=== PATIENT | female | born 1990 | race Caucasian/White ===

== ENCOUNTER → 2017-08-09 12:09 | Outpatient (CLI) | payer BC, MEDICAID, SELFPAY ==
--- NOTE | 2017-08-09 12:18 | US_ITS ---
STUDY: ULTRASOUND OF THE FEMALE PELVIS - COMPLETE REASON FOR EXAM: Female, 26 years old. Pelvic pain LMP: Not stated TECHNIQUE: Transabdominal and Transvaginal real-time exam with agosto scale image documentation. TECHNICAL QUALITY: Adequate. COMPARISON: None. FINDINGS: The uterus is anteverted and is in a midline position. The uterus measures 8.1 x 5.7 x 4.1 cm. Complex cystic area in the lower uterine segment cervix consistent with nabothian cyst. This measures 9 x 6 x 6 mm. The endometrium measures 2.8 mm in thickness, and is hyperechoic. There is no demonstrated endometrial mass. There is no demonstrated myometrial mass. I.U.D. - The patient does not have an I.U.D. The right ovary is visualized. The right ovary measures 3.4 x 2.5 x 2.2 cm. There is no right ovarian cyst or ovarian mass. There is no visualized right adnexal mass or complex lesion. There is normal arterial and normal venous vascularity. The left ovary is visualized. The left ovary measures 2.4 x 1.9 x 1.5 cm. There is no left ovarian cyst or ovarian mass. There is no visualized left adnexal mass or complex lesion. There is normal arterial and normal venous vascularity. There is no fluid in the cul-de-sac. Unremarkable urinary bladder. Polycystic ovary disease: No. US/Pelvic (Non ) IMPRESSION: 9 x 6 x 6 complex nabothian cyst of the lower uterine segment/cervix. Otherwise normal uterus. Normal ovaries bilaterally with normal Doppler flow. Negative for adnexal masses or free fluid. Electronically Signed: Pastoar Leon MD at 23:56 EDT , Service support ,
--- NOTE | 2017-08-09 12:18 | US_ITS ---
STUDY: ULTRASOUND OF THE FEMALE PELVIS - COMPLETE REASON FOR EXAM: Female, 26 years old. Pelvic pain LMP: Not stated TECHNIQUE: Transabdominal and Transvaginal real-time exam with agsoto scale image documentation. TECHNICAL QUALITY: Adequate. COMPARISON: None. FINDINGS: The uterus is anteverted and is in a midline position. The uterus measures 8.1 x 5.7 x 4.1 cm. Complex cystic area in the lower uterine segment cervix consistent with nabothian cyst. This measures 9 x 6 x 6 mm. The endometrium measures 2.8 mm in thickness, and is hyperechoic. There is no demonstrated endometrial mass. There is no demonstrated myometrial mass. I.U.D. - The patient does not have an I.U.D. The right ovary is visualized. The right ovary measures 3.4 x 2.5 x 2.2 cm. There is no right ovarian cyst or ovarian mass. There is no visualized right adnexal mass or complex lesion. There is normal arterial and normal venous vascularity. The left ovary is visualized. The left ovary measures 2.4 x 1.9 x 1.5 cm. There is no left ovarian cyst or ovarian mass. There is no visualized left adnexal mass or complex lesion. There is normal arterial and normal venous vascularity. There is no fluid in the cul-de-sac. Unremarkable urinary bladder. Polycystic ovary disease: No. US/Transvaginal Non- IMPRESSION: 9 x 6 x 6 complex nabothian cyst of the lower uterine segment/cervix. Otherwise normal uterus. Normal ovaries bilaterally with normal Doppler flow. Negative for adnexal masses or free fluid. Electronically Signed: Pastora Leon MD at 23:56 EDT , Service support ,
== END ==
PROVIDERS: Family Provider Student in an Organized Health Care Education/Training Program; PCP Student in an Organized Health Care Education/Training Program; Visit Provider Obstetrics & Gynecology
DX: N94.6 Dysmenorrhea, unspecified (principal)
CPT/HCPCS: 76830; 76856; 93976

== ENCOUNTER → 2017-12-03 18:20 | Outpatient (CLI) | payer BC, MEDICAID, SELFPAY | PROVIDERS: Family Provider Student in an Organized Health Care Education/Training Program; PCP Student in an Organized Health Care Education/Training Program; Visit Provider Obstetrics & Gynecology | DX: R39.15 Urgency of urination (principal) | CPT/HCPCS: 87086 ==

== ENCOUNTER → 2018-09-09 17:47 | Outpatient (CLI) | payer MEDICAID, SELFPAY ==
[2018-09-09 11:16] VITALS: BMI 27.1
[2018-09-09 20:29] LABS: Chlamydia Trachomatis by PCR Negative (Negative); Neisserai gonorrhoeae by PCR Negative (Negative); Probe Check PASS; Sample Adequacy Control PASS; Specimen Processing Control PASS
[2018-09-16 16:40] LABS: HPV Reflexed? NOT INDICATED
== END ==
PROVIDERS: Family Provider Student in an Organized Health Care Education/Training Program; PCP Student in an Organized Health Care Education/Training Program; Referring Provider Obstetrics & Gynecology; Visit Provider Obstetrics & Gynecology
DX: Z12.4 Encounter for screening for malignant neoplasm of cervix (principal); Z11.3 Encounter for screening for infections with a predominantly sexual mode of transmission
CPT/HCPCS: 87491; 87591; 87624; 88175; G0145

== ENCOUNTER → 2018-09-19 | Outpatient (CLI) | payer MEDICAID, SELFPAY ==
[2018-09-19 10:11] VITALS: BMI 27.1
== END | disposition home or self-care (01) ==
LOC: LABSPEC 17:05
PROVIDERS: Family Provider Student in an Organized Health Care Education/Training Program; PCP Student in an Organized Health Care Education/Training Program; Referring Provider Nurse Practitioner Women's Health; Visit Provider Nurse Practitioner Women's Health
DX: N39.0 Urinary tract infection, site not specified (principal)
CPT/HCPCS: 87086

== ENCOUNTER → 2019-02-23 | Outpatient (CLI) | payer MEDICAID, SELFPAY ==
[2019-02-23 14:48] VITALS: BMI 21.4
[2019-02-23 17:03] LABS: Estradiol 83.2 pg/mL; Follicle Stimulating Hormone 6.2 mIU/mL; Prolactin 7.5 ng/mL
[2019-02-26 05:07] LABS: DHEA Sulfate 94.1 ug/dL (84.8-378.0)
[2019-02-26 15:27] LABS: Testosterone Free 1.3 pg/mL (0.0-4.2)
[2019-02-27 12:42] LABS: 17-Hydroxyprogesterone 95 ng/dL (.)
== END | disposition home or self-care (01) ==
PROVIDERS: Family Provider Student in an Organized Health Care Education/Training Program; PCP Student in an Organized Health Care Education/Training Program; Referring Provider Obstetrics & Gynecology; Visit Provider Obstetrics & Gynecology
DX: E28.2 Polycystic ovarian syndrome (principal)
CPT/HCPCS: 36415; 82627; 82670; 83001; 83498; 84146; 84402; 82626

== ENCOUNTER 2019-10-23 09:00 | Outpatient (RCR) | payer MEDICAID, SELFPAY ==
[2019-10-19 13:04] VITALS: BMI 21.4
--- NOTE | 2019-10-23 09:10 | BH.SGPN.GN ---
Behaviors/Verbalizations/Mental Status: [] Eye contact is good. Motor activity is appropriate. Appearance is casual. Speech is Appropriate. Mood is anxious. Affect is congruent. Thoughts are linear and logical. No evidence of psychosis. Reviewed daily check in sheet and no reports of suicidal ideations or intent. Client Response/Progress/Benefit: [] Pt participated at times in group discussion on fear, anger, and healthy ways to express these emotions. Shared with the group that this is her first day in IOP. Reports increase in anxiety which has led to frequent panic attacks. Fear related to COVID and how it might impact her and her family. In discussion states I don't know any ways to manger my anger in a healthy way. Attentive. No progress noted as this was her first day in IOP. Will continue in IOP to prevent decompensation, increase skills, and stabilize anxiety. Narrative Note: []
--- NOTE | 2019-10-23 10:10 | BH.SGPN.GN ---
Behaviors/Verbalizations/Mental Status: [] Client alert and oriented, casually dressed and groomed. Eye contact good. Motor activity appropriate. Speech within normal limits, quiet. Affect congruent, mood anxious and depressed. Thoughts linear, logical, no signs of hallucinations or delusions. Client Response/Progress/Benefit: []Pt new to IOP program however did well to remain attentive as well as engaged in discussion and activity. Client discussed the quote and provided input that by not communicating our emotions, we are not able to our needs get met or problems are solved. Client helped group identify barriers that impact one?s ability to communicate when emotions are high. These barriers included; shutting down, lack of self-care, irritability, fear of reactions, and distorted thinking patterns. Client reported fear of other?s reactions can keep her from communicating when she feels strong emotions. Client participated in the challenge activity and did well to take on active participant role as well as manage emotions throughout. Client appeared to benefit from increasing awareness of how emotions can impact communication and practicing in the moment coping skills. Progress limited as it is pt?s first day in program, however she did well to remain engaged throughout. Client will continue IOP tx to further decrease depression, improve coping skill application, and improve daily functioning. Narrative Note: []
--- NOTE | 2019-10-23 11:10 | BH.SGPN.GN ---
Behaviors/Verbalizations/Mental Status: []Client alert and oriented, casually dressed and groomed. Eye contact good. Motor activity appropriate. Speech within normal limits. Affect unable to gather due to wearing a mask for COVID-19 protocol, mood anxious. Thoughts linear, logical, no signs of hallucinations or delusions. Client Response/Progress/Benefit: []Client engaged in session AEB client listening attentively to peers and providing insight to discussion. Attentive during psychoeducation on 4 zones of regulation. Client able to identify feelings and behaviors for each zone. Group identified coping skills one can use to support self in each zone which included: walking, mindfulness, deep breathing, music, talking to supports, and opposite action. Client stated belief that she is in a mixture of zones today. Client stated at the beginning of the week she was in the red zone and in the middle of the week she was in the blue zone. Client reports she is feeling tired and uneasy about her symptoms earlier this week, but she is beginning to finally start to feel better. Client reports she can benefit from eating a healthy meal today and getting some rest. Benefited from increased education on zones of regulation or stages of alertness for emotions and healthy coping skills to use for each zone. Will continue IOP tx to prevent decompensation of depressive symptoms, improve mood stability, and reinforce healthy coping skills. Narrative Note: []
--- NOTE | 2019-10-23 14:30 | BH.COMM ---
Communication Note - Communication with Client Communication Note: Met with pt to complete initial paperwork and [facility] suicide risk screening. No Significant changes since pre-admission screening. Low risk for suicide. Denies history of any active SI, plan, or intent. Protective factors. Future-oriented. Pt denies any history of suicide attempts or self-harming behaviors. 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 Pt. states these weapons are locked up and safe.
--- NOTE | 2019-10-26 09:05 | BH.SGPN.GN ---
Behaviors/Verbalizations/Mental Status: [] Client alert and oriented, casual dress. Eye contact fair, often looking down or away. Motor activity appropriate. Client opted not to share today therefore unable to gather speech. Affect unable to gather due to client wearing a mask for COVID-19 protocol, mood anxious. Thoughts linear, logical, no signs of hallucinations or delusions. Reviewed client?s symptom tracker, no signs of suicidal ideation, plan, or intent as of today. Client Response/Progress/Benefit: []Pt attentive during session and appearing to listen throughout, AEB nodding while others shared. Reports that she would prefer not to share today and did not elaborate any further as to why. Pt self-reported on the daily symptom tracker increased anxiety. Appeared to benefit from listening to fellow participants share and appeared to connect with various members of the group. Progress limited due to pt minimal engagement. Will continue IOP tx to promote more consistent mood stability and management, improve daily functioning, and prevent decompensation. Narrative Note: []
--- NOTE | 2019-10-26 11:16 | BH.SGPN.GN ---
Behaviors/Verbalizations/Mental Status: []Client alert and oriented, casually dressed and groomed. Eye contact good. Motor activity appropriate. Speech within normal limits. Affect unable to gather due to client wearing a mask for COVID-19 protocol, mood anxious. Thoughts linear, logical, no signs of hallucinations or delusions. Client Response/Progress/Benefit: []Client engaged participant as evidenced by client taking notes and listening attentively to peers. Client participated in the discussion of how each resiliency component can help increase personal resiliency. Client identified resiliency traits she currently possesses and then identified what trait she would like to improve. Client reports belief she has been using the resiliency traits of self-awareness and self-care. Client shared she is much more aware of her warning signs and triggers now than she was in the past. Client reported she wants to improve on the resiliency trait of acceptance. Client shared ?I?m a creature of habit? so client does not like change. Client stated she can remind herself that not all change is bad and practice looking at the positives when faced with change. Client appeared to benefit from increasing insight to ways in which client can improve resilience to adversity and daily stressors. Client to continue IOP tx to prevent decompensation, improve emotional regulation skills, and reduce anxiety. Narrative Note: []
--- NOTE | 2019-10-27 11:16 | BH.SGPN.GN ---
Behaviors/Verbalizations/Mental Status: []Client alert and oriented, casually dressed and groomed. Eye contact fair. Motor activity appropriate. Speech within normal limits. Affect constricted, though difficult to assess as pt wearing a mask due to COVID-19 hospital protocol, mood depressed and anxious. Thoughts linear, logical, no signs of hallucinations or delusions. Client Response/Progress/Benefit: [] Client a mostly passive participant AEB contributing limited input to discussion, though remaining attentive and taking notes throughout. Client actively listening group discussion about the different types of support and benefits different support can provide. Client completed worksheet in which she identified areas she would like to increase social support. Identified the area of personal mental health support by challenging herself to reach out to potential new supports. Client shared this will help improve her support net and have more options of supports to lean on when struggling. Client seemed to benefit from identifying a type of support she would like to improve upon and brainstorming small steps to take in order to successfully do so. Progress limited AEB client lack of engagement in IOP treatment. Client to continue IOP tx to increase symptom management, improve healthy coping skills, and increase mood stability. Narrative Note: []
--- NOTE | 2019-10-27 13:53 | BH.MDN_ITS ---
Multi-Disciplinary Note - Note 45-min Individual Time Started:: 09:32 Date: 10/27/19 Purpose of session/treatment goals addressed:: Purpose of session was to assess pt's current symptoms and stressors. Session focus was on establishing treatment goals while in IOP. Eye Contact:: Good Motor Activity:: Appropriate Appearance:: Casual Speech:: Appropriate Mood:: Anxious, Dysthymic Affect:: Other - could not be assessed due to pt wearing a mask because of coronavirus precautions. Thoughts:: Linear, Logical, No evidence of hallucinations/delusions noted Staff Interventions:: Therapist used open ended questions to elicit pt's current symptoms and stressors. Therapist collaborated with pt on what goals pt would like to focus on while in IOP. Therapist provided brief psychoeducation about importance of setting boundaries with others so pt has time for self-care. Elicited small goal for the rest of the week. Client Response:: Pt reported she wants to have steady footing again. Pt stated I never know what the day is going to bring. Pt reported she absorbs her parents stress which she stated puts her into a bad mood. Pt stated she has noticed she will get more agitated with others. Pt stated she has been struggling since her mom was diagnosed with cancer for the second time early 2019. 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 pt stated she also has more anxiety since coronavirus because worried her mom whom has a compromised immune system will get the virus. Pt reported she engages in precautions when in public so she does everything she can to not pass the virus to her mom. Pt stated additional stressor is not getting the same relaxation as she used to from going to yoga classes as she did prior to coronavirus. Pt reported since her yoga studio reopened there are many precautions to protect against coronavirus that now makes yoga not as social and relaxing. Pt did not respond well to idea of initiating a socially distanced hangout prior to yoga class with some of her friends; gave reasons why that wouldn't work. Pt state she hasn't made it to as many classes as she used to because her brother will not always picker machine operator her nephew that she is watching on time. Pt stated she struggles with setting boundaries. Seemed to recognize the negative impact of not setting boundaries. Pt did not indicate desire to work on improving her boundaries despite knowing lack of boundaries is impacting her mental health. Pt stated while in IOP she would like to work on learning new ways to cope with her anxiety. Pt reported yoga helps, but knows she needs additional ways to manage her anxiety. 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 Pt stated currently doesn't have mental strength to challenge any of her anxious thoughts. Agreeable for homework to attend yoga class at least three more times this week. Risks/Concerns:: Denies current suicidal ideation, plan or intention to date. Progress Toward Goals/Plan:: No progress noted given it is pt's first week in the program. Session focused on gathering background information and discussing treatment goals while in IOP. Pt to continue IOP to increase healthy coping, improve daily functioning, and prevent decompensation. Time Stopped:: 10:14
--- NOTE | 2019-10-27 15:25 | BH.MDN ---
Multi-Disciplinary Note - Note 45-min Individual Time Started:: 09:32 Date: 10/27/19 Time Stopped:: 10:14
--- NOTE | 2019-10-27 16:27 | BH.MTP_ITS ---
Master Treatment Plan - Patient Information Program Physician:: Dr. Callaway Primary Therapist:: Valery Yost [facility] - Psychiatric Diagnoses Psychiatric Diagnoses:: Major depressive disorder, recurrent, moderate; panic disorder; history of PTSD Diagnosis Code(s):: F33.1 - Estimated LOS Estimated LOS (in weeks):: 6 Problem/Goal #1 - Problem/Goal #1 Stated Goal:: Client will reduce depressive symptoms and anhedonia due to Major Depressive Disorder through Intensive Outpatient Program. Description of Barriers: Pt's distorted thoughts, limited support, and limited internal healthy coping skills. Functional Impact: Currently MH symptoms are interfering with her abilty to function in social setting, with family, and inability to maintain a job. - Objectives Objective #1 Stated Objective: Client will learn and utilize 2-3 healthy coping strategies to manage mental health symptoms. Interventions: Therapist will help client develop insight into his mental health triggers and help her find strategies to help manage depressive symptoms. Discharge Criteria: Client will have met this goal when can use at least 2 healthy coping strategies that effectively manage depressive symptoms. Target Date: 12/04/19 Review Date: 11/20/19 Objective #2 Stated Objective: Pt will decrease depressive symptoms AEB pt?s score on the DSM 5 cross-cutting measure and improve pt?s daily functioning. Interventions: Through groups and individual therapy, pt will be provided with education on cognitive distortions, mistaken beliefs, and identifying and combating negative self-talk. Therapist will assist pt with getting back into the activities she once enjoyed as well as increasing healthy coping strategies. Discharge Criteria: Pt will have met this goal when pt?s score on the DSM 5 cross cutting measure for depression has been decreased and per pt?s report daily functioning has improved. Target Date: 12/04/19 Review Date: 11/20/19 Problem/Goal #2 - Problem/Goal #2 Stated Goal:: Stabilize anxiety level while increasing ability to function on daily basis. Description of Barriers: Pt's distorted thoughts, limited support, and limited internal healthy coping skills. Functional Impact: Currently MH symptoms are interfering with her abilty to function in social setting, with family, and inability to maintain a job. - Objectives Objective #1 Stated Objective: Client will learn and implement 2-3 calming skills to reduce overall anxiety and manage anxiety symptoms.?? Interventions: Therapist will teach client calming/relaxation skills and how to apply these skills to everyday life.? Discharge Criteria: Client will have achieved this goal when can verbalize at least 2 calming strategies and have practiced techniques to help reduce anxiety. Target Date: 12/04/19 Review Date: 11/20/19 Objective #2 Stated Objective: Pt will decrease anxious symptoms AEB pt?s score on the DSM 5 cross-cutting measure improve pt?s daily functioning. Interventions: Through groups and individual therapy, pt will be provided education about anxiety?s impact on body and common physiological reaction to anxiety. Therapist will teach pt appropriate breathing techniques and build healthy coping skills to manage daily anxieties. Discharge Criteria: Pt will have met this goal when pt?s score on the DSM 5 cross cutting measure for anxiety has been decreased and per pt?s report daily functioning has improved. Target Date: 12/04/19 Review Date: 11/20/19
--- NOTE | 2019-10-28 09:01 | BH.NA_ITS ---
Physical Data - Vital Signs Pulse Rate: 64 Blood Pressure: 133/74 - Height/Weight Height: 1.68 m Weight:: 63.049 kg - stated Weight in Pounds: 139.0 lbs Nutritional History - Appetite Nutritional Instructions:: If client shows signs of a swallowing problem, weight change of 10 pounds or more in the last month, or is on a diabetic diet, the physician will review and request a dietitian consult, as appropriate. All unintentional weight loss will be referred to the physician for decision on need for dietitian consult. Describe your appetite:: Good Have you noticed a change in your eating habits lately?: No Functional Assessment - Sleep Pattern Describe any problems with sleeping: Client states that her sleep is not good. Client states that she is getting an average of 7 hours per night but is sometimes broken. Client states that she is having nightmares and her watch is telling her she is not getting enough REM sleep. - Activities Motor Activity:: Functional Sensory/Communication Assess - Communication Problems Do you have difficulty understanding what people are saying?: No Medical Problems/History - Metabolic Conditions Metabolic: Other (See comments) - Client states Thyroiditis a few years ago but currently under control - Musculoskeletal Conditions Musculoskeletal: Other (See comments) - Client state LE pain and currently receiving Dry Needling by PT Once a week x4 seesions. Just completed the second session. - Family History Family History: Family History (Last Reviewed 10/19/19 @ 08:40 by Valery Camarillo) Brother Asthma Mother Breast cancer - Additional History Additional comments:: Client states h/o Depression, Panic disorder Surgical History - Surgical History Have you had any surgeries? If so, list type and date:: Yes - Right index finger, [place] teeth, Breast biopsy Substance Abuse - Substance Abuse Please describe substance abuse in the last 30 days:: Client denies past or current alcohol use. Client denies past or current alcohol use. Client denies past or current substance use. Client states does not drink caffiene but states she will occasionally have a Pop to drink. Mental Status Summary - Mental Status Significant Findings/Observations on Appearance and Mood:: Client is alert and oriented x4. Client is casually groomed. Client is cooperative with assessment, makes good eye contact during conversation. Client's speech with normal rate and volume, coherent and spontaneous. Client appears mildly anxious during a ssessment. Client makes logical associations, normal processing. Client appears to have good insight and judgement. Client denies delusions and hallucinations, none evident. Suicide Assessment - Suicidal Ideation Are you currently or have you been suicidal in the past?: Yes - Client denies current SI/HI Suicidal Intentional Rating Scale (SIRS): Suicidal thoughts (past) Physician Notification: If Active suicidal thoughts/Will not contract for safety is checked, contact physician and document in the Physician Notification section below. Past Psychiatric History - MH Treatment Hx Past Psychiatric Medications:: Client states that she has been on past medications for mental health but cannot recall the names. Age of first mental health symptoms: Client states that she was approximately 16yo when diagnosed with mental health condition. Describe (age, circumstance, etc) any past hospitalizations: Client states that she was hospitalized at 19yo at [facility] for mental health. Client states last psych hospitalization was in 2017 at [facility] but it ended up being d/t her thyroiditis. Current providers for mental health treatment (counselor, psychiatrist, outpatient case manager, etc.): Client states psychiatrist is Dr Richardson and therapist is Dr Burns. Fall Risk Assessment - Age Age: Less than 60 - Mental Status Mental Status: Willing & able to ask for assistance when needed - Physical Status Physical Status: No problems - Impairments Impairments: None - Elimination Elimination: Continent AND independent - Gait or Balance Gait or Balance: Walks independently - Hx of Falls History of falls in the past 6 months: No known history - Medications/Substances Psychotropics:: Antidepressants, Antipsychotics, Anxiolytics (e.g. benzodiazepines), Anticholinergics (e.g. benztropine), Antihistamines (e.g. Benadryl) Medications/substances used within the past 24 hours or ordered to administer: 3 or more of the medications/substances listed above - Total Score Total Points:: 2 RN Summary of Impressions - Impressions Recommendations: Include psychiatric and medical issues, treatment planning recommendations, and discharge planning needs. Impressions: Psychiatric Issues: Major depressive disorder, recurrent, moderate; panic disorder; history of PTSD - Level of Care How do the client's current symptoms and functional deficits support need for this level of care?: Client details onset of current episode, stating it started getting worse Saturday (one week and 2days ago) when she had a panic attack. Client states that she believes that her anxiety built up and it evolved into a Panic attack. Client states that she had a panic attack last night. 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 Client states that she lives with her parents, her mother was just diagnosed for the second time with breast cancer- last time was 14years ago, had surgery and now receiving chemo and radiation. Client states at the same time her grandfather was diagnosed to with cancer and had surgery but is currently doing fine. Client states that her anxiety and panic attacks have worsened. IOP will promote gains and prevent further decompensation while providing social support and skills training.
[2019-10-28 09:59] VITALS: BP 133/74; PULSE 64
== END 2019-10-27 23:59 ==
LOC: BHIOP 09:00
PROVIDERS: PCP Student in an Organized Health Care Education/Training Program; Referring Provider Psychiatry & Neurology Psychiatry; Visit Provider Psychiatry & Neurology Psychiatry
DX: F33.1 Major depressive disorder, recurrent, moderate (principal); F43.10 Post-traumatic stress disorder, unspecified
CPT/HCPCS: H0035; H2012; H2020; 90834

== ENCOUNTER 2019-10-28 09:00 | Outpatient (RCR) | payer MEDICAID, SELFPAY ==
[2019-10-19 13:04] VITALS: BMI 21.4
--- NOTE | 2019-10-28 10:22 | BH.SGPN.GN ---
Behaviors/Verbalizations/Mental Status: []Client alert and oriented, casual dress, hygiene tended to. Eye contact fair Motor activity appropriate. Speech within normal limits. Affect unable to gather due to wearing a mask for COVID-19 protocol, mood anxious and dysthymic. Thoughts linear, logical, no signs of hallucinations or delusions. Client Response/Progress/Benefit: []Client responded well to session, attentive and contributing during discussion. Client worked cooperatively with the group to identify factors that contribute to how we define ourselves which included: upbringing, societal expectations, our abilities, accomplishments, failures, education, and how others view us. Client reported that she has experienced the impacts of mental health stigma. Client shared she has been called ?flakey? and felt like she has to hide her mental health from others. Client worked with group to identify that stigma can keep people from: connecting with others, being open with others, going after a job or goals, and asking for help. Client seemed to benefit from increased awareness of how mental health stigma can impact progress. Client to continue IOP tx prevent decompensation of anxiety symptoms, improve use of healthy coping skills, and improve daily functioning. Narrative Note: []
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
--- NOTE | 2019-10-28 13:38 | BH.DR.ITP ---
Initial Treatment Plan - Patient Information Visit Information: ADMISSION DATE: EXPECTED LOS: 4-6 weeks - Problems/Symptoms Problem #1:: Depression Symptom:: sadness, anhedonia, biological disruption of sleep Problem #2:: Anxiety Symptom:: worry, panic attacks, avoidance, rumination
--- NOTE | 2019-11-02 14:26 | BH.MDN ---
Multi-Disciplinary Note - Note 60-min Individual Time Started:: 11:22 Date: 11/02/19 Time Stopped:: 12:22
--- NOTE | 2019-11-02 14:56 | BH.MDN ---
Multi-Disciplinary Note - Note 60-min Individual Time Started:: 11:22 Date: 11/02/19 Purpose of session/treatment goals addressed:: Purpose of session was to assess pt's current symptoms and stressors. Also focused on identifying strategies to help pt increase being her authentic self. Discussed increasing self-care. Eye Contact:: Fair Motor Activity:: Appropriate Appearance:: Casual Speech:: Appropriate Mood:: Anxious, Depressed Affect:: Other - could not assess due to patient wearing a mask because of COVID-19 precautions. Thoughts:: Linear, Logical, No evidence of hallucinations/delusions noted Staff Interventions:: Therapist used open ended questions to elicit pt's current symptoms and stressors. Reviewed homework from last session. Therapist elicited pt's view of her authentic self. Discussed with pt barriers to her being authentic self and strategies to increase her being authentic self around family. Discussed importance of self-care and provided pt with self-care wheel that list examples of self-care activitiies. Provided psychoeducation about anxiety and ineffectiveness of reassurance seeking. Client Response:: Pt reported she did accomplish her goal of going to yoga three more times last week. Pt stated yoga is starting to feeling more relaxing compared to when she first went back following covid-19. Pt reported she continues to feel stuck with being emotionally shut off. Stated her anxity and panic attacks is how all of her emotions manifest. Pt expressed frustration with not being able to express herself or feel all of her emotions. Pt stated she is unable to be her authentic self while at home. Pt reported her authentic self is her being playful instead of serious all the time. pt sstated she likes to be happy, sassy, joke around with others, and silly. Pt reported her family is always serious and focused on work. Pt stated she feel slike she can't be her authentic self around her family because she will be judged by them. Stated she also has to be emotionally guarded while at home. Pt listened to ideas about starting to be more of herself around her family, but stated she didn't think she could try any of the strategies. Pt reported she just doesn't want to be judged by her family and they are stuck in their ways. Pt agreed engaging in more self-care activities and increasing other coping skills besides yoga could be helpful for her to manage anxiety. At end of session pt sought reassurance from therapist about thinking she said stupid things to therapist previously. Pt struggled with sitting with the uncomfortable after therapist provided education about how reassurance seeking intensifies anxiety. Pt agreeable to complete self-care wheel by identifying various self-care activities she is willing to engage in. Risks/Concerns:: denies suicidal ideation, plan or intention to date. Progress Toward Goals/Plan:: Progress noted with pt continuing to attend yoga sessions to increase her relaxation and decrease anxiety. Pt's progress could be hindered if pt continues to identify how varoius skills or strategies will not be helpful to her. Pt expresses wanting to feel better, but struggles with being willing to try new ways of coping. Pt to continue IOP to increase healthy coping, challenge distorted thoughts and prevent decompensation. Time Stopped:: 12:22
--- NOTE | 2019-11-03 09:00 | BH.SGPN.GN ---
Behaviors/Verbalizations/Mental Status: [] Client alert and oriented, casual dress. Eye contact fair to good. Motor activity appropriate, pt body language closed and she was sitting with knees tucked in on chair. Speech quiet, limited input provided. Mood anxious and dysthymic. Affect unable to gather due to client wearing mask per [address] guidelines. Thoughts linear, logical, no signs of hallucinations or delusions. Reviewed client?s symptom tracker, no signs of suicidal ideation, plan, or intent as of today. Client Response/Progress/Benefit: [] Pt responded well to session, remained mostly passive though actively listening throughout. Reports feeling unnerved today as she has been struggling with increased anxiety since yesterday afternoon. Client shared that she felt group was a lot for her yesterday and resulted in pt feeling confused and anxious. She indicated that she was able to distract herself during some appointments but after returning home for the evening continued to struggle and ended up going to bed around 6:30 pm as a result. Struggled to identify any positives in her day however did note that she continues to be motivated to improve her mental health which is what encouraged her to return to group today. Progress limited as pt continues to report anxiety and depression impacting her ability to function at baseline, though struggles in consistent application of anxiety management skills. Will continue IOP tx to increase coping skills that promote mood stability, improve daily functioning, and reduce intensity of symptoms. Narrative Note: []
--- NOTE | 2019-11-03 11:22 | BH.SGPN.GN ---
Behaviors/Verbalizations/Mental Status: []Client alert and oriented, neatly dressed and groomed. Eye contact good. Motor activity appropriate. Speech within normal limits. Affect unable to gather due to wearing a mask for COVID-19 protocol, mood anxious and depressed. Thoughts linear, logical, no signs of hallucinations or delusions. Client Response/Progress/Benefit: []Client was an active participant in group discussion and activity. Engaged during activity and receptive to ideas on how to cope with internal barriers that keep clients stuck from moving towards goals. Barriers identified by the group included: fear of the unknown, not knowing what skills to use, poor boundaries, low motivation, and negative thinking. Strategies identified for overcoming these barriers included: deep breathing, affirmations, reaching out to supports, thought challenging, opposite action, and positive self-talk. Client reported she wants to work on overcoming her barrier of feeling like she has to be two people at once. Client shared she plans to do this by setting boundaries with her supports when she cannot do something. Benefited from group by identifying obstacles and solutions to desired reality. Progress noted in client?s increased self-awareness of barriers. Will continue IOP tx to prevent decompensation, improve mood stability, and reduce intensity of anxiety. Narrative Note: []
--- NOTE | 2019-11-06 09:00 | BH.SGPN.GN ---
Behaviors/Verbalizations/Mental Status: []Client alert and oriented, neatly dressed and groomed. Eye contact fair. Motor activity appropriate. Speech within normal limits. Affect unable to gather due to wearing a mask for COVID-19 protocol, mood dysthymic. Thoughts linear, logical, no signs of hallucinations or delusions. Reviewed client?s symptom tracker, no risk for suicidal ideation, plan, or intent as of 11/06/19. Client Response/Progress/Benefit: []Client responded well to session, attentive and receptive to feedback. Client reports feeling good but a little jumpy today. 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 Client reported her game plan from last session was to set boundaries with babysitting and client shared she had a talk with her mother about this. Client reported lately her anxiety has been increased, so client has been trying to practice grounding techniques to calm herself down. Appeared to benefit from reflecting on application of healthy coping skills. Will continue IOP tx to prevent decompensation, improve the use of healthy coping skills, and increase mood stability. Narrative Note: []
--- NOTE | 2019-11-06 10:03 | BH.SGPN.GN ---
Behaviors/Verbalizations/Mental Status: []Client alert and oriented, casual dress, hygiene tended to. Eye contact fair. Motor activity appropriate. Speech within normal limits. Affect could not be assessed due to pt wearing a face mask as precaution against coronavirus. mood dsthymic and anxious. Thoughts linear, logical, no signs of hallucinations or delusions. Client Response/Progress/Benefit: []Pt mostly passive participant AEB pt providing limited input during discussion however appeared to listen attentively to peers and taking notes throughout. When discussing quote pt stated it's not only important to set boundaries with others but it's also important to respect other's boundaries. Group identified boundaries can impact the following: how much someone takes advantage of you, either bring people closer or push people away, keep us safe, reduce the risk of peer pressure, impact positive or negative self-worth. Progress could be hindered by pt?s continued passive participation during group sessions. Will continue IOP tx to decrease anxious thoughts, challenge negative and distorted thoughts and prevent decompensation. Narrative Note: []
--- NOTE | 2019-11-06 11:05 | BH.SGPN.GN ---
Behaviors/Verbalizations/Mental Status: [] Client alert and oriented, casually dressed. Eye contact fair, avoidant at times. Motor activity appropriate. Speech within normal limits, limited input, quiet. Affect constricted, mood anxious and depressed. Thoughts linear, logical, no signs of hallucinations or delusions. Client Response/Progress/Benefit: []Client responded well to session, actively listening to discussion and taking notes, though provided limited vermal input throughout. Client engaged in the boundary self-assessment activity and attentive during processing discussion, however declined to share her own insights on her personal boundary setting skills. Client attentive during psychoeducation on the boundary setting styles and taking notes, however again declined to share boundary setting styles. Client limited engagement in group continues to impact ability to make personal connections and challenge perspective which may impede progress moving forward. Will continue IOP tx to promote use of healthy coping skills, further decrease symptoms, and improve functioning. Narrative Note: []
--- NOTE | 2019-11-09 10:12 | BH.SGPN.GN ---
Behaviors/Verbalizations/Mental Status: []Client alert and oriented, casually dressed. Eye contact fair. Motor activity appropriate. Speech within normal limits. Affect could not be assessed due to pt wearing a mask as a precaution during the Covid-19 pandemic. Mood dysthymic. Thoughts linear, logical, no signs of hallucinations or delusions. Client Response/Progress/Benefit: []Pt receptive to session, listening attentively to others and providing input when elicited by therapist. Appeared to listen as the group brainstormed the positive and negative aspects of stress on physical and mental health. Group worked together to define stress and provided input during discussion about eustress vs distress. Client identified her stressors include: worried mom will get coronavirus, fear of what others think of her, having no routine because of coronavirus, health problems, and craving human touch. Client states when she is overwhelmed with stress feels panic attack. Seemed to benefit from increased awareness of her current stressors and impact of too much stress on the mind and body. Recommended to continue IOP tx to increase healthy skill application, challenge distorted thoughts, and prevent decompensation. Narrative Note: []
--- NOTE | 2019-11-09 11:21 | BH.SGPN.GN ---
Behaviors/Verbalizations/Mental Status: []Client alert and oriented, casually dressed and groomed. Eye contact good, at times intense. Motor activity appropriate. Speech within normal limits. Affect unable to gather due to wearing a mask for COVID-19 protocol, mood dysthymic, anxious. Thoughts linear, logical, no signs of hallucinations or delusions. Client Response/Progress/Benefit: []Pt engaged in session as evidenced by listening attentively to others and taking notes. She provided some input throughout, though remaining mostly passive. Pt attentive during discussion about the 4 A's and discussed strategies for practicing each. Appeared to experience some difficulties in connecting back to her own life AEB pt not identifying a skill for managing one of her current identified stressors. Pt declined help from the group however when it was offered. Pt seemed to benefit from increased awareness of the impact of stress on mental health and review of stress management strategies. Progress continues to be impacted by pt?s ongoing difficulties in engagement in the IOP group setting which may be impacting ability to apply skills learned to daily life. Will continue IOP tx to promote use of healthy coping skills, continue to reduce anxiety and depression levels, and improve mood stability. Narrative Note: []
--- NOTE | 2019-11-09 15:32 | BH.MDN_ITS ---
Multi-Disciplinary Note - Note 45-min Individual Time Started:: 09:31 Date: 11/09/19 Purpose of session/treatment goals addressed:: The purpose of this session was to address client's current symptoms, stressors, and coping skills. Another goal was to discuss importance of balancing internal and external support, as well as begin discussing strategies for improving self-confidence. Eye Contact:: Good Motor Activity:: Appropriate Appearance:: Casual Speech:: Appropriate Mood:: Anxious, Dysthymic Affect:: Other - unable to gather due to client wearing a mask as a COVID-19 protocol. Thoughts:: Linear, Logical, No evidence of hallucinations/delusions noted Staff Interventions:: Therapist used active listening and open-ended questions to explore client's current symptoms, stressors, and coping skills. Therapist used empathic responses and supportive feedback as client discussed areas of current stress. Provided psychoeducation on internal vs. external supports and the impact of limited internal coping skills on client self-confidence and abili ty to manage mental health symptoms. Therapist used strength?s based approach to aid client in beginning to identify personal resilience factors and gave client homework to continue to identify internal characteristics/factors promoting positive self-esteem. Client Response:: Client responded well to session, open to meeting with therapist. Client reports she continues to feel optimistic about IOP treatment, but finds she is struggling to feel comfortable enough to openly share in the group environment. Expressed that she would like to be able to share more but does not know the other group members and therefore is too uncomfortable to do so. Willing to work on slowly beginning to share small amounts throughout each group session to build comfort levels. Went on to discuss primarily struggling with anxiety which has impacted self-confidence levels and resulted in client trying to ?numb? her emotions in an effort to avoid experiencing anxiety symptoms. Reports additionally struggling to adjust to not being able to rely on her supports as a primary means of support given current COVID-19 restrictions. Expressed that she is used to the comfort of physical contact such as hugs from friends and feels as though ?everything is different? since social distancing recommendations. Client shared additionally struggling now that she cannot arrive for yoga class early due to COVID-19 restrictions as she used to use this time to catch up with friends or relax and meditate. Went on to report feeling blindsided as one of her supports informed her they would be taking a break from the yoga studio. Client expressed feeling isolated and ?disconnected from people who are like me? as she noted she has several differing beliefs and values from her family whom she lives with. Client receptive to learning about internal vs. external supports and identified primarily relying on external support to cope. Unable to identify any coping mechanisms outside of yoga that she uses to manage anxiety, indicating ?I just lay in my bed and I?m done for the day?. Client receptive to identifying internal skills she has used in the past for homework, though reports beliefs she does not have any. Discussed the impacts of relying primarily on external support on one's overall self-confidence, ability to cope, and well-being. Client connected with feeling less confident, experiencing increased negative thoughts, and more ?emotionally weak? when she does not feel connected with outside supports. Additionally open to beginning to work on increasing internal coping and independence. Risks/Concerns:: Client denies any suicidal ideations, plan, or intent as of 11/05/19. Client denies any symptoms of hallucinations or delusions. Future oriented, protective factors noted. Progress Toward Goals/Plan:: Client reports enjoying the group setting; however, continues to struggle with engaging in the group setting which may impact overall ability to make consistent progress in challenging self-doubt and anxiety. Client continues to report significant difficulties in adjusting to COVID-19 restrictions which have impacted ability to connect with supports in person; however, upon further inquiry client reports she has not made efforts to connect with them distantly via telephone, video chat, ect. Client reports she is struggling to set boundaries with her mother and feels she does not connect well with her family which causes client increased stress at times. Shared feeling her needs are not being met or considered as a result. Additionally, client identified having limited to no internal means for coping and expressed some initial reluctance in working to improve upon this area. Though, with additional support was able to see importance of balanced internal and external supports. Will continue tx to prevent decompensation, reduce anxiety, and improve daily functioning. Time Stopped:: 10:18
--- NOTE | 2019-11-10 09:05 | BH.SGPN.GN ---
Behaviors/Verbalizations/Mental Status: [] Eye contact is good. Motor activity is appropriate. Appearance is casual. Speech is Appropriate. Mood is depressed. Affect is flat. Thoughts are linear and logical. No evidence of psychosis. Reviewed daily check in sheet and no reports of suicidal ideations or intent. Client Response/Progress/Benefit: [] Pt did not participate in group discussions however was attentive. Pt declined to share or check-in during process group. Limited benefit noted however again was attentive. Will continue in IOP to maintain safety, prevent decompensation, and stabilize mood. Narrative Note: []
--- NOTE | 2019-11-10 10:15 | BH.SGPN.GN ---
Behaviors/Verbalizations/Mental Status: []Client alert and oriented, casual dress, hygiene tended to. Eye contact fair. Motor activity appropriate. Speech quiet. Affect unable to gather due to client wearing a mask for COVID protocol, mood dysthymic. Thoughts linear, logical, no signs of hallucinations or delusions. Client Response/Progress/Benefit: []Client responded mostly well to session, attentively listening, but declining to participate in discussion. Listened as group discussion defining conflict and the differences between internal and external conflict. Group reported the benefits of addressing conflict as well as identified and discussed consequences of not addressing conflict. Client attentive during psychoeducation of the different conflict resolution styles. Client declined to share her style with the group. Client has declined to share in previous groups and will continue to be encouraged to share in the future. Client?s limited verbal engagement in group setting may hinder progress. Will continue IOP tx to prevent decompensation, increase use of healthy coping skills, and improve interpersonal relationship skills. Narrative Note: []
--- NOTE | 2019-11-10 11:17 | BH.SGPN.GN ---
Behaviors/Verbalizations/Mental Status: [] Client alert and oriented, casually dressed and groomed. Eye contact fair to good. Motor activity appropriate. Speech within normal limits, quiet and limited input. Affect unable to gather due to wearing a mask for COVID-19 protocol, mood depressed and anxious. Thoughts linear, logical, no signs of hallucinations or delusions. Client Response/Progress/Benefit: [] Pt actively listening in session AEB taking notes throughout, though remaining more passive than in previous groups. Pt able to engage some during the activity in which participants were challenged to eliminate various items through group census. Continues to struggle with active group contribution. Client listening during process discussion identifying conflict resolution skills used to complete the task, as well as additional skills for better managing conflict in daily life. Appeared to benefit from psychoeducation regarding impact of conflict on mental health and relationships and working with group to identify healthy skills for conflict resolution. Pt however continues to decline to share in group and therefore declined to identify what conflict resolution skill she could use this week. Progress continues to be limited as pt struggles with skill application and internalization. Will continue IOP tx to promote use of healthy coping skills, continue to improve boundaries, and improve mood stability. Narrative Note: []
--- NOTE | 2019-11-13 09:01 | BH.SGPN.GN ---
Behaviors/Verbalizations/Mental Status: []Client alert and oriented, casual dress. Eye contact fair. Motor activity appropriate. Speech within normal limits. Mood depressed, anxious. Affect constricted, though difficult to gather due to client wearing mask per [address] guidelines. Thoughts linear, logical, no signs of hallucinations or delusions. Reviewed client?s symptom tracker, no signs of suicidal ideation, plan, or intent as of today. Client Response/Progress/Benefit: []Pt receptive of session, though continues to struggle to remain actively engaged throughout. Pt often sits in the corner of the room with her head down or hugging knees to chest and listens as others share. Pt is reluctant to provide feedback to fellow participants and often avoids speaking during session in general. Continues to decline to process with the group. Pt has indicated feeling anxious about sharing in group as she is concerned her problems are ?not as bad as everyone else?s? though struggles to apply the thought challenge skills reviewed in both individual and group settings. Difficulties engaging and limited skill application continues to impact pt ability to make consistent progress in treatment. Pt to continue IOP tx to increase application of coping skills which promote mood stability, improve symptoms management, and prevent decompensation. Narrative Note: []
--- NOTE | 2019-11-13 10:15 | BH.SGPN.GN ---
Behaviors/Verbalizations/Mental Status: []Client alert and oriented, neatly dressed and groomed. Eye contact fair. Motor activity appropriate. Speech within normal limits. Affect unable to gather due to wearing a mask for COVID-19 protocol, mood dysthymic. Thoughts linear, logical, no signs of hallucinations or delusions. Client Response/Progress/Benefit: []Client active participant in group AEB client contributing thoughts and ideas throughout session and listening attentively to peers. Group worked together to identify barriers to making changes or taking action in their lives which included: habits, negative mindset, fear of failure, negative thinking, lack of resources, and toxic people. Group also identified that even though there are barriers to change, change is important in order to improve mental health. Client identified areas she would like to take back control over in life to include: fear of panic, fear of disappointing others, and lack of self-esteem. Client shared these things are keeping client from being who she wants to be. Benefited from group through awareness of personal areas she wants to improve and benefits to taking action towards mental wellness. Will continue IOP tx decrease intensity of symptoms, increase social supports, and improve daily functioning. Narrative Note: []
--- NOTE | 2019-11-16 09:01 | BH.SGPN.GN ---
Behaviors/Verbalizations/Mental Status: []Client alert and oriented, casual dress, hygiene tended to. Eye contact fair. Motor activity appropriate. Speech within normal limits. Affect constricted, mood depressed, anxious, though more talkative than in prior groups. Thoughts linear, logical, no signs of hallucinations or delusions. Reviewed client?s symptom tracker, pt denies current suicidal thoughts or intention to date. Client Response/Progress/Benefit: []Pt was an active listener throughout group discussion, willing to more openly process thoughts and emotions with the group. Though, continues to struggle with discussing personal areas of progress or difficulty. Pt stated feeling ?uneasy and angry? this morning as she found herself able to connect with the frustration in managing mental health symptoms expressed by the group. Pt shared feeling it is ?unfair that we have to struggle to hard with our mental health when other people can go out and just enjoy their lives?. Appeared to benefit from support of the group and fellow participants helping to encourage and normalize pt current frustrations. Pt expressed connecting with analogy of mental health management is similar to managing diabetes in that although it is life changing, it does not have to be limiting when properly cared for. Pt continues to struggle with low self-esteem and distorted thoughts which impact ability to connect and engage in group. Pt recommended to continue IOP level of care to increase healthy coping, improve mood management, and prevent decompensation. Narrative Note: []
--- NOTE | 2019-11-16 10:20 | BH.SGPN.GN ---
Behaviors/Verbalizations/Mental Status: []Client alert and oriented, casual dress, hygiene tended to. Eye contact fair. Motor activity appropriate. Speech within normal limits. Affect could not be assessed due to pt wearing a face mask as precaution against coronavirus. mood anxious. Thoughts linear and logical. No evidence of delusions or hallucinations. Client Response/Progress/Benefit: []Pt responded well to session, attentive and engaged throughout discussion and activity. Pt appeared to connect with the topic of fear of failure. Pt reported it's hard not to see failure as a negative, but recognizes failure can help us learn and motivate us to be successful. Pt stated she fears failure because doesn't want to be embarrassed. Pt reported fear of failure has kept her from doing things she could succeed at. Engaged and positive during the group activity. Pt appeared to benefit from gaining awareness of the impact of fear of failure can have on one?s mental health and wellbeing. Progress noted with pt's increased participation during group session. Will continue IOP tx to increase use of healthy coping skills, challenge distorted and negative thoughts, and prevent decompensation. Narrative Note: []
--- NOTE | 2019-11-16 16:25 | BH.MDN_ITS ---
Multi-Disciplinary Note - Note 60-min Individual Time Started:: 11:56 Date: 11/16/19 Purpose of session/treatment goals addressed:: The purpose of this session was to address client's current symptoms and stressors continuing to impact treatment progress and reinforce depression. Another goal was to provide psychoeducation on impact of childhood trauma on coping abilities as an adult. Additionally discussed strategies to challenge negative self-talk and increase engagement in activities she enjoys. Eye Contact:: Fair - often looking down of playing with hem of shirt throughout discussion. Motor Activity:: Appropriate, Other - sitting with knees tucked into chest on couch Appearance:: Casual Speech:: Appropriate, Soft Mood:: Anxious, Depressed Affect:: Other - unable to gather due to client wearing a mask as a COVID-19 protocol. Thoughts:: Linear, Logical, No evidence of hallucinations/delusions noted Staff Interventions:: Therapist used active listening and open-ended questions to explore client's current symptoms, stressors, and application of coping skills. Therapist used [place] techniques to aid pt in identifying barriers to treatment progress and provided empathic responses and supportive feedback as client discussed. Provided psychoeducation on impact of childhood trauma and formation of coping skills in adulthood. Therapist used behavioral activation concept of opposite action to aid client in identifying one small goal for chal lenging negative self-talk and promoting engagement in one healthy self-care activity client would normally avoid. Client Response:: Client responded well to session, open to meeting with therapist. Client reports she has continued to struggle with an overarching feeling of emotional numbness. Shared feeling that she has been preventing herself from making progress by not allowing herself to ?really feel and address my anxiety and depression?. Somewhat receptive of discussion reviewing how past trauma can result in emotional numbness being used as a defense mechanism. Made some connections between using avoidance and shutting down as strategies for coping with her emotions and protecting herself as a child. Client went on to indicate that she currently does not feel she is intentionally numbing herself but has been struggling to be present out of fear of experiencing increased anxiety sx. Expressed struggling to be herself in her home environment out of fear of being judged by her family. Client noted that instead she ends up spending much of her time in her own head thinking about what she ?should be feeling? or feeling frustrated with her circumstances. Open to being challenged on identifying a safe space in the home environment for client to practice feeling more comfortable with engaging in activities that help her to feel more like herself. Reports that there is nowhere in the house she would feel comfortable as she knows her siblings and parents would laugh if they saw her dancing in the kitchen or singing. Struggled to challenge distortion of predicting the future. Client willing to compromise and spend time dancing in a secluded area in her yard to begin working up the confidence to incorporate her hobbies more actively in her daily living environment. Risks/Concerns:: Client denies any suicidal ideations, plan, or intent as of 11/16/19. Client denies any symptoms of hallucinations or delusions. Future oriented, protective factors noted. Progress Toward Goals/Plan:: Progress noted with pt continuing to attend yoga sessions and reports improved ability to manage anxiety over the weekend, however continues to struggle with weekly panic attacks. Pt's progress could be hindered if pt continues to fall into distorted thinking patterns which result in pt disqualifying her progress or identifying reasons her skills will not be helpful to her. Client continues to struggle with significant dependence on others for validation and struggles with confidence when not feeling connected w ith others. Pt to continue IOP to increase healthy coping, challenge distorted thoughts, improve self-confidence levels, and prevent decompensation. Time Stopped:: 12:53
--- NOTE | 2019-11-17 08:42 | BH.MDN ---
Multi-Disciplinary Note - Note 45-min Individual Time Started:: 09:32 Date: 10/27/19 Purpose of session/treatment goals addressed:: Purpose of session was to assess pt's current symptoms and stressors. Session focus was on establishing treatment goals while in IOP. Eye Contact:: Good Motor Activity:: Appropriate Appearance:: Neat Speech:: Appropriate Mood:: Anxious, Dysthymic Affect:: Other - could not be assessed due to pt wearing a mask due to coronavirus Thoughts:: Linear, Logical, No evidence of hallucinations/delusions noted Staff Interventions:: Therapist used open ended questions to elicit pt's current symptoms and stressors. Therapist collaborated with pt on what goals pt would like to focus on while in IOP. Therapist provided brief psychoeducation about importance of setting boundaries with others so pt has time for self-care. Elicited small goal for the rest of the week. Client Response:: Pt reported she wants to have steady footing again. Pt stated I never know what the day is going to bring. Pt reported she absorbs her parents stress which she stated puts her into a bad mood. Pt stated she has noticed she will get more agitated with others. Pt stated she has been struggling since her mom was diagnosed with cancer for the second time early 2019. Pt reported shortly after her mom was diagnosed with cancer the coronavirus started which resulted in her main coping skill of yoga was taken away becasue her studio was shut down. pt stated she also has more anxiety since coronavirus because worried her mom whom has a compromised immune system will get the virus. Pt reported she engages in precautions when in public so she does everything she can to not pass the virus to her mom. Pt stated additional stressor is not getting the same relaxation as she used to from going to yoga classes as she did prior to coronavirus. Pt reported since her yoga studio reopened there are many precautions to protect against coronavirus that now makes yoga not as social and relaxing. Pt did not respond well to idea of initiating a socially distanced hangout prior to yoga class with some of her friends; gave reasons why that wouldn't work. Pt state she hasn't made it to as many classes as she used to because her brother will not always pick up attendant her nephew that she is watching on time. Pt stated she struggles with setting boundaries. Seemed to recognize the negative impact of not setting boundaries. Pt did not indicate desire to work on improving her boundaries despite knowing lack of boundaries is impacting her mental health. Pt stated while in IOP she would like to work on learning new ways to cope with her anxiety. Pt reported yoga helps, but knows she needs additional ways to manage her anxiety. Pt expressed worry that she will never get a tick sewer on managing her anxiety to have a normal life. Pt stated currently doesn't have mental strength to challenge any of her anxious thoughts. Agreeable for homework to attend yoga class at least three more times this week. Risks/Concerns:: Denies current suicidal ideation, plan or intention to date. Progress Toward Goals/Plan:: No progress noted given it is pt's first week in the program. Session focused on gathering background information and discussing treatment goals while in IOP. Pt to continue IOP to increase healthy coping, improve daily functioning, and prevent decompensation. Time Stopped:: 10:14
--- NOTE | 2019-11-18 09:03 | BH.SGPN.GN ---
Behaviors/Verbalizations/Mental Status: []Client alert and oriented, casual dress. Eye contact fair to good. Motor activity appropriate. Speech within normal limits. Mood dysthymic, anxious. Affect congruent, though difficult to gather due to client wearing mask per [address] guidelines. Thoughts linear, logical, no signs of hallucinations or delusions. Reviewed client?s symptom tracker, no signs of suicidal ideation, plan, or intent as of today. Client Response/Progress/Benefit: []Pt responded well to session, more engaged throughout and providing increased input to discussion which indicates progress in overall levels of engagement. Reports feeling tired but trying to fight it today as she noted struggling with increased physical pain over the past week which pt associates with stress related muscle tension. Connected increased muscle pain with depression and noted that despite experiencing more pain, she has been trying to do some enjoyable activities to continue to combat depression. Expressed attending a Reiki session as well as spending increased time outdoors in which pt found to be somewhat helpful, though reports missing engaging in her regular yoga practice. Pt receptive of and appeared to benefit from support provided by the group as well as group recommendations on ways to naturally cope with physical pain. Continues to struggle with self-confidence which impacts pt?s ability to openly practice identified coping skills in her home environment and has affected overall ability to make consistent treatment progress. Will continue IOP tx to increase application of coping skills which promote mood stability, improve application of calming skills, and maintain gains made. Narrative Note: []
--- NOTE | 2019-11-18 11:16 | BH.SGPN.GN ---
Behaviors/Verbalizations/Mental Status: []Client alert and oriented, casual dress, hygiene tended to. Eye contact fair. Motor activity appropriate. Speech within normal limits. Affect could not be assessed due to pt wearing a mask for COVID-19 safety precautions. mood anxious and dysthymic. Thoughts linear, logical, no signs of hallucinations or delusions. Client Response/Progress/Benefit: []Client passive participant AEB pt not providing input during session, however appeared to listen attentively to others and completed worksheet. Listened to group discussion on the various areas of self-care, benefits, and various types of self-care activities for each area. Client completed self-assessment activity on he own utilization of the different areas of self-care and was able to identify current practices she actively practices and areas she can improve upon. Client reported she can improve her emotional, physical, and psychological self-care. Client stated she wants to work on eating healthy, attending yoga 4 times a week, spend time with friends, and reiki. Client appeared to benefit from increasing awareness of how she can improve self-care balance. Progress noted as client has been able to increase self-awareness and begin to learn healthy coping skills, though continues to struggle with assertive communication and challenging distorted thoughts. Will continue IOP tx to increase utilization of healthy coping skills, challenge negative thoughts, and prevent decompensation. Narrative Note: []
--- NOTE | 2019-11-18 12:42 | PCM.BH.PN ---
Progress Note Progress Note: History of Present Illness/Interim History: [] The patient is a 29-year-old female with a history of depression and panic disorder who is seen in follow-up at the [facility] behavioral health IOP program. I last saw the patient about 3 weeks ago. At that time her Luvox was increased by 50 mg up to 250 mg total. The patient is tolerating this increased dose well. She states that her anxiety feels somewhat improved. However hates she is still having panic attacks about once a week. She is learning to cope with these by relaxation exercises but still finds them disturbing. Her mood is still pretty depressed and she endorses feeling tired during the day. She is doing yoga 2-3 times a week now but this is much less than she used to do it before. She also has a history of migraines and severe neck tension and pain from this. She gets dry needles placed in her neck in order to relieve this neck tension. She has ongoing stressors which continue involved including her mother having recurrent breast cancer and the COVID virus pandemic. She denies suicidal or homicidal ideation. She denies hallucinations or delusions or any other psych symptoms. Current Psychiatric Medications: [] Luvox 250 mg total (x3 weeks, on this medication 3 years total); Seroquel 100 mg p.o. nightly (x3 years); BuSpar 30 mg p.o. twice a day (x3 years); Klonopin 0.5 mg twice daily as needed (x3 years). Mental Status Examination: [] Patient is a 29-year-old female who is seen wearing a mask due to the COVID pandemic. She is casually dressed and groomed with good hygiene. She has no [place] psychomotor agitation or retardation. Eye contact is fair but she looks away at times. Speech is normal rate and rhythm and fluent with no pressure. Mood is depressed. Affect is constricted. Thought process is goal-directed and organized. Thought content: No evidence of suicidal or homicidal ideation or passive thoughts of . No evidence of hallucinations or delusions. Insight: Improving. Judgment: Intact. Impulsivity: Low to moderate. Diagnoses: [] [place] I: [] Major depressive disorder, recurrent, moderate; panic disorder; history of PTSD [place] II: [] Deferred [place] III: [] Thyroid abnormality [place] IV:[]] Primary support and work issues Plan: [] The patient will continue the IOP program at [facility] as the support, structure, education, individual and group therapy will hopefully prevent worsening of the patient's symptoms that might require hospitalization. She felt safe during the interview and if in any time she does not feel safe she will let us know or go to the emergency room. The risks, options, and possible complications and side effects of the medications were discussed with the patient and she understands and accepts these. The patient agrees to increase her Luvox to 300 mg total daily. A prescription was sent in for this at 100 mg, 3 tablets p.o. daily. In addition the patient agreed to add Flexeril 10 mg p.o. at bedtime. The patient will take 5 to 10 mg of Flexeril at bedtime. She will also decrease her quetiapine or Seroquel dose to 50 mg p.o. nightly. We may discontinue the Seroquel if the Flexeril helps her neck tension and her mood does not deteriorate. The patient has never been admitted to the hospital and has no suicide attempts. With a diagnosis of depression it might be beneficial to wean the patient off of quetiapine due to his its extensive side effects. In addition the Flexeril may help the patient's migraines by decreasing her severe neck tension. She will only take the Flexeril nightly.
--- NOTE | 2019-11-20 09:00 | BH.SGPN.GN ---
Behaviors/Verbalizations/Mental Status: []Client alert and oriented, neatly dressed and groomed. Eye contact poor. Motor activity restless. Speech within normal limits. Affect congruent-tearful, mood anxious and irritable. Thoughts linear, logical, no signs of hallucinations or delusions. Reviewed client?s symptom tracker, no risk for suicidal ideation, plan, or intent as of 11/20/19. Client Response/Progress/Benefit: []Client entered session alert and oriented, but then appeared disengaged. When it was time for client to shared client reported I was fine before I came into group, but now I don't want to be here. Client reported there's too many emotions going on in here and shared that peers' emotions are causing client to feel overwhelmed. Client became tearful and declined to shared. Building Carpenter encouraged client to practice her grounding skills. Client stated she wants to leave because of her anxiety, but quill cleaner and peers gently challenged client to stay after calming herself down. Group helped client recognized that leaving would only reinforce anxiety, whereas staying would build distress tolerance. Appeared to benefit from connecting with peers and gently challenging perspective. Progress mild as client is conservative with sharing her application of coping skills and positives with group. Will continue IOP tx to promote mood stability and improve emotional regulation. Narrative Note: []
--- NOTE | 2019-11-20 10:14 | BH.SGPN.GN ---
Behaviors/Verbalizations/Mental Status: []Eye contact is fair to good, at times putting head down on table during discussion. Motor activity is appropriate. Appearance is casual. Speech is WNL, soft. Mood is depressed, anxious. Affect unable to gather due to wearing a mask for COVID-19 protection, appears congruent. Thoughts are linear and logical. No evidence of psychosis. Client Response/Progress/Benefit: []Pt was engaged AEB taking notes and participating in activity, remained mostly passive during discussion portion and appearing to connect with materials. Appeared connected with the topic of pitfalls and expressed connecting with fellow participants reflections. Pt actively listening as the group discussed barriers that keep them from choosing a healthier path to mental wellness. These barriers included; difficulties adjusting to change, fear of failure, habit, and lack of awareness. Pt was engaged during the activity and did well to provide support to the group. Willing to take directions and openly shared suggestions with the group. Pt benefited from increased awareness on the impact that pitfalls can have on mental health. Progress noted in pt increased ability to practice grounding skills outside treatment environment, though continues to struggle with significant intrusive thoughts and difficulties internalizing skills.. Will continue IOP tx to maintain gains, improve ability to manage intrusive thought patterns, and better manage mental health sx. Narrative Note: []
--- NOTE | 2019-11-23 08:44 | BH.MDN_ITS ---
Multi-Disciplinary Note - Note 60-min Individual Time Started:: 10:24 Date: 11/23/19 Purpose of session/treatment goals addressed:: The purpose of this session was to address client's current symptoms, application of coping skills, and progress. Another goal was to discuss plan of care moving forward and ways to promote gains. Other topics included: self-care. Eye Contact:: Good Motor Activity:: Appropriate Appearance:: Casual Speech:: Appropriate Mood:: Depressed Affect:: Congruent Thoughts:: Linear, Logical, No evidence of hallucinations/delusions noted Staff Interventions:: Therapist used active listening and open-ended questions to explore client's current symptoms, application of coping skills, and thoughts on progress. Therapist gave client the DSM-5 and reviewed progress with client. Therapist explored client?s goals moving forward and discussed plan of care. Therapist used strengths perspective to empower client on her identified use of coping skills and progress. Utilized [place] techniques to aide in identifying barriers to progress as well as skills for promoting growth moving forward. Therapist gave client homework on self-care. Client Response:: Client responded well to session, open to meeting with carolina jimenez. Client reported she has been ?fighting with myself on whether or not I?m making progress?. Discussed that part of her feels she has been doing well to make progress in her overall ability to ?cut off? her anxiety before reaching the level of ?full blown panic?. Client attributes this to increased use of affirmations when beginning to experience anxiety related symptoms. Identified often telling herself ?this is okay- I will be okay? and ?I can get through this?. Discussed this is usually helpful in preventing further symptom escalation but that she continues to struggle with ?shoving things down? and not feeling connected with others. Expressed anxiety about reaching out to others for support and feels as though she is continuing to struggle with physical symptoms of anxiety including fears she will become nauseous and muscle fatigue. Client completed the DSM-5 and expressed that although she feels more capable of managing in the moment anxiety, she has been struggling with avoidance of situations. Client attributes to recent increase in scores associated with feeling disconnected from others. Client reports wanting to improve her ability to reach out to others but is fearful of doing so as she does not want to intrude or put her mother?s safety at risk by exposing herself to someone who has potentially been in contact with the COVID-19 virus. Shared she is willing to continue attending yoga on a more regular basis as she feels the precautions being taken are adequate and discussed a desire to challenge herself more to reach out to others who attend the studio as she feels these are trustworthy individuals. Client and therapist discussed importance of balancing use of external supports with internal, however client continues to remain reluctant to work on further developing her internal coping skills. Reports willingness to challenge herself to reach out to one support from yoga for homework. Risks/Concerns:: Client denies any suicidal ideations, plan, or intent as of 11/23/19. Progress Toward Goals/Plan:: Client has been responding mostly well to treatment and is demonstrating some progress towards her treatment goals. Client has been using healthy coping skills of deep breathing, affirmations, and grounding skills to better manage anxiety. Client reports that she has been able to manage her anxiety before escalating to crisis as a result but reports an influx in anxiety related to connecting with others and is feeling more isolated as a result. Client?s DSM-5 scores have increased by 31% since admission which may be due to client continued focus on external support though is reluctant to reach out and reports resistance to working to improve internal means of coping. Client continues to struggle with ruminations, distorted thinking patterns, resistance to apply consistent self-care skills, and communication. Client will continue IOP tx to promote use of healthy coping skills, improve daily functioning, and reduce anxiety symptoms. Time Stopped:: 11:21
--- NOTE | 2019-11-23 08:48 | BH.MTP_ITS ---
Treatment Plan Review Date of Admission:: 10/27/19 Date of Treatment Plan Review:: 11/23/19 Admitting Diagnoses:: Major depressive disorder, recurrent, moderate; panic disorder; history of PTSD Current Diagnoses:: Major depressive disorder, recurrent, moderate; panic diso rder; history of PTSD Patient's Response to Treatment:: Pt is attending the IOP program consistently and has not cancelled or been late so any scheduled appointments. Pt continues to struggle with engaging in the group setting and often puts her head down or opts not to participate in discussion. However, with additional prompting, pt is able to become a more active participant. Pt often does well to engage in the activity portions of group and provides encouragement and ideas throughout. Pt has remained engaged throughout individual sessions and often completes homework provided; however, continues to struggle with consistent application of healthy internal coping skills outside treatment environment and often relies on external resources to cope which may be impeding overall progress, especially given current socialization restrictions during COVID-19 pandemic. Since admission to [facility] tx, pt reports progress with ability to challenge negative and intrusive thoughts, however continues to struggle significantly with using additional skills for managing symptoms of depression and anxiety outside of treatment environment. As a result, limited progress noted and pt has reported a slight increase in avoidance behaviors since admission. We discussed progress and barriers preventing pt from making consistent gains in treatment. Plan is to continue [facility] treatment to improve overall skill application and reduce current mental health sx, as well as prevent decompensation. Treatment plan goals still left to accomplish Status of Current Problems and Symptoms: Pt continues to struggle significantly with externalization and resistance to improving upon internal coping mechanisms. Continues to report struggles with anxiety and feelings of being disconnected, though reports improved motivation and reduced intrusive thoughts. Problem #1 Problem Name:: Depression Status of Goals:: Goals not complete. Pt is making progress on objectives 1 and 2, though continues to struggle in these areas. Obj 1- Pt has learned and is able to identify several healthy coping skills for managing sx of depression; however, continues to resist application of skills outside of tx environment as pt indicates beliefs internal coping skills may be less effective than external support. Obj 2- DSM 5 questionnaire completed at time of treatment progress review. However, pt scores for depression have remained consistent with intact scores. This may be due to ongoing difficulties in consistent skill application and use of positive self-talk. Team Recommendations:: Plan is to continue IOP treatment to improve overall skill application and reduce current mental health sx, as well as prevent decompensation. Will work more specifically on promoting healthy internal coping and alternative ways to connect with others. Problem #2 Problem Name:: Anxiety Status of Goals:: Goals not complete. Pt is making progress on objectives 1 and 2, though continues to struggle in these areas. Obj1- Pt is able to identify some healthy coping skills to manage anxious symptoms, though continues to struggle with implementing skills when recognizing warning signs. Could benefit from continuing to reinforce healthy coping skills. Obj2- DSM 5 questionnaire completed at time of treatment progress review. However, pt scores for anxiety have increased slightly from a 7/12 to an 8/12 overall as she indicates an influx in avoidance behaviors. Shares that due to COVID-19 and her mother?s health related issues, pt has been struggling to engage in activities that previously helped with anxiety such as going to yoga or seeing friends. Additionally, notes not using internal skills of dancing, singing, or listening to music at home out of fear of embarrassing herself. Reports willingness to continue to work on improving in these areas and expressed willingness to meet up with supports outdoors to maintain safety while also continuing to ensure mental health needs are met. Team Recommendations:: Plan is to continue IOP treatment to improve overall skill application and reduce current mental health sx, as well as prevent decompensation. Will work more specifically on recognizing warning signs and implementing in the moment soothing skills.
--- NOTE | 2019-11-23 09:03 | BH.SGPN.GN ---
Behaviors/Verbalizations/Mental Status: []Client alert and oriented, casual dress. Eye contact good. Motor activity appropriate. Speech within normal limits. Mood dysthymic. Affect congruent, though difficult to gather due to client wearing mask per [facility]-[address] [place] [address] guidelines. Thoughts linear, logical, no signs of hallucinations or delusions. Reviewed client?s symptom tracker, no signs of suicidal ideation, plan, or intent as of today. Client Response/Progress/Benefit: []Pt responded well to session,engaged throughout and providing input. Reports feeling tired and drained today, reporting ?I?m just tired of being tired? reflecting on difficulties and exhaustion related to managing her mental health symptoms. Went on to reflect that yesterday had been more difficult than the previous two days as she had less to occupy her time and felt ?brain fog? throughout the day. Noted attempting to go outdoors to improve her mood which she indicated finding helpful. Pt did well to identify mental health wins experienced during the weekend which included attending yoga as a means for emotional release, as well as spending time hanging out with her nephew which helped to make pt laugh and improved overall mood. Pt receptive of and appeared to benefit from support provided by the group. Progress noted in pt self-report of improved skill application and increased ability to manage anxiety related sx. Pt continues to struggle with self-confidence and disqualifying the positives which impacts pt?s overall ability to make consistent treatment progress. Will continue IOP tx to increase application of coping skills which promote mood stability, improve anxiety management, and prevent decompensation. Narrative Note: []
--- NOTE | 2019-11-23 11:17 | BH.SGPN.GN ---
Behaviors/Verbalizations/Mental Status: []Eye contact is good. Motor activity is appropriate. Appearance is neat. Speech is Appropriate. Mood is agitated. Affect unable to gather due to wearing a mask as COVID protocol. Thoughts are linear and logical. No evidence of psychosis Client Response/Progress/Benefit: []Client was engaged during discussion, did well to develop a personal SMART goal. Client chose the goal; to spend 30 minutes strengthening her core and dancing on the days she does not attend yoga. When asked why this goal was important and beneficial to client's mental health, she stated it will reduce stress and reduce pain. Identified the following barriers to completing this goal which included: lack of time, not feeling well, lack of motivation, forgetting, and changing plans. Identified solutions to barriers which included: add to her night routine, opposite action, reminding herself of benefits, and setting boundaries. Benefited from this group by developing a short-term SMART goal related to mental health. Will continue IOP tx to increase use of healthy coping skills, reduce anxiety, and improve mood stability. Narrative Note: []
--- NOTE | 2019-11-24 09:00 | BH.SGPN.GN ---
Behaviors/Verbalizations/Mental Status: []Client alert and oriented, neatly dressed and groomed. Eye contact fair Motor activity appropriate. Speech within normal limits. Affect unable to gather due to wearing a mask for COVID-19 protocol, mood dysthymic. Thoughts linear, logical, no signs of hallucinations or delusions. Reviewed client?s symptom tracker, no risk for suicidal ideation, plan, or intent as of 11/24/19. Client Response/Progress/Benefit: []Client responded well to session, attentive and connecting with peers. Client reports feeling agitated and anxious today. Client reported some good things have happened since she was here last including getting her truck back from the shop. Client reported there is some financial stress that comes from getting her truck fixed, but client is happy to not have to borrow her mother's vehicle. Client shared she followed through with the goal she set yesterday in group which was to spend 30 minutes strengthening her core and dancing. Client reported she had to use opposite action to accomplish this goal and client ended up doing it for longer than 30 minutes. Client reported this was a good self-care and emotional release activity for her. Appeared to benefit from reflecting on her application of coping skills. Will continue IOP tx as client continues to struggle with consistent mood stability and reports ongoing anxiety symptoms that impact functioning. Narrative Note: []
--- NOTE | 2019-11-24 10:12 | BH.SGPN.GN ---
Behaviors/Verbalizations/Mental Status: []Client alert and oriented, casually dressed and groomed. Eye contact good. Motor activity appropriate. Speech within normal limits, limited input and quiet throughout. Affect unable to gather due to wearing a mask for COVID-19 protocol, mood anxious and depressed. Thoughts linear, logical, no signs of hallucinations or delusions. Client Response/Progress/Benefit: []Client was an engaged participant throughout group session AEB actively listening discussion and taking notes throughout, though remaining primarily passive. Client appeared to connect with the topic of coping skills and nodded as fellow participants discussed the impact of unhealthy coping on mental health stability. Group identified barriers to using healthy coping skills which included; habit, not wanting to put in the effort, lack of awareness, negative attitude, and toxic environments. Client participated in the activity and was able to take on a more active role and provide some advice to the group. Despite taking on an active participatory role in the challenge activity, client struggled to remain engaged throughout the processing discussion. Group discussed various skills that can aid in facilitating better application of healthy coping skills which included: accountability, positive self-talk, visual reminders, keeping in mind the consequences of not following through, and creating a routine. Client seemed to benefit from increased awareness of importance of increasing healthy coping skills and consequences of utilizing unhealthy coping skills. Progress noted in self-report of improved anxiety management, though continues to struggle with active internal skill application and engagement in group setting. Client will continue IOP tx to promote change behaviors, improve ability to better manage emotions, and reduce distorted thinking patterns. Narrative Note: []
--- NOTE | 2019-11-27 09:00 | BH.SGPN.GN ---
Behaviors/Verbalizations/Mental Status: [] Eye contact is poor. Motor activity is appropriate. Appearance is casual. Speech is Appropriate. Mood is depressed/irritable. Affect is flat. Thoughts are linear and logical. No evidence of psychosis. Reviewed daily check in sheet and no reports of suicidal ideations or intent. Client Response/Progress/Benefit: [] Pt did not participate in group discussions. Choose not to check-in with the group except to say that she was feeling agitated today. Would not elaborate. Was attentive during group discussion. No progress noted. Unsure if any benefits to group. Will remain in IOP to maintain safety, increase healthy coping strategies, and to prevent decompensation. Narrative Note: []
--- NOTE | 2019-11-27 10:15 | BH.SGPN.GN ---
Behaviors/Verbalizations/Mental Status: []Client alert and oriented, casually dressed and groomed. Eye contact fair to good. Motor activity appropriate. Speech within normal limits. Affect unable to gather due to client wearing a mask as a COVID protocol, mood agitated, anxious. Thoughts linear, logical, no signs of hallucinations or delusions. Client Response/Progress/Benefit: []Client was a mostly engaged participant AEB listening attentively to others and taking notes, though remained passive during discussion. Client appeared to connect with the discussion reviewing importance of learning ways to sit with uncomfortable feelings. Client remained attentive throughout discussion on the difference between ?normal? anxiety and when anxiety becomes problematic. Shared relating to the group reflection that problematic anxiety can be identified when you are no longer able to feel connected with others. Client gained awareness of personal physical symptoms of anxiety which included: over stimulation, neck and shoulder pain, upset stomach, and muscle weakness. Client also identified safety behaviors used when feeling anxious. These safety behaviors included; disconnecting from other/ checking out, distraction, and avoidance. Client appeared to benefit from gaining insight to physical signs of anxiety and personal safety behaviors. Progress variable as client continues to struggle significantly with consistent skill application and reports often relying on external resources rather than building up internal skills which may be impacting overall treatment progress. Will continue IOP to increase consistent application of healthy coping skills, continue to improve anxiety and depression management, and promote gains. Narrative Note: []
--- NOTE | 2019-11-27 11:15 | BH.SGPN.GN ---
Behaviors/Verbalizations/Mental Status: [] Eye contact is good. Motor activity is appropriate. Appearance is casual. Speech is Appropriate. Mood is anxious. Affect is congruent. Thoughts are linear and logical. No evidence of psychosis. Client Response/Progress/Benefit: [] Pt participated if prompted and did not provide insight or feedback on group topics. Attentive during psycho-education on mindfulness coping skills and their impact on her mental health wellness. Pt was able to identify self-soothing, mind-based, and body-based coping skills she wants to incorporate into her current coping skills, The skills she choose were temperature change, breathing techniques, enjoyable activities, journaling, and learning something new. Progress noted. Receptive to incorporating new skills. Will continue in IOP to maintain safety, show consistent mood stability, and prevent decompensation. Narrative Note: []
== END 2019-11-27 23:59 ==
LOC: BHIOP 09:00
PROVIDERS: PCP Student in an Organized Health Care Education/Training Program; Referring Provider Psychiatry & Neurology Psychiatry; Visit Provider Psychiatry & Neurology Psychiatry
DX: F33.1 Major depressive disorder, recurrent, moderate (principal); F43.10 Post-traumatic stress disorder, unspecified; F41.0 Panic disorder [episodic paroxysmal anxiety]; E04.1 Nontoxic single thyroid nodule; Z79.899 Other long term (current) drug therapy; Z62.810 Personal history of physical and sexual abuse in childhood
CPT/HCPCS: 90792; 99213; H0035; H2012; H2020; T1002; 90834; 90837

== ENCOUNTER 2019-12-01 09:00 | Outpatient (RCR) | payer MEDICAID, SELFPAY ==
[2019-10-19 13:04] VITALS: BMI 21.4
--- NOTE | 2019-12-01 09:01 | BH.SGPN.GN ---
Behaviors/Verbalizations/Mental Status: []Client alert and oriented, casually dressed and groomed. Eye contact fair. Motor activity appropriate. Speech within normal limits. Affect unable to gather due to wearing a mask for COVID-19 protocol, mood dysthymic and anxious. Thoughts linear, logical, no signs of hallucinations or delusions. Reviewed client?s symptom tracker, no risk for suicidal ideation, plan, or intent as of 12/01/19. Client Response/Progress/Benefit: []Client responded well to session, actively listening throughout. Client provided minimal input throughout discussion and declined to process personal progress with the group. Client continues to struggle with consistent engagement in the treatment environment which may be impacting ability to make notable gains. Client appeared to benefit from structured and supportive environment. Client continues to struggle with application of internal coping mechanisms and distorted thoughts which inhibit ability to make consistent gains. Will continue IOP tx to continue to promote healthy coping skills, improve emotion regulation, and prevent decompensation. Narrative Note: []
--- NOTE | 2019-12-01 10:15 | BH.SGPN.GN ---
Behaviors/Verbalizations/Mental Status: []Client alert and oriented, neatly dressed and groomed. Eye contact fair. Motor activity appropriate. Speech soft. Affect unable to gather due to wearing a mask for COVID-19 protocol, mood dysthymic. Thoughts linear, logical, no signs of hallucinations or delusions. Client Response/Progress/Benefit: []Client attentive, declining to provide examples, but client did participate in short activity. Connected with the discussion about how distorted thought patterns can reinforce mental health symptoms and negatively impact self-esteem and personal relationships. Client attentive throughout the discussion on different types of thought distortions and noted that she connects with disqualifying the positives. Client shared mental filtering can ?slow mental health progress down.? Client often nodded at the group?s examples of distortions, but client did not share any personal examples. Appeared to benefit from increasing awareness of cognitive distortions and how they can impact emotions and behaviors. Client continues to struggle with mood instability. Will continue IOP tx to prevent further decompensation and increase use of healthy coping skills. Narrative Note: []
--- NOTE | 2019-12-01 14:49 | BH.MDN_ITS ---
Multi-Disciplinary Note - Note 45-min Individual Time Started:: 11:37 Date: 12/01/19 Purpose of session/treatment goals addressed:: The purpose of this session was to assess client's current symptoms, stressors, and treatment goal progress. Another goal was to identify strategies to overcome barriers impacting use of internal coping skills. Eye Contact:: Good Motor Activity:: Appropriate Appearance:: Casual Speech:: Appropriate Mood:: Dysthymic Affect:: Other - unable to determine as pt wearing a mask per COVID-19 protocol Thoughts:: Linear, Logical, No evidence of hallucinations/delusions noted Staff Interventions:: Therapist asked open-ended and furthering questions to explore client's current symptoms, stressors, and perception of progress in treatment. Therapist provided supportive feedback and gently challenged client use of distortions. Used MA techniques to aid pt in identifying factors contributing to continued feelings of disconnection as well as barriers. Provided psychoeducation on internal coping skills and connection with self and others. Reviewed strategies for improving self-care during times in which she feels emotionally numb or disconnected. Provided client with homework to complete practice using one internal coping strategy for self-care. Client Response:: Client receptive of session, remaining engaged throughout. Client reports feeling increasingly disconnected and ?numb? throughout the past week. Became tearful as she discussed ongoing feelings of loneliness and isolation since the COVID- pandemic. Reports that although she has been able to see some of her usual supports when attending her regular yoga practice, this feels superficial to her. Became angry in venting about frustration related to feeling external forces are controlling her ability to be happy. Shared she had been doing well with managing mental health symptoms prior to the pandemic and believes that the restrictions preventing her from arriving early or staying late at the yoga studio is preventing her from being able to connect with others in meaningful ways. Client continues to remain fixated on the impact of external factors on her mental health which continues to impact ability to make progress in improving her application of self-care skills. Additionally, notes feeling obligated to take care of her mother which client indicates prevents her from setting aside time for herself. Open to discussion on locus of control and working to identify areas in client life in which she currently has some control. Client appeared to benefit from identifying that she has control over how she responds and bart during the pandemic and increased alone time, as well as whether she sets boundaries with supports to make self-care more of a priority. Client struggled at times with minimizing the potential benefits of improving self-care repertoire. Continues to struggle with distorted thought patterns. Upon further discussion, client reported struggling to identify internal coping and self-care skills as she is unsure of her interests outside of yoga. Shared she used to enjoy singing, dancing, and listening to music but has not used these skills in almost a year. Able to connect with potential jayshree efits of re-engaging in interests that she can do when isolated, though expressed hesitancy. Reports ?I don?t see the point if I truly find happiness when I?m with others?. Remaining duration of session spent challenging this thought and identifying importance of both internal and external supports/ Client expressed willingness to challenge herself to spend time listening to music and practicing an old dance routine at least once in the next week. Risks/Concerns:: Client denies any suicidal ideations, plan, or intent as of 12/01/19. Client denies any symptoms of hallucinations or delusions. Future oriented, protective factors noted. Progress Toward Goals/Plan:: Client progress towards treatment goals remains variable as she is able to identify healthy means of coping and appears to understand and connect with treatment materials discussed in both individual and group sessions. However, client continues to resist active application of int ernal means of coping and reports struggling to believe that she can improve her mood or feel happier if unable to engage with others in ways she had been able to prior to the COVID-19 pandemic. Despite client self-reports on the importance of connecting with external supports, she continues to appear reluctant to actively engage with fellow group participants and often opts not to share during group discussion. This may be further limiting client ability to feel more connected and less isolated. Client will continue IOP tx to promote use of healthy coping skills, improve daily functioning, and improve internal coping application. Time Stopped:: 12:23
--- NOTE | 2019-12-02 09:05 | BH.SGPN.GN ---
Behaviors/Verbalizations/Mental Status: []Client alert and oriented, neatly dressed and groomed. Eye contact fair. Motor activity tense-reporting neck pain. Speech within normal limits. Affect unable to gather due to wearing a mask for COVID-19 protocol, mood agitated. Thoughts linear, logical, no signs of hallucinations or delusions. Reviewed client?s symptom tracker, no risk for suicidal ideation, plan, or intent as of 12/02/19. Client Response/Progress/Benefit: []Client responded well to session, attentive and participating in discussion. Client reports feeling agitated this morning. Client stated her neck has been bothering client which makes it challenging to engage in some of client's healthy coping skills. Client reported she worked on her gameplan from last session which was to reach out to a friend that she has not seen in a while. Client stated she followed through with this gameplan, spent time with her mother, and practiced thought challenging. Appeared to benefit from reflecting on application of skills. Progress noted in client reaching out to supports, but client continues to struggle with consistent mood stability. Will continue IOP tx to promote emotional regulation skills and reduce distorted thoughts. Narrative Note: []
--- NOTE | 2019-12-02 11:15 | BH.SGPN.GN ---
Behaviors/Verbalizations/Mental Status: [] Client alert and orient. Appearance casual and appropriately groomed. Speech an appropriate rate and tone, quiet and providing minimal input. Motor activity WNL. Mood anxious and dysthymic, affect unable to determine as client wearing mask per COVID-19 protocol. No evidence of delusion or hallucinations.? Client Response/Progress/Benefit: []Client receptive of group and attentive during the discussion AEB maintaining eye contact and taking notes, however mostly passive throughout. Client listened during group discussion on the differences between intrinsic and extrinsic motivation. Remained attentive as group worked to identify potential costs of solely relying on external sources of motivation and benefits of having a solid source of intrinsic motivation. Group noted benefits of intrinsic motivation included; needs getting met, continued motivation when supports aren?t available, greater sense of purpose, feeling personally challenged, and improved self-esteem. Client again remained attentive as group brainstormed potential strategies for improving intrinsic motivation. Identified plans to use opposite action and positive self-talk to promote intrinsic motivation. Client appeared to benefit from increasing awareness of how one?s source of motivation can impact mental health and ability to maintain gains. Progress variable as client continues to struggle with externalization and relying on supports to improve her mood, however is making some progress in this area. Client will continue IOP tx to further improve depression and anxiety management, promote healthy coping skill application, and improve daily functioning. Narrative Note: []
--- NOTE | 2019-12-08 09:05 | BH.SGPN.GN ---
Behaviors/Verbalizations/Mental Status: []Client alert and oriented, casually dressed and groomed. Eye contact fair to good. Motor activity appropriate. Speech within normal limits. Affect unable to gather due to wearing a mask for COVID-19 protocol, mood euthymic and anxious. Thoughts linear, logical, no signs of hallucinations or delusions. Reviewed client?s symptom tracker, no risk for suicidal ideation, plan, or intent as of 12/08/19. Client Response/Progress/Benefit: []Pt responded well to session, engaged throughout and providing increased input compared to prior process groups. Reports feeling a little flustered but better today as she discussed making progress towards her goals to practice opposite action and sitting with the uncomfortable. Noted doing so during a yoga class when she was struggling with self-doubt. Pt noted reflecting on past times she succeeded in completing a similar task which had encouraged her to keep trying. Additional win identified as helping her dad in the barn despite not initially wanting to. Upon further reflection, pt also able to identify a recent increase in use of positive self-talk. Reports this has also contributed to overall improved mood. Pt continues to express feeling stressed by muscle pain limiting her ability to engage in usual yoga routine, however has been making progress in challenging her perspective and identifying alternative ways to reflect on the situation. Will continue IOP tx to increase utilization of internal coping skills, improve consistency, and prevent decompensation. Narrative Note: []
--- NOTE | 2019-12-08 10:20 | BH.SGPN.GN ---
Behaviors/Verbalizations/Mental Status: []Client alert and oriented, casually dressed. Eye contact fair. Motor activity appropriate. Speech within normal limits. Affect could not be assessed due to pt wearing a mask as a requirement during COVID-19 pandemic. mood dysthymic and anxious. Thoughts linear, logical, no signs of hallucinations or delusions. Client Response/Progress/Benefit: []Pt passive participant throughout session AEB pt providing limited input throughout discussion, however did appear to listen attentively to peers and completed worksheet. Group identified triggers of anger include: feeling disrespected by others, feeling overwhelmed, high expectations of self, overwhelming stress, and comparing self to others. Pt shared emotions that are underlying anger include: overwhelmed, guilt, insecure, lonely, frustrated, tired, and disappointed. Pt identified the following as ways she expresses anger: crying, cussing, punching things, depression, isolation, and fear. Pt seemed to benefit from increased awareness of how unmanaged anger can impact self and others. Pt to continue IOP to increase consistent application of skills, decrease impulsivity and prevent decompensation. Narrative Note: []
--- NOTE | 2019-12-08 11:19 | BH.SGPN.GN ---
Behaviors/Verbalizations/Mental Status: []Client alert and oriented, casually dressed and groomed. Eye contact fair. Motor activity appropriate. Speech within normal limits. Affect unable to gather due to client wearing a mask for COVID-19 protocol. mood dysthymic. Thoughts linear, logical, no signs of hallucinations or delusions. Client Response/Progress/Benefit: []Client was an engaged participant throughout group AEB client participating when prompted. Client helped the group identify common warning signs of anger and identified personal warning signs of anger which included; trembling, feeling tense, crying, and turning red. Group brainstormed with group healthy coping skills to help manage anger which included: deep breathing, opposite action, exercise, taking breaks, grounding, and journaling. Client selected letter writing and journaling as the skill client wants to incorporate this week to manage anger. Client receptive to practice this skill each day to help make it a habit and shared she can practice this in the middle of the day. Client appeared to benefit from identifying different techniques to manage anger as well as gaining awareness of warning signs. Progress noted in client?s reduced report of anxiety in the group setting. Client will continue IOP tx to increase use of thought challenging and further improve mood. Narrative Note: []
--- NOTE | 2019-12-11 10:14 | BH.SGPN.GN ---
Behaviors/Verbalizations/Mental Status: []Client alert and oriented, neatly dressed and groomed. Eye contact good. Motor activity appropriate. Speech within normal limits. Affect unable to gather due to wearing a mask for COVID-19 protocol, mood dysthymic. Thoughts linear, logical, no signs of hallucinations or delusions. Client Response/Progress/Benefit: []Client responded well to session, attentive and contributing at times. Client connected with the topic of relationships and shared relationships are important. Client helped group discuss the benefits of relationships as well as the different types of relationships one can have. Group identified the risk factors for unhealthy relationships which included: substance abuse, low self-esteem, childhood trauma, cycle of abuse, and negative core beliefs. Client helped group develop a list of the consequences that unhealthy relationships have on mental health. These included: poor boundaries, increased depression and anxiety, and negative self-talk. Client shared unhealthy relationships can negatively impact one?s physical health as well. Appeared to benefit from increasing awareness of the impact unhealthy relationships can have on mental health. Client reports some progress in applying self-care, but she continues to report a depressed mood and anxiety. Will continue IOP tx to prevent decompensation and improve emotional regulation skills. Narrative Note: []
--- NOTE | 2019-12-11 11:13 | BH.SGPN.GN ---
Behaviors/Verbalizations/Mental Status: []Client alert and orient. Appearance casual and appropriately groomed. Speech an appropriate rate and tone. Motor activity WNL. Mood dysthymic, affect unable to determine as client wearing mask per COVID-19 protocol. No evidence of delusion or hallucinations.? Client Response/Progress/Benefit: []Client receptive of group, attentive during activity in which the group was challenged to identify heathy vs. unhealthy behaviors and characteristics of relationships. However, remained mostly passive throughout. Expressed agreement that identifying unhealthy relationships is more difficult outside treatment environment. Client worked with the group to brainstorm potential strategies for improving own ability to identify whether a relationship is healthy. Strategies for improving insight included: determine if your values align or if you feel you have to compromise your own personal values, ask yourself ?is there mutual respect and understanding in the relationship??, take notice of if boundaries are respected, reflect on whether you are supportive of one another during difficult times, and ask yourself ?How do I feel when I am around this person??. Client identified plans to examine how she feels when interacting within various relationships. Client appeared to benefit from increasing awareness of healthy vs. unhealthy relationships. Progress continues to be variable as client often struggles with application of internal coping skills impacting ability to manage emotions independently. Client will continue IOP tx to further improve mood management, promote healthy coping skill application, and prevent decompensation. Narrative Note: []
--- NOTE | 2019-12-11 14:51 | BH.MDN_ITS ---
Multi-Disciplinary Note - Note 30-min Individual Time Started:: 09:32 Date: 12/11/19 Purpose of session/treatment goals addressed:: The purpose of this session was to address client's current symptoms and stressors continuing to impact treatment progress. Another goal was to continue to work with client on reinforcing use of internal coping skills managing mental health symptoms. Eye Contact:: Fair Motor Activity:: Appropriate Appearance:: Casual Speech:: Appropriate, Soft Mood:: Anxious, Dysthymic Affect:: Congruent, Other - difficult to assess as pt wearing a mask per COVID- 19 protocol Thoughts:: Linear, Logical, No evidence of hallucinations/delusions noted Staff Interventions:: Therapist used active listening and open-ended questions to explore client's current symptoms, stressors, and application of coping skills. Therapist provided supportive feedback and encouragement as client discussed current frustrations. Challenged client use of distortions and used [place] techniques to promote use of healthy change behaviors. Reviewed with client depression maintenance cycles. Client Response:: Client responded well to session, open to meeting with therapist. Client reports she is doing ?alright? today but has recently been struggling with increased anxiety regarding what?s next in the treatment process. Discussed experiencing ruminating thoughts about discharging from [facility] tx as she is worried about her ability to maintain stability and continue to make progress post discharge. Client and therapist discussed areas in which she has made progress as well as skills that would be helpful for her to continue to incorporate in order to maintain gains made. Client expressed that she has been able to continue to go to yoga, made efforts to reach out to supports she had been isolating herself from, and is continuing to work on challenging negative thoughts. Client often struggles with disqualifying areas in which she is making progress and instead continues to focus on feeling her external resources are limited as a result of the pandemic. Noted that she continues to feel she will not be able to make the progress she desires if she is unable to connect with supports in ways she had been able to do so prior to the COVID-19 pandemic, such as physical contact and being able to hangout with others in person before and after her yoga classes. Client expressed that trying to connect virtually feels less authentic and is anxiety provoking as it is outside of her comfort zone. Client noted not feeling comfortable talking on the phone or skyping which makes it more difficult to connect with others. Additionally, client expressed feeling as though she is ?stuck? suffering as a result. Continues to struggle with utilizing internal means of coping to work on improving self-esteem and sense of personal connection with herself when external connections are not possible. Reports she has not been engaging in journaling, dancing, or getting outdoors as discussed in prior sessions. Upon further inquiry, Client expressed feeling as though she will embarrass herself if she does one of these activities at home and a family member were to see her. Struggled to challenge these thoughts and reports unwillingness to engage in one of the activities previously identified when alone in her bedroom out of fear of someone walking in. Agreeable of identifying activities she would not feel embarrassed to be seen doing such as coloring or watching [employer] videos of dance with headphones on. Willing to work on incorporating more self-care into daily schedule, though continues to appear reluctant to do so. Risks/Concerns:: Client denies any suicidal ideations, plan, or intent as of 12/11/19. Client denies any symptoms of hallucinations or delusions. Future oriented, protective factors noted. Progress Toward Goals/Plan:: Progress noted with pt continuing to attend yoga sessions and reports improved ability to manage anxiety over the weekend, however continues to struggle with weekly panic attacks. Pt's progress could be hindered if pt continues to fall into distorted thinking patterns which result in pt disqualifying her progress or identifying reasons her skills will not be helpful to her. Client continues to struggle with significant dependence on others for validation and struggles with confidence when not feeling connected with others. Pt to continue IOP to increase healthy coping, challenge distorted thoughts, improve self-confidence levels, and prevent decompensation. Time Stopped:: 10:05
--- NOTE | 2019-12-16 10:12 | BH.SGPN.GN ---
Behaviors/Verbalizations/Mental Status: []Client alert and oriented, casually dressed. Eye contact fair to good. Motor activity appropriate. Speech within normal limits. Affect congruent, though difficult to assess as pt wearing a mask per COVID-19 protocol. mood anxious and euthymic. Thoughts linear, logical, no signs of hallucinations or delusions. Client Response/Progress/Benefit: []Client engaged throughout session AEB providing some input to discussion and taking notes throughout. Connected with discussion on crisis development and how coping with external crises by using unhealthy coping skills could result in a personal crisis. Client provided a personal example of making more high risk and potentially dangerous decisions when first discovering her mother?s cancer diagnosis. Group reflected on the importance of having awareness of warning signs in order to prevent reaching crisis point. Group identified potential warning signs for crisis and client completed the personal warning signs worksheet. Client identified personal crisis warning signs to include: isolating or avoidance outside of the ?alone time? she needs for self-care, loss of appetite, and physical pain. Noted that for her physical pain is a big sign she is headed for a potential crisis. Client benefited by increasing awareness of what leads to crisis and personal warning signs. Progress noted in client self-report of improved mood and ability to manage anxiety by making time to engage in activities she enjoys. Continues to struggle with reliance on external supports however. Will continue IOP tx to increase healthy coping, improve mood stability, and prevent decompensation. Narrative Note: []
--- NOTE | 2019-12-16 11:12 | PCM.BH.PN ---
Progress Note Progress Note: History of Present Illness/Interim History: [] The patient is a 29-year-old female with a history of depression and panic disorder who is seen in follow-up at the [facility] behavioral health IOP program. I last saw the patient 3 weeks ago and at that time I increased her Luvox to 300 mg total daily. I also added Flexeril 10 mg nightly for her severe tension neck pain and migraine headaches. We decreased the Seroquel to 50 mg as the Flexeril would also help her sleep and possibly make her tired the next day. The patient states that she is doing better and feels the medication changes have helped. Her mood is better and she describes it is only mildly depressed now. Some anxiety remains but it is more manageable. She wishes to get off of the Seroquel due to the potential for side effects and continue the Flexeril as she feels her neck pain is much improved. In addition she feels that her migraine headaches have occurred less often in the past 3 weeks possibly due to adding the Flexeril. She is tolerating the Flexeril well and has no side effects from it. She feels she is benefiting from the IOP program. She denies suicidal or homicidal ideation. She denies hallucinations or delusions. Current Psychiatric Medications: [] Luvox 300 mg p.o. daily (x3 weeks); Seroquel 50 mg p.o. nightly (decreased 3 weeks ago); BuSpar 30 mg p.o. twice a day; Klonopin 0.5 mg twice a day as needed; Flexeril 5 to 10 mg p.o. nightly (x3 weeks). Mental Status Examination: [] Patient is a 29-year-old female who is seen wearing a mask due to the COVID pandemic. She is casually dressed and groomed with good hygiene. She has no psychomotor agitation or retardation and her eye contact is good today. Her speech is normal rate and rhythm and fluent with no pressure. Mood is mildly depressed. Affect is full and normal. Proximal thought process is goal-directed and organized. Thought content: No evidence of suicidal or homicidal ideation. No evidence of hallucinations or delusions. Insight: Good. Judgment: Intact. Impulsivity: Low to moderate Diagnoses: [] [place] I: [] Major depressive disorder, recurrent, moderate; panic disorder; history of PTSD [place] II: [] Deferred [place] III: [] Thyroid abnormality; migraine headaches [place] IV:[]] Primary support and work issues Plan: [] Patient will continue the IOP program as the structure, support, education, individual and group therapy will hopefully prevent worsening of the patient's symptoms. The risks, options, possible complications and side effects of the medications were discussed with the patient and she understands and accepts these. She felt safe during the interview and if at any time she does not feel safe she will let us know or go to the emergency room. Discussion was had with the patient on her options for medication and she wishes to stop the Seroquel now as she feels the Flexeril helps her sleep. The Flexeril also decreases her neck tension and incidence of migraine headaches. Her other medications will be continued at the same doses. She will continue to follow-up with outpatient providers. I will see the patient in follow-up in 2 weeks.
--- NOTE | 2019-12-16 11:15 | BH.SGPN.GN ---
Behaviors/Verbalizations/Mental Status: []Client alert and oriented, casually dressed and groomed. Eye contact fair. Motor activity appropriate. Speech within normal limits. Affect could not be assessed due to pt wearing a mask as a requirement during the COVID-19 pandemic. Mood euthymic. Thoughts linear, logical, no signs of hallucinations or delusions. Client Response/Progress/Benefit: []Client responded well to session as evidenced by client listening attentively to others and providing input throughout session. Client identified her warning signs for crisis and gained further awareness of earliest warning signs. Client used the warning signs: isolation/avoidance, eating less than usual, and physical pain to create her crisis plan. Client created a crisis action plan to help client better manage warning signs for crisis. Client?s plan included: engaging in enjoyable activities, practicing calming activities, eating gentle foods, asking for help, and scheduling time with supports.Client appeared to benefit from creating a crisis action plan and increasing self-awareness. Client to continue IOP tx to promote use of healthy coping skills, maintain gains, and prevent decompensation. Narrative Note: []
--- NOTE | 2019-12-16 14:52 | BH.MDN_ITS ---
Multi-Disciplinary Note - Note 45-min Individual Time Started:: 09:25 Date: 12/16/19 Purpose of session/treatment goals addressed:: The purpose of this session was to assess client's current symptoms, stressors, and treatment goal progress. Another goal was to identify strategies to continue to reinforce identified gains made. Additional topics included: Beginning discharge planning Eye Contact:: Good Motor Activity:: Appropriate Appearance:: Casual Speech:: Appropriate Mood:: Euthymic, Anxious Affect:: Congruent Thoughts:: Linear, Logical, No evidence of hallucinations/delusions noted Staff Interventions:: Therapist used active listening and open-ended questions to explore client's current symptoms, stressors, application skills, and perception of progress in treatment. Therapist provided supportive feedback and commended client on recent report of progress in managing depressive sx. Used [place] techniques to aid pt in identifying strategies for maintaining gains made and to continue to promote healthy change behaviors. Provided client with homework to work towards identified goal and communicate this with her supports. Began discharge planning Client Response:: Client receptive of session, remained actively engaged throughout. Reports ?things are going well? and ?I don?t feel so heavy or guarded anymore?. Upon further discussion, client indicated improved mood is due to making a more intentional effort to re-engage in aspects of her yoga practice outside of solely attending classes. 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 Client expressed this has helped her feel more confident in her self-worth by being able to give back, as well as more connected to the yoga community. This indicates progress, as lack of personal connection with others has been an ongoing factor contributing to client depression. Client shared she continues to miss being physically connected with others but is more capable of managing this now that she is able to connect in alternative ways. Client expressed some concerns regarding her ability to maintain this level of involvement at the studio when her nephew returns from vacation next week as she will be expected to babysit during the day. Client and therapist discussed importance of continuing to make her own self-care a priority on her mental health. Client reports feeling more confident and ?like myself? when able to regularly engage in activities she enjoys such as being able to be involved in the studio regularly. Discussed that in the past she has had set days she would attend yoga and that her supports had been willing to respect that and schedule around it. Client expressed willingness to make an effort to establish a more routine yoga schedule for homework in order to better balance babysitting and self-care. Reports willingness to speak with her mother about this as well, though reports some hesitance as she does not want to overwhelm her mother with caregiving responsibilities while she is at yoga. Did well to begin challenging these thoughts. Risks/Concerns:: Client denies any suicidal ideations, plan, or intent as of 12/16/19. Client denies any symptoms of hallucinations or delusions. Future oriented, protective factors noted. Progress Toward Goals/Plan:: Some progress noted. Client reports improved overall mood and decreased symptoms of depression and anxiety over the weekend. Contributes this to more actively engaging in activities she enjoys and an increased sense of purpose through volunteering at the yoga studio she attends. Reports increased confidence as a result. Client continues to focus primarily on external coping skills, specifically that of reassurance from and connection with others. This is a concern regarding sustainability of progress as client continues to struggle to internal skills she can rely on when supports are not available. Client has however made progress in reaching out more to her parents and expressed willingness to set boundaries regarding her own need for self- care. Pt to continue IOP to increase healthy coping, increase healthy boundaries with self and others, improve self-confidence levels, and prevent decompensation. Time Stopped:: 10:06
--- NOTE | 2019-12-18 09:00 | BH.SGPN.GN ---
Behaviors/Verbalizations/Mental Status: [] Eye contact is good. Motor activity is appropriate. Appearance is casual. Speech is Appropriate. Mood is depressed. Affect is flat. Thoughts are linear and logical. No evidence of psychosis. Reviewed daily check in sheet and no reports of suicidal ideations or intent. Client Response/Progress/Benefit: [] Pt did not participate in group discussion however was attentive AEB by nodding her head at times. Reports that she is tired as she did not get much sleep last night. Daily symptom notes limited symptoms 1/5 for anxiety, panic, agitation, and hopelessness. Limited progress noted. Limited benefit from group. Will continue in IOP to maintain safety, prevent decompensation, and to stabilize mood. Narrative Note: []
--- NOTE | 2019-12-18 10:00 | BH.SGPN.GN ---
Behaviors/Verbalizations/Mental Status: []Client alert and oriented, casual appearance. Eye contact good. Motor activity appropriate. Speech within normal limits. Affect unable to gather due to wearing a mask for COVID, mood calm. Thoughts linear, logical, no signs of hallucinations or delusions. Client Response/Progress/Benefit: []Client responded well to session, attentive during discussion and engaged during the activity. Client connected with the quote and shared she associates loss and challenges with change. Worked with the group to identify barriers to making change, which included: toxic supports, lack of resources and money, lack of time, cognitive distortions, and fear of failure. Client participated in the activity where they identified and discussed the emotions related to change. Client reported when she feels anxious or overwhelmed about change she is less likely to be motivated. Benefited from increased awareness and understanding of emotions, benefits, and barriers related to change. Will continue IOP tx to further improve emotional regulation and increase mood stability. Narrative Note: []
--- NOTE | 2019-12-18 11:14 | BH.SGPN.GN ---
Behaviors/Verbalizations/Mental Status: [] Client alert and oriented, casually dressed and groomed. Eye contact good. Motor activity appropriate. Speech within normal limits, limited input provided. Affect unable to gather due to wearing a mask for COVID-19 protocol, mood anxious, dysthymic. Thoughts linear, logical, no signs of hallucinations or delusions. Client Response/Progress/Benefit: []Client was an active participant throughout AEB contributing some to discussion and listening attentively to peers. Client attentive during discussion on the change process and the emotions one might experience throughout the process of change. Client indicated fear and anxiety as emotions she has associated with change in the past. Client benefited from working with the group to identify potential strategies for promoting healthy change behaviors. Identified wanting to make more of an effort to remind herself of why she is making the change in the first place in order to continue to encourage herself when struggling with motivation to change. Progress continues to be inconsistent as client continues to struggle with skill application and thought challenging. Recommended continued IOP tx to prevent decompensation, improve mood stability, and increase anxiety management skills. Narrative Note: []
--- NOTE | 2019-12-21 09:01 | BH.SGPN.GN ---
Behaviors/Verbalizations/Mental Status: []Client alert and oriented, casually dressed and groomed. Eye contact good. Motor activity appropriate. Speech within normal limits. Affect unable to gather due to wearing a mask for COVID-19 protocol, mood dysthymic. Thoughts linear, logical, no signs of hallucinations or delusions. Reviewed client?s symptom tracker, no risk for suicidal ideation, plan, or intent as of 12/21/19. Client Response/Progress/Benefit: []Client responded well to session, attentive and engaged. Client reports feeling agitated this morning. Client reported she is feeling nervous and excited about it being her last week in [facility]. Client shared belief that she has been using healthier coping skills more often, but client still struggles at times to apply reflection coping skills. Client stated she wants to start journaling, but client has not followed through yet. Client's positives from the weekend were that client got to do a lot of yoga and talked herself through a panic attack. Appeared to benefit from reflecting on her generalization of coping skills. Will discharge from [facility] this week as client self-reports improved mood and functioning. Narrative Note: []
--- NOTE | 2019-12-21 10:10 | BH.SGPN.GN ---
Behaviors/Verbalizations/Mental Status: [] Client alert and oriented, casual dress, hygiene tended to. Eye contact fair to good. Motor activity appropriate. Speech within normal limits. Affect could not be assessed due to pt wearing a face mask as precaution against coronavirus. mood euthymic. Thoughts linear, logical, no signs of hallucinations or delusions. Client Response/Progress/Benefit: [] Pt remained an active participant AEB pt providing input during discussion, listening attentively to peers, and taking notes throughout. Appeared to connect with topic of healthy boundaries and indicated that boundaries help us keep from becoming burnt out or experiencing compassion fatigue. Identified that for her a barrier to establishing healthy boundaries in the past has been a fear of other?s reactions. Worked with the group to identify potential benefits of healthy boundaries which included: increased mental health stability, improved balance regarding responsibilities, improved relationships, and letting others know what we are and are not okay with. Pt participated in self-assessment activity in which participants analyzed their own personal boundaries. Identified struggling to say ?no? to friends however is more capable of doing so with family. Additionally, indicated that making time for self-care is an area she is working to improve upon. Appeared to benefit from increased awareness of benefits and costs associated with healthy and unhealthy boundaries, as well as gaining insight into own personal boundaries. Progress variable as pt continues to struggle with consistent application of skills learned. Pt to discharge from [facility] and continue with outpatient counseling in order to focus more on individual trauma triggers and improving self-confidence. Narrative Note: []
--- NOTE | 2019-12-21 14:47 | BH.MDN_ITS ---
Multi-Disciplinary Note - Note 60-min Individual Time Started:: 11:45 Date: 12/21/19 Purpose of session/treatment goals addressed:: The purpose of this session was to assess current symptoms, stressors, and anxieties about discharging from IOP tx. Another purpose was to complete aftercare planning, review progress, and identify strategies for success following discharge. Eye Contact:: Good, Other - tearful througout Motor Activity:: Appropriate Appearance:: Casual Speech:: Appropriate Mood:: Anxious, Dysthymic Affect:: Other - unable to accurately assess as pt wearing a mask per hospital protocol Thoughts:: Linear, Logical, No evidence of hallucinations/delusions noted Staff Interventions:: Therapist asked open ended and furthering questions to elicit information regarding client perception of current symptoms, stressors, and application of coping skills. Provided supportive feedback and used strengths-based approaches to assist pt in identifying areas of progress and challenging concerns about discharging from IOP treatment. Gently challenged client use of distorted thinking patterns. Used SC techniques to promote healthy change behaviors and aid Pt in identifying barriers as well as strategies for ongoing tx progress. Worked with pt to complete discharge planning. Client Response:: Client was receptive of session, remained actively engaged throughout. She was tearful upon entering session and expressed ?I want today to be my last day instead of Saturday?. Upon further discussion, Client indicated that she did not want her last day to be on a day that she would not be able to meet for individual session as this therapist would not be available to meet on Saturday. Client further expressed feeling that it would be too difficult coming in for group Saturday knowing that it was her last day rather then completing the program today when she is able to meet and process her emotions. Expressed increased anxiety about discharging from IOP treatment as she noted ?it feels like I?m just being left to do it all on my own?. Therapist attempted to challenge client on use of absolutes and catastrophizing. However, client initially struggled, noting ?I don?t have anyone I can really talk with and connect to now?. Therapist discussed with client the importance of remembering how her supports can still support her even if she is unable to see them in person. Discussed importance of continuing to engage in individual outpatient telehealth sessions despite frustrations that these are not being held face to face. Additionally, challenged client to identify other supports she has available. With some difficulty client identified supports at the yoga studio and beginning the Aftercare program at [facility] next , 12/31/19. Client and therapist reviewed her overall areas of progress since beginning IOP tx. CLient reports reduction in hopelessness and improved ability to manage symptoms of anxiety. Expressed increased motivation to continue to work on improving her mental health symptom management despite struggling at times with negative thoughts impacting ability to see progress made. Client did well to identify potential barriers to ongoing progress which included struggling to reach out to support when not [id number] and struggling with healthy emotion release rather than internalizing emotions. Reviewed strategies for preventing and managing these potential barriers which included utilizing thought challenging, reminding herself of benefits of reaching out to supports, and exploring art as a therapeutic means for emotional release. Expressed feeling ready to discharge from IOP tx and continue with therapy on an outpatient basis despite some anxiety about doing so. Client to begin aftercare treatment on 12/31/19. Risks/Concerns:: No risks or concerns noted. Pt denies any active SI, plan, or intent as of this date. 12/21/19. Progress Toward Goals/Plan:: Some progress noted. Pt shared improvements in overall ability to manage daily stressors without escalating to point of panic. Discussed increased engagement in activities she enjoys and reduced use of avoidance as well. Pt continues to indicate working to more consistently apply coping skills learned and challenge negative thoughts that have impeded progress in the past. Pt reports ongoing struggles with feeling disconnected from supports and continues to seek external validation which has limited extent of progress able to make while in tx. Pt to discharge from program given areas of progress made and is to continue outpatient tx with Dr. Burns weekly at [facility]. Additionally, pt is scheduled to begin Aftercare program on 12/31/19. Time Stopped:: 12:51
--- NOTE | 2019-12-21 15:24 | BH.DS_ITS ---
Discharge Summary - Demographics Date of Admission:: 10/23/19 Discharge Date: 12/21/19 Presenting Problems at Admission:: The patient is a 29-year-old female with a history of depression and panic disorder who previously participated in the IOP program at [place] in 2017. Pt was referred to the [facility] behavioral health IOP program by her [employer] doctor due to increased panic and passive suicidal ideation. Reports worsening of symptoms secondary to stresses involving the COVID virus pandemic and her mother?s recent breast cancer diagnosis, as well as her grandfather being diagnosed with skin cancer around the same time. Noted she used to cope with stress by doing yoga 9 times a week but since the COVID pandemic she was unable to go to yoga until recently. Pt endorses feeling depressed and down for about 2 months. At time of intake pt endorses low energy and decreased concentration, says that she is very discouraged, increased anxiety and rumination resulting in two recent panic attacks, as well as avoidance behaviors. Client symptoms have been impacting social, emotional, and occupational functioning as pt has not been able to work since 2017 as a result of ongoing mental health sx. Discharge Diagnoses:: Major depressive disorder, recurrent, moderate; panic disorder; history of PTSD Reason for Discharge:: Pt has made progress with decreased depression and improved anxiety management skills. Pt no longer meets criteria for IOP level of care and is to discharge to individual outpatient level of care. - Treatment Progress During Treatment & Response: Pt has made progress in treatment with decreased depression, decreased self-deprecating thoughts, improved anxiety management, and increased engagement in activities she identifies as enjoyable since beginning IOP tx program. This is evidenced by pt's self-report, as well as scores on DSM 5 cross-cutting measure. Pt's scores at discharge indicate a 35% reduction in overall scores with depressive symptoms decreasing by 50%, a 14% reduction in anxiety, and 100% reduction in intrusive thoughts. Pt responded well to program AEB pt contributing at times during discussion, participating in activities, as well as completing all assigned homework. Pt did struggle with consistent engagement due to anxiety and difficulties at times with emotion regulation. Additionally, struggled in consistently utilizing skills outside treatment environment; however, made progress in willingness to try new skills and continues to improve in this area. Issues Still to be Addressed:: Pt could benefit from continued focus on identifying and challenging distorted and negative thoughts. Pt seems to struggle with adjusting to changes and often becomes emotionally dysregulated or experiences panic when faced with potentially new or stressful situation. Pt could benefit from continued work on expanding internal supports as she continues to struggle with significant externalization and external reassurance seeking. Discharge Recommendations/Instructions:: Continue to go to outpatient counseling with Dr. Burns, this is essential for ongoing progress. Aftercare begins next , 12/31/19 @2pm. Try to get here around 1:45pm for paperwork! Discharge Handout: Complete Discharge Handout with client on aftercare options a nd continuity of care.
--- NOTE | 2019-12-21 15:50 | BH.AFTERPLAN ---
Aftercare Plan - Demographics Treatment End Date:: 12/21/19 Psychiatrist:: Diana Carpenter Psychiatrist Office #:: [phone] PHP/IOP Therapist:: Ignacia Vides Therapist Phone #:: [phone] - Medications Home Medications: Home Medications L.acidoph,Paracasei, B.lactis [Probiotic] 1 ea PO DAILY 05/30/16 Glycopyrrolate [Robinul] 1 mg PO BID 08/05/16 proMETHazine tablet [Phenergan] 12.5 - 25 mg PO Q8H PRN PRN 08/05/16 clonazepam 0.5 mg tablet 0.5 mg PO BID PRN 08/05/17 famotidine 20 mg tablet 20 mg PO QDAY 08/05/17 multivitamin 1 tab PO DAILY 02/03/18 NuvaRing 0.12 mg-0.015 mg/24 hr vaginal 1 vag ring VAGINAL Q4W #1 ea NS 09/18/19 buspirone 30 mg tablet 30 mg PO BID 10/19/19 triamcinolone acetonide 0.5 % topical cream 1 applic TOPICAL DAILY 10/19/19 Fluticasone 0.05% [Flonase Nasal [place]] 2 spray NASAL DAILY 10/28/19 Melatonin 2.5 mg PO QHS PRN 10/28/19 Fluvoxamine Maleate [Luvox] 100 mg PO QHS 30 Days #90 tab 12/16/19 cycloBENZAPRine HCl [Cyclobenzaprine HCl] 5 mg PO QHS 30 Days #60 tab 12/16/19 - Plan Details Progress/Aftercare Plan Details:: ?You have shown progress in your ability to identify and begin challenging negative and self-sabotaging thoughts that at times impact your mood and ability to effectively cope with depression and anxiety related symptoms in the past. ?Increased use of your internal coping skills such as opposite action, as well as practicing grounding and calming skills for managing anxiety and preventing panic. ?Improved use of taking breaks when you?ve felt emotionally heavy, stressed, or experiencing increased physical pain. ?Successfully able to continue to challenge yourself to begin opening up and reaching out to supports. Continue challenge yourself to be more receptive of help from your supports and willing to reach out! ? Increased engagement in healthy activities you enjoy, such as getting back in the yoga studio (both to practice and help out) and beginning to explore a more artistic side of yourself related to the chakra images. Keep doing this, even when it?s hard to do! Strategies for Success:: ?Opposite Action!!! ? do what will really help you, even when your brain is saying don?t do it, even when it feels uncomfortable, even when you are tempted to take the more comfortable way out. ?Setting and following through with boundaries with yourself and others ? remember not to take on things that may be causing you unnecessary extra stress. It?s okay to not do things for others sometimes or make it your responsibility to make sure your mom is okay. You can still be a support to others and not take on everything for yourself. ?Continue to challenge negative thought patterns by trying to look at things from the other perspective, asking yourself ?Am I using a distortion?? or ?Is there another way to approach or think about this??. ?Keep reaching out to HEALTHY friends and supports! There are people who care and want to see you doing well! Remember, it?s okay to ask for help and to challenge yourself to reach out to potentially new supports. We all need it from time to time. Remember, your supports are there for you to reach out to. ?Continue to make time for yourself! Self-care is velazquez to maintaining progress and staying level! This includes sometimes doing those hard things that may require setting boundaries or using opposite action. Remind yourself you deserve to take time to care for you AND ASK YOURSELF ?What would I be losing if I didn?t do this for myself?? It can be scary to take care of ourselves sometimes, but remember that you are important and deserve to care for yourself too! This includes working on those internal coping skills and continuing to explore a healthy relationship with yourself so that you have support when others are not available. - Appointments Appointments/Referrals to Other Services:: Continue to go to outpatient counseling with Dr. Burns, this is essential for ongoing progress. Aftercare begins next , 12/31/19 @2pm. Try to get here around 1:45pm for paperwork!
== END 2019-12-21 13:30 | disposition home or self-care (01) ==
LOC: BHIOP 09:00
PROVIDERS: PCP Student in an Organized Health Care Education/Training Program; Referring Provider Psychiatry & Neurology Psychiatry; Visit Provider Psychiatry & Neurology Psychiatry
DX: F33.1 Major depressive disorder, recurrent, moderate (principal); F43.10 Post-traumatic stress disorder, unspecified; F41.0 Panic disorder [episodic paroxysmal anxiety]
CPT/HCPCS: 99214; H0035; H2012; H2020; 90832; 90834; 90837

== ENCOUNTER 2019-12-31 14:00 | Outpatient (RCR) | payer MEDICAID, SELFPAY ==
[2019-12-29 13:13] VITALS: BMI 21.4
--- NOTE | 2019-12-31 14:00 | BH.SGPN.GN ---
Behaviors/Verbalizations/Mental Status: []Client alert and oriented, neatly dressed and groomed. Eye contact good. Motor activity appropriate. Speech within normal limits. Affect unable to gather due to wearing a mask for COVID-19 protocol, mood anxious. Thoughts linear, logical, no signs of hallucinations or delusions. Client Response/Progress/Benefit: []Client responded well to session, checking in using GAPS. Client?s emotion today is ?overwhelmed and nervous? and stated she has been doing well, but she feels a little anxious being in a new group session. Client reported multiple wins including volunteering more at [employer] and pushing herself out of her comfort zone more. Client followed her gameplan from last session and shared she journaled. Client has been using self-care, mindfulness, and thought challenging to manage mood. Receptive of discussion on self-talk and its influence in maintaining long-term mental health stability. Client shared personal benefits of practicing affirmations such as less negative thinking. Provided strategies for improving effective creation and application of believable personal affirmations. Client wrote out two affirmation statements to put on her mirror. Statements were ?I am isreal mckeon (proud)? and ?I?ve got this.? Progress noted in client?s ability to manage emotions of anxiety during her first day in a new group. Client to continue aftercare group to promote gains and further increase application of healthy coping skills. Narrative Note: []
--- NOTE | 2019-12-31 14:50 | BH.MTP ---
Master Treatment Plan - Patient Information Program Physician:: Dr. Diana Callaway Primary Therapist:: REG Lopez - Psychiatric Diagnoses Psychiatric Diagnoses:: Major depressive disorder, recurrent, moderate; panic disorder; history of PTSD Diagnosis Code(s):: F 33.2 - Estimated LOS Estimated LOS (in weeks):: 12 Problem/Goal #1 - Problem/Goal #1 Stated Goal:: Pt will maintain or see a reduction in symptoms AEB pt?s score on the DSM 5 cross-cutting measure and improve pt?s daily functioning. - Objectives Objective #1 Stated Objective: Pt will continue to consistently apply health coping skills and strategies to maintain progress made through the IOP treatment program. Interventions: Through group therapy, pt will review warning signs/ triggers, as well as healthy coping skills used in the IOP treatment program to successfully maintain gains while transitioning into outpatient therapy. Discharge Criteria: Pt will have met this goal when pt?s score on the DSM 5 cross cutting measure has successfully remained stable or decreased over a period of 12 weeks and per pt?s report. Target Date: 03/24/20 Review Date: 01/28/20 Objective #2 Stated Objective: Pt will learn and successfully implement two to three maintenance strategies to prevent decompensation through the Aftercare group. Interventions: Through groups therapy, pt will be provided with education on healthy maintains behaviors and relapse prevention techniques to prevent decompensation. Discharge Criteria: Pt will have met this goal when can report consistently using at least 2 maintenance skills to prevent decompensation. Target Date: 03/24/20 Review Date: 01/28/20
--- NOTE | 2020-01-07 14:05 | BH.SGPN.GN ---
Addendum entered and electronically signed by Ignacia Vides LSW 01/11/20 14:21: Addendum to add missing MSE: Eye contact is good. Motor activity is appropriate. Appearance is casual. Speech is Appropriate. Mood is anxious, euthymic. Affect unable to assess as client wearing a mask per COVID-19 protocol. Thoughts are linear and logical. No evidence of psychosis. Original Note: Behaviors/Verbalizations/Mental Status: [] Client Response/Progress/Benefit: [] Client responded well to session, checked in using her GAPs worksheet. Client identified struggling to make progress on goal of more actively saying positive affirmations, indicating that she has plans to display the affirmations in places she will more regularly see them to prevent forgetting. Identified recent coping skills used as: practicing more active self-care strategies by journaling and creating her own guided meditations, planning ahead to reduce stress for the upcoming fair, as well as practicing sitting with the uncomfortable. Client shared a stressor today is struggling with not taking on the sole responsibility of caregiving as her mother and nephew are sick. Indicated that she plans to remind herself it?s okay to still attend her regular yoga class and that someone else in the family can help with caregiving. Client engaged well during the discussion of self-compassion, providing input throughout. Noted connecting with the benefits of self-compassion and shared that for her self-compassion can be difficult as she was raised to put other?s needs before her own and often struggles with self-comparison. Client appeared to benefit from psychoeducation on the three elements of self-compassion and debunking common myths about what self-compassion is. Client engaged during discussion brainstorming various strategies to improve use of self-compassion. Identified wanting practice more active awareness of times she is tempted to engage in self-comparison and use positive affirmations to remind herself ?I am not in the same place in my life as them and that is okay?. Narrative Note: []
--- NOTE | 2020-01-21 14:00 | BH.SGPN.GN ---
Behaviors/Verbalizations/Mental Status: []Client alert and oriented, neatly dressed and groomed. Eye contact good. Motor activity appropriate. Speech within normal limits. Affect congruent, mood euthymic. Thoughts linear, logical, no signs of hallucinations or delusions. Client Response/Progress/Benefit: []Client responded well to session, engaged throughout. Client reviewed her GAPs and shared current stressors which included worrying about her mother?s health, but client states she is practicing calming skills to cope. Client reports in the past week she has been using mindfulness, yoga, self-reflection, and deep breathing. Client participated in the group discussion of maintenance and the benefits of creating a maintenance plan. Client contributed as the group discussed what components make up a maintenance plan. Client created her own maintenance plan for anxiety. Client identified warning signs which included: decreased appetite, physical pain, stomach pain, and avoidance. Client's coping skills included: eating healthy, yoga, journaling, and quiet. Appeared to benefit from creating a maintenance plan to promote gains and prevent setbacks. Will continue aftercare next week. Narrative Note: []
== END 2020-01-27 23:59 ==
LOC: BHOG 14:00
PROVIDERS: PCP Student in an Organized Health Care Education/Training Program; Referring Provider Psychiatry & Neurology Psychiatry; Visit Provider Psychiatry & Neurology Psychiatry
DX: F33.2 Major depressive disorder, recurrent severe without psychotic features (principal); F41.0 Panic disorder [episodic paroxysmal anxiety]; F43.10 Post-traumatic stress disorder, unspecified
CPT/HCPCS: 90853

== ENCOUNTER 2020-01-28 13:58 | Outpatient (RCR) | payer MEDICAID, SELFPAY ==
[2019-12-29 13:13] VITALS: BMI 21.4
--- NOTE | 2020-01-28 14:05 | BH.SGPN.GN ---
Behaviors/Verbalizations/Mental Status: []Client alert and oriented, casually dressed and groomed. Eye contact good. Motor activity appropriate. Speech within normal limits. Affect unable to assess as client wearing a mask per COVID-19 protocol, mood euthymic. Thoughts linear, logical, no signs of hallucinations or delusions. Client Response/Progress/Benefit: [] Pt responded well to session, provided input and listened attentively to peers. Reported feeling ?intrigued? today and attributed this to challenging herself to step outside her comfort zone recently and feeling excited to continue to do so in new ways. 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 Identified using skills of opposite action and positive self-talk which encouraged her to follow-through. Pt engaged in discussion on self-advocacy. Worked with group to identify the benefits of self-advocacy, as well as common barriers. Identified a personal barrier as struggling with thoughts that others are struggling more and so their needs are more important than her own. Did well to work with group to identify strategies to increase ability to advocate for oneself. Pt reported she wants to continue to work on setting boundaries with herself of not making excuses to put others needs before her own. Pt seemed to benefit from reviewing areas of progress and skill application, as well as learning about how to increase self-advocacy. Pt to continue aftercare program to promote ongoing skill application, continue to maintain stability, and prevent decompensation. Narrative Note: []
--- NOTE | 2020-01-28 16:06 | BH.MTP_ITS ---
Treatment Plan Review Date of Admission:: 12/31/19 Date of Treatment Plan Review:: 01/28/20 Admitting Diagnoses:: F33.1 Major depressive disorder, recurrent, moderate; panic disorder; history of PTSD Current Diagnoses:: F33.1 Major depressive disorder, recurrent, moderate; panic disorder; history of PTSD Patient's Response to Treatment:: Client is engaged in IOP aftercare as evidenced by client's participation in group discussions and self-report of consistently applying coping skills such as grounding, thought challenge and opposite action. Client has been consistent with attendance and provides good feedback in sessions. Status of Current Problems and Symptoms: Client has been experiencing anxiety related to her mom going through cancer treatment. Client also reports continuing to struggle with putting others needs ahead of her own which results in client not setting boundaries. Client showing progress with increased consistency of healthy coping skills outside treatment environment. Client starting to reach out to healthy supports for increased connection. Problem #1 Problem Name:: maintain or see a reduction in sx AEB pt DSM 5 score and self- report Status of Goals:: obj 1- DSM 5 for review not completed. Pt does appear to be making progress with increased consistent application of healthy skills, improved outlook on life, and able to manage stressors more effectively. Pt showing decreased anxiety by starting to push herself outside comfort zone. Obj 2 - complete with ongoing work encouraged. Client has been consistently reporting use of grounding with deep breathing, yoga, opposite action, and thought challenging. Team Recommendations:: Recommended client continue IOP aftercare group in addition to attending regular outpatient counseling in order to reduce DSM-5 symptoms and promote consistent use of healthy coping skills.
--- NOTE | 2020-02-11 14:00 | BH.SGPN.GN ---
Behaviors/Verbalizations/Mental Status: []Client alert and oriented, neatly dressed and groomed. Eye contact good. Motor activity appropriate. Speech within normal limits. Affect unable to gather due to wearing a mask for COVID-19 protocol, mood euthymic. Thoughts linear, logical, no signs of hallucinations or delusions. Client Response/Progress/Benefit: []Client responded well to session, actively contributing. Client stated feeling optimistic today and shared following through with her self-care goal which was to get to the yoga studio more. Client reported she did not practice on her own as much as client would like, but client is not dwelling on that. Client has been using thought challenging, opposite action, and yoga to cope with symptoms and stressors this week. Client contributed to the discussion on gratitude and its benefits. Client attentive during discussion of internal vs. external gratitude. Client receptive to participating in the group seven-day gratitude challenge. Client selected one gratitude reflection per day and stated she will implement this verbally. Receptive to discussion on intentionality and self-accountability. Client shared she will hold herself accountable by doing saying her daily gratitude out loud while driving home from yoga each day. Appeared to benefit from connecting with peers and practicing gratitude. Client will continue IOP aftercare to promote mood stability and reinforce healthy coping skills. Narrative Note: []
--- NOTE | 2020-02-25 14:05 | BH.SGPN.GN ---
Behaviors/Verbalizations/Mental Status: [] Client alert and oriented, casual dress, hygiene tended to. Eye contact good. Motor activity appropriate. Speech within normal limits. Affect congruent, mood dysthymic and anxious. Thoughts linear, logical, no signs of hallucinations or delusions. Client Response/Progress/Benefit: []Pt attentive and provided input throughout. Noted feeling ?sad? today as she recently had a friend cancel plans earlier in the week and client is still struggling with disappointment. Noted feeling as though ?nothing is normal? since the pandemic and that this disappointment has resulted in an influx of negative thoughts. Pt struggled to identify skills she could use to improve her mood or challenge use of absolute thought patterns; however, was receptive of feedback and support provided by group. Pt engaged in group discussion reviewing the mental health benefits of establishing a consistent daily routine. Group identified benefits to include: improving sense of purpose, increasing self-confidence, reducing stress, and improving follow through. Connected with discussion on common barriers impacting routine follow-through and engaged in brainstorming strategies to overcome identified barriers. Shared that writing down and crossing off accomplishments in her routine helps to keep her on track with her routine. Pt identified wanting to improve her current routine by starting small with using the time her [employer] cooks each day at lunch to play with her dogs. Shared this will help to support her mental health by gaining more emotional support and feeling more connected in the moment. Pt seemed to benefit from support provided by peers and reviewing the mental health benefits of routine. Some regression given self-report of difficulties in thought challenging which has led to increased depressive sx. Pt to continue aftercare group to improve consistent use of healthy coping, maintain gains, and prevent decompensation. Narrative Note: []
== END 2020-02-27 23:59 ==
LOC: BHOG 13:58
PROVIDERS: PCP Student in an Organized Health Care Education/Training Program; Referring Provider Psychiatry & Neurology Psychiatry; Visit Provider Psychiatry & Neurology Psychiatry
DX: F33.2 Major depressive disorder, recurrent severe without psychotic features (principal); F41.0 Panic disorder [episodic paroxysmal anxiety]; F43.10 Post-traumatic stress disorder, unspecified
CPT/HCPCS: 90853

== ENCOUNTER 2020-03-03 14:00 | Outpatient (RCR) | payer MEDICAID, SELFPAY ==
[2019-12-29 13:13] VITALS: BMI 21.4
--- NOTE | 2020-03-03 14:00 | BH.SGPN.GN ---
Behaviors/Verbalizations/Mental Status: []Client alert and oriented, neatly dressed and groomed. Eye contact good. Motor activity appropriate. Speech within normal limits. Affect constricted, mood fatigued and euthymic. Thoughts linear, logical, no signs of hallucinations or delusions. Client Response/Progress/Benefit: []Client receptive of session, engaged throughout and notes feeling ?fatigued? today due to a busy weekend that I still haven't recovered from. Client shared she had a good weekend at the yoga studio but she spent a lot of time there which took up energy and time. Client reports she almost had a panic attack on Saturday, but client used self-soothing talk and grounding to prevent herself from having a full-blown panic attack. Receptive of discussion on personal accountability and its importance in maintaining mental health stability. Engaged in discussion on different accountability styles and brainstorming strategies for improving ability to hold themselves accountable. Client identified that for homework she wants to take her dog for a hike before next week. Client reported she can hold herself accountable by scheduling a specific time in her calendar and mapping out my excuses. Client seemed to benefit from support from peers and increasing understanding of personal accountability benefits and strategies. Progress noted in client?s application of coping skills and optimistic perspective on college. Will continue IOP aftercare group. Narrative Note: []
--- NOTE | 2020-03-17 14:01 | BH.SGPN.GN ---
Behaviors/Verbalizations/Mental Status: []Client alert and oriented, casual dress, hygiene tended to. Eye contact fair. Motor activity appropriate. Speech within normal limits. Affect constricted, mood euthymic, anxious. Thoughts linear, logical. No signs of hallucinations or delusions. Client Response/Progress/Benefit: []Client responded well to session, attentive and engaged throughout. Client reported she struggled some with game plan from last week which was to be more realistic about her emotions. Indicated that she was however able to challenge herself ?not to stay there? when feeling low emotionally. Noted skills used this week to help accomplish goals were; thought challenging, opposite action, and putting things into perspective. Client stated stressor today is her mom?s ongoing health concerns, however client did well to identify skills she can use to continue to manage this. Participated in the discussion of making healthy choices and the barriers keeping clients from making healthy choices. Client identified personal barriers to be: fear of unknown, putting other?s first, and poor communication. Client reported she would like to make healthier decisions regarding self-care. Client attentive and contributing to discussion of strategies to improve healthy decision making. Client selected the strategy of talking out her self-care plans with supports as the game plan for the week. Appeared to benefit from reflecting on application of coping skills, identifying barriers, and creating a game plan to improve healthy decision-making skills. Narrative Note: []
--- NOTE | 2020-03-17 16:30 | BH.DS ---
Discharge Summary - Demographics Date of Admission:: 12/31/19 Discharge Date: 03/17/20 Presenting Problems at Admission:: Client discharged from IOP tx and transitioned to IOP aftercare to maintain gains client made in IOP and to reinforce healthy coping skills. At admission to IOP aftercare, client reported experiencing ongoing symptoms of anxiety and depression of reduced intensity. Client was also experiencing life stressors including COVID, her mother?s cancer, and general life stressors. Client also continued to experience some negative thinking and struggled with regulating her emotions at times. Discharge Diagnoses:: Major depressive disorder, recurrent, moderate without psychosis F33.2; panic disorder; history of PTSD Reason for Discharge:: Client has accomplished tx goals AEB her ability to maintain mood stability and gains made in IOP. Client will transition to traditional outpatient counseling. - Treatment Progress During Treatment & Response: Client responded well to IOP aftercare AEB her consistent attendance and engagement in group sessions. Client experienced ups and downs while in IOP aftercare, but she was able to bounce back quickly. At discharge, Client self-reported that she was experiencing less depression and anxiety. Additionally, client was reporting an improved outlook and increased ability to challenge distortions. Client regularly reported accomplishing her weekly goals and was motivated throughout tx. Client was consistently participating in yoga classes at a local studio and was reporting an increased ability to cope with her mother?s cancer. Issues Still to be Addressed:: Client can continue to work on setting healthy boundaries with family, taking time for self-care, and practicing thought challenging. Client can continue to benefit from outpatient therapy as client continues to struggle with the stress of her mother's health and the holidays. Discharge Recommendations/Instructions:: Client will continue seeing Dr. Burns for outpatient counseling to promote gains and further improve mental health. Discharge Handout: Complete Discharge Handout with client on aftercare options and continuity of care.
== END 2020-03-28 23:59 ==
LOC: BHOG 14:00
PROVIDERS: PCP Student in an Organized Health Care Education/Training Program; Referring Provider Psychiatry & Neurology Psychiatry; Visit Provider Psychiatry & Neurology Psychiatry
DX: F33.2 Major depressive disorder, recurrent severe without psychotic features (principal); F41.0 Panic disorder [episodic paroxysmal anxiety]; F43.10 Post-traumatic stress disorder, unspecified
CPT/HCPCS: 90853

== ENCOUNTER → 2020-04-06 09:44 | Outpatient (CLI) | payer MEDICAID, SELFPAY ==
[2020-03-31 10:53] VITALS: BMI 21.9
[2020-04-06 10:44] LABS: Cholesterol 188 mg/dL (200); Glucose 87 mg/dL (74-106); High Density Lipoprotein 73 mg/dL; Triglycerides 115 mg/dL; Very Low Density Lipoprotein 23 mg/dL (5-40)
== END ==
PROVIDERS: PCP Student in an Organized Health Care Education/Training Program; Referring Provider Obstetrics & Gynecology; Visit Provider Obstetrics & Gynecology
DX: Z13.220 Encounter for screening for lipoid disorders (principal)
CPT/HCPCS: 36415; 80061; 82947

== ENCOUNTER → 2021-03-03 10:16 | Outpatient (CLI) | payer MEDICAID, SELFPAY ==
--- NOTE | 2021-03-03 10:29 | US_ITS ---
STUDY: ULTRASOUND BREAST - RIGHT REASON FOR EXAM: Female, 30 years old. Nipple discharge in the right breast. TECHNIQUE: Axial and longitudinal images of the RIGHT breast were performed with a high resolution ultrasound transducer. # OF IMAGES: 26 COMPARISON: Comparison is made with prior mammogram done earlier in the day. FINDINGS: RIGHT Breast: The retroareolar region of the right breast was examined by ultrasound. There is dense fibrous and glandular tissue. No sonographic abnormality is seen. IMPRESSION: No sonographic abnormality is seen. ASSESSMENT CATEGORY: BIRADS Category 1: Negative. A letter regarding these results will be sent to the patient by the facility within 30 days. Electronically Signed: Corky Mclaughlin MD at 12:22 EDT , Service support , STUDY: ULTRASOUND BREAST - LEFT REASON FOR EXAM: Female, 30 years old. Nipple discharge in the left breast. TECHNIQUE: Axial and longitudinal images of the LEFT breast were performed with a high resolution ultrasound transducer. # OF IMAGES: 26 COMPARISON: Comparison is made with prior mammogram done earlier today. FINDINGS: LEFT Breast: The retroareolar region of the left breast was examined by ultrasound. There is dense fibroglandular tissue. No solid or cystic mass lesion is seen. US/Breast Limited Unilateral IMPRESSION: No sonographic abnormality is seen. ASSESSMENT CATEGORY: BIRADS Category 1: Negative. A letter regarding these results will be sent to the patient by the facility within 30 days. Electronically Signed: Corky Mclaughlin MD at 12:23 EDT , Service support ,
--- NOTE | 2021-03-03 10:29 | BI_ITS ---
MAMMOGRAPHY - BILATERAL DIAGNOSTIC REASON FOR EXAM: Female, 30 years old. Right breast pain and right breast discharge. PERTINENT HISTORY: Mother with breast cancer. History of right breast biopsy. TECHNIQUE: Digital bilateral breast tena (3D mammographic acquisition) in the CC and MLO projections. 2-D mediolateral oblique (MLO) and craniocaudad (CC) views of both breasts were obtained. CAD: Full Field Digital Mammography with Computer Added Detection was performed. COMPARISON: None. Baseline examination. FINDINGS: Breast Composition: The breasts are extremely dense, which lowers the sensitivity of mammography. There are no dominant masses or suspicious calcifications. A tissue marker is seen in the inferior medial retroareolar region of the right breast. No other significant abnormalities are identified. BI/DIAG MAMM W/CAD, BILAT IMPRESSION: Negative diagnostic mammogram. With the patient''s history of breast discharge, correlation with ultrasound is recommended. ASSESSMENT CATEGORY: BIRADS Category 0: Incomplete. Need additional imaging evaluation. A letter regarding these results will be sent to the patient by the facility within 30 days. Approximately 10% of breast cancers are not detected by mammography. A normal mammogram should not delay biopsy of a clinically suspicious abnormality. Electronically Signed: Corky Mclaughlin MD at 12:16 EDT , Service support ,
[2021-03-03 12:57] LABS: NATERA MAILED SPECIMEN
== END ==
PROVIDERS: PCP Student in an Organized Health Care Education/Training Program; Referring Provider Obstetrics & Gynecology; Visit Provider Obstetrics & Gynecology
DX: N64.52 Nipple discharge (principal); N64.4 Mastodynia; Z80.3 Family history of malignant neoplasm of breast
CPT/HCPCS: 36415; 76642; 77062; 77066; 84146; G0279

== ENCOUNTER 2021-05-01 14:19 | Outpatient (CLI) | payer MEDICAID, SELFPAY ==
[2021-05-05 13:34] LABS: HPV Reflexed? NOT INDICATED
== END 2021-05-01 23:59 | disposition short-term general hospital (02) ==
LOC: LABSPEC 14:21
PROVIDERS: PCP Student in an Organized Health Care Education/Training Program; Visit Provider Obstetrics & Gynecology
DX: Z12.4 Encounter for screening for malignant neoplasm of cervix (principal)
CPT/HCPCS: 88175; G0145

== ENCOUNTER 2021-08-10 14:19 | Outpatient (CLI) | payer MEDICAID, SELFPAY ==
[2021-08-10 15:23] LABS: Prolactin 83.6 ng/mL
== END 2021-08-10 23:59 | disposition home or self-care (01) ==
LOC: LAB 14:20
PROVIDERS: PCP Student in an Organized Health Care Education/Training Program; Referring Provider Nurse Practitioner Women's Health; Visit Provider Nurse Practitioner Women's Health
DX: N64.3 Galactorrhea not associated with childbirth (principal)
CPT/HCPCS: 36415; 84146; 84443

== ENCOUNTER 2021-08-11 15:08 | Outpatient (CLI) | payer MEDICAID, SELFPAY ==
[2021-08-11 16:43] LABS: Anion Gap 3 (5-15); BUN 12 mg/dL (7-18); BUN/Creat Ratio 13.3 RATIO (10-20); Calcium,Total 8.6 mg/dL (8.5-10.1); Chloride 106 mmol/L (98-107); EST Glomerular Filtration Rate 79 mL/min (>60); Est Glom Filt Rate - Afr Amer 95 mL/min (>60); Glucose 100 mg/dL (74-106); Potassium 3.9 mmol/L (3.5-5.1); Sodium Level 137 mmol/L (136-145)
== END 2021-08-11 23:59 | disposition home or self-care (01) ==
LOC: LAB 15:09
PROVIDERS: PCP Student in an Organized Health Care Education/Training Program; Visit Provider Nurse Practitioner Women's Health
DX: N64.3 Galactorrhea not associated with childbirth (principal); Z80.3 Family history of malignant neoplasm of breast
CPT/HCPCS: 36415; 80048; 84443

== ENCOUNTER 2021-08-17 08:54 | Outpatient (CLI) | payer MEDICAID, SELFPAY ==
[2021-08-17 10:47] LABS: Prolactin 59.4 ng/mL
== END 2021-08-17 23:59 | disposition home or self-care (01) ==
PROVIDERS: PCP Student in an Organized Health Care Education/Training Program; Visit Provider Obstetrics & Gynecology
DX: N64.3 Galactorrhea not associated with childbirth (principal)
CPT/HCPCS: 36415; 84146

== ENCOUNTER → 2021-08-23 | Outpatient (CLI) | payer MEDICAID, SELFPAY ==
--- NOTE | 2021-08-23 16:54 | MRI_ITS ---
STUDY: MRI BRAIN WITH AND WITHOUT CONTRAST (ATTENTION PITUITARY GLAND) REASON FOR EXAM: Female, 31 years old. pituitary for hyperprolactemia TECHNIQUE: Standardized multiplanar fat and water weighted pulse sequences were obtained. IV 11ML DOTAREM was administered for the contrast portion of the examination. COMPARISON: None. FINDINGS: Normal size of the pituitary gland for the patient?s age and gender, measuring 1.25 x 0.79 cm in diameter maximally. 6.4 x 3.6 mm left anterior pituitary nonenhancing adenoma, refer to images 12/09 series 11 and 10/26 series 12. Normal remaining aspects of the pituitary gland. Normal infundibular stalk and suprasellar cistern. Normal optic chiasm and hypothalamus. Normal size of the ventricles and extra-axial spaces for the patient''s age. Normal white matter tracts of the supratentorial brain. There is no evidence for recent intracranial ischemia or other cause of cytotoxic edema on diffusion weighted imaging (DWI). There are no demyelinating plagues of the supratentorial brain, brainstem or cerebellum. No focal or suspicious enhancement of the brain parenchyma or meninges or dura. Normal bilateral basal ganglia. Normal thalami. Normal flow voids within the major intracranial circulation suggesting patency by spin echo criteria. Normal venous enhancement. There is no enhancing intra-axial or extra-axial abnormality. There is no extra-axial fluid accumulation. Normal tectal plate and pineal gland. Normal midbrain, claudio and medulla. Normal cerebellum. Normal basal cisterns. Normal bilateral temporal bones. Normal bilateral internal auditory canals. No demonstrated orbital abnormality, within the constraints of a routine brain study. Normal visualized paranasal sinuses. Normal calvarium and skull base. Normal visualized upper cervical spine. Normal visualized soft tissue structures. MRI/Brain W/WO Contrast IMPRESSION: * 6.4 x 3.6 mm left anterior pituitary nonenhancing adenoma, refer to images 12/09 series 11 and 10/26 series 12. Normal remaining aspects of the pituitary gland. * Normal remaining aspects of the brain. Electronically Signed: Kevin Carias MD at 10:56 EDT ,
== END | disposition home or self-care (01) ==
LOC: MRI 16:54
PROVIDERS: PCP Student in an Organized Health Care Education/Training Program; Visit Provider Nurse Practitioner Women's Health
DX: E22.1 Hyperprolactinemia (principal)
CPT/HCPCS: 70553; A9575

== ENCOUNTER → 2021-09-14 | Outpatient (CLI) | payer MEDICAID, SELFPAY ==
[2021-09-14 13:32] LABS: Prolactin 22.4 ng/mL
== END | disposition home or self-care (01) ==
LOC: LAB 12:24
PROVIDERS: PCP Student in an Organized Health Care Education/Training Program; Referring Provider Obstetrics & Gynecology; Visit Provider Obstetrics & Gynecology
DX: N64.3 Galactorrhea not associated with childbirth (principal)
CPT/HCPCS: 36415; 84146

== ENCOUNTER → 2022-01-03 | Outpatient (CLI) | payer MEDICAID, SELFPAY ==
[2022-01-03 17:38] LABS: CRP < 2.90 mg/L (0.0-3.0); LDH 149 U/L (84-246)
[2022-01-03 17:53] LABS: Erythrocyte Sedimentation Rate 4 mm/hr (0-30)
[2022-01-05 13:07] LABS: Anti-Centromere B Ab <0.2 AI (0.0-0.9); Anti-Chromatin <0.2 AI (0.0-0.9); Anti-Jo <0.2 AI (0.0-0.9); Anti-Scleroderma-70 AB 2.8 AI (0.0-0.9); RNP Ab <0.2 AI (0.0-0.9); SJOGREN'S Anti-SS-A test < 0.2 AI (0.0-0.9); SJOGREN'S Anti-SS-B test < 0.2 AI (0.0-0.9); Smith Ab <0.2 AI (0.0-0.9)
[2022-01-05 16:09] LABS: Endomysial Antibody IgA Negative (Negative)
[2022-01-06 16:43] LABS: Immunoglobulin A 140 mg/dL (87-352); t-Transglutaminase IgA <2 U/mL (0-3)
[2022-01-07 12:07] LABS: Albumin 3.4 g/dL (2.9-4.4); Alpha-1-Globulins 0.4 g/dL (0.0-0.4); Alpha-2-Globulins 0.8 g/dL (0.4-1.0); Cytoplasmic Ab (C-ANCA) <1:20 titer (Neg:<1:20); Immunoglobulin A 140 mg/dL (87-352); Immunoglobulin G 1000 mg/dL (586-1602); Immunoglobulin M 185 mg/dL (26-217); PROEL- TOTAL PROTEIN 6.6 g/dL (6.0-8.5)
[2022-01-07 15:39] LABS: Immunoglobulin E 36 IU/mL (6-495); Perinuclear Ab (P-ANCA) <1:20 titer (Neg:<1:20)
[2022-01-07 16:35] LABS: Anti-dsDNA Ab <1 IU/mL (0-9)
== END | disposition home or self-care (01) ==
LOC: LAB 16:10
PROVIDERS: PCP Student in an Organized Health Care Education/Training Program; Referring Provider Internal Medicine Gastroenterology; Visit Provider Internal Medicine Gastroenterology
DX: K59.00 Constipation, unspecified (principal); R14.2 Eructation
CPT/HCPCS: 36415; 82784; 82785; 83516; 83615; 84165; 85652; 86140; 86225; 86235; 86255; 86256; 86334

== ENCOUNTER → 2022-01-15 | Outpatient (CLI) | payer MEDICAID, SELFPAY | END | disposition home or self-care (01) | LOC: LABSPEC 14:09 | PROVIDERS: PCP Student in an Organized Health Care Education/Training Program; Referring Provider Internal Medicine Gastroenterology; Visit Provider Internal Medicine Gastroenterology | DX: K58.9 Irritable bowel syndrome, unspecified (principal); K59.00 Constipation, unspecified; R14.2 Eructation | CPT/HCPCS: 83630 ==

== ENCOUNTER → 2022-02-13 | Outpatient (CLI) | payer MEDICAID, SELFPAY ==
--- NOTE | 2022-02-13 10:51 | NM_ITS ---
CLINICAL: 31-year-old female with history of abdominal bloating and clinical gastroparesis. SEMI-SOLID PHASE 99m Tc SULFUR COLLOID GASTRIC EMPTYING STUDY COMPARISON: None available FINDINGS: The patient was administered 1.2 mCi of 99m Tc sulfur colloid mixed with oatmeal and consumed per os. Image acquisitions in the anterior-posterior projections were obtained for 60 minutes. There is prompt visualization of the stomach. There is no gastroesophageal reflux identified. First order kinetics are maintained throughout the duration of the acquisitions. The T ? linear fit was calculated to be 84.28 minutes, (Normal: 12-56 minutes). NM/Gastric Emptying Study IMPRESSION: 1. ABNORMAL 99m Tc sulfur colloid semi-solid phase (oatmeal) gastric emptying imaging examination. A. There is delayed semi-solid phase gastric emptying compared to normal controls with maintained first order kinetics throughout all components of the examination. (Jennifer et al, J Nucl Med Tech 38: 186, 2010). Electronically Signed: Earle Cohen, at 21:54 EDT ,
== END | disposition home or self-care (01) ==
LOC: NM 10:48
PROVIDERS: PCP Student in an Organized Health Care Education/Training Program; Referring Provider Internal Medicine Gastroenterology; Visit Provider Internal Medicine Gastroenterology
DX: K59.00 Constipation, unspecified (principal); R14.2 Eructation
CPT/HCPCS: 78264; A9503

== ENCOUNTER → 2022-05-03 | Outpatient (CLI) | payer MEDICAID, SELFPAY | END | disposition home or self-care (01) | PROVIDERS: PCP Student in an Organized Health Care Education/Training Program; Visit Provider Obstetrics & Gynecology | DX: N89.8 Other specified noninflammatory disorders of vagina (principal) | CPT/HCPCS: 87070; 87205 ==

== ENCOUNTER → 2022-08-24 | Outpatient (CLI) | payer MEDICAID, SELFPAY ==
--- NOTE | 2022-08-24 15:39 | US_ITS ---
INDICATION: pcos EXAMINATION: Ultrasound US Pelvis Non OB Complete With Transvaginal Imaging TECHNIQUE: Transabdominal and transvaginal pelvic ultrasound was performed. Grayscale, spectral waveform, and color flow Doppler evaluation of the adnexa. COMPARISON: None. FINDINGS: UTERUS: Anteverted. The uterus measures 8.3 x 4.6 x 4.1 cm.. There is no uterine mass. The endometrial stripe measures 2 mm in AP diameter which is within normal limits. Linear hyperechoic focus is seen regional to the cervix consistent with patient''s reported -control ring. RIGHT OVARY not visualized. LEFT OVARY: 1.3 x 1.5 x 2.3 cm.. Non-enlarged, normal echogenicity. There is normal arterial inflow and venous outflow present in the left ovary. FREE FLUID: None. US/Pelvic w/ Transvaginal IMPRESSION: Right ovary not visualized. Left ovary normal. No evidence of polycystic ovarian syndrome. Hyperechoic focus is seen at the cervix suggestive of patient''s reported -control ring. Electronically Signed: Sven López MD, AMELIA at 23:22 EDT ,
== END | disposition home or self-care (01) ==
LOC: US 15:39
PROVIDERS: PCP Student in an Organized Health Care Education/Training Program; Referring Provider Obstetrics & Gynecology; Visit Provider Obstetrics & Gynecology
DX: E28.2 Polycystic ovarian syndrome (principal)
CPT/HCPCS: 76830; 76856

== ENCOUNTER 2023-01-14 16:00 | Outpatient (RCR) | payer MEDICAID, SELFPAY ==
--- NOTE | 2023-01-21 08:14 | HP.OTFCE_ITS ---
Task Lift Floor (Occasional 1-33% of Day): 40# Floor (Frequent 34-66% of Day): 20# Floor (Constant 67-100% of Day): NA Floor PDL: Light-Medium Knee (Occasional 1-33% of Day): 55# Knee (Frequent 34-66% of Day): 27# Knee (Constant 67-100% of Day): NA Knee PDL: Medium Waist (Occasional 1-33% of Day): 55# Waist (Frequent 34-66% of Day): 27# Waist (Constant 67-100% of Day): NA Waist PDL: Medium Shoulder (Occasional 1-33% of Day): 45# Shoulder (Frequent 34-66% of Day): 22# Shoulder (Constant 67-100% of Day): NA Shoulder PDL: Light-Medium Overhead (Occasional 1-33% of Day): 25# Overhead (Frequent 34-66% of Day): 12# Overhead (Constant 67-100% of Day): NA Overhead PDL: Light Comments: Light-Medium Physical Demand Level for lifting at Floor and Shoulder levels Medium Physical Demand level for lifting at Knee and waist level Light Physical Demand level for lifting at Overhead levels Due to pain pt would not be able to perform constant lifting Work Activity/Posture Bending: Occasional Ability (1-33% of day) Squatting: Occasional Ability (1-33% of day) Comments: with ext Kneeling: Occasional Ability (1-33% of day) Reaching out: Frequent Ability (34-66% of day) Reaching up: Frequent Ability (34-66% of day) Sitting: Frequent Ability (34-66% of day) Comments: with shifting body weight Walking: Frequent Ability (34-66% of day) Standing: Frequent Ability (34-66% of day) Comments: with shifting body weight Reference Reference: Duration Sedentary Sedentary Light Light Light Medium Medium Medium Heavy Very Heavy Heavy Occasional (0-33% of day) Frequent (34-66% of day) Constant (67-100% of day) 10 # Negligible Negligible 15 # 8 # Negligible 20 # 10# Negli. 35 # 18 # 7 # 50 # 25 # 10 # 75 # 100 # >100 # 38 # 50 # >50 # 15 # 20 # >20 # Patient Information Height: 1.68 m Weight:: 58.967 kg Hand Dominance: Right Medical History Medical History Including Restrictions: Pt states she was in good health until she became 19 years old she was dx with scoliosis ( this is when this started to give her trouble) pt states she has done Physical therapy ( last done about 2 years ago) in the past. Pt states Now family Dr will manipulates her spine this gives pt relief for a few days. Pt states she does do yoga 60 min sessions 3-4 days a week. Pt states she has been a member of [employer] 2017. 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 ( pt states most noticeable with Yoga and a single leg balance. younger pain and calf pain pt has worked with Physical therapy- stretching- deep tissue massage- and dry needling ( working 2018) Diagnoses Diagnoses: dx of Popliteal artery entrapment syndrome (HCC) Scoliosis chronic headrace/migraine mix Depression/anxiety at age 19 does see counselor weekly and case mtg. Symptoms Symptoms: Back Pain Thoracic back pain Neck Pain Pain in right hip Pain in bilateral younger Scoliosis Pain Pain: Pt states she does not take pain medication- pt states she will take Advil when pain is interfering with her breathing. 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 pt states her thyroid involved and constantly sick and was unable to keep working. 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 pt states she is trying to file for disability - states if she had no metal or physical limitations pt would want to work in medical field Behavioral Behavioral: pt was willing to participate in requested activity/tasks throughout assessment. ADLS ADLS: Pt states she lives with her parents in a two story home. pt has no entry steps. Pt states her bedroom and bathroom are on the 2nd floor ( about 14 steps with one handrailing). Pt states she has a walk in shower. pt states she stand as needed and has built in shower seat- pt states she is ind with bathing and dressing- pt drives IND- pt states due to her depression if things in her room like laundry get backed up she will shut down- pt states she feels physically can do laundry but mentally can not- laundry is on 1st floor- Mom does cooking/ cleaning/ grocery shopping - mom does work on farm/[employer] ( last 5 years) Dad works States she will help if mentally and physically she can with daily home mtg. Physical Examination Physical Examination: heart rate ranged from 99 to 143 throughout assessment ROM: pt demo good functional ROM sight Hyper -extension at knees and elbows noted scoliosis of thoracic spine all other ROM is WNL Strength: FET2 Peak force testing shoulder flexion right 12# left 17# shoulder extension right 21# left 18# Biceps right 19.4# left 14.9# Triceps right 15# left 14.2# Hip flexion right 20# left 19.2# Quads right 17.5# left 18.2# hamstrings right 17.4# left 16.3# pt demo good functional strength Right Imaging Center Manager Strength Average: 91.66 Right Imaging Center Manager Strength Percentile: 87% Left Imaging Center Manager Strength Average: 96.66 Left Imaging Center Manager Strength Percentile: 97% Right Lateral Pinch Average: 19.33 Right Lateral Pinch Percentile: >90% Left Lateral Pinch Average: 16.00 Left Lateral Pinch Percentile: 90% Right Tripod Pinch Average: 28.66 Right Tripod Pinch Percentile: >90% Left Tripod Pinch Average: 25.00 Left Tripod Pinch Percentile: >90% Comments: heart rate at rest 115 Sensation: denies Fine Motor: denies Balance: 102 heart rate Functional Reach test for balance = 13 Interpretation: A score of 6 or less indicates a significant increased risk for falls. A score between 6-10 inches indicates a moderate risk for falls. pt demo good balance throughout assessment Non Material Handling Activities Bending: Pt demo the ability to bend forward 3/3x, 10/10x heart rate at 99 10/10x rapidly heart rate 137 pt states pain 1/10 pt states she does correct her muscle groups with increase in pain to decrease her pain pt can bend forward on occasional ability Squatting: pt demo the ability to squat 3/3x, 10/10x and 9/10 x rapidly pt stopped at 01/06 rapid due to sharp pain behind her knee cap ( / lasting 10-15 sec) pt reports pain /10 126 heart rate pt states this pain happens often with with squatting and going up steps pt can squat on occasional ability Kneeling: pt demo the ability to kneel 3/3x, 10/10x with external support- pt 4/ right knee pain 4/ pt can kneel on occasional ability Reaching out/up: pt demo the ability to reach up/out 3/3x and 10/10x with ribs and mid to lower back pain /10 pt completed 02/05 rapidly states not as bad pain increased and than decreased while performing task. states burring muscle fatigue in deltoid region. heart rate 129 pt demo ability to reach up/out on frequent ability Walking: pt demo the ability to ambulate for 15 min with a reciprocal gait patter with good gait speed. Pts heart rate following 99. pt can ambulate on frequent ability Standing: pt demo the ability to stand for 10 min with shifting body weight. pt can stand on frequent ability with shifting body weight. Sitting: pt demo the ability to sit for 45 min with no apparent or expressed discomfort. pt can sit on frequent ability Climbing Stairs: Pt demo the ability to ascend and descend 10 steps with a reciprocal step pattern with good ability. Dynamic Occasional Lifting Capacity Floor Lift: pt demo the ability to lift 25# (+15# for box ) for maximum lift ability of 40# from floor level- Knee Lift: Pt demo the ability to lift 40# ( +15# for box ) for maximum lift ability of 55# from knee level Waist Lift: Pt demo the ability to lift 40# ( +15# for box ) for maximum lift ability of 55# from waist level Shoulder Lift: Pt demo the ability to lift 30# ( +15# for box ) for maximum lift ability of 45# from shoulder level Overhead Lift: pt demo the ability to lift 25# at overhead levels Carrying: pt demo the ability to carry 30# (+15# box) for 45# maximum carry for 30 feet Comments: pt put good effort for assessment
--- NOTE | 2023-01-21 08:14 | HP.OTFCE.D ---
FCE D/C Summary Discharge text: TRAVIS HUITRON was seen for a one time visit for an FCE on 01/14/23 and is discharged.
== END 2023-01-14 19:00 | disposition home or self-care (01) ==
LOC: OT 16:00
PROVIDERS: PCP Student in an Organized Health Care Education/Training Program; Referring Provider Student in an Organized Health Care Education/Training Program; Visit Provider Student in an Organized Health Care Education/Training Program
DX: M54.6 Pain in thoracic spine (principal); M54.2 Cervicalgia; M25.551 Pain in right hip; M79.669 Pain in unspecified lower leg; G89.29 Other chronic pain
CPT/HCPCS: 97750

== ENCOUNTER 2023-06-14 14:22 | Emergency (ER) | payer MEDICAID, SELFPAY ==
[2023-06-14 14:22] VITALS: BP 105/86; PULSE 138; RESP 16; TEMP 36.3; O2SAT 100; BMI 22.3
--- NOTE | 2023-06-14 14:55 | EX.ED.GENINJ ---
HPI History of Present Illness Chief Complaint: Nausea/Vomiting [facility] Medical History Acute insomnia Anxiety and depression Back problem Bloating Breast lump Epigastric pain Family history of breast cancer History of posttraumatic stress disorder (PTSD) Hx of migraine headaches Hyperprolactinemia Major depressive disorder, recurrent, moderate Neck pain Panic disorder PCOS (polycystic ovarian syndrome) Scoliosis Seasonal allergies Thyroiditis UTI (urinary tract infection) Home Medications L.acidoph, paracasei,B. lactis 10 billion cell capsule 1 ea PO DAILY 05/30/16 [History Last Taken Unknown] glycopyrrolate 1 mg tablet 1 mg PO BID 08/05/16 [History Last Taken Unknown] clonazepam 0.5 mg tablet 0.5 mg PO BID PRN Anxiety 08/05/17 [History Last Taken Unknown] buspirone 30 mg tablet 30 mg PO BID 10/19/19 [History Last Taken Unknown] triamcinolone acetonide 0.5 % topical cream 1 applic topical DAILY 10/19/19 [History Last Taken Unknown] cyclobenzaprine 5 mg tablet 5 mg PO QHS 30 days #60 tabs 12/16/19 [Rx Last Taken Unknown] food supplemt, lactose-reduced 0.06 gram-1 kcal/mL oral liquid (Boost High Protein) ea PO 03/31/20 [History Last Taken Unknown] famotidine 20 mg tablet (Pepcid) 40 mg PO QDAY 05/01/21 [History Last Taken Unknown] fluvoxamine 100 mg tablet 100 mg PO QHS 05/01/21 [History Last Taken Unknown] bupropion HCl 150 mg tablet,12 hr sustained-release 300 mg PO BID 05/03/22 [History Last Taken Unknown] fexofenadine 60 mg tablet (Allergy Relief (fexofenadine)) 180 mg PO DAILY 05/03/22 [History Last Taken Unknown] linaclotide 72 mcg capsule (Linzess) 145 mcg PO DAILY 05/03/22 [History Last Taken Unknown] magnesium oxide 600 mg PO DAILY 05/03/22 [History Last Taken Unknown] segesterone acet 0.15 mg-ethinyl estradiol 0.013 mg/24 hr vaginal ring (Annovera) 1 vag ring vaginal Q4W #1 ea 05/03/22 [Rx Last Taken Unknown] nortriptyline 25 mg capsule 25 mg PO DAILY 06/14/23 [History Last Taken Unknown] topiramate 25 mg tablet (Topamax) 25 mg PO DAILY 06/14/23 [History Last Taken Unknown] Allergy/AdvReac Type Severity Reaction Status Date / Time lactose AdvReac Intermediate Nausea/Vom/ Verified 06/14/23 14:25 Diarrhea ondansetron [From Zofran] AdvReac Intermediate Constipatio Verified 06/14/23 14:25 n metoclopramide AdvReac Mild Verified 06/14/23 14:25 adhesive tape AdvReac RASH Verified 06/14/23 14:25 Family History Brother Asthma Mother Breast cancer Surgical History right index finger S/P right breast biopsy [place] teeth extracted Social History Smoking Status: Never smoker second hand exposure: No alcohol intake: never substance use type: does not use caffeine: No what type of physical activity do you participate in: none seatbelt use: always do you feel safe at home: Yes additional social history: single- EXAM Physical Exam Const Vital Signs: 06/14/23 14:22 06/14/23 17:29 Temperature 97.4 F L Temperature Source Temporal Pulse Rate 138 H 89 Respiratory Rate 16 12 Blood Pressure 105/86 H 121/79 H Blood Pressure Mean 92 93 Pulse Ox 100 99 Oxygen Delivery Method Room Air Room Air [facility] MDM Narrative Medical decision making narrative: HISTORY OF PRESENT ILLNESS: 32 year-old female presents with nausea vomiting and feeling lightheaded and dehydrated. She notes 1 week of cold-like symptoms. Bilateral ear pain. Notes recently being on prednisone last dose 2 days ago. Notes cough. Notes no abdominal pain. Denies chest pain or shortness of breath. She notes she gets lightheaded with time she stands. Show she vomited once. Is nonbloody nonbilious. Last bowel was yesterday. No vaginal bleeding or discharge. No diarrhea noted. REVIEW OF SYSTEMS: Pertinent positives: Nausea, vomiting, lightheadedness Pertinent negatives: Syncope, focal weakness, chest pain or shortness of breath PHYSICAL EXAM: Nursing triage notes reviewed, Vital signs reviewed Constitutional: please see mdm HENT: MMM Eyes: Pupils equal round and reactive to light, Extraocular muscles intact Neck: No stridor, no JVD, full neck ROM Lungs: Clear to auscultation, No wheezing or rales. No increased work of breathing, no conversational dyspnea, no accessory muscle use, no nasal flaring. No respiratory distress noted Heart: Regular rate and rhythm, No murmurs, No rubs and No gallops, 2+ distal pulses (radial, femoral, posterior tibial) in all extremities Abdomen: Soft, there is no tenderness, rigidity, rebound or guarding, no obvious peritoneal signs, no palpable pulsatile abdominal masses, no auscultated abdominal bruit : No CVAT Extremities: No edema Neuro: No focal neurological deficits, cranial nerves II through XII intact, 5/5 strength in all extremities. Intact sensation to light touch in all extremities, 2+ reflexes bilateral patella tendons. Normal gait. No ataxia. Skin: No rash or lesions noted MEDICAL DECISION MAKING: Chief Complaint: Nausea vomiting External records reviewed: Transvaginal ultrasound from July 2022 showed no evidence of PCOS Factors affecting care: Gastroparesis [facility] Narrative: Patient was initially tachycardic, otherwise hemodynamically stable, afebrile and nontoxic-appearing. I considered the following differential diagnosis: Dehydration, electrolyte disturbance, , COVID, flu, RSV I obtained a broad lab and imaging workup to further elucidate etiology patient complaints. Give symptomatic treatment in the form phenergan, fluids ALL IMAGES (IF OBTAINED) HAVE BEEN PERSONALLY REVIEWED AND INTERPRETED BY MYSELF. CBC with leukocytosis (likely secondary to recent course of corticosteroids), no anemia or thrombocytopenia BMP without evidence of significant electrolyte abnormalities, no anion gap, no acute kidney injury. LFTs show no evidence of hepatobiliary pathology. Lipase is wnl indicating no pancreatic inflammation. Urine test is negative The synthesis the patient history, physical exam, labs images suggest acute dehydration from nausea vomiting. Patient initially treated with 1 L IV fluid and Phenergan however she continued to have nausea. She was then treated with IV haloperidol. She is given additional liter of fluid. Her heart rate was initially elevated but this resolved suggesting appropriate resuscitation. Patient had an acute dystonic reaction from haloperidol treated with Benadryl. Upon discharge patient no nausea she had no vomiting she passed her p.o. challenge. No clear life-limiting etiology could be ascertained. The patient is appropriate for discharge home. The patient and/or family, caregivers express understanding. The patient and/or family, caregivers agrees with the plan. Shared decision making: I will have a discussion with the patient and or visitors regarding risk/benefits of further testing or admission. They will be made aware of of the risk/benefits inherent in this decision they will be given the opportunity to voice understanding. Total critical care time today provided was at least 0 minutes. This excludes separately billable procedures. Critical care time (if documented) is secondary to the patient having high probability of clinically significant/life threatening deterioration in the patient's condition which required my urgent intervention. Impression: 1. Nausea/vomiting 2. Viral Uri 3. Dehydration 4. tachycardia 5. Acute dystonic reaction Dispo: Discharge home This note was generated with [employer] dictation software. It may contain incorrect words, spelling, and punctuation that were not noted in review of the chart prior to signing. Lab Data Attestation: I reviewed the patient's lab results. Labs: Laboratory Results - last 24 hr 06/14/23 06/14/23 15:04 15:30 WBC 12.3 H RBC 5.03 Hgb 14.7 Hct 45.4 MCV 90.3 MCH 29.2 MCHC 32.4 RDW Std Deviation 40.9 RDW Coeff of Dre 12.4 Plt Count 283 MPV 8.7 Immature Gran % (Auto) 0.500 Neut % (Auto) 78.1 H Lymph % (Auto) 13.5 L [place] % (Auto) 6.5 Eos % (Auto) 1.1 Baso % (Auto) 0.3 Absolute Neuts (auto) 9.6 H Absolute Lymphs (auto) 1.66 Nucleated RBC % 0 Sodium 141 Potassium 4.2 Chloride 113 H Carbon Dioxide 24.0 Anion Gap 4 L BUN 13 Creatinine 0.92 Estim Creat Clear Calc 83.70 Est GFR (MDRD) Af Amer 91 Est GFR (MDRD) Non-Af 76 BUN/Creatinine Ratio 14.1 Glucose 95 Calcium 8.1 L Total Bilirubin 0.40 AST 17 ALT 25 Alkaline Phosphatase 63 Total Protein 7.1 Albumin 3.0 L Globulin 4.1 Albumin/Globulin Ratio 0.7 L Lipase 59 Urine Test Negative Discharge Plan Triage Chief Complaint: Nausea/Vomiting ED Provider: [facility] Dx/Rx/DC Orders Prescriptions: No Action famotidine [Pepcid] 20 mg tablet 40 mg PO QDAY Boost High Protein 0.06 gram- 1 kcal/mL liquid PO buspirone 30 mg tablet 30 mg PO BID triamcinolone acetonide 0.5 % cream 1 applic TOPICAL DAILY fluvoxamine 100 mg tablet 100 mg PO QHS Rx Instructions: Take three 100 mg tablets for total of 300 mg po daily. bupropion HCl 150 mg tablet sustained-release 12 hr 300 mg PO BID fexofenadine [Allergy Relief (fexofenadine)] 60 mg tablet 180 mg PO DAILY Linzess 72 mcg capsule 145 mcg PO DAILY Annovera 0.15-0.013 mg/24 hour ring 1 vag ring vaginal Q4W Qty: 1 0RF Rx Instructions: use continuously x 1 year magnesium oxide 400 mg magnesium tablet 600 mg PO DAILY clonazepam 0.5 mg tablet 0.5 mg PO BID PRN (Reason: Anxiety) Patient Comments: Client states can take up to 2mg, has been taking approximately 0.75mg. L.acidoph, paracasei,B. lactis 1 EACH capsule 1 ea PO DAILY glycopyrrolate 1 MG tablet 1 mg PO BID cyclobenzaprine 5 MG tablet 5 mg PO QHS 30 Days Qty: 60 1RF Rx Instructions: Take 1 to 2 po q hs nortriptyline 25 mg capsule 25 mg PO DAILY topiramate [Topamax] 25 mg tablet 25 mg PO DAILY Primary Care Provider: Antolin June Referrals: Antolin June DO [Primary Care Provider] -
--- NOTE | 2023-06-14 14:57 | EKG12_ITS ---
Test Reason : DIZZINESS Blood Pressure : / mmHG Vent. Rate : 133 BPM Atrial Rate : 133 BPM P-R Int : 132 ms QRS Dur : 084 ms QT Int : 298 ms P-R-T Axes : 069 083 005 degrees QTc Int : 443 ms Sinus tachycardia Possible Left atrial enlargement Nonspecific ST changes Abnormal ECG Confirmed by Brendon Valenzuela ([id number]), digital editor HARVEY AYERS ([id number]) on 06/17/2023 9:45:20 AM Referred By: Confirmed By:Brendon Valenzuela
[2023-06-14] MEDS: 0.9% Normal Saline (1000mL) 1,000 ML 1000 ML IV (15:11)
[2023-06-14] MEDS: proMETHazine 25 MG/ML Syringe 12.5 MG IM (15:12)
[2023-06-14 15:29] LABS: Absolute Lymphocyte Count 1.66 X10^3/uL (0.83-4.51); Absolute Neutrophil Count 9.6 X10^3/uL (2.0-7.7); Basophil# 0.04 X10^3/uL; Basophil% 0.3 % (0-1); Eosinophil# 0.13 X10^3/uL; Eosinophils% 1.1 % (0-5); Hematocrit 45.4 % (37-47); Hemoglobin 14.7 g/dL (12.0-15.0); Lymphocyte # 1.66 X10^3/ul (0.83-4.51); Lymphocyte % 13.5 % (19-41); Mean Corp Hgb Conc 32.4 g/dL (32-36); Mean Corpuscular Hgb 29.2 pg (27.0-32.0); Mean Corpuscular Volume 90.3 fL (81-99); Mean Platelet Vol. 8.7 fl (6.2-12.0); Monocyte% 6.5 % (0-10); NRBC Flagged by Analyzer 0 % (0-5); Neutrophil % 78.1 % (47-70); Platelet Count 283 K/mm3 (150-450); RBC Distribution Width CV 12.4 % (11.6-14.6); RBC Distribution Width SD 40.9 fl (35.1-43.9); Red Blood Count 5.03 M/mm3 (4.2-5.4); White Blood Count 12.3 K/mm3 (4.4-11.0)
[2023-06-14 15:49] LABS: Internal QC Validated? YES +Cl - CLEAR BKGD; Pregnancy, Urine Negative Negative
[2023-06-14 15:53] LABS: ALB/GLOB Ratio 0.7 RATIO (0.9-2.4); AST(SGOT) 17 U/L (15-37); Alanine Aminotransfer ALT/SGPT 25 U/L (13-56); Alkaline Phosphatase 63 U/L (45-117); Anion Gap 4 (5-15); BUN 13 mg/dL (7-18); BUN/Creat Ratio 14.1 RATIO (10-20); Calcium,Total 8.1 mg/dL (8.5-10.1); Chloride 113 mmol/L (98-107); Creatinine, Serum 0.92 mg/dL (0.55-1.02); EST Glomerular Filtration Rate 76 mL/min (>60); Est Glom Filt Rate - Afr Amer 91 mL/min (>60); Globulin 4.1 g/dL (2.2-4.2); Glucose 95 mg/dL (74-106); Lipase 59 U/L (13-75); Potassium 4.2 mmol/L (3.5-5.1); Protein, Total 7.1 g/dL (6.4-8.2); Sodium Level 141 mmol/L (136-145)
[2023-06-14] MEDS: 0.9% Normal Saline (1000mL) 1,000 ML 999 ML IV (16:58)
[2023-06-14 17:29] VITALS: BP 121/79; PULSE 89; RESP 12; O2SAT 99
[2023-06-14] MEDS: Haloperidol Lactate 5 MG/ML Vial 2 MG IV (17:31)
[2023-06-14] MEDS: DiphenhydrAMINE 50 MG/ML Syringe 25 MG IV (17:52)
[2023-06-14 18:37] VITALS: BP 120/79; PULSE 110; RESP 16; TEMP 36.6; O2SAT 99
== END 2023-06-14 18:38 | disposition home or self-care (01) ==
PROVIDERS: Emergency Provider Emergency Medicine; PCP Student in an Organized Health Care Education/Training Program; Visit Provider Emergency Medicine
DX: R11.2 Nausea with vomiting, unspecified (principal); J06.9 Acute upper respiratory infection, unspecified; E86.0 Dehydration; G24.1 Genetic torsion dystonia; R00.0 Tachycardia, unspecified; F41.9 Anxiety disorder, unspecified; F32.A Depression, unspecified; Z79.899 Other long term (current) drug therapy
CPT/HCPCS: 80053; 81025; 83690; 85025; 93005; 96361; 96372; 96374; 96375; 99283; J7030; A4216

== ENCOUNTER → 2023-06-25 | Outpatient (CLI) | payer MEDICAID, SELFPAY ==
[2023-06-30 17:07] LABS: HPV APTIMA, High Risk Negative (Negative)
== END | disposition home or self-care (01) ==
LOC: LABSPEC 16:21
PROVIDERS: PCP Student in an Organized Health Care Education/Training Program; Referring Provider Obstetrics & Gynecology; Visit Provider Obstetrics & Gynecology
DX: Z12.4 Encounter for screening for malignant neoplasm of cervix (principal)
CPT/HCPCS: 87624; 88175; G0145

== ENCOUNTER → 2024-07-06 | Outpatient (CLI) | payer MEDICAID, SELFPAY ==
[2024-07-10 13:08] LABS: HPV APTIMA, High Risk Negative (Negative)
== END | disposition home or self-care (01) ==
LOC: LABSPEC 17:20
PROVIDERS: PCP Student in an Organized Health Care Education/Training Program; Referring Provider Obstetrics & Gynecology; Visit Provider Obstetrics & Gynecology
DX: Z12.4 Encounter for screening for malignant neoplasm of cervix (principal)
CPT/HCPCS: 87624; 88175; G0145

== ENCOUNTER 2024-08-13 12:12 | Emergency (ER) | payer MEDICAID, SELFPAY ==
[2024-08-13 12:14] VITALS: BP 103/79; PULSE 118; RESP 18; TEMP 36.8; O2SAT 99; BMI 27.0
[2024-08-13 12:53] LABS: Mucous, Urine 0 SEEN /hpf (<or=2+); White Blood Cells 0 SEEN /hpf (0-5)
--- NOTE | 2024-08-13 13:02 | EDS_ITS ---
HPI History of Present Illness Chief Complaint: Complaint Detail of Chief Complaint: UTI symptoms Informant: patient Onset/Context/Timing Onset: Days (Onset August 07) Context: Sudden Onset Timing: Continuous Quality: Dysuria, frequency without hematuria Location: pain central low back and suprapubic Current Severity: Mild Maximum Severity: Moderate Worsened by: Worse with urination Relieved by: Nothing Associated Symptoms Associated Symptoms: No fever or chills. No nausea or vomiting Narrative Narrative: Patient is a 34-year-old female. She was seen at the [facility] urgent care. Her urine grew E. coli. She was placed on nitrofurantoin however she was intolerant of this medicine. She was sent to the ER for possible admission. She denies HEENT, cardiac or respiratory symptoms. She denies neurologic symptoms. She denies skin lesions. Prior similar symptoms: Yes Recent Illness/Hospitalization: Yes [facility] Medical History Neck pain Acute insomnia Bloating Epigastric pain Hyperprolactinemia Family history of breast cancer History of posttraumatic stress disorder (PTSD) Panic disorder Major depressive disorder, recurrent, moderate Thyroiditis PCOS (polycystic ovarian syndrome) Scoliosis Hx of migraine headaches Breast lump UTI (urinary tract infection) Back problem Anxiety and depression Seasonal allergies Home Medications ?Medication ?Instructions ?Recorded ?Last Taken ?Type glycopyrrolate 1 mg tablet 1 mg PO BID 08/05/16 Unknow n History clonazepam 0.5 mg tablet 0.5 mg PO BID PRN Anxiety Unknown History buspirone 30 mg tablet 30 mg PO BID 10/19/19 Unknow n History triamcinolone acetonide 0.5 % 1 applic topical DAILY 0 10/19/19 Unknown History topical cream cyclobenzaprine 5 mg tablet 5 mg PO QHS 30 days #60 ta bs 12/16/19 Unknown Rx famotidine 20 mg tablet (Pepcid) 40 mg PO QDAY 2 Unknown History fluvoxamine 100 mg tablet 100 mg PO QHS 05/01/21 Unkno wn History bupropion HCl 150 mg tablet,12 hr 300 mg PO BID Unknown History sustained-release Bifidobacterium infantis 4 mg 4 mg PO QDAY 07/06/24 Un known History capsule (Align (B.infantis)) diclofenac sodium 1 % topical gel 2 g topical ONCE 02/20 Unknown History fluticasone propionate 50 1 spray intranasal QDAY 06/27 Unknown History mcg/actuation nasal spray,suspension (Allergy Relief (fluticasone)) gabapentin 300 mg capsule 300 mg PO QDAY 07/06/24 Unkn own History linaclotide 72 mcg capsule 72 mcg PO QAM 07/06/24 Unkn own History (Linzess) montelukast 10 mg tablet 10 mg PO QHS 07/06/24 Unknow n History naproxen 500 mg tablet 500 mg PO BID PRN 07/06/24 U nknown History risperidone 0.25 mg tablet 0.25 mg PO QHS 07/06/24 Unk nown History segesterone acet 0.15 mg-ethinyl 1 vag ring vaginal Q4 W #1 ea 07/08/24 Unknown Rx estradiol 0.013 mg/24 hr vaginal ring (Annovera) phenazopyridine 200 mg tablet 200 mg PO TID #10 tabs 0 08/13/24 Unknown Rx (Pyridium) Allergy/AdvReac Type Severity Reaction Status Date / Time topiramate (From Topamax) Allergy Intermediate GI upset Verified 08/13/24 12:14 lactose AdvReac Intermediate Nausea/Vom/ Verified 08/13/24 12:14 Diarrhea ondansetron (From Zofran) AdvReac Intermediate Constipatio Verified 08/13/24 12:14 n metoclopramide AdvReac Mild Verified 08/13/24 12:14 adhesive tape AdvReac RASH Verified 08/13/24 12:14 haloperidol (From Haldol) AdvReac panic Verified 08/13/24 12:14 attack Family History Brother Asthma Mother Breast cancer Surgical History S/P right breast biopsy [place] teeth extracted right index finger Social History Smoking Status: Never smoker second hand exposure: No alcohol intake: never substance use type: does not use caffeine: No what type of physical activity do you participate in: none seatbelt use: always do you feel safe at home: Yes additional social history: single- ROS ROS ED Constitutional Constitutional ED: Denies chills, fever(s), subjective or sweats Cardiovascular Cardiovascular: Denies chest pain or palpitations Respiratory/Chest Respiratory/Chest: Denies cough or dyspnea Gastrointestinal Gastrointestinal: Denies abdominal pain, nausea or vomiting Genitourinary Genitourinary ED: Reports dysuria and urinary frequency; Denies hematuria Musculoskeletal Musculoskeletal: Reports back pain; Denies arthralgias or myalgias Integumentary Denies rash Psychiatric Psychiatric: Denies anxiety EXAM Physical Exam Const Vital Signs: 08/13/24 12:14 Temperature 98.3 F Temperature Source Temporal Pulse Rate 118 H Respiratory Rate 18 Blood Pressure 103/79 Blood Pressure Mean 87 Pulse Ox 99 Oxygen Delivery Method Room Air Positive well nourished and well developed General Appearance ED: well developed and NAD; Negative for cyanotic, diaphoretic or pallor HEENT Reports moist mucous membranes HEENT Narrative: Head is atraumatic normocephalic. Ears normal. Nares patent Eyes PERRL and EOMs intact bilaterally General Eye ED: Negative for scleral icterus Chest Wall inspection of chest normal Resp normal respiratory effort and clear to auscultation bilaterally Cardio regular rhythm, S1 normal heart sound and S2 normal heart sound Rate: tachycardic GI normal to inspection, nondistended, normoactive bowel sounds, non-distended and no masses; Negative for non-tender or hepatosplenomegaly Palpation: soft and tender suprapubic Back/Spine no CVA tenderness Extremity normal to inspection Neuro oriented x3 and CN's II-XII intact bilaterally Sensorium / Orientation: alert Psych mental status grossly normal Skin no rashes or lesions noted, no wounds and skin turgor normal General Skin Exam: Negative for jaundice or pallor MDM MDM MDM Narrative Medical decision making narrative: Reviewed records from [facility]. Patient urine is positive for E. coli. The urine was sensitive to ampicillin, vancomycin and nitrofurantoin. She has no history of allergy to penicillin. She states her mother has allergy to penicillin. Since she is tachycardic baseline blood work was ordered. She was treated with 3.0 g of Unasyn IV piggyback. If her laboratory studies are unremarkable and she tolerates the Unasyn will discharge with prescription for ampicillin. BMP was obtained to assess renal function in the event that the dose of the ampicillin needs to be adjusted. History & Record Review Additional record(s) reviewed:: Prior outpatient record (Records from August 10 and August 12 from [facility].) and Prior labs Lab Data Attestation: I reviewed the patient's lab results. Lab results narrative: CBC is unremarkable. Patient metabolic panel is unremarkable. Glucose slightly elevated 106. Urinalysis is normal. She still having dysuria will place on Pyridium Labs: Laboratory Results - last 24 hr 08/13/24 08/13/24 12:40 13:16 WBC 7.4 RBC 4.78 Hgb 14.4 Hct 42.7 MCV 89.3 MCH 30.1 MCHC 33.7 RDW Std Deviation 41.4 RDW Coeff of Dre 12.6 Plt Count 240 MPV 9.3 Immature Gran % (Auto) 0.400 Neut % (Auto) 49.9 Lymph % (Auto) 42.5 H [place] % (Auto) 5.7 Eos % (Auto) 0.8 Baso % (Auto) 0.7 Absolute Neuts (auto) 3.7 Absolute Lymphs (auto) 3.14 Nucleated RBC % 0 Sodium 137 Potassium 3.7 Chloride 104 Carbon Dioxide 21.3 Anion Gap 12 BUN 15 Creatinine 0.83 Estim Creat Clear Calc 101.37 Est GFR (MDRD) Non-Af 96 BUN/Creatinine Ratio 17.6 Glucose 106 H Calcium 9.1 Urine Color Yellow Urine Clarity Clear Urine pH 7.0 Ur Specific [place] 1.005 Urine Protein TNP Urine Glucose (UA) Normal Urine Ketones Negative Urine Occult Blood Negative Urine Nitrite Negative Urine Bilirubin Negative Urine Urobilinogen Normal Ur Leukocyte Esterase Negative Urine RBC 0-5 SEEN Urine WBC 0 SEEN Ur Squamous Epith Cells 0-5 SEEN Urine Bacteria RARE Urine Mucus 0 SEEN U Random Total Protein 7.4 Treatment and Re-Evaluation :: Patient was reassessed at 1407. She was informed of results. Discharge Plan Triage Chief Complaint: Complaint ED Provider: Artie Casper Dx/Rx/DC Orders Clinical Impression: Dysuria, Recent urinary tract infection, Sinus tachycardia Instructions: ED Dysuria, Uncertain Cause (Adult) Prescriptions: New phenazopyridine [Pyridium] 200 mg tablet 200 mg PO TID Qty: 10 0RF No Action famotidine [Pepcid] 20 mg tablet 40 mg PO QDAY buspirone 30 mg tablet 30 mg PO BID triamcinolone acetonide 0.5 % cream 1 applic TOPICAL DAILY fluvoxamine 100 mg tablet 100 mg PO QHS Rx Instructions: Take three 100 mg tablets for total of 300 mg po daily. bupropion HCl 150 mg tablet sustained-release 12 hr 300 mg PO BID gabapentin 300 mg capsule 300 mg PO QDAY Rx Instructions: 1 cap q AM. 2 cap q HS naproxen 500 mg tablet 500 mg PO BID PRN diclofenac sodium 1 % gel 2 g topical ONCE Rx Instructions: apply to single elbow, wrist or hand; for hand includes palm/fingers/back of hand risperidone 0.25 mg tablet 0.25 mg PO QHS Linzess 72 mcg capsule 72 mcg PO QAM Align (B.infantis) 4 mg capsule 4 mg PO QDAY montelukast 10 mg tablet 10 mg PO QHS fluticasone propionate [Allergy Relief (fluticasone)] 50 mcg/actuation spray,suspension 1 spray intranasal QDAY Rx Instructions: administer into each nostril clonazepam 0.5 mg tablet 0.5 mg PO BID PRN (Reason: Anxiety) Patient Comments: Client states can take up to 2mg, has been taking approximately 0.75mg. glycopyrrolate 1 MG tablet 1 mg PO BID cyclobenzaprine 5 MG tablet 5 mg PO QHS 30 Days Qty: 60 1RF Rx Instructions: Take 1 to 2 po q hs Annovera 0.15-0.013 mg/24 hour ring 1 vag ring vaginal Q4W Qty: 1 0RF Rx Instructions: use continuously x 1 year Primary Care Provider: Antolin June Referrals: Antolin June, DO [Primary Care Provider] - 1-2 Days if not improving Print Language: Turkmen Disposition Disposition: Home, Self Care Discharge Date/Time: 08/13/24 14:50
[2024-08-13 13:08] LABS: Color, Urine Yellow (Yellow); Glucose, Dipstick Normal (Normal); Ketone-Dipstick Negative (Negative); Leukocyte Esterase-Dipstick Negative /ul (Negative); Nitrite-Dipstick Negative (Negative); Occult Blood-Urine Negative /ul (Negative); Specific Gravity, Urine 1.005 (1.002-1.030); Urine Bilirubin Dipstick Negative (Negative); Urine Clarity Clear (Clear); Urine Urobilinogen Normal (Normal)
[2024-08-13 13:26] LABS: Protein, Urine (Random) 7.4 mg/dL (0.0-12.0)
[2024-08-13 13:26] LABS: Absolute Lymphocyte Count 3.14 X10^3/uL (0.83-4.51); Absolute Neutrophil Count 3.7 X10^3/uL (2.0-7.7); Basophil# 0.05 X10^3/uL; Basophil% 0.7 % (0-1); Eosinophil# 0.06 X10^3/uL; Eosinophils% 0.8 % (0-5); Hematocrit 42.7 % (37-47); Hemoglobin 14.4 g/dL (12.0-15.0); Lymphocyte # 3.14 X10^3/ul (0.83-4.51); Lymphocyte % 42.5 % (19-41); Mean Corp Hgb Conc 33.7 g/dL (32-36); Mean Corpuscular Hgb 30.1 pg (27.0-32.0); Mean Corpuscular Volume 89.3 fL (81-99); Mean Platelet Vol. 9.3 fl (6.2-12.0); Monocyte# 0.42 X10^3/uL; Monocyte% 5.7 % (0-10); NRBC Flagged by Analyzer 0 % (0-5); Neutrophil # 3.69 X10^3/uL (2.7-7.7); Neutrophil % 49.9 % (47-70); Platelet Count 240 K/mm3 (150-450); RBC Distribution Width CV 12.6 % (11.6-14.6); RBC Distribution Width SD 41.4 fl (35.1-43.9); Red Blood Count 4.78 M/mm3 (4.2-5.4); White Blood Count 7.4 K/mm3 (4.4-11.0)
[2024-08-13] MEDS: Ampicillin/Sulbactam 3 GM in 0.9% Normal Saline (100mL MB+) 100 ML IV (13:27)
[2024-08-13 13:29] LABS: Bacteria RARE /hpf (None Seen); Red Blood Cells-Urine 0-5 SEEN /hpf (0-5); Squamous Epithelial Cells - UA 0-5 SEEN /hpf (5-10)
[2024-08-13 13:48] LABS: Anion Gap 12 (5-15); BUN 15 mg/dL (4-19); BUN/Creat Ratio 17.6 RATIO (10-20); Calcium,Total 9.1 mg/dL (7.6-11.0); Carbon Dioxide 21.3 mmol/L (21.0-32.0); Chloride 104 mmol/L (98-108); Creatinine, Serum 0.83 mg/dL (0.70-1.20); EST Glomerular Filtration Rate 96 (>60); Estimated Creatinine Clearance 101.37 ml/min (50-250); Glucose 106 mg/dL (70-99); Potassium 3.7 mmol/L (3.3-5.1); Sodium Level 137 mmol/L (133-145)
[2024-08-13 14:26] VITALS: BP 120/79; PULSE 97; RESP 18; TEMP 36.8; O2SAT 100
== END 2024-08-13 14:50 | disposition home or self-care (01) ==
PROVIDERS: Emergency Provider Emergency Medicine; PCP Student in an Organized Health Care Education/Training Program; Referring Provider Emergency Medicine; Visit Provider Emergency Medicine
DX: R30.0 Dysuria (principal); F33.1 Major depressive disorder, recurrent, moderate; R00.0 Tachycardia, unspecified; F43.10 Post-traumatic stress disorder, unspecified; F41.9 Anxiety disorder, unspecified; Z87.440 Personal history of urinary (tract) infections; Z79.899 Other long term (current) drug therapy
CPT/HCPCS: 80048; 81001; 84156; 85025; 96365; 99283; A4216; J0295

== ENCOUNTER → 2024-08-17 | Outpatient (CLI) | payer MEDICAID, SELFPAY ==
--- NOTE | 2024-08-17 13:52 | ART_ITS ---
Reason For Study Reason For Study: PVD, Pain with exercise Procedure A bilateral lower extremity continuous wave Doppler with analog waveform analysis,segmental pressures,and ankle brachial indexes without exercise. Popliteal entrapment protocol performed. Left Segmental Pressures Left brachial= 103mmHg. Left posterior tibial artery = 111mmHg. Left dorsalis pedis artery = 105mmHg. Left digit = 87 mmHg. The left dorsalis pedis waveforms are triphasic. The left posterior tibial artery waveforms are triphasic. Right Segmental Pressures Right brachial= 106mmHg. Right posterior tibial artery = 114mmHg. Right dorsalis pedis artery = 112mmHg. Right digit = 100 mmHg. The right dorsalis pedis waveforms are triphasic. The right posterior tibial artery waveforms are triphasic. Indices The right ankle brachial index by the dorsalis pedis is 1.06. The right ankle brachial index by the posterior tibial artery is 1.08. The right digital-brachial index is 0.94. The left ankle brachial index by the dorsalis pedis is 0.99. The left ankle brachial index by the posterior tibial artery is 1.05. The left digital-brachial index is 0.82. VL/Lower Ext Art Exam w/ Exercise Interpretation Summary Right DALILA 1.08, normal. TBI and Doppler/PVR waveforms of the right leg normal a t rest. Right dorsalis pedis and posterior tibial waveforms moderately diminished with dorsiflexion. Left DALILA 1.05, normal. TBI and Doppler/PVR waveforms of the left leg normal at rest. Left posterior tibial waveforms severely diminished with dorsiflexion, dorsalis pedis waveforms severely diminished with plantarflexion. Ordering Physician: Marie Waggoner Referring Physician: Antolin June Performed By: Marly Romero RVT
== END | disposition home or self-care (01) ==
LOC: CVS 13:52
PROVIDERS: PCP Student in an Organized Health Care Education/Training Program; Referring Provider Physician Assistant; Visit Provider Physician Assistant
DX: I77.89 Other specified disorders of arteries and arterioles (principal)
CPT/HCPCS: 93924

== ENCOUNTER 2024-10-05 00:49 | Emergency (ER) | payer MEDICAID, SELFPAY ==
[2024-10-05 00:49] VITALS: BP 117/95; PULSE 100; RESP 16; TEMP 36.6; O2SAT 98; BMI 26.2
[2024-10-05 00:52] VITALS: BP 117/95; PULSE 100; RESP 16; TEMP 36.6; O2SAT 98
--- NOTE | 2024-10-05 01:10 | EDS_ITS ---
HPI History of Present Illness Chief Complaint: Complaint Narrative Narrative: Patient is a 34-year-old female with past medical history of anxiety, depression, panic disorder, PCOS, PTSD who presents to the emergency department the chief complaint of concern for urinary tract infection. Patient states that her symptoms started around 8 PM this evening and states that she took Azo which did not seem to help her symptoms therefore she came here for further evaluation management. Patient states that she has had increased frequency and painful urination as well. PFSH PFS Medical History Neck pain Acute insomnia Bloating Epigastric pain Hyperprolactinemia Family history of breast cancer History of posttraumatic stress disorder (PTSD) Panic disorder Major depressive disorder, recurrent, moderate Thyroiditis PCOS (polycystic ovarian syndrome) Scoliosis Hx of migraine headaches Breast lump UTI (urinary tract infection) Back problem Anxiety and depression Seasonal allergies Home Medications ?Medication ?Instructions ?Recorded ?Last Taken ?Type glycopyrrolate 1 mg tablet 1 mg PO BID 08/05/16 Unknow n History clonazepam 0.5 mg tablet 0.5 mg PO BID PRN Anxiety Unknown History buspirone 30 mg tablet 30 mg PO BID 10/19/19 Unknow n History triamcinolone acetonide 0.5 % 1 applic topical DAILY 0 10/19/19 Unknown History topical cream cyclobenzaprine 5 mg tablet 5 mg PO QHS 30 days #60 ta bs 12/16/19 Unknown Rx famotidine 20 mg tablet (Pepcid) 40 mg PO QDAY 2 Unknown History fluvoxamine 100 mg tablet 100 mg PO QHS 05/01/21 Unkno wn History bupropion HCl 150 mg tablet,12 hr 300 mg PO BID Unknown History sustained-release Bifidobacterium infantis 4 mg 4 mg PO QDAY 07/06/24 Un known History capsule (Align (B.infantis)) diclofenac sodium 1 % topical gel 2 g topical ONCE 02/20 Unknown History fluticasone propionate 50 1 spray intranasal QDAY 06/27 Unknown History mcg/actuation nasal spray,suspension (Allergy Relief (fluticasone)) gabapentin 300 mg capsule 300 mg PO QDAY 07/06/24 Unkn own History linaclotide 72 mcg capsule 72 mcg PO QAM 07/06/24 Unkn own History (Linzess) montelukast 10 mg tablet 10 mg PO QHS 07/06/24 Unknow n History naproxen 500 mg tablet 500 mg PO BID PRN 07/06/24 U nknown History risperidone 0.25 mg tablet 0.25 mg PO QHS 07/06/24 Unk nown History segesterone acet 0.15 mg-ethinyl 1 vag ring vaginal Q4 W #1 ea 07/08/24 Unknown Rx estradiol 0.013 mg/24 hr vaginal ring (Annovera) phenazopyridine 200 mg tablet 200 mg PO TID #10 tabs 0 08/13/24 Unknown Rx (Pyridium) cephalexin 500 mg capsule 500 mg PO BID 5 days #10 cap s 10/05/24 Unknown Rx Allergy/AdvReac Type Severity Reaction Status Date / Time topiramate (From Topamax) Allergy Intermediate GI upset Verified 10/05/24 00:50 lactose AdvReac Intermediate Nausea/Vom/ Verified 10/05/24 00:50 Diarrhea ondansetron (From Zofran) AdvReac Intermediate Constipatio Verified 10/05/24 00:50 n metoclopramide AdvReac Mild Verified 10/05/24 00:50 adhesive tape AdvReac RASH Verified 10/05/24 00:50 haloperidol (From Haldol) AdvReac panic Verified 10/05/24 00:50 attack Family History Brother Asthma Mother Breast cancer Surgical History S/P right breast biopsy [place] teeth extracted right index finger Social History Smoking Status: Never smoker second hand exposure: No alcohol intake: never substance use type: does not use caffeine: No what type of physical activity do you participate in: none seatbelt use: always do you feel safe at home: Yes additional social history: single- ROS ROS ED ROS Narrative Constitutional: Denies fevers, chills, headaches Abdomen: Denies abdominal pain nausea vomit diarrhea : Complains of urinary symptoms as noted above Neurological: Denies numbness, wheeze, tingling Musculoskeletal: Denies back pain Skin: Denies rashes or lesions EXAM Physical Exam Narrative Exam Narrative: General: Patient was lying in bed rest comfortably did not appear to be in acute distress Head: Atraumatic, normocephalic Eyes: PERRL bilaterally, EOMI bilateral, no conjunctival injection noted Neck: Soft, supple, trachea midline Cardiovascular: Regular rate Abdomen: Soft, nondistended, nontender to palpation Extremities: +5/5 strength in the bilateral upper and lower extremities Neurological: Patient follow commands that she was at [facility] year is 2024 Skin: Warm, dry, tact no rashes or lesions noted Const Vital Signs: 10/05/24 00:49 10/05/24 00:52 Temperature 97.8 F 97.8 F Temperature Source Oral Oral Pulse Rate 100 100 Respiratory Rate 16 16 Blood Pressure 117/95 H 117/95 H Blood Pressure Mean 102 102 Pulse Ox 98 98 Oxygen Delivery Method Room Air Room Air MDM MDM MDM Narrative Medical decision making narrative: Patient is a 34-year-old female who presents to the emergency department concern for urinary tract infection. On the differential diagnose includes but not limited to UTI, . Once workup is obtained reviewed she will be reevaluated. Patient's urinalysis reviewed and showed evidence of urinary tract infection with 500 leukocyte esterase positive nitrites 50-100 white cells with 2+ bacteria this was sent for culture. Patient was given first dose of Keflex here in the emergency department prescription sent to the pharmacy. She is advised to follow-up with her doctor in outpatient setting return with worsening symptoms or concerns. She is agreeable this plan all question concerns answered she is discharged home in stable condition Lab Data Labs: Laboratory Results - last 24 hr 10/05/24 10/05/24 00:59 01:22 Urine Color [place] Urine Clarity Cloudy Urine pH 6.0 Ur Specific [place] 1.025 Urine Protein 30 H Urine Glucose (UA) Normal Urine Ketones Negative Urine Occult Blood 10 H Urine Nitrite Positive H Urine Bilirubin 3 H Urine Urobilinogen 4 H Ur Leukocyte Esterase 500 H Urine RBC 5-10 SEEN Urine WBC 50-100 SEEN Ur Squamous Epith Cells 0-5 SEEN Calcium Oxalate Crystal 1+ Urine Bacteria 2+ Urine Mucus 0 SEEN Urine Test Negative POC Glucose 86 Discharge Plan Triage Chief Complaint: Complaint ED Provider: Rene Lora Dx/Rx/DC Orders Clinical Impression: Urinary tract infection Prescriptions: New cephalexin 500 mg capsule 500 mg PO BID 5 Days Qty: 10 0RF No Action famotidine [Pepcid] 20 mg tablet 40 mg PO QDAY buspirone 30 mg tablet 30 mg PO BID triamcinolone acetonide 0.5 % cream 1 applic TOPICAL DAILY fluvoxamine 100 mg tablet 100 mg PO QHS Rx Instructions: Take three 100 mg tablets for total of 300 mg po daily. bupropion HCl 150 mg tablet sustained-release 12 hr 300 mg PO BID gabapentin 300 mg capsule 300 mg PO QDAY Rx Instructions: 1 cap q AM. 2 cap q HS naproxen 500 mg tablet 500 mg PO BID PRN diclofenac sodium 1 % gel 2 g topical ONCE Rx Instructions: apply to single elbow, wrist or hand; for hand includes palm/fingers/back of hand risperidone 0.25 mg tablet 0.25 mg PO QHS Linzess 72 mcg capsule 72 mcg PO QAM Align (B.infantis) 4 mg capsule 4 mg PO QDAY montelukast 10 mg tablet 10 mg PO QHS fluticasone propionate [Allergy Relief (fluticasone)] 50 mcg/actuation spray,suspension 1 spray intranasal QDAY Rx Instructions: administer into each nostril clonazepam 0.5 mg tablet 0.5 mg PO BID PRN (Reason: Anxiety) Patient Comments: Client states can take up to 2mg, has been taking approximately 0.75mg. glycopyrrolate 1 MG tablet 1 mg PO BID cyclobenzaprine 5 MG tablet 5 mg PO QHS 30 Days Qty: 60 1RF Rx Instructions: Take 1 to 2 po q hs phenazopyridine [Pyridium] 200 mg tablet 200 mg PO TID Qty: 10 0RF Annovera 0.15-0.013 mg/24 hour ring 1 vag ring vaginal Q4W Qty: 1 0RF Rx Instructions: use continuously x 1 year Primary Care Provider: Antolin uJne Referrals: Antolin June DO [Primary Care Provider] - Activity Restrictions/Additional Instructions: Follow-up on urine culture with your primary care physician. You were diagnosed with a urinary tract infection here. 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 Return with any other concerns or worsening symptoms Print Language: Mozambican Disposition Disposition: Home, Self Care
[2024-10-05 01:11] LABS: Mucous, Urine 0 SEEN /hpf (<or=2+)
--- OUTSIDE RECORDS SUMMARY | 2024-10-05 01:11 | XMS RPT_ITS | CCD ---
Author Organization [facility] ion Partnership [facility] Care Team Providers Care Service Officer Name Role Phone Antolin June DO Primary Care Provider ChesterLily gonzalez Unavailable ROB ELLIOTT Referring Unavailable JUNEANTOLIN L Primary Care Unavailable Antolin June DO Primary Care Provider Lily Mayers Unavailable Antolin June DO Primary Care Provider Fraire CLOTHESPIN DRIER OPERATOR.TEMPERATURE CONTROL INSPECTOR, Shena Moore Unavailable Yogesh CLOTHESPIN DRIER OPERATOR.JUMANA, Nathaly Unavailable MONICA HUNT Referring Unavailable JUNEANTOLIN L Primary Care Unavailable Riana JUMANA Lily Unavailable Riana Lily DENNEY S Unavailable MONICA HUNT Referring Unavailable JUNE, ANTOLIN L Primary Care Unavailable JUNE, ANTOLIN L Referring Unavailable JUNE, ANTOLIN L Primary Care Unavailable YOGESH, NATHALY Referring Unavailable JUNE, ANTOLIN L Primary Care Unavailable SHERRILL HENLEY Attending Unavailable SELF Referring Unavailable JUNE, ANTOLIN Gabbie Primary Care Unavailable June, Antolin Referring Unavailable June, Antolin Primary Care Unavailable Maria G Booth Attending Unavailabl e June, Antolin Primary Care Unavailable Diana Piña Attending Unavailable June, Antolin Referring Unavailable Marie Waggoner Referring Unavailable June, Antolin Primary Care Unavailable Mat Ayala Attending Unavailable Marie Waggoner Attending Unavailable June, Antolin Primary Care Unavailable Diana Piña Referring Unavailable June, Antolin Referring Unavailable Maria G Booth Attending Unavailabl e June, Antolin Primary Care Unavailable June, Antolin Primary Care Unavailable Diana Piña Attending Unavailable June, Antolin Referring Unavailable JamesonyDiana Referring Unavailable June, Antolin Primary Care Unavailable Diana Piña Attending Unavailable June, Antolin Primary Care Unavailable Casper, Artie Attending Unavailable Casper, Artie Referring Unavailable June, Antolin Primary Care Unavailable June, Antolin Attending Unavailable June, Antolin Referring Unavailable WaggonerJoseMarie Attending Unavailable Waggoner, Marie Referring Unavailable June, Antolin Primary Care Unavailable JUNE, ANTOLIN L Referring Unavailable JUNE, ANTOLIN L Primary Care Unavailable JUNE, ANTOLIN L Primary Care Unavailable HERVE MADRID Attending Unavailable JUNE, ANTOLIN L Primary Care Unavailable KAE SHEPHERD Referring Unavailable JUNE, ANTOLIN L Referring Unavailable JUNE, ANTOLIN L Primary Care Unavailable ALICJA WEST Attending Unavailable JUNE, ANTOLIN L Primary Care Unavailable ARELIS SOLIZ Attending Unavailable JUNE, ANTOLIN L Primary Care Unavailable JUNE, ANTOLIN L Primary Care Unavailable DORAOBLEDIRKKAE Attending Unavailable JUNE, ANTOLIN L Primary Care Unavailable KAE SHEPHERD Attending Unavailable JUNE, ANTOLIN L Attending Unavailable JUNE, ANTOLIN L Primary Care Unavailable JUNE, ANTOLIN L Referring Unavailable JUNE, ANTOLIN L Primary Care Unavailable JUNE, ANTOLIN L Referring Unavailable JUNE, ANTOLIN L Primary Care Unavailable JUNE, ANTOLIN L Primary Care Unavailable KALKA, MONICA Attending Unavailable JUNE, ANTOLIN L Primary Care Unavailable KALKA, MONICA Referring Unavailable JUNE, ANTOLIN L Attending Unavailable JUNE, ANTOLIN L Primary Care Unavailable JUNE, ANTOLIN L Primary Care Unavailable EPHRAIM VALENZUELA Attending Unavailable JUNE, ANTOLIN L Primary Care Unavailable EPHRAIM VALENZUELA Attending Unavailable EPHRAIM VALENZUELA Referring Unavailable JUNE, ANTOLIN L Primary Care Unavailable JUNE, ANTOLIN L Attending Unavailable JUNE, ANTOLIN L Attending Unavailable JUNE, ANTOLIN L Primary Care Unavailable JUNE, ANTOLIN L Referring Unavailable VAIBHAV CULP Attending Unavailable JUNE, ANTOLIN L Primary Care Unavailable SELF Referring Unavailable JUNE, ANTOLIN L Primary Care Unavailable KALKA, MONICA Attending Unavailable JUNE, ANTOLIN L Attending Unavailable JUNE, ANTOLIN L Primary Care Unavailable JUNE, ANTOLIN L Primary Care Unavailable MONICA HUNT Referring Unavailable ALICJA WEST Attending Unavailable JENNA, ALICJA Referring Unavailable JUNE, ANTOLIN L Primary Care Unavailable JUNE, ANTOLIN L Referring Unavailable JUNE, ANTOLIN L Primary Care Unavailable JUNE, ANTOLIN L Attending Unavailable JUNE, ANTOLIN L Primary Care Unavailable JUNE, ANTOLIN L Referring Unavailable UJNE, ANTOLIN L Primary Care Unavailable JUNE, ANTOLIN L Referring Unavailable JUNE, ANTOLIN L Primary Care Unavailable JUNE, ANTOLIN L Attending Unavailable JUNE, ANTOLIN L Primary Care Unavailable JUNE, ANTOLIN L Referring Unavailable JUNE, ANTOLIN L Primary Care Unavailable JUNE, ANTOLIN L Attending Unavailable JUNE, ANTOLIN L Primary Care Unavailable JUNE, ANTOLIN L Primary Care Unavailable ALICJA WEST Attending Unavailable JENNA, ALICJA Referring Unavailable JUNE, ANTOLIN L Primary Care Unavailable ALEC MADRIDADETTE Referring Unavailable JUNE, ANTOLIN L Attending Unavailable JUNE, ANTOLIN L Primary Care Unavailable JUNE, ANTOLIN L Attending Unavailable JUNE, ANTOLIN L Primary Care Unavailable JUNE, ANTOLIN L Attending Unavailable JUNE, ANTOLIN L Primary Care Unavailable JUNE, ANTOLIN L Primary Care Unavailable ALICJA WEST Referring Unavailable ALICJA WEST Attending Unavailable JUNE, ANTOLIN L Attending Unavailable JUNE, ANTOLIN L Primary Care Unavailable JUNE, ANTOLIN L Attending Unavailable JUNE, ANTOLIN L Primary Care Unavailable ZEE GLASGOW Attending Unavailab le JUNE, ANTOLIN L Primary Care Unavailable ALEC MADRIDADETTE Referring Unavailable JUNE, ANTOLIN L Referring Unavailable JUNE, ANTOLIN L Primary Care Unavailable JUNE, ANTOLIN L Primary Care Unavailable MERCY HERVE Attending Unavailable JUNE, ANTOLIN L Attending Unavailable JUNE, ANTOLIN L Primary Care Unavailable JUNE, ANTOLIN L Primary Care Unavailable JUNE, ANTOLIN L Attending Unavailable JUNE, ANTOLIN L Primary Care Unavailable PODKYM RENTERIA Attending Unavailable JUNE, ANTOLIN L Primary Care Unavailable ASHWINI MILLER Attending Unavailable Allergies Allergy Classification Reported Allergen(s) Allergy Type Date of Onset Reaction(s) Facility DOPamine Antagonists (1 source) Metoclopramide Drug Allergy 2 Other: See Comments [facility] Work Phone: Haloperidol (1 source) Haloperidol Drug Allergy 4 Other: See Comments [facility] Lactose (1 source) Lactose Drug Allergy 2 Unknown [facility] Ondansetron (1 source) Ondansetron Drug Allergy 1 Other: See Comments [facility] (20 sources) Ondansetron; Translations: [ONDANSETRON] Drug Allergy 1 Other: See Comments [facility] Work Phone: (20 sources) Metoclopramide; Translations: [METOCLOPRAMIDE] Drug Allergy 2 Other: See Comments [facility] Work Phone: (20 sources) Lactose; Translations: [LACTOSE] Drug Allergy 2 Unknown [facility] (20 sources) Adhesive agent; Translations: [ADHESIVE] Drug Allergy 3 Itching, Rash [facility] (20 sources) Haloperidol; Translations: [HALOPERIDOL LACTATE] Drug Allergy 4 Other: See Comments [facility] (1 source) Adhesive Tape Drug allergy (disorder) 5 [facility] (1 source) Haloperidol Drug Allergy 5 [facility] (1 source) Lactose Drug Allergy 5 [facility] (1 source) Metoclopramide Drug Allergy 5 [facility] (1 source) Ondansetron Drug Allergy 5 [facility] (1 source) topiramate Drug Allergy 5 [facility] Medications Current Medications Medication Drug Class(es) Dates Sig (Normalized) Sig (Original) amoxicillin 500 mg oral capsule (7 sources) Penicillin-class Antibacterial Start: 10-11-2023 End: 10-21-2023 take 1 capsule by mouth three times daily amoxicillin (AMOXIL) 500 mg capsule Indications: Acute non-recurrent frontal sinusitis Take 1 capsule by mouth three times a day for 10 days. 30 capsule 0 10/11/2023 10/21/2023 Active azithromycin 250 mg oral tablet (2 sources) Macrolide Antimicrobial Start: 07-06-2024 End: 07-06-2024 take 2 tablets by mouth once, then take 1 tablet by mouth once daily azithromycin (ZITHROMAX Z-MELONY) 250 mg tablet Take 2 tablets by mouth one time only for 1 dose. THEN 1 TAB DAILY FOR 4 DAYS. 6 tablet 07/06/2024 07/06/2024 Active Start: 01-06-2024 End: 01-11-2024 azithromycin (ZITHROMAX Z-PA K) 250 mg tablet Take 2 tablets day one, then, 1 tablet daily until gone. 6 tablet 01/06/2024 01/11/2024 Active benoxinate hydrochloride 4 mg/ml / fluorescein sodium 3 mg/ml ophthalmic solution (2 sources) Diagnostic Dye Start: 12-24-2023 End: 12-25-2023 fluorescein-benoxinate 0.3-0.4 % 1 Drop (FLURESS) Start: 12-24-2023 End: 12-25-2023 1 Drop, BOTH EYES, DIRECT ED, Starting on Sat12/24/23 at 1330, Until Sat12/25/23 at 0129, Administer for applanation tonometry. In the event of a Fluress shortage, administer [place]-Fluor 1 drop into both eyes as directed for applanation tonometry benzonatate 100 mg oral capsule (20 sources) Non-narcotic Antitussive Start: 06-02-2024 take 1 capsule by mouth every eight hours as needed benzonatate (TESSALON PERLE) 100 mg capsule Take 1 capsule by mouth three times a day as needed for cough. 30 capsule 06/02/2024 Active bifidobacterium infantis 4 mg oral capsule (20 sources) Start: 04-15-2024 End: 07-09-2024 take 1 capsule by mouth once daily ALANNA B.INFANTIS, 4 mg cap Indications: Change in bowel habits TAKE 1 CAPSULE BY MOUTH DAILY 28 capsule 4 07/09/2024 Active 24 hr buPROPion hydrochloride 300 mg extended release oral tablet (20 sources) Aminoketone Start: 10-09-2021 buPROPion XL (WELLBUTRIN XL) 300 mg 24 hr tablet 450 mg daily 10/09/2021 Active Start: 10-09-2021 buPROPion XL ( WELLBUTRIN XL) 300 mg 24 hr tablet Comment on above: 450 mg daily busPIRone hydrochloride 30 m g oral tablet (20 sources) Start: 08-23-2023 busPIRone HCl 30 mg tablet 08/23/2023 Active Start: 09-27-2021 End: 06-14-2023 busPIRone HCl 30 mg tablet cephalexin 500 mg oral capsule (7 sources) Cephalosporin Antibacterial Start: 08-12-2024 End: 08-17-2024 take 1 capsule by mouth three times daily cephALEXin (KEFLEX) 500 mg capsule Indications: Dysuria , Acute cystitis with hematuria , Nausea Take 1 capsule by mouth three times a day for 5 days. 15 capsule 08/12/2024 08/17/2024 Active clonazePAM 1 mg oral tablet (20 sources) Benzodiazepine Start: 06-22-2024 End: 09-09-2024 take 1 tablet by mouth every eight hours as needed for anxiety and anxiety clonazePAM (KLONOPIN) 1 mg tablet Indications: Anxiety Take 1 tablet by mouth three times a day as needed for anxiety for up to 30 days. 90 tablet 08/10/2024 Active Start: 11-13-2023 End: 05-31-2024 take 1 tablet by mouth every eight hours as needed for anxiety and anxiety clonazePAM (KLONOPIN) 1 mg tablet Indications: Anxiety Take 1 tablet by mouth three times a day as needed for anxiety for up to 30 days. 90 tablet 05/01/2024 Active Start: 07-24-2023 End: 08-23-2023 take 1 tablet by mouth every eight hours as needed for anxiety and anxiety clonazePAM (KLONOPIN) 0.5 mg tablet Indications: Anxiety Take 1 tablet by mouth three times a day as needed for anxiety for up to 30 days. 90 tablet 2 07/24/2023 Active Start: 04-16-2023 take 1 tablet by araceli th every eight hours as needed for anxiety and anxiety clonazePAM (KLONOPIN) 0.5 mg tablet Indications: Anxiety Take 1 tablet by mouth three times a day as needed for anxiety for up to 30 days. 90 tablet 2 04/16/2023 Active Start: 02-22-2023 End: 05-23-2023 take 1 tablet by mouth every twelve hours as needed for anxiety and anxiety clonazePAM (KLONOPIN) 0.5 mg tablet Indications: Anxiety Take 1 tablet by mouth two times a day as needed for anxiety for up to 90 days. 60 tablets to last 30 days or longer 60 tablet 2 02/22/2023 05/23/2023 Active Start: 11-26-2022 End: 02-18-2023 take 1 tablet by mouth every twelve hours as needed for anxiety and anxiety clonazePAM (KLONOPIN) 0.5 mg tablet Indications: Anxiety Take 1 tablet by mouth twice daily as needed for anxiety for up to 30 days. 60 tablets to last 30 days or longer Do not start before November 26, 2022. 60 tablet 2 11/26/2022 02/18/2023 Discontinued Start: 03-26-2022 End: 11-24-2022 take 1 tablet by mouth every twelve hours as needed for anxiety and anxiety clonazePAM (KLONOPIN) 0.5 mg tablet Indications: Anxiety Take 1 tablet by mouth twice daily as needed for anxiety for up to 30 days. 60 tablets to last 30 days or longer 60 tablet 2 07/16/2022 10/25/2022 Discontinued Start: 11-27-2021 End: 03-21-2022 take 1 tablet by mouth every twelve hours as needed for anxiety and anxiety clonazePAM (KLONOPIN) 0.5 mg tablet Indications: Anxiety Take 1 tablet by mouth twice daily as needed for anxiety for up to 30 days. 60 tablets to last 30 days or longer 60 tablet 2 02/19/2022 03/21/2022 Active Start: 07-25-2021 End: 11-24-2021 take 1 tablet by mouth every twelve hours as needed for anxiety and anxiety clonazePAM (KLONOPIN) 0.5 mg tablet Indications: Anxiety Take 1 tablet by mouth twice daily as needed for anxiety for up to 30 days. 60 tablets to last 30 days or longer 60 tablet 2 07/25/2021 11/24/2021 Discontinued Comment on above: Take 1 tablet by araceli th twice daily as needed for anxiety for up to 30 days. 60 tablets to last 30 days or longer Take 1 tablet by araceli th twice daily as needed for anxiety for up to 30 days. 60 tablets to last 30 days or longer Do not start before November 26, 2022. Take 1 tablet by araceli th two times a day as needed for anxiety for up to 90 days. 60 tablets to last 30 days or longer Take 1 tablet by araceli th three times a day as needed for anxiety for up to 30 days. cyanocobalamin, vitamin B-12, (VITAMIN B12 ORAL) (20 sources) take 1 tablet by mouth once daily cyanocobalamin, vitamin B-12, (VITAMIN B12 ORAL) Take 1 tablet by mouth once daily. With vitamin D3 Active cyclobenzaprine hydrochloride 10 mg oral tablet (20 sources) Muscle Relaxant Start: 08-28-19 End: 08-25-19 take 1 tablet by mouth every eight hours as needed cyclobenzaprine (FLEXERIL) 10 mg tablet Take 1 tablet by mouth three times a day as needed for muscle spasm. 60 tablet 3 08/24/2024 Active Start: 07-25-2023 End: 08-28-2023 cyclobenzaprine (FLEXERIL) 5 mg tablet Start: 03-27-2023 End: 04-26-2023 take 2 tablets by mouth once daily for muscle spasms cyclobenzaprine (FLEXERIL) 5 mg tablet Indications: Neck pain , Pain in right hip Take 2 tablets by mouth once daily. For muscle spasm 60 tablet 0 03/27/2023 04/26/2023 Active Start: 10-01-2022 take 1-2 tablets by mouth twice daily for muscle spasms cyclobenzaprine (FLEXERIL) 5 mg tablet Indications: Neck pain , Pain in right hip Take 1-2 tablets by mouth twice daily. For muscle spasm 60 tablet 5 10/01/2022 Active Start: 03-26-2022 End: 09-28-2022 take 1-2 tablets by mouth twice daily for muscle spasms cyclobenzaprine (FLEXERIL) 5 mg tablet Indications: Neck pain , Pain in right hip Take 1-2 tablets by mouth twice daily. For muscle spasm 60 tablet 5 03/26/2022 09/28/2022 Discontinued Start: 07-03-2021 End: 10-02-2021 take 1-2 tablets by mouth twice daily for muscle spasms cyclobenzaprine (FLEXERIL) 5 mg tablet Indications: Neck pain , Pain in right hip Take 1-2 tablets by mouth twice daily. For muscle spasm 60 tablet 5 10/02/2021 Active Comment on above: Take 1-2 tablets by mouth twice daily. For muscle spasm Take 2 tablets by mo ut once daily. For muscle spasm diclofenac sodium 0.01 mg/mg topical gel (20 sources) Nonsteroidal Anti-inflammatory Drug Start: 02-12-2023 diclofenac (VOLTAREN ARTHRITIS PAIN) 1 % topical gel Indications: Foot pain, bilateral Apply 2 g to affected area three times a day as needed (footpain). 100 g 1 02/12/2023 Active Start: 02-13-2022 End: 07-08-2023 diclofenac (VOLTAREN ARTHRIT IS PAIN) 1 % topical gel Indications: Sprain of rotator cuff capsule, unspecified laterality, initial encounter Apply 2 g to affected area twice daily. To shoulder joint 100 g 1 02/13/2022 07/08/2023 Discontinued Comment on above: Apply 2 g to affecte d area twice daily. To shoulder joint Apply 2 g to affecte d area three times a day as needed (footpain). 273 day ethinyl estradiol 0.925996 mg/hr / segesterone acetate 0.71959 mg/hr vaginal system (20 sources) Estrogen segesterone ac-e thin estradiol (ANNOVERA) 0.15-0.013 mg/24 hour ring Use 1 Each vaginally once daily. Active Comment on above: Use 1 Each vaginally once daily. famotidine 40 mg oral tablet (20 sources) Histamine-2 Receptor Antagonist Start: End: take 1 tablet by mouth twice daily famotidine (PEPCID) 40 mg tablet Take 1 tablet by mouth two times a day. 60 tablet 5 07/20/2024 Active Start: 07-03-2021 End: 01-21-2023 take 1 tablet by mouth twice daily famotidine (PEPCID) 40 mg tablet Take 1 tablet by mouth twice daily. 60 tablet 5 01/21/2023 Active Comment on above: Take 1 tablet by araceli th twice daily. Take 1 tablet by araceli th two times a day. fexofenadine hydrochloride 180 mg oral tablet (20 sources) Histamine-1 Receptor Antagonist Start: take 1 tablet by mouth once daily as needed fexofenadine (MICHEL) 180 mg tablet TAKE 1 TABLET BY MOUTH DAILY NEEDED FOR ITCHING, SNEEZING OR RUNNY NOSE 30 tablet 04/24/2024 Active Start: 12-11-2021 End: 04-09-2024 take 1 tablet by mouth once daily as needed fexofenadine (MICHEL) 180 mg tablet TAKE 1 TABLET BY MOUTH DAILY NEEDED FOR ITCHING, SNEEZING OR RUNNY NOSE 30 tablet 11 12/18/2023 04/09/2024 Discontinued Start: 07-03-2021 End: 11-08-2021 take 1 tablet by mouth once daily as needed fexofenadine (MICHEL ALLERGY) 180 mg tablet Take 1 tablet by mouth once daily as needed (for itching, sneezing or runny nose). 30 tablet 0 11/08/2021 Active Comment on above: Take 1 tablet by araceli th once daily as needed (for itching, sneezing or runny nose). TAKE 1 TABLET BY ARACELI TH DAILY NEEDED FOR ITCHING, SNEEZING OR RUNNY NOSE fluticasone propionate 0.05 mg/actuat metered dose nasal spray (20 sources) Corticosteroid Start: take 1 spray(s) nasal route once daily fluticasone (FLONASE ALLERGY RELIEF) 50 mcg/actuation nasal spray Use 1 [place] in each nostril once daily. 11.1 mL 05/05/2024 Active Start: 10-11-2023 End: 11-10-2023 take 2 spray(s) by mouth once daily fluticasone (FLONASE) 50 mcg/actuation nasal spray Indications: Eustachian tube disorder, left Use 2 Sprays in each nostril once daily. Rinse mouth after use. 1 Each 0 10/11/2023 11/10/2023 Active Start: 01-19-2021 End: 07-08-2023 take 2 spray(s) by mouth once daily fluticasone (FLONASE) 50 mcg/actuation nasal spray Use 2 Sprays in each nostril once daily. Rinse mouth after use. 16 g 5 01/19/2021 07/08/2023 Discontinued Comment on above: Use 2 Sprays in each nostril once daily. Rinse mouth after use. food supplemt, lactose-reduced (BOOST) 0.04 gram- 1 kcal/mL liqd (20 sources) food supplemt, lactose-reduced (BOOST) 0.04 gram- 1 kcal/mL liqd Take by mouth. Active food supplemt, l actose-reduced (BOOST) 0.04 gram- 1 kcal/mL liqd Take by mouth. 0 Active Comment on above: Take by mouth. gabapentin 300 mg oral capsule (20 sources) Anti-epileptic Agent Start: 024 End: gabapentin (NEURONTIN) 300 mg capsule Take one capsule (300mg) in the morning and two (600mg) at night 90 capsule 5 06/16/2024 10/15/2024 Active Comment on above: Take 1 capsule by [facility] every 12 hours for 90 days. glycopyrrolate 1 mg oral tablet (20 sources) Start: 022 End: take 1 tablet by mouth twice daily glycopyrrolate (ROBINUL) 1 mg tablet Indications: Other eczema Take 1 tablet by mouth two times a day. 180 tablet 3 06/12/2024 Active Comment on above: Take 1 tablet by araceli twice daily. Take 1 tablet by araceli two times a day. hydrocortisone 25 mg/ml topical cream (20 sources) Corticosteroid Start: hydrocortisone 2.5 % cream Apply 1 application to affected area two times a day as needed. 28 g 5 04/09/2024 Active linaclotide 0.072 mg oral capsule (20 sources) Guanylate Cyclase-C Agonist Start: 023 End: take 1 capsule by mouth once daily LINZESS 72 mcg capsule Indications: Irritable bowel syndrome with both constipation and diarrhea Take 1 capsule by mouth once daily. 30 capsule 4 06/10/2024 Active Start: 08-13-2022 End: 03-29-2023 LINZESS 72 mcg capsule End: 06-06-2022 take 1 capsule by mouth once daily linaCLOtide (LINZESS) 72 mcg capsule Take 1 capsule by mouth once daily. Administer on an empty stomach. Swallow whole; DO NOT crush or chew. 0 06/06/2022 Discontinued (Changing Therapy/Dosage Form) Comment on above: Take 1 capsule by mo [facility] once daily. Administer on an empty stomach. Swallow whole; DO NOT crush or chew. Take 1 capsule by mo [facility] once daily. magnesium oxide,aspartate,citr 400 mg magnesium cap (20 sources) Start: 2021 take 1 capsule by mouth once daily at bedtime magnesium oxide,aspartate,citr 400 mg magnesium cap Take 1 capsule by mouth daily at bedtime. 90 capsule 1 07/25/2021 Active Comment on above: Take 1 capsule by mo [facility] daily at bedtime. methylPREDNISolone (12 sources) Corticosteroid Start: 2024 End: 2024 methylPREDNISolone (MEDROL DOSE-PACK) 4 mg Dose-Pack Indications: Headache disorder Take as instructed per package. 21 tablet 06/23/2024 06/29/2024 Active Start: 04-03-2024 End: 04-09-2024 methylPREDNISolone (MEDROL, MELONY,) 4 mg Dose-Pack Take as directed. 21 tablet 04/03/2024 04/09/2024 Start: 04-03-2024 End: 04-09-2024 methylPREDNISolone (MEDROL, MELONY,) 4 mg Dose-Pack Take as directed. 21 tablet 04/03/2024 04/09/2024 Active Start: 10-11-2023 End: 10-17-2023 methylPREDNISolone (MEDROL, MELONY,) 4 mg Dose-Pack Indications: Eustachian tube disorder, left Follow dosing instructions, take with food. 21 tablet 0 10/11/2023 10/17/2023 Active Start: 06-03-2023 End: 06-09-2023 methylPREDNISolone (MEDROL, MELONY,) 4 mg Dose-Pack Take as directed on the package. 21 tablet 0 06/03/2023 06/09/2023 Active Comment on above: Take as directed on the package. montelukast 10 mg oral tablet (20 sources) Leukotriene Receptor Antagonist Start: take 1 tablet by mouth once daily at bedtime montelukast (SINGULAIR) 10 mg tablet Indications: Chronic rhinitis Take 1 tablet by mouth daily at bedtime. 30 tablet 1 08/19/2024 Active Start: 05-05-2024 End: 07-20-2024 take 1 tablet by mouth once daily at bedtime montelukast (SINGULAIR) 10 mg tablet Indications: Chronic rhinitis Take 1 tablet by mouth daily at bedtime. 30 tablet 1 07/20/2024 Active MULTIVITAMIN ORAL (20 sources) take 1 tablet by mouth once daily MULTIVITAMIN ORAL Take 1 tablet by mouth once daily. Active mupirocin 0.02 mg/mg topical ointment (1 source) RNA Synthetase Inhibitor Antibacterial Start: 11-06-19 End: 11-11-19 mupirocin (BACTROBAN) 2 % ointment Indications: Bee sting, accidental or unintentional, subsequent encounter Apply to affected area three times a day for 5 days. 15 g 0 11/06/2023 11/11/2023 Active naproxen 500 mg oral tablet (20 sources) Nonsteroidal Anti-inflammatory Drug Start: 01-31-20 End: 04-30-19 take 1 tablet by mouth every twelve hours as needed naproxen (NAPROSYN) 500 mg tablet Take 1 tablet by mouth two times a day as needed (pain). Do not take more than 3 days of the week. 15 tablet 2 01/31/2024 04/30/2024 Active Start: 06-03-2023 End: 09-01-2023 take 1 tablet by mouth every twelve hours as needed naproxen (NAPROSYN) 500 mg tablet Take 1 tablet by mouth two times a day as needed (for pain. Take with food.). Do not take more than 3 days of the week. 30 tablet 2 06/03/2023 09/01/2023 Comment on above: Take 1 tablet by araceli th two times a day as needed (for pain. Take with food.). Do not take more than 3 days of the week. risperiDONE 0.25 mg oral tablet (17 sources) Atypical Antipsychotic Start: 06-15-2024 risperiDONE (RISPERDAL) 0.25 mg tablet 06/15/2024 Active triamcinolone acetonide 5 mg/ml topical cream (20 sources) Corticosteroid Start: 04-16-2023 End: 05-18-2024 triamcinolone acetonide (KENALOG) 0.5 % cream Apply 1 application to affected area two times a day. As needed for rash/eczema 60 g 1 05/18/2024 Active Start: 03-27-2023 triamcinolone acetonide (KENALOG) 0.5 % cream Apply 1 application to affected area two times a day. As needed for rash/eczema 60 g 1 03/27/2023 Active Start: 07-03-2021 End: 08-14-2022 triamcinolone acetonide (TASHA ALOG) 0.5 % cream Apply 1 application to affected area twice daily. As needed for rash/eczema 60 g 1 08/14/2022 Active Comment on above: Apply 1 application to affected area twice daily. As needed for rash/eczema Apply 1 application to affected area two times a day. As needed for rash/eczema tropicamide 10 mg/ml ophthalmic solution (2 sources) Anticholinergic Start: 12-24-2023 End: 12-25-2023 tropicamide 1 % 1 Drop (MYDRIACYL) Start: 12-24-2023 End: 12-25-2023 1 Drop, BOTH EYES, DIRECT ED, Starting on Sat12/24/23 at 1400, Until Sat12/25/23 at 0159, Administer for dilation valerian root extract (20 sources) take 1 tablet by mouth once daily VALERIAN ROOT ORAL Take 1 tablet by mouth once daily. Active venlafaxine 37.5 mg oral tablet (13 sources) Serotonin and Norepinephrine Reuptake Inhibitor take 1 tablet by mouth once daily venlafaxine (EFFEXOR) 37.5 mg tablet Take 37.5 mg by mouth once daily. Active Vitamin B Complex (20 sources) take 1 tablet by mouth once daily vitamin B complex (B COMPLEX ORAL) Take 1 tablet by mouth once daily. Active Completed/Discontinued Medications Medication Drug Class(es) Dates Sig (Normalized) Sig (Original) amoxicillin 875 mg / clavulanate 125 mg oral tablet (7 sources) Penicillin-class Antibacterial Start: 06-30-2024 End: 07-14-2024 take 1 tablet by mouth twice daily amoxicillin-clavul anate potassium (AUGMENTIN) 875-125 mg per tablet Indications: Acute non-recurrent maxillary sinusitis Take 1 tablet by mouth two times a day for 14 days. 28 tablet 06/30/2024 07/06/2024 Discontinued Start: 06-19-2024 End: 06-24-2024 take 1 tablet by mouth twice daily amoxicillin-clavulanate potassium (AUGMENTIN) 875-125 mg per tablet Indications: Acute non-recurrent maxillary sinusitis Take 1 tablet by mouth two times a day for 5 days. 10 tablet 06/19/2024 06/24/2024 Active onabotulinumtoxina 200 unt injection (6 sources) Acetylcholine Release Inhibitor Start: 08-07-2024 End: 08-07-2024 onabotulinum toxin type A 200 Units injection (BOTOX) Start: 08-07-2024 End: 08-07-2024 inject 1 dose by intramuscular injection once 200 Units, INTRAMUSCULAR, ONCE, 1 dose, On Sat08/07/24 at 1630, This record documents the total dose provided to patient. See progress note for specific locations and amounts administered. Start: 05-07-2024 End: 05-07-2024 onabotulinum toxin type A 20 0 Units injection (BOTOX) Start: 05-07-2024 End: 05-07-2024 inject 1 dose by intramuscular injection once 200 Units, INTRAMUSCULAR, ONCE, 1 dose, On Bettie 05/07/24 at 1600, This record documents the total dose provided to patient. See progress note for specific locations and amounts administered. Start: 01-30-2024 End: 01-30-2024 onabotulinum toxin type A 20 0 Units injection (BOTOX) Start: 01-30-2024 End: 01-30-2024 inject 1 dose by intramuscular injection once 200 Units, INTRAMUSCULAR, ONCE, 1 dose, On Bettie 01/30/24 at 1530, This record documents the total dose provided to patient. See progress note for specific locations and amounts administered. cetirizine hydrochloride 10 mg oral tablet (2 sources) Histamine-1 Receptor Antagonist Start: 04-09-2024 End: 04-15-2024 take 1 tablet by mouth once daily as needed cetirizine (ZYRTEC) 10 mg tablet Take 1 tablet by mouth once daily as needed (for itching, sneezing or runny nose). 30 tablet 11 04/09/2024 04/15/2024 Discontinued (Discontinued by Patient) cholecalciferol 0.05 mg oral capsule (20 sources) Vitamin D End: 11-27-2021 Cholecalciferol, Vitamin D3, (VITAMIN D-3) 50 mcg (2,000 unit) cap Take by mouth once daily. 0 11/27/2021 Discontinued Comment on above: Take by mouth once d aily. dexamethasone phosphate 1 mg/ml ophthalmic solution (20 sources) Corticosteroid Start: 07-03-2021 End: 06-23-2024 take 1 drop(s) into the eye(s) once daily as needed dexAMETHasone (DEXASOL) 0.1 % ophthalmic solution Indications: Eczema of both external ears 1 Drop once daily as needed (ear canal itch). Into ear canals for eczema 5 mL 1 06/11/2023 06/23/2024 Discontinued Comment on above: 1 Drop once daily as needed (ear canal itch). Into ear canals for eczema diphenhydrAMINE (20 sources) Histamine-1 Receptor Antagonist End: 06-03-2023 diphenhydramine HCl (BENADRYL ALLERGY ORAL) Take by mouth. 0 06/03/2023 Discontinued diphenhydramine HCl (BENADRYL ALLERGY ORAL) Take by mouth. 0 Active Comment on above: Take by mouth. docusate sodium 100 mg oral capsule (20 sources) Start: 07-03-2021 End: 06-03-2023 take 1 capsule by mouth every twelve hours as needed docusate sodium (COLACE) 100 mg capsule Take 1 capsule by mouth twice daily as needed for constipation. 60 capsule 5 01/24/2022 06/03/2023 Discontinued Comment on above: Take 1 capsule by [facility] twice daily as needed for constipation. enteric contrast (will be provided with radiology test) (4 sources) Start: 08-12-2024 End: 08-13-2024 enteric contrast (will be provided with radiology test) Indications: Dysuria , Acute cystitis with hematuria , Nausea , Lower abdominal pain , Flank pain For CT CHESTABD/PEL W IVCON Routine order Administer, As Directed One Time Only, via Oral, Rectal, both Oral and Rectal, Enteric Tube, Stoma or Indwelling Catheter, Enteric Contrast as designated per enteric contrast guidelines 1 each 08/12/2024 08/13/2024 Start: 08-12-2024 End: 08-13-2024 enteric contrast (will be pr ovided with radiology test) Indications: Dysuria , Acute cystitis with hematuria , Nausea , Lower abdominal pain , Flank pain For CT CHESTABD/PEL W IVCON Routine order Administer, As Directed One Time Only, via Oral, Rectal, both Oral and Rectal, Enteric Tube, Stoma or Indwelling Catheter, Enteric Contrast as designated per enteric contrast guidelines 1 each 08/12/2024 08/13/2024 Active Start: 07-21-2024 End: 07-22-2024 enteric contrast (will be pr ovided with radiology test) Indications: Elevated fecal calprotectin , Change in bowel habits , Lower abdominal pain For CT ABD/PEL W IVCON Routine order Administer, As Directed One Time Only, via Oral, Rectal, both Oral and Rectal, Enteric Tube, Stoma or Indwelling Catheter, Enteric Contrast as designated per enteric contrast guidelines 1 Each 07/21/2024 07/22/2024 Active flaxseed oil (OMEGA 3 ORAL) (10 sources) End: 06-23-2024 take 1 tablet by mouth once daily flaxseed oil (OMEGA 3 ORAL) Take 1 tablet by mouth once daily. 06/23/2024 Discontinued take 1 tablet by mouth once lee y flaxseed oil (OMEGA 3 ORAL) Take 1 tablet by mouth once daily. Active fluvoxaMINE maleate 100 mg oral tablet (20 sources) Serotonin Reuptake Inhibitor Start: 02-07-2021 End: 05-01-2024 fluvoxaMINE (LUVOX) 100 mg tablet Indications: Anxiety Take 3 tablets once day 90 tablet 1 02/07/2021 05/01/2024 Discontinued Comment on above: Take 3 tablets once day 12 hr guaiFENesin 600 mg extended release oral tablet (2 sources) Start: 04-09-2024 End: 04-15-2024 take 600-1200 mg by mouth every twelve hours as needed guaiFENesin (MUCINEX) 600 mg 12 hr tablet Take 1-2 tablets by mouth two times a day as needed for cold/allergy symptoms. 120 tablet 11 04/09/2024 04/15/2024 Discontinued (Discontinued by Patient) iv contrast (will be provided with radiology test) (7 sources) Start: 08-12-2024 End: 08-13-2024 iv contrast (will be provided with radiology test) Indications: Dysuria , Acute cystitis with hematuria , Nausea , Lower abdominal pain , Flank pain CT Chest ABD/PEL-Inject, intravenously, once for 1 dose.No IV access, insert saline lock prior to the beginning of sedation, infusion, injection of imaging exam. Discontinue saline lock post exam. If Pt. has a central line or IVAD, may access for administration according to line specific nursing protocol. Once exam is complete flush line and de-access according to line specific nursing protocol in the CT contrast administration guidelines link. 1 each 08/12/2024 08/13/2024 Start: 08-12-2024 End: 08-13-2024 iv contrast (will be provide d with radiology test) Indications: Dysuria , Acute cystitis with hematuria , Nausea , Lower abdominal pain , Flank pain CT Chest ABD/PEL-Inject, intravenously, once for 1 dose.No IV access, insert saline lock prior to the beginning of sedation, infusion, injection of imaging exam. Discontinue saline lock post exam. If Pt. has a central line or IVAD, may access for administration according to line specific nursing protocol. Once exam is complete flush line and de-access according to line specific nursing protocol in the CT contrast administration guidelines link. 1 each 08/12/2024 08/13/2024 Active Start: 07-21-2024 End: 07-22-2024 iv contrast (will be provide d with radiology test) Indications: Elevated fecal calprotectin , Change in bowel habits , Lower abdominal pain CT ABD/PEL -Inject, intravenously, once for 1 dose.No IV access, insert saline lock prior to the beginning of sedation, infusion, injection of imaging exam. Discontinue saline lock post exam. If Pt. has a central line or IVAD, may access for administration according to line specific nursing protocol. Once exam is complete flush line and de-access according to line specific nursing protocol in the CT contrast administration guidelines link. 1 Each 07/21/2024 07/22/2024 Active Start: 06-30-2024 End: 06-30-2024 inject 1 dose intravenously once, then inject 1 dose intravenously once iv contrast (will be provided with radiology test) Indications: Localized enlarged lymph nodes , Neck pain Inject 1 Each intravenously one time only for [address] Neck W IVCON No IV access, insert saline lock prior to the sedation, infusion, injection for imaging exam. Discontinue saline lock post exam. If Pt. has a central line or IVAD, may access for administration according to line specific nursing protocol. Once exam is complete flush line and de-access according to line specific nursing protocol in the CT contrast administration guidelines link. 1 Each 06/30/2024 06/30/2024 Active Start: 06-03-2023 End: 06-04-2023 inject 1 dose intravenously once iv contrast (will be provided with radiology test) MRI Brain Inject, intravenously, once for 1 dose.No IV access, insert saline lock prior to beginning of sedation, infusion, injection of imaging exam.Discontinue saline lock post exam. If Pt. has a central line or IVAD, may access for administration according to line specific nursing protocol.Once exam is complete flush line and de-access according to line specific nursing protocol in the MR contrast administration guidelines link 1 Each 0 06/03/2023 06/04/2023 Comment on above: MRI Brain Inject, in travenously, once for 1 dose.No IV access, insert saline lock prior to beginning of sedation, infusion, injection of imaging exam.Discontinue saline lock post exam. If Pt. has a central line or IVAD, may access for administration according to line specific nursing protocol.Once exam is complete flush line and de-access according to line specific nursing protocol in the MR contrast administration guidelines link L.ACID/L.CASEI/B.BI F/B.JANETH/FOS (PROBIOTIC BLEND ORAL) (20 sources) End: 04-15-2024 L.ACID/L.CASEI/B.BIF/B.L ON/FOS (PROBIOTIC BLEND ORAL) Take by mouth. 04/15/2024 Discontinued (Changing Therapy/Dosage Form) L.ACID/L.CASEI/B .BIF/B.JANETH/FOS (PROBIOTIC BLEND ORAL) Take by mouth. Active L.ACID/L.CASEI/B .BIF/B.JANETH/FOS (PROBIOTIC BLEND ORAL) Take by mouth. 0 Active Comment on above: Take by mouth. lactulose 667 mg/ml oral solution (20 sources) Osmotic Laxative Start: End: take 15 mL by mouth once daily for constipation lactulose (ENULOSE) 10 gram/15 mL solution Take 15ml by mouth once daily for constipation 473 mL 1 06/07/2022 06/03/2023 Discontinued Comment on above: Take 15ml by mouth o nce daily for constipation lubiprostone 0.008 mg oral capsule (6 sources) Chloride Channel Activator Start: End: take 1 capsule by mouth twice daily at mealtime lubiprostone (AMITIZA) 8 mcg capsule Take 1 capsule by mouth twice daily with meals. 60 capsule 5 05/31/2022 06/07/2022 Discontinued Comment on above: Take 1 capsule by mo uth twice daily with meals. Melatonin (20 sources) End: MELATONIN ORAL Take by mouth. 0 06/03/2023 Discontinued MELATONIN ORAL T luc by mouth. 0 Active Comment on above: Take by mouth. metoclopramide 5 mg oral tablet (20 sources) Dopamine-2 Receptor Antagonist Start: End: take 1 tablet by mouth every eight hours as needed for nausea and nausea REGLAN 5 mg tablet Indications: Nausea Take 1 tablet by mouth three times daily as needed (nausea, GI upset). 90 tablet 1 07/03/2021 11/27/2021 Discontinued Comment on above: Take 1 tablet by araceli th three times daily as needed (nausea, GI upset). naratriptan 2.5 mg oral tablet (20 sources) Serotonin-1b and Serotonin-1d Receptor Agonist Start: End: take 1 mg by mouth every twenty-four hours naratriptan (AMERGE) 2.5 mg tablet Take 1 tablet (2.5 mg) by mouth as directed. at the onset of headache; if headache returns or does not fully resolve, the dose may be repeated after 4 hours; do not exceed five(5) mg in 24 hours. No more than 10 doses a month. 10 tablet 2 10/09/2023 04/15/2024 Discontinued nitrofurantoin, macrocrystals 25 mg / nitrofurantoin, monohydrate 75 mg oral capsule (2 sources) Nitrofuran Antibacterial Start: End: take 1 capsule by mouth twice daily nitrofurantoin monohydrate and macrocrystal (MACROBID) 100 mg capsule Take 1 capsule by mouth two times a day for 7 days. 14 capsule 08/10/2024 08/12/2024 Discontinued nortriptyline 25 mg oral capsule (20 sources) Tricyclic Antidepressant Start: End: nortriptyline (PAMELOR) 25 mg capsule 05/30/2023 04/09/2024 Discontinued pantoprazole 40 mg delayed release oral tablet (20 sources) Proton Pump Inhibitor Start: End: take 1 tablet by mouth once daily before breakfast pantoprazole DR (PROTONIX) 40 mg tablet Take 1 tablet by mouth daily before breakfast. Take on empty stomach, 1/2 hr before meal. 30 tablet 11/27/2023 04/15/2024 Discontinued perflutren lipid microspheres 1.3 mL in NaCl (PF) 0.9% 10 mL injection (DEFINITY) (20 sources) Start: End: perflutren lipid microspheres 1.3 mL in NaCl (PF) 0.9% 10 mL injection (DEFINITY) polyethylene glycol 3350 29691 mg powder for oral solution (20 sources) Osmotic Laxative Start: End: polyethylene glycol 3350 (MIRALAX) 17 gram/dose powder Indications: Chronic constipation Take 1 capful once a day 238 g 1 07/03/2021 06/03/2023 Discontinued Comment on above: Take 1 capful once a day rimegepant 75 mg disintegrating oral tablet (3 sources) Start: End: take 1 tablet by mouth once daily as needed rimegepant (NURTEC ODT) 75 mg disintegrating tablet Take 1 tablet by mouth once daily as needed. 8 tablet 2 08/20/2023 08/22/2023 Discontinued Start: 08-06-2023 End: 08-06-2023 take 1 tablet by mouth once daily as needed rimegepant (NURTEC ODT) 75 mg disintegrating tablet Take 1 tablet by mouth once daily as needed. 8 tablet 2 08/06/2023 08/06/2023 Discontinued Comment on above: Take 1 tablet by araceli once daily as needed. 125 ml sodium chloride 9 mg/ml prefilled syringe (20 sources) Start: 04-26-2021 End: 07-26-2022 sodium chloride 0.9 % (flush) 10 mL (BD POSIFLUSH) sucralfate 1000 mg oral tablet (20 sources) Aluminum Complex Start: 11-29-2021 End: 08-27-2023 take 1 tablet by mouth at bedtime as needed for pain sucralfate (CARAFATE) 1 gram tablet Indications: Epigastric abdominal pain , Irritable bowel syndrome with alternating bowel habits Take 1 tablet by mouth before meals and at bedtime. As needed for abdominal pain 60 tablet 5 11/29/2021 08/27/2023 Discontinued Start: 05-03-2021 End: 11-25-2021 take 1 tablet by mouth at bedtime as needed for pain sucralfate (CARAFATE) 1 gram tablet Indications: Epigastric abdominal pain , Irritable bowel syndrome with alternating bowel habits Take 1 tablet by mouth before meals and at bedtime. As needed for abdominal pain 60 tablet 5 05/03/2021 11/25/2021 Discontinued Comment on above: Take 1 tablet by araceli th before meals and at bedtime. As needed for abdominal pain SUMAtriptan 50 mg oral tablet (12 sources) Serotonin-1b and Serotonin-1d Receptor Agonist Start: 09-04-19 End: 10-09-19 take 1 tablet by mouth every two hours as needed for headache SUMAtriptan (IMITREX) 50 mg tablet Take 1 tablet (50 mg) by mouth as needed for migraine headache (see administration instructions). at onset of headache. May repeat after 2 hours. NO more than 10 doses a month. 10 tablet 2 09/04/2023 10/09/2023 Discontinued terbinafine 250 mg oral tablet (20 sources) Allylamine Antifungal Start: 10-04-19 End: 06-03-19 take 1 tablet by mouth once daily terbinafine HCl (LAMISIL) 250 mg tablet Take 1 tablet by mouth once daily. For toenail fungus 30 tablet 2 10/03/2021 06/03/2023 Discontinued Comment on above: Take 1 tablet by araceli th once daily. For toenail fungus topiramate 25 mg oral tablet (9 sources) Start: 06-03-19 End: 07-08-19 topiramate (TOPAMAX) 25 mg tablet Take 1 tab at bedtime nightly x1 week, then increase to 2 tabs at bedtime nightly x1 week then increase to 3 tabs at bed time nightly and continue. 90 tablet 2 06/03/2023 07/08/2023 Discontinued Comment on above: Take 1 tab at bedtim e nightly x1 week, then increase to 2 tabs at bedtime nightly x1 week then increase to 3 tabs at bed time nightly and continue. ubrogepant 100 mg oral tablet (4 sources) Start: 08-22-19 End: 09-21-19 take 1 tablet by mouth once daily ubrogepant (UBRELVY) 100 mg tablet Take 1 tablet by mouth as directed. Take 1 tablet PO as needed for acute treatment of migraine. May repeat second dose after 2 hours if incomplete response. Do not exceed 200 mg daily 10 tablet 5 08/22/2023 09/04/2023 Discontinued Problems Active Problems Problem Classification Problem Date Documented Da te Episodic/Chronic Abdominal pain (20 sources) Epigastric pain; Translations: [Epigastric pain] Onset: 3 Episodic Anxiety disorders (20 sources) Anxiety; Translations: [Anxiety disorder, unspecified] Onset: 0 03-09-2010 Chronic Blindness and vision defects (4 sources) Bilateral myopia of eyes; Translations: [Myopia, bilateral] 12-24-2023 Episodic Cancer; other and unspecified primary (1 source) History of pituitary adenoma; Translations: [Personal history of other benign neoplasm] 11-07-2022 Episodic Conditions associated with dizziness or vertigo (1 source) Dizziness; Translations: [Dizziness and giddiness] 06-14-2023 Episodic Esophageal disorders (4 sources) Gastroesophageal reflux disease; Translations: [Gastro-esophageal reflux disease without esophagitis] Onset: 5 04-15-2024 Chronic Fluid and electrolyte disorders (1 source) Dehydration; Translations: [Dehydration] 06-14-2023 Episodic Genitourinary symptoms and ill-defined conditions (7 sources) Dysuria; Translations: [Dysuria] Onset: 5 08-12-2024 Episodic Headache; including migraine (3 sources) Chronic intractable migraine without aura; Translations: [Chronic migraine without aura, intractable, without status migrainosus] 01-30-2024 Chronic Headache; including migraine (1 source) Headache; including migraine; Translations: [Chronic intractable headache, unspecified headache type] Onset: 4 Joint disorders and dislocations; trauma-related (20 sources) Disorder of left patellofemoral joint; Translations: [Patellofemoral disorders, left knee] Onset: 8 02-18-2018 Chronic Lymphadenitis (5 sources) Localized enlarged lymph nodes; Translations: [Localized enlarged lymph nodes] Onset: 5 06-30-2024 Episodic Menstrual disorders (20 sources) Secondary amenorrhea; Translations: [Secondary amenorrhea] Onset: 1 Resolved: 2 02-21-2012 Chronic Mood disorders (20 sources) Depressive disorder; Translations: [Depression] Onset: 0 Resolved: 0 03-29-2010 Chronic Mood disorders (1 source) Mood disorders; Translations: [Depression, unspecified depression type] Onset: 0 Nutritional deficiencies (3 sources) Vitamin D deficiency; Translations: [Vitamin D deficiency, unspecified] Onset: 5 05-26-2024 Chronic Other acquired deformities (20 sources) Scoliosis deformity of spine; Translations: [Scoliosis, unspecified] 02-07-2011 Chronic Other and unspecified benign neoplasm (1 source) Prolactinoma; Translations: [Benign neoplasm of pituitary gland] Episodic Other bone disease and musculoskeletal deformities (20 sources) Idiopathic kyphoscoliosis; Translations: [Other idiopathic scoliosis, site unspecified] Onset: 8 02-05-2008 Chronic Other bone disease and musculoskeletal deformities (2 sources) Other idiopathic scoliosis, site unspecified; Translations: [Idiopathic scoliosis and kyphoscoliosis] Onset: 4 Chronic Other circulatory disease (20 sources) Raynaud's phenomenon; Translations: [Raynaud's syndrome without gangrene] Onset: 2 Chronic Other circulatory disease (1 source) Raynaud's syndrome without gangrene; Translations: [Raynaud's phenomenon without gangrene] Onset: 2 Chronic Other circulatory disease (20 sources) Popliteal entrapment syndrome; Translations: [Other specified disorders of arteries and arterioles] Onset: 3 Chronic Other circulatory disease (2 sources) Other specified disorders of arteries and arterioles; Translations: [Other specified disorders of arteries and arterioles] Onset: 3 Chronic Other connective tissue disease (1 source) Pelvic floor dysfunction; Translations: [Other specified disorders of muscle] Episodic Other connective tissue disease (2 sources) Compartment syndrome; Translations: [Nontraumatic compartment syndrome of unspecified lower extremity] 05-05-2024 Episodic Other connective tissue disease (4 sources) Pain in right foot; Translations: [Pain in right foot] Onset: 5 09-10-2024 Episodic Other connective tissue disease (1 source) Pain in right foot; Translations: [Foot pain, right] Onset: 5 Episodic Other endocrine disorders (1 source) Polycystic ovarian syndrome; Translations: [Polycystic ovarian syndrome] Onset: 5 Chronic Other gastrointestinal disorders (2 sources) Irritable bowel syndrome characterized by alternating bowel habit; Translations: [Mixed irritable bowel syndrome] Chronic Other gastrointestinal disorders (2 sources) Irritable bowel syndrome; Translations: [Mixed irritable bowel syndrome] 01-28-2024 Chronic Other gastrointestinal disorders (1 source) Burping; Translations: [Eructation] Episodic Other gastrointestinal disorders (1 source) Abdominal distension, gaseous; Translations: [Abdominal distension (gaseous)] Episodic Other gastrointestinal disorders (9 sources) Altered bowel function; Translations: [Change in bowel habit] Episodic Other gastrointestinal disorders (1 source) Abdominal wind pain; Translations: [Gas pain] Episodic Other gastrointestinal disorders (1 source) Constipation; Translations: [Constipation, unspecified] Episodic Other gastrointestinal disorders (2 sources) Stool finding; Translations: [Other fecal abnormalities] 07-21-2024 Episodic Other gastrointestinal disorders (1 source) Other fecal abnormalities; Translations: [Elevated fecal calprotectin] Onset: 5 Episodic Other gastrointestinal disorders (1 source) Change in bowel habit; Translations: [Change in bowel habits] Onset: 5 Episodic Other injuries and conditions due to external causes (1 source) Contusion; Translations: [Other injury of unspecified body region, initial encounter] 10-08-2023 Episodic Other liver diseases (5 sources) Steatosis of liver; Translations: [Fatty (change of) liver, not elsewhere classified] Onset: 5 09-10-2024 Chronic Other liver diseases (2 sources) Fatty (change of) liver, not elsewhere classified; Translations: [Fatty (change of) liver, not elsewhere classified] Onset: 5 Chronic Other nervous system disorders (3 sources) Other chronic pain; Translations: [Chronic bilateral thoracic back pain] Onset: 3 Chronic Other nervous system disorders (2 sources) Paresthesia of lower extremity; Translations: [Paresthesia of skin] Episodic Other non-traumatic joint disorders (20 sources) Snapping hip; Translations: [Other specific joint derangements of unspecified hip, not elsewhere classified] Onset: 9 04-16-2019 Chronic Other non-traumatic joint disorders (2 sources) Joint pain; Translations: [Pain in unspecified joint] 06-30-2024 Episodic Other non-traumatic joint disorders (3 sources) Pain in right shoulder; Translations: [Pain in joint, shoulder region] Onset: 5 06-30-2024 Episodic Other nutritional; endocrine; and metabolic disorders (1 source) Altered appetite; Translations: [Other symptoms and signs concerning food and fluid intake] Episodic Other screening for suspected conditions (not mental disorders or infectious disease) (2 sources) CT of pelvis abnormal 08-14-2024 Chronic Other skin disorders (20 sources) Acne; Translations: [Other acne] 12-26-2006 Episodic Other skin disorders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 on above: Performed By: #### L 100.0100, L500.2500 #### [facility] [address] [place], [address] Neutrophils/100 WBC (Bld) 49.9 % Normal 47-70 [facility] Comment on above: Performed By: #### L 100.0100, L500.2500 #### [facility] [address] [place], [address] Nucleated RBC (Bld) [#/Vol] 0 10*3/uL Normal 0-5 [facility] Comment on above: Performed By: #### L 100.0100, L500.2500 #### [facility] [address] [place], [address] Platelet mean volume (Bld) [Entitic vol] 9.3 fL Normal 6.2-12.0 [facility] Comment on above: Performed By: #### L 100.0100, L500.2500 #### [facility] [address] [place], [address] Platelets (Bld) [#/Vol] 240 10*3/uL Normal 150-450 [facility] Comment on above: Performed By: #### L 100.0100, L500.2500 #### [facility] [address] [place], [address] RBC (Bld) [#/Vol] 4.78 10*6/uL Normal 4.2-5.4 [facility] Comment on above: Performed By: #### L 100.0100, L500.2500 #### [facility] [address] [place], [address] RDW SD 41.4 fl Normal 35.1-43.9 [facility] Comment on above: Performed By: #### L 100.0100, L500.2500 #### [facility] [address] [place], [address] WBC (Bld) [#/Vol] 7.4 10*3/uL Normal 4.4-11.0 [facility] Comment on above: Performed By: #### L 100.0100, L500.2500 #### [facility] [address] [place], [address] CT ABD/PEL W IVCONon 025 CT ABD/PEL W IVCON Invalid Interpretation Code [facility] CT Abdomen and Pelvis W cont rast IVOrdered By: Ccf Provider on 08-13-2024 Interpretation and review of laboratory results Abnormal [facility] Radiology Result ACTIONABLE Abnormal [facility] Comment on above: This report contains an incidental or actionable finding. This finding may be a new finding separate from the reason your provider ordered the imaging test or it may be an already known finding that needs additional or continued follow-up. Because of this incidental or actionable finding, you may need another test (imaging or a different type of test). Please contact your provider for the next steps. [facility] CT Abdomen and Pelvis W cont rast Brittaney 08-13-2024 IMPRESSION: 1. Stable slightly heterogeneous appearance of the uterus which may be related to underlying uterine myomas and/or expanded endometrial canal. Further evaluation with pelvic ultrasound may be made. 2. Otherwise, no CT evidence of acute abnormality in the abdomen or pelvis. ACTIONABLE RESULT: FOLLOW-UP Acuity: Actionable Findings: Female reproductive tract (pelvis, adnexa) Routing code: WH_1 Recommendation: US FEMALE PELVIS NON-OB NON TORSION ([id number]) Time Frame: At the discretion of the clinical team. COMMUNICATION: Results will be communicated with the ordering provider via [employer] staff message or phone message by [facility] [employer] [facility] within 2 business days of report finalization. --END OF FINDING-- Glaze Mixer: BONNEI Transcribe Date/Time: Aug 13 2024 10:58A Dictated by : MAGO BROWN MD This examination was interpreted and the report reviewed and electronically signed by: MAGO BROWN MD on Aug 13 2024 11:03AM [facility] DIVISION OF RADIOLOGY * * *Final Report* * * DATE OF EXAM: Aug 13 2024 10:52AM [facility] 0530 - CT ABD/PEL W IVCON / PROCEDURE REASON: multiple diagnoses * * * * Physician Interpretation * * * * EXAMINATION: CT ABDOMEN AND PELVIS WITH IV CONTRAST CLINICAL HISTORY: Dysuria. Nausea, vomiting. TECHNIQUE: CT of the abdomen and pelvis was performed using standard technique, scanning from just above the dome of the diaphragm to the symphysis pubis. MQ: CTAP_3 Contrast: IV: 100 ml of Omnipaque 350 Oral: 10 ml of Omni 240 10-25ml diluted with water CT Radiation dose: Integrated Dose-length product (DLP) for this visit = 490 mGy*cm. CT Dose Reduction Employed: Automated exposure control(AEC) and iterative recon COMPARISON: CT abdomen pelvis dated 07/31/2024 RESULT: Liver: No mass. Biliary: No bile duct dilation. Spleen: No mass. No splenomegaly. Pancreas: No mass or duct dilation. Adrenals: No mass. Kidneys: Couple of stable subcentimeter hypodense too small to characterize left renal lesions. Symmetric nephrograms with no evidence of hydronephrosis. GI tract: No dilation or wall thickening. Normal appendix. Lymph nodes: No abdominal or pelvic lymphadenopathy. Mesentery/Peritoneum: No ascites or mass. Retroperitoneum: No mass. Vasculature: Abdominal aorta normal in caliber. Patent mesenteric vasculature. Pelvis: No focal bladder wall abnormality. Stable mildly heterogeneous appearance of the uterus may be related to myomatous change or potentially expanded endometrial canal. No suspicious adnexal mass. Vaginal ring present. Bones/Soft Tissues: No acute abnormality. Lower thorax: No acute abnormality. Localizer images: No additional findings. DIVISION OF RADIOLOGY Provider, [facility] - 08/13/2024 * * *Final Report* * * DATE OF EXAM: Aug 13 2024 10:52AM [facility] 0530 - CT ABD/PEL W IVCON / PROCEDURE REASON: multiple diagnoses * * * * Physician Interpretation * * * * EXAMINATION: CT ABDOMEN AND PELVIS WITH IV CONTRAST CLINICAL HISTORY: Dysuria. Nausea, vomiting. TECHNIQUE: CT of the abdomen and pelvis was performed using standard technique, scanning from just above the dome of the diaphragm to the symphysis pubis. MQ: CTAP_3 Contrast: IV: 100 ml of Omnipaque 350 Oral: 10 ml of Omni 240 10-25ml diluted with water CT Radiation dose: Integrated Dose-length product (DLP) for this visit = 490 mGy*cm. CT Dose Reduction Employed: Automated exposure control(AEC) and iterative recon COMPARISON: CT abdomen pelvis dated 07/31/2024 RESULT: Liver: No mass. Biliary: No bile duct dilation. Spleen: No mass. No splenomegaly. Pancreas: No mass or duct dilation. Adrenals: No mass. Kidneys: Couple of stable subcentimeter hypodense too small to characterize left renal lesions. Symmetric nephrograms with no evidence of hydronephrosis. GI tract: No dilation or wall thickening. Normal appendix. Lymph nodes: No abdominal or pelvic lymphadenopathy. Mesentery/Peritoneum: No ascites or mass. Retroperitoneum: No mass. Vasculature: Abdominal aorta normal in caliber. Patent mesenteric vasculature. Pelvis: No focal bladder wall abnormality. Stable mildly heterogeneous appearance of the uterus may be related to myomatous change or potentially expanded endometrial canal. No suspicious adnexal mass. Vaginal ring present. Bones/Soft Tissues: No acute abnormality. Lower thorax: No acute abnormality. Localizer images: No additional findings. IMPRESSION IMPRESSION: 1. Stable slightly heterogeneous appearance of the uterus which may be related to underlying uterine myomas and/or expanded endometrial canal. Further evaluation with pelvic ultrasound may be made. 2. Otherwise, no CT evidence of acute abnormality in the abdomen or pelvis. ACTIONABLE RESULT: FOLLOW-UP Acuity: Actionable Findings: Female reproductive tract (pelvis, adnexa) Routing code: WH_1 Recommendation: US FEMALE PELVIS NON-OB NON TORSION ([id number]) Time Frame: At the discretion of the clinical team. COMMUNICATION: Results will be communicated with the ordering provider via [employer] staff message or phone message by [facility] within 2 business days of report finalization. --END OF FINDING-- Glaze Mixer: BONNIE Transcribe Date/Time: Aug 13 2024 10:58A Dictated by : MAGO BROWN MD This examination was interpreted and the report reviewed and electronically signed by: MAGO BROWN MD on Aug 13 2024 11:03AM EST [facility] Radiology Study observation (narrative) [facility] Emergency Department Summary on 08-13-2024 Emergency Department Summary [facility] Medical Records Department [address] [place] [address] Emergency Department Summary 08/13/24 MR#: [id number] Acct: [id number] Name: TRAVIS STEWARD Rep #: [id number] : 1990 34 From: Artie Casper MD PCP: Dr. Antolin June, DO Status:DEP ER Location: ED HPI History of Present Illness Chief Complaint: Complaint Detail of Chief Complaint: UTI symptoms Informant: patient Onset/Context/Timing Onset: Days (Onset Saturday, August 07) Context: Sudden Onset Timing: Continuous Quality: Dysuria, frequency without hematuria Location: pain central low back and suprapubic Current Severity: Mild Maximum Severity: Moderate Worsened by: Worse with urination Relieved by: Nothing Associated Symptoms Associated Symptoms: No fever or chills. No nausea or vomiting Narrative Narrative: Patient is a 34-year-old female. She was seen at the [facility] urgent care. Her urine grew E. coli. She was placed on nitrofurantoin however she was intolerant of this medicine. She was sent to the ER for possible admission. She denies HEENT, cardiac or respiratory symptoms. She denies neurologic symptoms. She denies skin lesions. Prior similar symptoms: Yes Recent Illness/Hospitalization: Yes [facility] Medical History Neck pain Acute insomnia Bloating Epigastric pain Hyperprolactinemia Family history of breast cancer History of posttraumatic stress disorder (PTSD) Panic disorder Major depressive disorder, recurrent, moderate Thyroiditis PCOS (polycystic ovarian syndrome) Scoliosis Hx of migraine headaches Breast lump UTI (urinary tract infection) Back problem Anxiety and depression Seasonal allergies Home Medications ???Medication ???Instructions ???Recorded ???Last Taken ???Type glycopyrrolate 1 mg tablet 1 mg PO BID 08/05/16 Unknown Histo ry clonazepam 0.5 mg tablet 0.5 mg PO BID PRN Anxiety 08/05/17 Unknown History buspirone 30 mg tablet 30 mg PO BID 10/19/19 Unknown Hist ory triamcinolone acetonide 0.5 % 1 applic topical DAILY 10/19/19 Un known History topical cream cyclobenzaprine 5 mg tablet 5 mg PO QHS 30 days #60 tabs 12/15 Unknown Rx famotidine 20 mg tablet (Pepcid) 40 mg PO QDAY 05/01/21 Unknown His tory fluvoxamine 100 mg tablet 100 mg PO QHS 05/01/21 Unknown His tory bupropion HCl 150 mg tablet,12 hr 300 mg PO BID 05/03/22 Unknown Hi story sustained-release Bifidobacterium infantis 4 mg 4 mg PO QDAY 07/06/24 Unknown Hist ory capsule (Align (B.infantis)) diclofenac sodium 1 % topical gel 2 g topical ONCE 07/06/24 Unknown History fluticasone propionate 50 1 spray intranasal QDAY 07/06/24 U nknown History mcg/actuation nasal spray,suspension (Allergy Relief (fluticasone)) gabapentin 300 mg capsule 300 mg PO QDAY 07/06/24 Unknown Hi story linaclotide 72 mcg capsule 72 mcg PO QAM 07/06/24 Unknown His tory (Linzess) montelukast 10 mg tablet 10 mg PO QHS 07/06/24 Unknown Hist ory naproxen 500 mg tablet 500 mg PO BID PRN 07/06/24 Unknown History risperidone 0.25 mg tablet 0.25 mg PO QHS 07/06/24 Unknown Hi story segesterone acet 0.15 mg-ethinyl 1 vag ring vaginal Q4W #1 ea 07/08 Unknown Rx estradiol 0.013 mg/24 hr vaginal ring (Annovera) phenazopyridine 200 mg tablet 200 mg PO TID #10 tabs 08/13/24 Un known Rx (Pyridium) Allergy/AdvReac Type Severity Reaction Status Date / Time topiramate (From Topamax) Allergy Intermediate GI upset Verified 08/13/24 12:14 lactose AdvReac Intermediate Nausea/Vom/ Verified 08/13/24 12:14 Diarrhea ondansetron (From Zofran) AdvReac Intermediate Constipatio Verified 08/13/24 12:14 n metoclopramide AdvReac Mild Verified 08/13/24 12:14 adhesive tape AdvReac RASH Verified 08/13/24 12:14 haloperidol (From Haldol) AdvReac panic Verified 04/17/25 12:14 attack Family History Brother Asthma Mother Breast cancer Surgical History S/P right breast biopsy [place] teeth extracted right index finger Social History Smoking Status: Never smoker second hand exposure: No alcohol intake: never substance use type: does not use caffeine: No what type of physical activity do you participate in: none seatbelt use: always do you feel safe at home: Yes additional social history: single- ROS ROS ED Constitutional Constitutional ED: Denies chills, fever(s), subjective or sweats Cardiovascular Cardiovascular: Denies chest pain or palpitations Respiratory/Chest Respiratory/Chest: Denies cough or dyspnea Gastrointestinal Gastrointestinal: Denies abdominal pain, karla (more content not included)... Normal [facility] Protein, Urine (Random)on Protein (U) [Mass/Vol] 7.4 mg/dL Normal 0.0-12.0 [facility] Comment on above: Performed By: #### L 501.1930 #### [facility] [address] [place], [place], [id number] Urinalysis, Completeon 08-13 BACTERIA RARE Normal None Seen [facility] Comment on above: Order Comment: CLEAN CATCH Performed By: #### L 400.0001 #### [facility] [address] [place], [address] EPI,SQUAMOUS 0-5 SEEN Normal 5-10 [facility] Comment on above: Order Comment: CLEAN CATCH Performed By: #### L 400.0001 #### [facility] [address] [place], [address] RBC 0-5 SEEN Normal 0-5 [facility] Comment on above: Order Comment: CLEAN CATCH Performed By: #### L 400.0001 #### [facility] [address] [place], [address] Mucus Ql (Urine sed) 0 SEEN Normal [facility] Comment on above: Order Comment: CLEAN CATCH Performed By: #### L 400.0001 #### [facility] [address] [place], [place], [address] WBC 0 SEEN Normal 0-5 [facility] Comment on above: Order Comment: CLEAN CATCH Performed By: #### L 400.0001 #### [facility] [address] [place], [place], [id number] BACTERIAL CULTURE, URINEOrde red By: Meggan Alfaro on 08-12-2024 Bacteria identified Cx Nom (U) Mixed microbiota, including predominantly: [facility] Bacteria identified Cx Nom (U) >=100,000 CFU/ml Enterococcus faecalis Abnormal [facility] Comment on above: Cephalosporins, clin damycin, and TMP-SMX are not effective for the treatment of enterococcal infections. Bacteria Ur Culton Bacteria identified Cx Nom (U) ORGANISM ID: 1 10,000 -<50,000 CFU/ml Normal urogenital jonah Normal [facility] Comment on above: Performed By: #### 6 30-4 ####[facility] LABCLIA [id number] [place] [address] [place] Bacteria identified Cx Nom ( U)Ordered By: Meggan Alfaro on 08-12-2024 Interpretation and review of laboratory results Abnormal [facility] This test was km morris and its performance characteristics determined by the [facility]'s [facility] [place] ([facility]). It has not been cleared or approved by the FDA. -[facility] is regulated under CLIA as qualified to perform high-complexity testing. This test is used for clinical purposes. It should not be regarded as investigational or for research. [facility] CBC W Auto Differential pane l (Bld)on 08-12-2024 Basophils (Bld) [#/Vol] 0.05 10*3/uL NINF [facility] Basophils/100 WBC (Bld) 0.7 % [facility] Differential cell count method Nom (Bld) Auto [facility] Eosinophils (Bld) [#/Vol] 0.05 10*3/uL [facility] Eosinophils/100 WBC (Bld) 0.7 % [facility] Erythrocyte distribution width (RBC) [Ratio] 12.6 % 11.5 - 15.0 % [facility] Hematocrit (Bld) [Volume fraction] 42.5 % 36.0 - 46.0 % [facility] Hemoglobin (Bld) [Mass/Vol] 14.5 g/dL 11.5 - 15.5 g/dL [facility] Immature granulocytes (Bld) [#/Vol] [facility] Immature granulocytes/100 WBC (Bld) 0.1 % [facility] Lymphocytes (Bld) [#/Vol] 2.87 10*3/uL [facility] Lymphocytes/100 WBC (Bld) 41.8 % [facility] MCH (RBC) [Entitic mass] 30.4 pg 26.0 - 34.0 pg [facility] MCHC (RBC) [Mass/Vol] 34.1 g/dL 30.5 - 36.0 g/dL [facility] MCV (RBC) [Entitic vol] 89.1 fL 80.0 - 100.0 fL [facility] Monocytes (Bld) [#/Vol] 0.58 10*3/uL [facility] Monocytes/100 WBC (Bld) 8.5 % [facility] Neutrophils (Bld) [#/Vol] 3.3 10*3/uL [facility] Neutrophils/100 WBC (Bld) 48.2 % [facility] Nucleated RBC (Bld) [#/Vol] [facility] Nucleated RBC/100 WBC (Bld) [Ratio] 0 % /100 WBC [facility] Platelet mean volume (Bld) [Entitic vol] 9.1 fL 9.0 - 12.7 fL [facility] Platelets (Bld) [#/Vol] 224 10*3/uL [facility] RBC (Bld) [#/Vol] 4.77 10*6/uL 3.90 - 5.2 0 m/uL [facility] WBC (Bld) [#/Vol] 6.86 10*3/uL [facility] Basophils (Bld) [#/Vol] 0.05 10*3/uL Normal <0.11 [facility] Comment on above: Order Comment: Speci men Type: BLOOD SPECIMENOrdering Facility: [facility] Address: [address] [place] [address] Performed By: #### 5 7021-8 ####[facility] MILLTOWNCLIA [id number] [place] [address] [place] Basophils/100 WBC (Bld) 0.7 % Normal [facility] Comment on above: Order Comment: Speci men Type: BLOOD SPECIMENOrdering Facility: [facility] Address: [address] [place] [address] Performed By: #### 5 7021-8 ####[facility] MILLWNCLIA [id number] [place] [address] [place] Differential cell count method Nom (Bld) Auto Normal [facility] Comment on above: Order Comment: Speci men Type: BLOOD SPECIMENOrdering Facility: [facility] Address: [address] [place] [address] Performed By: #### 5 7021-8 ####[facility] [id number] [place] [address] [place] Eosinophils (Bld) [#/Vol] 0.05 10*3/uL Normal <0.46 [facility] Comment on above: Order Comment: Speci men Type: BLOOD SPECIMENOrdering Facility: [facility] Address: [address] [place] [address] Performed By: #### 5 7021-8 ####[facility] MILLTOWNCLIA [id number] [place] [address] [place] Eosinophils/100 WBC (Bld) 0.7 % Normal [facility] Comment on above: Order Comment: Speci men Type: BLOOD SPECIMENOrdering Facility: [facility] Address: [address] [place] [address] Performed By: #### 5 7021-8 ####[facility] [id number] [place] [address] [place] Erythrocyte distribution width (RBC) [Ratio] 12.6 % Normal 11.5-15.0 [facility] Comment on above: Order Comment: Speci men Type: BLOOD SPECIMENOrdering Facility: [facility] Address: [address] [place] [address] Performed By: #### 5 7021-8 ####[facility] [id number] [place] [address] [place] Hematocrit (Bld) [Volume fraction] 42.5 % Normal 36.0-46.0 [facility] Comment on above: Order Comment: Speci men Type: BLOOD SPECIMENOrdering Facility: [facility] Address: [address] [place] [address] Performed By: #### 5 7021-8 ####[facility] [id number] [place] [address] [place] Hemoglobin (Bld) [Mass/Vol] 14.5 g/dL Normal 11.5-15.5 [facility] Comment on above: Order Comment: Speci men Type: BLOOD SPECIMENOrdering Facility: [facility] Address: [address] [place] [address] Performed By: #### 5 7021-8 ####[facility] [id number] [place] [address] [place] Immature granulocytes (Bld) [#/Vol] 10*3/uL Normal <0.10 [facility] Comment on above: Order Comment: Speci men Type: BLOOD SPECIMENOrdering Facility: [facility] Address: [address] [place] [address] Performed By: #### 5 7021-8 ####[facility] [id number] [place] [address] [place] Immature granulocytes/100 WBC (Bld) 0.1 % Normal [facility] Comment on above: Order Comment: Speci men Type: BLOOD SPECIMENOrdering Facility: [facility] Address: [address] [place] [address] Performed By: #### 5 7021-8 ####[facility] [id number] [place] [address] [place] Lymphocytes (Bld) [#/Vol] 2.87 10*3/uL Normal 1.00-4.00 [facility] Comment on above: Order Comment: Speci men Type: BLOOD SPECIMENOrdering Facility: [facility] Address: [address] [place] [address] Performed By: #### 5 7021-8 ####[facility] [id number] [place] [address] [place] Lymphocytes/100 WBC (Bld) 41.8 % Normal [facility] Comment on above: Order Comment: Speci men Type: BLOOD SPECIMENOrdering Facility: [facility] Address: [address] [place] [address] Performed By: #### 5 7021-8 ####[facility] [id number] [place] [address] [place] MCH (RBC) [Entitic mass] 30.4 pg Normal 26.0-34.0 [facility] Comment on above: Order Comment: Speci men Type: BLOOD SPECIMENOrdering Facility: [facility] Address: [address] [place] [address] Performed By: #### 5 7021-8 ####[facility] [id number] [place] [address] [place] MCHC (RBC) [Mass/Vol] 34.1 g/dL Normal 30.5-36.0 [facility] Comment on above: Order Comment: Speci men Type: BLOOD SPECIMENOrdering Facility: [facility] Address: [address] [place] [address] Performed By: #### 5 7021-8 ####[facility] COMM[facility] HOSPITALLEISA [id number] [place] [address] [place] MCV (RBC) [Entitic vol] 89.1 fL Normal 80.0-100.0 [facility] Comment on above: Order Comment: Speci men Type: BLOOD SPECIMENOrdering Facility: [facility] Address: [address] [place] [address] Performed By: #### 5 7021-8 ####[facility]ITALNCBEAV[facility] [id number] [place] [address] [place] Monocytes (Bld) [#/Vol] 0.58 10*3/uL Normal <0.87 [facility] Comment on above: Order Comment: Speci men Type: BLOOD SPECIMENOrdering Facility: [facility] Address: [address] [place] [address] Performed By: #### 5 7021-8 ####[facility] [id number] [place] [address] [place] Monocytes/100 WBC (Bld) 8.5 % Normal [facility] Comment on above: Order Comment: Speci men Type: BLOOD SPECIMENOrdering Facility: [facility] Address: [address] [place] [address] Performed By: #### 5 7021-8 ####[facility] [id number] [place] [address] [place] Neutrophils (Bld) [#/Vol] 3.30 10*3/uL Normal 1.45-7.50 [facility] Comment on above: Order Comment: Speci men Type: BLOOD SPECIMENOrdering Facility: [facility] Address: [address] [place] [address] Performed By: #### 5 7021-8 ####[facility] HOSPITALNCLIA [id number] [place] [address] [place] Neutrophils/100 WBC (Bld) 48.2 % Normal [facility] Comment on above: Order Comment: Speci men Type: BLOOD SPECIMENOrdering Facility: [facility] Address: [address] [place] [address] Performed By: #### 5 7021-8 ####[facility] DARIANBUFFALOLEISA [id number] [place] [address] [place] Nucleated RBC (Bld) [#/Vol] 10*3/uL Normal <0.01 [facility] Comment on above: Order Comment: Speci men Type: BLOOD SPECIMENOrdering Facility: [facility] Address: [address] [place] [address] Performed By: #### 5 7021-8 ####[facility] HOSPITALTAYLORAnuradha [id number] [place] [address] [place] Nucleated RBC/100 WBC (Bld) [Ratio] 0.0 /100 WBC Normal [facility] Comment on above: Order Comment: Speci men Type: BLOOD SPECIMENOrdering Facility: [facility] Address: [address] [place] [address] Performed By: #### 5 7021-8 ####[facility] DARIANBUFFALOLEISA [id number] [place] [address] [place] Platelet mean volume (Bld) [Entitic vol] 9.1 fL Normal 9.0-12.7 [facility] Comment on above: Order Comment: Speci men Type: BLOOD SPECIMENOrdering Facility: [facility] Address: [address] [place] [address] Performed By: #### 5 7021-8 ####[facility] HOSPITALNCLIA [id number] [place] [address] [place] Platelets (Bld) [#/Vol] 224 10*3/uL Normal 150-400 [facility] Comment on above: Order Comment: Speci men Type: BLOOD SPECIMENOrdering Facility: [facility] Address: [address] [place] [address] Performed By: #### 5 7021-8 ####[facility] HOSPITALNCLIA [id number] [place] [address] [place] RBC (Bld) [#/Vol] 4.77 10*6/uL Normal 3.90-5.20 [facility] Comment on above: Order Comment: Speci men Type: BLOOD SPECIMENOrdering Facility: [facility] Address: [address] [place] [address] Performed By: #### 5 7021-8 ####[facility] COMM[facility] HOSPITALNCA [id number] [place] [address] [place] WBC (Bld) [#/Vol] 6.86 10*3/uL Normal 3.70-11.00 [facility] Comment on above: Order Comment: Speci men Type: BLOOD SPECIMENOrdering Facility: [facility] Address: [address] [place] [address] Performed By: #### 5 7021-8 ####[facility] HEALTHLIA [id number] [place] [address] [place] CK SerPl-cCncon 08-12-2024 CK [Catalytic activity/Vol] 43 U/L Normal 42-196 [facility] Comment on above: Order Comment: Speci men Type: BLOOD SPECIMENOrdering Facility: [facility] Address: [address] [place] [address] Performed By: #### 2 157-6 ####[facility] LABCLIA [id number] [place] [address] [place] CNOVon 08-12-2024 CNOV Normal [facility] Comprehensive metabolic 2000 panelOrdered By: Olive Espinoza on 08-12-2024 Albumin [Mass/Vol] 4 g/dL 3.9 - 4.9 g/dL [facility] ALP [Catalytic activity/Vol] 43 U/L 34 - 123 U/L [facility] ALT [Catalytic activity/Vol] 14 U/L 7 - 38 U/L [facility] Anion gap [Moles/Vol] 8 mmol/L 8 - 15 mmol/L [facility] AST [Catalytic activity/Vol] 15 U/L 13 - 35 U/L [facility] Bilirubin [Mass/Vol] 0.2 mg/dL 0.2 - 1 .3 mg/dL [facility] Calcium [Mass/Vol] 9.6 mg/dL 8.5 - 10. 2 mg/dL [facility] Chloride [Moles/Vol] 104 mmol/L 98 - 10 7 mmol/L [facility] CO2 [Moles/Vol] 26 mmol/L 22 - 30 mmol/L [facility] Creatinine [Mass/Vol] 0.97 mg/dL High 0.58 - 0.96 mg/dL [facility] GFR/1.73 sq M.predicted among non-blacks MDRD (S/P/Bld) [Vol rate/Area] 80 mL/min/{1.73_m2} - PINF [facility] Comment on above: Estimated Glomerular Filtration Rate (eGFR) is calculated using the 2020 CKD-EPI creatinine equation. This equation utilizes serum creatinine, sex, and age as parameters. The creatinine assay has traceable calibration to isotope dilution-mass spectrometry. Refer to KDIGO guidelines for clinical interpretation. In patients with unstable renal function, e.g. those with acute kidney injury, the eGFR may not accurately reflect actual GFR. Glucose [Mass/Vol] 97 mg/dL 74 - 99 mg/dL [facility] Comment on above: The [place] Diabete s Association (ADA) provides guidance for cutoff values for fasting glucose and random glucose. The ADA defines fasting as no caloric intake for at least 8 hours. Fasting plasma glucose results between 100 to 125 mg/dL indicate increased risk for diabetes (prediabetes). Fasting plasma glucose results greater than or equal to 126 mg/dL meet the criteria for diagnosis of diabetes. In the absence of unequivocal hyperglycemia, results should be confirmed by repeat testing. In a patient with classic symptoms of hyperglycemia or hyperglycemic crisis, random plasma glucose results greater than or equal to 200 mg/dL meet the criteria for diagnosis of diabetes. Reference: Standards of Medical Care in Diabetes 2016, [place] Diabetes Association. Diabetes Care. 2016.39(Suppl 1). Interpretation and review of laboratory results Abnormal [facility] Potassium [Moles/Vol] 4 mmol/L 3.7 - 5.1 mmol/L [facility] Protein [Mass/Vol] 7.1 g/dL 6.3 - 8.0 g/dL [facility] Sodium [Moles/Vol] 138 mmol/L 136 - 144 mmol/L [facility] Urea nitrogen [Mass/Vol] 14 mg/dL 7 - 21 mg/dL [facility] Comprehensive metabolic 2000 panelon 08-12-2024 Albumin [Mass/Vol] 4.0 g/dL Normal 3.9-4.9 [facility] Comment on above: Order Comment: Iris martinez Type: BLOOD SPECIMENOrdering Facility: [facility] Address: [address] [place] [address] Performed By: #### 2 4323-8 ####[facility] HOSPITALWLALIA [id number] [place] [address] [place] ALP [Catalytic activity/Vol] 43 U/L Normal 34-123 [facility] Comment on above: Order Comment: Iris martinez Type: BLOOD SPECIMENOrdering Facility: [facility] Address: [address] [place] [address] Performed By: #### 2 4323-8 ####[facility] HOSPITALWNCLIA [id number] [place] [address] [place] ALT [Catalytic activity/Vol] 14 U/L Normal 7-38 [facility] Comment on above: Order Comment: Speci men Type: BLOOD SPECIMENOrdering Facility: [facility] Address: [address] [place] [address] Performed By: #### 2 4323-8 ####[facility] MILLWNCLIA [id number] [place] [address] [place] Anion gap [Moles/Vol] 8 mmol/L Normal 8-15 [facility] Comment on above: Order Comment: Speci men Type: BLOOD SPECIMENOrdering Facility: [facility] Address: [address] [place] [address] Performed By: #### 2 4323-8 ####[facility] JULIETLIAnuradha [id number] [place] [address] [place] AST [Catalytic activity/Vol] 15 U/L Normal 13-35 [facility] Comment on above: Order Comment: Speci men Type: BLOOD SPECIMENOrdering Facility: [facility] Address: [address] [place] [address] Performed By: #### 2 4323-8 ####[facility] KISSIMMEEA [id number] [place] [address] [place] Bilirubin [Mass/Vol] 0.2 mg/dL Normal 0.2-1.3 [facility] Comment on above: Order Comment: Speci men Type: BLOOD SPECIMENOrdering Facility: [facility] Address: [address] [place] [address] Performed By: #### 2 4323-8 ####[facility] HOSPITALNCKARIEA [id number] [place] [address] [place] Calcium [Mass/Vol] 9.6 mg/dL Normal 8.5-10.2 [facility] Comment on above: Order Comment: Speci men Type: BLOOD SPECIMENOrdering Facility: [facility] Address: [address] [place] [address] Performed By: #### 2 4323-8 ####[facility] HOSPITALNCLIA [id number] [place] [address] [place] Chloride [Moles/Vol] 104 mmol/L Normal 98-107 [facility] Comment on above: Order Comment: Speci men Type: BLOOD SPECIMENOrdering Facility: [facility] Address: [address] [place] [address] Performed By: #### 2 4323-8 ####[facility] HOSPITALNCLIA [id number] [place] [address] [place] CO2 [Moles/Vol] 26 mmol/L Normal 22-30 [facility] Comment on above: Order Comment: Speci men Type: BLOOD SPECIMENOrdering Facility: [facility] Address: [address] [place] [address] Performed By: #### 2 4323-8 ####[facility] HEALTHLIA [id number] [place] [address] [place] Creatinine [Mass/Vol] 0.97 mg/dL High 0.58-0.96 [facility] Comment on above: Order Comment: Speci men Type: BLOOD SPECIMENOrdering Facility: [facility] Address: [address] [place] [address] Performed By: #### 2 4323-8 ####[facility] [id number] [place] [address] [place] Creatinine and Glomerular filtration rate.predicted panel (S/P/Bld) 80 mL/min/1.73m??? Normal >=60 [facility] Comment on above: Order Comment: Speci men Type: BLOOD SPECIMENOrdering Facility: [facility] Address: [address] [place] [address] Result Comment: Jesica mated Glomerular Filtration Rate (eGFR) is calculated using the 2020 CKD-EPI creatinine equation. This equation utilizes serum creatinine, sex, and age as parameters. The creatinine assay has traceable calibration to isotope dilution-mass spectrometry. Refer to KDIGO guidelines for clinical interpretation. In patients with unstable renal function, e.g. those with acute kidney injury, the eGFR may not accurately reflect actual GFR. Performed By: #### 2 4323-8 ####[facility] HOSPITALNCLIA [id number] [place] [address] [place] Glucose [Mass/Vol] 97 mg/dL Normal 74-99 [facility] Comment on above: Order Comment: Speci men Type: BLOOD SPECIMENOrdering Facility: [facility] Address: [address] [place] [address] Result Comment: The [place] Diabetes Association (ADA) provides guidance for cutoff values for fasting glucose and random glucose. The ADA defines fasting as no caloric intake for at least 8 hours. Fasting plasma glucose results between 100 to 125 mg/dL indicate increased risk for diabetes (prediabetes).Fasting plasma glucose results greater than or equal to 126 mg/dL meet the criteria for diagnosis of diabetes. In the absence of unequivocal hyperglycemia, results should be confirmed by repeat testing. In a patient with classic symptoms of hyperglycemia or hyperglycemic crisis, random plasma glucose results greater than or equal to 200 mg/dL meet the criteria for diagnosis of diabetes.Reference: Standards of Medical Care in Diabetes 2016, [place] Diabetes [employer]. Diabetes Care. 2016.39(Suppl 1). Performed By: #### 2 4323-8 ####[facility] [id number] [place] [address] [place] Potassium [Moles/Vol] 4.0 mmol/L Normal 3.7-5.1 [facility] Comment on above: Order Comment: Yovnayi men Type: BLOOD SPECIMENOrdering Facility: [facility] Address: [address] [place] [address] Performed By: #### 2 4323-8 ####[facility] HEALTHLIA [id number] [place] [address] [place] Protein [Mass/Vol] 7.1 g/dL Normal 6.3-8.0 [facility] Comment on above: Order Comment: Yovanyi men Type: BLOOD SPECIMENOrdering Facility: [facility] Address: [address] [place] [address] Performed By: #### 2 4323-8 ####[facility] HOSPITALNCLIA [id number] [place] [address] [place] Sodium [Moles/Vol] 138 mmol/L Normal 136-144 [facility] Comment on above: Order Comment: Speci men Type: BLOOD SPECIMENOrdering Facility: [facility] Address: [facility] [place] [address] Performed By: #### 2 4323-8 ####[facility] EVELIA LARESNCANGELINE [id number] [address] [place] Urea nitrogen [Mass/Vol] 14 mg/dL Normal 7-21 [facility] Comment on above: Order Comment: Speci men Type: BLOOD SPECIMENOrdering Facility: [facility] Address: [facility] [place] [address] Performed By: #### 2 4323-8 ####[facility] HOSPITALNCLIAnuradha [id number] [address] [place] Urinalysis complete panel (U )on 08-12-2024 Bacteria uL 4881.2 uL High - 941 uL [facility] Bilirubin Ql (U) Negative Negative [facility] Clarity (Unsp spec) Clear Clear [facility] Color (U) Yellow Yellow [facility] Epithelial cells LM.HPF (Urine sed) [#/Area] Few /HPF [facility] Glucose Test strip (U) [Mass/Vol] Negative Negative [facility] Hemoglobin Ql (U) Negative Negative [facility] Hyaline casts (Urine sed) [#/Area] 1-3 /LPF Abnormal 0 /LPF [facility] Interpretation and review of laboratory results Abnormal [facility] Ketones Ql (U) Negative Negative [facility] Leukocyte esterase Test strip Ql (U) 2+ Abnormal Negative [facility] Nitrite Ql (U) Negative Negative [facility] pH (U) 6.5 [pH] NINF - 8.5 [facility] Protein (U) [Mass/Vol] Negative Negative [facility] RBC LM.HPF (Urine sed) [#/Area] 0-2 /HPF 0-2 /HPF [facility] Specific gravity (U) [Rel density] 1.005 1.005 - 1.030 [facility] Urobilinogen Ql (U) 0.2 EU/dL 0.2-1.0 EU/dL [facility] WBC LM.HPF (Urine sed) [#/Area] /[HPF] Abnormal 0-5 /HPF [facility] Yeast.budding LM.HPF (Urine sed) [#/Area] Present Abnormal None Seen /HPF [facility] This test was develo ped and its performance characteristics determined by [facility]'s [facility] [place] ([facility]). It has not been cleared or approved by the FDA. -[facility] is regulated under CLIA as qualified to perform high-complexity testing. This test is used for clinical purposes. It should not be regarded as investigational or for research. [facility] BACTERIA UL 4881.2 uL High Negative [facility] Comment on above: Order Comment: Speci men Type: URINE SPECIMENOrdering Facility: [facility] Address: [address] [place] [address] Performed By: #### 2 4356-8 ####[facility] LABIA [id number] [place] [address] [place] Bilirubin Ql (U) Negative Normal Negative [facility] Comment on above: Order Comment: Speci men Type: URINE SPECIMENOrdering Facility: [facility] Address: [address] [place] [address] Performed By: #### 2 4356-8 ####[facility] LABIA [id number] [place] [address] [place] Clarity (Unsp spec) Clear Normal Clear [facility] Comment on above: Order Comment: Speci men Type: URINE SPECIMENOrdering Facility: [facility] Address: [address] [place] [address] Performed By: #### 2 4356-8 ####[facility] LABIA [id number] [place] [address] [place] Color (U) Yellow Normal Yellow [facility] Comment on above: Order Comment: Speci men Type: URINE SPECIMENOrdering Facility: [facility] Address: [address] [place] [address] Performed By: #### 2 4356-8 ####[facility] LABCLIA [id number] [address] [place] [address] [place] Epithelial cells LM.HPF (Urine sed) [#/Area] Few Normal [facility] Comment on above: Order Comment: Speci men Type: URINE SPECIMENOrdering Facility: [facility] Address: [address] [place] [address] Performed By: #### 2 4356-8 ####[facility] LABCLIA [id number] [address], [facility] [place] Glucose Test strip (U) [Mass/Vol] Negative Normal Negative [facility] Comment on above: Order Comment: Speci men Type: URINE SPECIMENOrdering Facility: [facility] Address: [address] [place] [address] Performed By: #### 2 4356-8 ####[facility] LABCLIA [id number] [address], [place] [address] [place] Hemoglobin Ql (U) Negative Normal Negative [facility] Comment on above: Order Comment: Speci men Type: URINE SPECIMENOrdering Facility: [facility] Address: [address] [place] [address] Performed By: #### 2 4356-8 ####[facility] LABCLIA [id number] [address], [facility] [place] Hyaline casts (Urine sed) [#/Area] 1-3 /LPF Abnormal 0 /LPF [facility] Comment on above: Order Comment: Speci men Type: URINE SPECIMENOrdering Facility: [facility] Address: [address] [place] [address] Performed By: #### 2 4356-8 ####[facility] LABCLIA [id number] [address], [facility] [place] Ketones Ql (U) Negative Normal Negative [facility] Comment on above: Order Comment: Speci men Type: URINE SPECIMENOrdering Facility: [facility] Address: [address] [place] [address] Performed By: #### 2 4356-8 ####[facility] LABCLIA [id number] [address], [place] [address] [place] Leukocyte esterase Test strip Ql (U) 2+ Abnormal Negative [facility] Comment on above: Order Comment: Speci men Type: URINE SPECIMENOrdering Facility: [facility] Address: [address] [place] [address] Performed By: #### 2 4356-8 ####[facility] LABCLIA [id number] [address], [place] [address] [place] Nitrite Ql (U) Negative Normal Negative [facility] Comment on above: Order Comment: Speci men Type: URINE SPECIMENOrdering Facility: [facility] Address: [address] [place] [address] Performed By: #### 2 4356-8 ####[facility] LABCLIA [id number] [address], [place] [address] [place] pH (U) 6.5 [pH] Normal <8.5 [facility] Comment on above: Order Comment: Speci men Type: URINE SPECIMENOrdering Facility: [facility] Address: [address] [place] [address] Performed By: #### 2 4356-8 ####[facility] LABCLIA [id number] [place] [address] [place] Protein (U) [Mass/Vol] Negative Normal Negative [facility] Comment on above: Order Comment: Speci men Type: URINE SPECIMENOrdering Facility: [facility] Address: [address] [place] [address] Performed By: #### 2 4356-8 ####[facility] LABCLIA [id number] [address], [facility] [place] RBC LM.HPF (Urine sed) [#/Area] 0-2 /HPF Normal 0-2 /HPF [facility] Comment on above: Order Comment: Speci men Type: URINE SPECIMENOrdering Facility: [facility] Address: [address] [place] [address] Performed By: #### 2 4356-8 ####[facility] HOSPITALIA [id number] [place] [address] [place] Specific gravity (U) [Rel density] 1.005 Normal 1.005-1.030 [facility] Comment on above: Order Comment: Speci men Type: URINE SPECIMENOrdering Facility: [facility] Address: [address] [place] [address] Performed By: #### 2 4356-8 ####[facility] LABIA [id number] [place] [address] [place] Urobilinogen Ql (U) 0.2 EU/dL Normal 0.2-1.0 EU/dL [facility] Comment on above: Order Comment: Speci men Type: URINE SPECIMENOrdering Facility: [facility] Address: [address] [place] [address] Performed By: #### 2 4356-8 ####[facility] [id number] [place] [address] [place] WBC LM.HPF (Urine sed) [#/Area] /[HPF] Abnormal 0-5 /HPF [facility] Comment on above: Order Comment: Speci men Type: URINE SPECIMENOrdering Facility: [facility] Address: [address] [place] [address] Performed By: #### 2 4356-8 ####[facility] [id number] [place] [address] [place] Yeast.budding LM.HPF (Urine sed) [#/Area] Present Abnormal None Seen [facility] Comment on above: Order Comment: Speci men Type: URINE SPECIMENOrdering Facility: [facility] Address: [address] [place] [address] Performed By: #### 2 4356-8 ####[facility] LABCLIA [id number] [address] [place] Bacteria Ur Culton Bacteria identified Cx Nom (U) Abnormal [facility] Comment on above: Performed By: #### 6 30-4 ####[facility] LABCLIA [id number] [address] [place] CNOVon 08-10-2024 CNOV Normal [facility] UA DIP, URINE (POC)on 2024 BILIRUBIN UA (POCT) Negative Negative [facility] CLARITY UA (POCT) Cloudy [facility] COLOR UA (POCT) Adriane [facility] GLUCOSE UA (POCT) 100 mg/dL Abnormal Negative [facility] Hemoglobin Ql (U) Trace-lysed Abnormal Negative [facility] Interpretation and review of laboratory results Abnormal [facility] KETONE UA (POCT) Negative Negative mg/dL [facility] LEUKOCYTES UA (POCT) Large Abnormal Negative [facility] NITRITE UA (POCT) Positive Abnormal Negative [facility] PH UA (POCT) 5 4.5 - 8.0 [facility] Protein Ql (U) 30 mg/dL Abnormal Negative [facility] SPECIFIC GRAVITY UA (POCT) 1.01 1.005 - 1.030 [facility] UROBILINOGEN UA (POCT) 1 Normal E.U./dL [facility] Location:[address], [id number] [place] [address] POINT OF CARE [facility] Urinalysis complete panel (U )on 08-10-2024 Bilirubin Ql (U) Negative Negative [facility] Clarity (Unsp spec) Clear Clear [facility] Color (U) Maryneal Abnormal Yellow [facility] Epithelial cells LM.HPF (Urine sed) [#/Area] Few Abnormal None Seen /HPF [facility] Glucose Test strip (U) [Mass/Vol] Negative Negative [facility] Hemoglobin Ql (U) Negative Negative [facility] Hyaline casts (Urine sed) [#/Area] 0 /[LPF] 0 /LPF [facility] Interpretation and review of laboratory results Abnormal [facility] Ketones Ql (U) Negative Negative [facility] Leukocyte esterase Test strip Ql (U) 2+ Abnormal Negative [facility] Nitrite Ql (U) Positive Abnormal Negative [facility] pH (U) 5.5 [pH] NINF - 8.5 [facility] Protein (U) [Mass/Vol] Trace Abnormal Negative [facility] RBC LM.HPF (Urine sed) [#/Area] 0-2 /HPF 0-2 /HPF [facility] Specific gravity (U) [Rel density] 1.012 1.005 - 1.030 [facility] Urobilinogen Ql (U) 1.0 EU/dL 0.2-1.0 EU/dL [facility] WBC LM.HPF (Urine sed) [#/Area] /[HPF] Abnormal 0-5 /HPF [facility] Yeast.budding LM.HPF (Urine sed) [#/Area] Present Abnormal None Seen /HPF [facility] Rechecked by light microscopy Result rechecked This test was developed and its performance characteristics determined by [facility]'s [facility] [place] ([facility]). It has not been cleared or approved by the FDA. -[facility] is regulated under CLIA as qualified to perform high-complexity testing. This test is used for clinical purposes. It should not be regarded as investigational or for research. [facility] Bilirubin Ql (U) Negative Normal Negative [facility] Comment on above: Order Comment: Speci men Type: URINE SPECIMENOrdering Facility: [facility] Address: [address] [place] [address] Performed By: #### 2 4356-8 ####[facility] LABIA [id number] [place] [address] [place] Clarity (Unsp spec) Clear Normal Clear [facility] Comment on above: Order Comment: Speci men Type: URINE SPECIMENOrdering Facility: [facility] Address: [address] [place] [address] Performed By: #### 2 4356-8 ####[facility] LABIA [id number] [place] [address] [place] Color (U) Maryneal Abnormal Yellow [facility] Comment on above: Order Comment: Speci men Type: URINE SPECIMENOrdering Facility: [facility] Address: [address] [place] [address] Performed By: #### 2 4356-8 ####[facility] LABCLIA [id number] [facility] [place] [address] [place] Epithelial cells LM.HPF (Urine sed) [#/Area] Few Normal [facility] Comment on above: Order Comment: Speci men Type: URINE SPECIMENOrdering Facility: [facility] Address: [address] [place] [address] Result Comment: Few Performed By: #### 2 4356-8 ####[facility] LABCLIA [id number] [address] [place] Glucose Test strip (U) [Mass/Vol] Negative Normal Negative [facility] Comment on above: Order Comment: Speci men Type: URINE SPECIMENOrdering Facility: [facility] Address: [address] [place] [address] Performed By: #### 2 4356-8 ####[facility] LABCLIA [id number] [place] [address] [place] Hemoglobin Ql (U) Negative Normal Negative [facility] Comment on above: Order Comment: Speci men Type: URINE SPECIMENOrdering Facility: [facility] Address: [address] [place] [address] Performed By: #### 2 4356-8 ####[facility] LABCLIA [id number] [facility] [place] [address] [place] Hyaline casts (Urine sed) [#/Area] 0 /[LPF] Normal 0 /LPF [facility] Comment on above: Order Comment: Speci men Type: URINE SPECIMENOrdering Facility: [facility] Address: [address] [place] [address] Performed By: #### 2 4356-8 ####[facility] LABCLIA [id number] [address] [place] [address] [place] Ketones Ql (U) Negative Normal Negative [facility] Comment on above: Order Comment: Speci men Type: URINE SPECIMENOrdering Facility: [facility] Address: [address] [place] [address] Performed By: #### 2 4356-8 ####[facility] LABCLIA [id number] [address], [facility] [place] Leukocyte esterase Test strip Ql (U) 2+ Abnormal Negative [facility] Comment on above: Order Comment: Speci men Type: URINE SPECIMENOrdering Facility: [facility] Address: [address] [place] [address] Performed By: #### 2 4356-8 ####[facility] LABCLIA [id number] [place] [address] [place] Nitrite Ql (U) Positive Abnormal Negative [facility] Comment on above: Order Comment: Speci men Type: URINE SPECIMENOrdering Facility: [facility] Address: [address] [place] [address] Performed By: #### 2 4356-8 ####[facility] LABCLIA [id number] [place] [id number] [place] pH (U) 5.5 [pH] Normal <8.5 [facility] Comment on above: Order Comment: Speci men Type: URINE SPECIMENOrdering Facility: [facility] Address: [address] [place], [place] [address] Performed By: #### 2 4356-8 ####[facility] LABCLIA [id number] [place] [id number] [place] Protein (U) [Mass/Vol] Trace Abnormal Negative [facility] Comment on above: Order Comment: Speci men Type: URINE SPECIMENOrdering Facility: [facility] Address: [address] [place] [address] Performed By: #### 2 4356-8 ####[facility] LABIA [id number] [place] [address] [place] RBC LM.HPF (Urine sed) [#/Area] 0-2 /HPF Normal 0-2 /HPF [facility] Comment on above: Order Comment: Speci men Type: URINE SPECIMENOrdering Facility: [facility] Address: [address] [place] [address] Performed By: #### 2 4356-8 ####[facility] LABIA [id number] [place] [address] [place] Specific gravity (U) [Rel density] 1.012 Normal 1.005-1.030 [facility] Comment on above: Order Comment: Speci men Type: URINE SPECIMENOrdering Facility: [facility] Address: [address] [place] [address] Performed By: #### 2 4356-8 ####[facility] [id number] [place] [address] [place] Urobilinogen Ql (U) 1.0 EU/dL Normal 0.2-1.0 EU/dL [facility] Comment on above: Order Comment: Speci men Type: URINE SPECIMENOrdering Facility: [facility] Address: [address] [place] [address] Performed By: #### 2 4356-8 ####[facility] LABIA [id number] [place] [address] [place] WBC LM.HPF (Urine sed) [#/Area] /[HPF] Abnormal 0-5 /HPF [facility] Comment on above: Order Comment: Speci men Type: URINE SPECIMENOrdering Facility: [facility] Address: [address] [place] [address] Performed By: #### 2 4356-8 ####[facility] LABIA [id number] [place] [address] [place] Yeast.budding LM.HPF (Urine sed) [#/Area] Present Abnormal None Seen [facility] Comment on above: Order Comment: Speci men Type: URINE SPECIMENOrdering Facility: [facility] Address: [address] [place] [address] [place] [address] Performed By: #### 2 4356-8 ####[facility] LABCLIA [id number] [place] [id number] [facility] OF [place] CNOVon 08-07-2024 CNOV Normal [facility] CT ABD/PEL W IVCONon 025 CT ABD/PEL W IVCON Normal [facility] CT Abdomen and Pelvis W cont rast Brittaney 07-31-2024 IMPRESSION: No acute abnormality. Hepatic steatosis. Glaze Mixer: BONNIE Transcribe Date/Time: Jul 31 2024 3:20P Dictated by : EMEKA SAMUEL MD This examination was interpreted and the report reviewed and electronically signed by: EMEKA SAMUEL MD on Jul 31 2024 3:22PM [facility] DIVISION OF RADIOLOGY * * *Final Report* * * DATE OF EXAM: Jul 31 2024 2:25PM [facility] 0530 - CT ABD/PEL W IVCON / PROCEDURE REASON: multiple diagnoses * * * * Physician Interpretation * * * * EXAMINATION: CT ABD/PEL W IVCON CLINICAL HISTORY: Elevated fecal calprotectin Change in bowel habits Lower abdominal pain TECHNIQUE: CT of the abdomen and pelvis was performed using standard technique, scanning from just above the dome of the diaphragm to the symphysis pubis. Contrast: IV: 100 ml of Omnipaque 350 Oral: 10 ml of Omni 240 10-25ml diluted with water Dose-Length Product (DLP): 512 mGy*cm CT Dose Reduction Employed: Automated exposure control(AEC) and iterative recon COMPARISON: No available prior. RESULT: Lower thorax: Unremarkable. Liver: No mass. Mild diffuse fatty infiltration. Biliary: Gallbladder is nondistended. No biliary duct dilatation. Spleen: No mass. No splenomegaly. Pancreas: No mass or ductal dilatation. Adrenal glands: Unremarkable. Kidneys: Subcentimeter left renal cyst, too small to reliably characterize, and statistically most likely a benign finding. Attention on follow-up recommended. No solid, enhancing mass or hydronephrosis in either kidney. Vascular: Normal caliber abdominal aorta . GI tract: No dilation or wall thickening. Normal appendix. No pericolonic inflammatory changes. Pelvis: No mass, fluid or collection. Unremarkable urinary bladder . A ring is present in the upper vagina. Lymph nodes: No abdominal or pelvic lymphadenopathy, by size criteria. Mesentery/Peritoneum/Retrop eritoneum: No ascites, pneumoperitoneum or suspicious mass. Soft Tissues/Bones: No destructive osseous lesion. No suspicious body wall findings. DIVISION OF RADIOLOGY Provider, [facility] - 07/31/2024 * * *Final Report* * * DATE OF EXAM: Jul 31 2024 2:25PM [facility] 0530 - CT ABD/PEL W IVCON / PROCEDURE REASON: multiple diagnoses * * * * Physician Interpretation * * * * EXAMINATION: CT ABD/PEL W IVCON CLINICAL HISTORY: Elevated fecal calprotectin Change in bowel habits Lower abdominal pain TECHNIQUE: CT of the abdomen and pelvis was performed using standard technique, scanning from just above the dome of the diaphragm to the symphysis pubis. Contrast: IV: 100 ml of Omnipaque 350 Oral: 10 ml of Omni 240 10-25ml diluted with water Dose-Length Product (DLP): 512 mGy*cm CT Dose Reduction Employed: Automated exposure control(AEC) and iterative recon COMPARISON: No available prior. RESULT: Lower thorax: Unremarkable. Liver: No mass. Mild diffuse fatty infiltration. Biliary: Gallbladder is nondistended. No biliary duct dilatation. Spleen: No mass. No splenomegaly. Pancreas: No mass or ductal dilatation. Adrenal glands: Unremarkable. Kidneys: Subcentimeter left renal cyst, too small to reliably characterize, and statistically most likely a benign finding. Attention on follow-up recommended. No solid, enhancing mass or hydronephrosis in either kidney. Vascular: Normal caliber abdominal aorta . GI tract: No dilation or wall thickening. Normal appendix. No pericolonic inflammatory changes. Pelvis: No mass, fluid or collection. Unremarkable urinary bladder . A ring is present in the upper vagina. Lymph nodes: No abdominal or pelvic lymphadenopathy, by size criteria. Mesentery/Peritoneum/Retrop eritoneum: No ascites, pneumoperitoneum or suspicious mass. Soft Tissues/Bones: No destructive osseous lesion. No suspicious body wall findings. IMPRESSION IMPRESSION: No acute abnormality. Hepatic steatosis. Glaze Mixer: PSCB Transcribe Date/Time: Jul 31 2024 3:20P Dictated by : EMEKA SAMUEL MD This examination was interpreted and the report reviewed and electronically signed by: EMEKA SAMUEL MD on Jul 31 2024 3:22PM EST [facility] Radiology Study observation (narrative) [facility] CT Abdomen and Pelvis W cont rast IVOrdered By: [facility] Provider on 07-31-2024 [facility] CNOVon 07-21-2024 CNOV Normal [facility] MR/BMS.BVSon 07-17-2024 MR/BMS.BVS [facility] [address] [place] [address] OFFICE VISIT Date of Service: 07/17/24 MR#: [id number] Acct: [id number] Name: TRAVIS STEWARD Rep #: [id number] : 1990 Provider: RAMEZ Clemente Age/Sex: 33/F Location: [facility].BVS Status: Signed Intake Vital Signs 07/06/24 15:00 07/17/24 13:35 Height 5 ft 6 in Weight: 162 lb 162 lb BMI 26.1 BP 126/84 H 101/70 Blood Pressure Location Lt brachial Position Sitting Respiration 16 Pulse 108 H Pulse Source Monitor Temp 98 F Temp Source Temporal Pulse Oximetry (%) 99 Oxygen Delivery Method room air Intake Visit Reasons: Disorder of arteries and arterioles Is patient in pain?: No Allergies topiramate (From Topamax) Allergy (Intermediate, Verified 07/17/24 13:36) GI upset lactose Adverse Reaction (Intermediate, Verified 07/17/24 13:36) Nausea/Vom/Diarrhea ondansetron (From Zofran) Adverse Reaction (Intermediate, Verified 07/17/24 13:36) Constipation metoclopramide Adverse Reaction (Mild, Verified 07/17/24 13:36) adhesive tape Adverse Reaction (Verified 07/17/24 13:36) RASH haloperidol (From Haldol) Adverse Reaction (Verified 07/17/24 13:36) panic attack Medications ???Medication ???Instructions ???Recorded ???Confirmed ???Type glycopyrrolate 1 mg tablet 1 mg PO BID 08/05/16 07/17/24 Hist ory clonazepam 0.5 mg tablet 0.5 mg PO BID PRN Anxiety 08/05/17 07/17/24 History buspirone 30 mg tablet 30 mg PO BID 10/19/19 07/17/24 His tory triamcinolone acetonide 0.5 % 1 applic topical DAILY 10/19/19 History topical cream cyclobenzaprine 5 mg tablet 5 mg PO QHS 30 days #60 tabs 12/1507/17/24 Rx famotidine 20 mg tablet (Pepcid) 40 mg PO QDAY 05/01/21 07/17/24 Hi story fluvoxamine 100 mg tablet 100 mg PO QHS 05/01/21 07/17/24 Hi story bupropion HCl 150 mg tablet,12 hr 300 mg PO BID 05/03/22 07/17/24 H istory sustained-release Bifidobacterium infantis 4 mg 4 mg PO QDAY 07/06/24 07/17/24 His tory capsule (Align (B.infantis)) diclofenac sodium 1 % topical gel 2 g topical ONCE 07/06/24 5 History fluticasone propionate 50 1 spray intranasal QDAY 07/06/24 0 07/17/24 History mcg/actuation nasal spray,suspension (Allergy Relief (fluticasone)) gabapentin 300 mg capsule 300 mg PO QDAY 07/06/24 07/17/24 H istory linaclotide 72 mcg capsule 72 mcg PO QAM 07/06/24 07/17/24 Hi story (Linzess) montelukast 10 mg tablet 10 mg PO QHS 07/06/24 07/17/24 His tory naproxen 500 mg tablet 500 mg PO BID PRN 07/06/24 5 History risperidone 0.25 mg tablet 0.25 mg PO QHS 07/06/24 07/17/24 H istory segesterone acet 0.15 mg-ethinyl 1 vag ring vaginal Q4W #1 ea 07/0807/17/24 Rx estradiol 0.013 mg/24 hr vaginal ring (Annovera) Is last menstrual period known: No Post menopausal: No Patient : No Have you fallen in the past year?: Yes PFSH Medical History Neck pain Acute insomnia Bloating Epigastric pain Hyperprolactinemia Family history of breast cancer History of posttraumatic stress disorder (PTSD) Panic disorder Major depressive disorder, recurrent, moderate Thyroiditis PCOS (polycystic ovarian syndrome) Scoliosis Hx of migraine headaches Breast lump UTI (urinary tract infection) Back problem Anxiety and depression Seasonal allergies Surgical History S/P right breast biopsy [place] teeth extracted right index finger Family History Brother Asthma Mother Breast cancer Social History Smoking Status: Never smoker second hand exposure: No alcohol intake: never substance use type: does not use caffeine: No what type of physical activity do you participate in: none seatbelt use: always do you feel safe at home: Yes additional social history: single- HPI HPI HPI: TRAVIS STEWARD, is a 33 F who presents to the office today for 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 She has significant calf pressure, pain, numbness, and discoloration particularly during yoga practice with one-legged balancing postures; but also similar symptoms to a slightly lesser degree with other prolonged activity as well. She notes this has caused detriment to her overall quality of life. 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 She notes her workup there included an arterial duplex and (more content not included)... Normal [facility] CT NECK SOFT TISSUE W IVCONo n 07-14-2024 CT NECK SOFT TISSUE W IVCON Normal [facility] CT Neck W contrast Brittaney 06-27 IMPRESSION: Single mildly enlarged left level IIa lymph node is present measuring 13 mm in long axis with no evidence of central necrosis or other suspicious morphologic features, nonspecific, but likely reactive. No primary mass lesion is identified in the neck. Glaze Mixer: BONNIE Transcribe Date/Time: Jul 14 2024 4:26P Dictated by : DOV JIMENEZ MD This examination was interpreted and the report reviewed and electronically signed by: DOV JIMENEZ MD on Jul 14 2024 4:40PM [facility] DIVISION OF RADIOLOGY * * *Final Report* * * DATE OF EXAM: Jul 14 2024 3:22PM [facility] 0013 - CT NECK SOFT TISSUE W IVCON / PROCEDURE REASON: multiple diagnoses * * * * Physician Interpretation * * * * CT NECK SOFT TISSUE W IVCON History: Localized enlarged lymph nodes Neck pain Technique: A series of contiguous helical scans were performed from the skull base to the aortic arch following injection of intravenous contrast. Contrast: Omnipaque 350. Contrast Dose: [address] Radiation dose: Integrated Dose-length product (DLP) for this visit = 562 mGy*cm. CT Dose Reduction Employed: Automated exposure control(AEC) and iterative recon COMPARISON: Thyroid ultrasound 02/21/2017 RESULT: Postoperative Change: None apparent. Aerodigestive tract: Normal. Major salivary glands: Normal. Thyroid gland: Normal. Lymph Nodes: Single mildly enlarged left level IIa lymph node is present measuring 13 mm in long axis with no evidence of central necrosis or other suspicious morphologic features. Carotid/Parapharyngeal/Retr opharyngeal Spaces: Patent extracranial carotid systems and internal jugular veins bilaterally. Orbits, Face and Skull Base: Multifocal polypoid mucosal thickening and retention cysts are present in the inferior maxillary sinuses with trace fluid layering in the right maxillary sinus. Imaged intracranial contents: No intracranial mass effect or hydrocephalus. No abnormal intracranial enhancement. Cervical spine and remaining osseous structures: No evidence of high-grade canal stenosis. No aggressive/destructive osseous lesions are identified. Lung apices: No evidence of mass lesion or infection. DIVISION OF RADIOLOGY Provider, [facility] - 07/14/2024 * * *Final Report* * * DATE OF EXAM: Jul 14 2024 3:22PM [facility] 0013 - CT NECK SOFT TISSUE W IVCON / PROCEDURE REASON: multiple diagnoses * * * * Physician Interpretation * * * * CT NECK SOFT TISSUE W IVCON History: Localized enlarged lymph nodes Neck pain Technique: A series of contiguous helical scans were performed from the skull base to the aortic arch following injection of intravenous contrast. Contrast: Omnipaque 350. Contrast Dose: [address] Radiation dose: Integrated Dose-length product (DLP) for this visit = 562 mGy*cm. CT Dose Reduction Employed: Automated exposure control(AEC) and iterative recon COMPARISON: Thyroid ultrasound 02/21/2017 RESULT: Postoperative Change: None apparent. Aerodigestive tract: Normal. Major salivary glands: Normal. Thyroid gland: Normal. Lymph Nodes: Single mildly enlarged left level IIa lymph node is present measuring 13 mm in long axis with no evidence of central necrosis or other suspicious morphologic features. Carotid/Parapharyngeal/Retr opharyngeal Spaces: Patent extracranial carotid systems and internal jugular veins bilaterally. Orbits, Face and Skull Base: Multifocal polypoid mucosal thickening and retention cysts are present in the inferior maxillary sinuses with trace fluid layering in the right maxillary sinus. Imaged intracranial contents: No intracranial mass effect or hydrocephalus. No abnormal intracranial enhancement. Cervical spine and remaining osseous structures: No evidence of high-grade canal stenosis. No aggressive/destructive osseous lesions are identified. Lung apices: No evidence of mass lesion or infection. IMPRESSION IMPRESSION: Single mildly enlarged left level IIa lymph node is present measuring 13 mm in long axis with no evidence of central necrosis or other suspicious morphologic features, nonspecific, but likely reactive. No primary mass lesion is identified in the neck. Glaze Mixer: PSCB Transcribe Date/Time: Jul 14 2024 4:26P Dictated by : DOV JIMENEZ MD This examination was interpreted and the report reviewed and electronically signed by: DOV JIMENEZ MD on Jul 14 2024 4:40PM EST [facility] Radiology Study observation (narrative) [facility] CT Neck W contrast IVOrdered By: Ccf Provider on 07-14-2024 [facility] XR SHLDR >/=3V AP/GUERA AP/OTH R RTon 07-14-2024 XR SHLDR >/=3V AP/GUERA AP/OTHR RT Normal [facility] PAP IG HPV APTIMA 16/18,45on 07-10-2024 ADEQ Comment Normal . [facility] Comment on above: Order Comment: Speci men Comment: [id number] Specimen Comment: Source.............Cervix Specimen Comment: No. of containers..01 ThinPrep Vial Result Comment: Sati sfactory for evaluation. No endocervical component is identified. An endocervical component is not commonly seen in the patient. Performed By: #### L 7400.0280 #### [facility] [address] [place], [place], [id number] COMM . Normal . [facility] Comment on above: Order Comment: Speci men Comment: [id number] Specimen Comment: Source.............Cervix Specimen Comment: No. of containers..01 ThinPrep Vial Performed By: #### L 7400.0280 #### [facility] [address] [place], [address] COMMENT Comment Normal . [facility] Comment on above: Order Comment: Speci men Comment: [id number] Specimen Comment: Source.............Cervix Specimen Comment: No. of containers..01 ThinPrep Vial Result Comment: This liquid based ThinPrep(R) pap test was screened with the use of an image guided system. Performed By: #### L 7400.0280 #### [facility] [address] [place], [place], [id number] DIAG Comment Normal . [facility] Comment on above: Order Comment: Speci men Comment: [id number] Specimen Comment: Source.............Cervix Specimen Comment: No. of containers..01 ThinPrep Vial Result Comment: NEGA TIVE FOR INTRAEPITHELIAL LESION OR MALIGNANCY. Performed By: #### L 7400.0280 #### [facility] [address] [place], [place], [address] HPV APTIMA, HR Negative Normal Negative [facility] Comment on above: Order Comment: Speci men Comment: [id number] Specimen Comment: Source.............Cervix Specimen Comment: No. of containers..01 ThinPrep Vial Result Comment: This nucleic acid amplification test detects fourteen high- risk HPV types (16,18,31,33,35,39,45,51,52,56,58,59,66,68) without differentiation. Performed By: #### L 7400.0280 #### [facility] [address] [place], [place], [id number] HPV Chio Rfx Comment Normal . [facility] Comment on above: Order Comment: Speci men Comment: [id number] Specimen Comment: Source.............Cervix Specimen Comment: No. of containers..01 ThinPrep Vial Result Comment: Crit eria not met, HPV Genotype not performed. Performed at: - [address] [id number] Air Route Traffic Controller: Jayda Hylton MD, Phone: [phone] Performed at: = - [address] [id number] Air Route Traffic Controller: Jayda Hylton MD, Phone: [phone] Performed By: #### L 7400.0280 #### [facility] [address] [place], [address] PAPSMR Comment Normal . [facility] Comment on above: Order Comment: Speci men Comment: [id number] Specimen Comment: Source.............Cervix Specimen Comment: No. of containers..01 ThinPrep Vial Result Comment: The Pap smear is a screening test designed to aid in the detection of premalignant and malignant conditions of the uterine cervix. It is not a diagnostic procedure and should not be used as the sole means of detecting cervical cancer. Both false-positive and false-negative reports do occur. Performed By: #### L 7400.0280 #### [facility] [address] [place], [place], [phone] PERFORM Comment Normal . [facility] Comment on above: Order Comment: Speci men Comment: [id number] Specimen Comment: Source.............Cervix Specimen Comment: No. of containers..01 ThinPrep Vial Result Comment: Garima Chicas, Cone Classifier Tender (ASCP) Performed By: #### L 7400.0280 #### [facility] [address] [place], [address] Talent Assistant Office Visit Reporton 07-06-2024 Talent Assistant Office Visit Report [facility] [address], [address] [place] [address] OFFICE VISIT Date of Service: 07/06/24 MR#: [id number] Acct: [id number] Name: TRAVIS STEWARD Rep #: [id number] : 1990 Provider: Dr. 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: No Is patient in pain?: Yes (leg pain with exercising, popliteal artery entrapment syndrome ) Allergies topiramate (From Topamax) Allergy (Intermediate, Verified 07/06/24 15:12) GI upset lactose Adverse Reaction (Intermediate, Verified 07/06/24 15:12) Nausea/Vom/Diarrhea ondansetron (From Zofran) Adverse Reaction (Intermediate, Verified 07/06/24 15:12) Constipation metoclopramide Adverse Reaction (Mild, Verified 07/06/24 15:12) adhesive tape Adverse Reaction (Verified 07/06/24 15:12) RASH haloperidol (From Haldol) Adverse Reaction (Verified 07/06/24 15:12) panic attack Medications ???Medication ???Instructions ???Recorded ???Confirmed ???Type glycopyrrolate 1 mg tablet 1 mg PO BID 08/05/16 07/06/24 Hist ory clonazepam 0.5 mg tablet 0.5 mg PO BID PRN Anxiety 08/05/17 07/06/24 History buspirone 30 mg tablet 30 mg PO BID 10/19/19 07/06/24 His tory triamcinolone acetonide 0.5 % 1 applic topical DAILY 10/19/19 History topical cream cyclobenzaprine 5 mg tablet 5 mg PO QHS 30 days #60 tabs 12/1507/06/24 Rx famotidine 20 mg tablet (Pepcid) 40 mg PO QDAY 05/01/21 07/06/24 Hi story fluvoxamine 100 mg tablet 100 mg PO QHS 05/01/21 07/06/24 Hi story bupropion HCl 150 mg tablet,12 hr 300 mg PO BID 05/03/22 07/06/24 H istory sustained-release linaclotide 72 mcg capsule 145 mcg PO DAILY 05/03/22 07/06/24 History (Natalies) segesterone acet 0.15 mg-ethinyl 1 vag ring vaginal Q4W 06/25/23 History estradiol 0.013 mg/24 hr vaginal ring (Annovera) segesterone acet 0.15 mg-ethinyl 1 vag ring vaginal Q4W #1 ea 06/2507/06/24 Rx estradiol 0.013 mg/24 hr vaginal ring (Annovera) Bifidobacterium infantis 4 mg 4 mg PO QDAY 07/06/24 07/06/24 His tory capsule (Align (B.infantis)) diclofenac sodium 1 % topical gel 2 g topical ONCE 07/06/24 5 History fluticasone propionate 50 1 spray intranasal QDAY 07/06/24 0 07/06/24 History mcg/actuation nasal spray,suspension (Allergy Relief (fluticasone)) gabapentin 300 mg capsule 300 mg PO QDAY 07/06/24 07/06/24 H istory linaclotide 72 mcg capsule 72 mcg PO QAM 07/06/24 07/06/24 Hi story (Linzess) montelukast 10 mg tablet 10 mg PO QHS 07/06/24 07/06/24 His tory naproxen 500 mg tablet 500 mg PO BID PRN 07/06/24 5 History risperidone 0.25 mg tablet 0.25 mg PO QHS 07/06/24 07/06/24 H istory Is last menstrual period known: No Post menopausal: No Patient : No : [facility] History (Updated 07/06/24 @ 15:[address] iDana Piña MD) Neck pain Acute insomnia Bloating Epigastric pain Hyperprolactinemia Family history of breast cancer History of posttraumatic stress disorder (PTSD) Panic disorder Major depressive disorder, recurrent, moderate Thyroiditis PCOS (polycystic ovarian syndrome) Scoliosis Hx of migraine headaches Breast lump UTI (urinary tract infection) Back problem Anxiety and depression Seasonal allergies Surgical History S/P right breast biopsy [place] teeth extracted right index finger Family History Brother Asthma Mother Breast cancer Social History Smoking Status: Never smoker second hand exposure: No alcohol intake: never substance use type: does not use caffeine: No what type of physical activity do you participate in: none seatbelt use: always do you feel safe at home: Yes additional social history: single- History 0 Elective abortions Hx Para Spontaneous abortions Hx # Term Pregnancies Ectopic pregnancies Hx # Pregnancies Multiple births # of living children HPI Encounter for routine gynecological examination Details: TRAVIS STEWARD is a 33 year old who presents for annual exam. Last PAP: 2023 - normal. Needs done yearly for insurance. History of abnormal PAP: Last mammogram: has had done several years ago History of abnormal mammogram: Colon cancer screening: not due Other preventative health care screenings: PCP [facility] Female Reproductive History Menopausal Symptoms: No difficulty concentrating and No c (more content not included)... Normal [facility] CNPNon 07-02-2024 CNPN Normal [facility] CNOVon 06-30-2024 CNOV Normal [facility] CBC W Auto Differential pane l (Bld)on 06-23-2024 Basophils (Bld) [#/Vol] 0.04 10*3/uL [facility] Basophils/100 WBC (Bld) 0.5 % [facility] Differential cell count method Nom (Bld) Auto [facility] Eosinophils (Bld) [#/Vol] 0.11 10*3/uL [facility] Eosinophils/100 WBC (Bld) 1.5 % [facility] Erythrocyte distribution width (RBC) [Ratio] 12.4 % 11.5 - 15.0 % [facility] Hematocrit (Bld) [Volume fraction] 43.4 % 36.0 - 46.0 % [facility] Hemoglobin (Bld) [Mass/Vol] 14.1 g/dL 11.5 - 15.5 g/dL [facility] Immature granulocytes (Bld) [#/Vol] 0.03 10*3/uL [facility] Immature granulocytes/100 WBC (Bld) 0.4 % [facility] Lymphocytes (Bld) [#/Vol] 3.99 10*3/uL [facility] Lymphocytes/100 WBC (Bld) 52.6 % [facility] MCH (RBC) [Entitic mass] 29.7 pg 26.0 - 34.0 pg [facility] MCHC (RBC) [Mass/Vol] 32.5 g/dL 30.5 - 36.0 g/dL [facility] MCV (RBC) [Entitic vol] 91.6 fL 80.0 - 100.0 fL [facility] Monocytes (Bld) [#/Vol] 0.58 10*3/uL [facility] Monocytes/100 WBC (Bld) 7.7 % [facility] Neutrophils (Bld) [#/Vol] 2.83 10*3/uL [facility] Neutrophils/100 WBC (Bld) 37.3 % [facility] Nucleated RBC (Bld) [#/Vol] [facility] Nucleated RBC/100 WBC (Bld) [Ratio] 0 % /100 WBC [facility] Platelet mean volume (Bld) [Entitic vol] 10.3 fL 9.0 - 12.7 fL [facility] Platelets (Bld) [#/Vol] 236 10*3/uL [facility] RBC (Bld) [#/Vol] 4.74 10*6/uL 3.90 - 5.2 0 m/uL [facility] WBC (Bld) [#/Vol] 7.58 10*3/uL [facility] Basophils (Bld) [#/Vol] 0.04 10*3/uL Normal <0.11 [facility] Comment on above: Order Comment: Speci men Type: BLOOD SPECIMENOrdering Facility: [facility] Address: [address] [place] [address] Performed By: #### 5 7021-8 ####[facility]ORY[facility]IA [id number] [address] [place] Basophils/100 WBC (Bld) 0.5 % Normal [facility] Comment on above: Order Comment: Speci men Type: BLOOD SPECIMENOrdering Facility: [facility] Address: [address] [place] [address] Performed By: #### 5 7021-8 ####[facility]ATORYCLIA [id number] [place] [address] [place] Differential cell count method Nom (Bld) Auto Normal [facility] Comment on above: Order Comment: Speci men Type: BLOOD SPECIMENOrdering Facility: [facility] Address: [address] [place] [address] Performed By: #### 5 7021-8 ####[facility]ATORYCLIA [id number] [place] [address] [place] Eosinophils (Bld) [#/Vol] 0.11 10*3/uL Normal <0.46 [facility] Comment on above: Order Comment: Speci men Type: BLOOD SPECIMENOrdering Facility: [facility] Address: [address] [place] [address] Performed By: #### 5 7021-8 ####[facility]ORYCLIA [id number] [address] [place] Eosinophils/100 WBC (Bld) 1.5 % Normal [facility] Comment on above: Order Comment: Speci men Type: BLOOD SPECIMENOrdering Facility: [facility] Address: [address] [place] [address] Performed By: #### 5 7021-8 ####[facility]ORYCLIA [id number] [address] [place] Erythrocyte distribution width (RBC) [Ratio] 12.4 % Normal 11.5-15.0 [facility] Comment on above: Order Comment: Speci men Type: BLOOD SPECIMENOrdering Facility: [facility] Address: [address] [place] [address] Performed By: #### 5 7021-8 ####[facility] LABORATORYCLIA [id number] [place] [id number] [place] Hematocrit (Bld) [Volume fraction] 43.4 % Normal 36.0-46.0 [facility] Comment on above: Order Comment: Speci men Type: BLOOD SPECIMENOrdering Facility: [facility] Address: [address] [place] [address] Performed By: #### 5 7021-8 ####[facility] LABORATORYCLIA [id number] [place] [address] [place] Hemoglobin (Bld) [Mass/Vol] 14.1 g/dL Normal 11.5-15.5 [facility] Comment on above: Order Comment: Speci men Type: BLOOD SPECIMENOrdering Facility: [facility] Address: [address] [place] [address] Performed By: #### 5 7021-8 ####[facility] LABORATORYCLIA [id number] [address] [place] Immature granulocytes (Bld) [#/Vol] 0.03 10*3/uL Normal <0.10 [facility] Comment on above: Order Comment: Speci men Type: BLOOD SPECIMENOrdering Facility: [facility] Address: [address] [place] [address] Performed By: #### 5 7021-8 ####[facility] LABORATORYCLIA [id number] [place] [address] [place] Immature granulocytes/100 WBC (Bld) 0.4 % Normal [facility] Comment on above: Order Comment: Speci men Type: BLOOD SPECIMENOrdering Facility: [facility] Address: [address] [place] [address] Performed By: #### 5 7021-8 ####[facility] LABORATORYCLIA [id number] [place] [address] [place] Lymphocytes (Bld) [#/Vol] 3.99 10*3/uL Normal 1.00-4.00 [facility] Comment on above: Order Comment: Speci men Type: BLOOD SPECIMENOrdering Facility: [facility] Address: [address] [place] [address] Performed By: #### 5 7021-8 ####[facility] LABORATORYCLIA [id number] [address] Lymphocytes/100 WBC (Bld) 52.6 % Normal [facility] Comment on above: Order Comment: Speci men Type: BLOOD SPECIMENOrdering Facility: [facility] Address: [address] [place] [address] Performed By: #### 5 7021-8 ####[facility] LABORATORYCLIA [id number] [address] MCH (RBC) [Entitic mass] 29.7 pg Normal 26.0-34.0 [facility] Comment on above: Order Comment: Speci men Type: BLOOD SPECIMENOrdering Facility: [facility] Address: [address] [place] [address] Performed By: #### 5 7021-8 ####[facility] LABORATORYCLIA [id number] [address] MCHC (RBC) [Mass/Vol] 32.5 g/dL Normal 30.5-36.0 [facility] Comment on above: Order Comment: Speci men Type: BLOOD SPECIMENOrdering Facility: [facility] Address: [address] [place] [address] Performed By: #### 5 7021-8 ####[facility] LABORATORYCLIA [id number] [address] [place] MCV (RBC) [Entitic vol] 91.6 fL Normal 80.0-100.0 [facility] Comment on above: Order Comment: Speci men Type: BLOOD SPECIMENOrdering Facility: [facility] Address: [address] [place] [address] Performed By: #### 5 7021-8 ####[facility] LABORATORYCLIA [id number] [place] [address] [place] Monocytes (Bld) [#/Vol] 0.58 10*3/uL Normal <0.87 [facility] Comment on above: Order Comment: Speci men Type: BLOOD SPECIMENOrdering Facility: [facility] Address: [address] [place] [address] Performed By: #### 5 7021-8 ####[facility]ATORYCLIA [id number] [place] [address] [place] Monocytes/100 WBC (Bld) 7.7 % Normal [facility] Comment on above: Order Comment: Speci men Type: BLOOD SPECIMENOrdering Facility: [facility] Address: [address] [place] [address] Performed By: #### 5 7021-8 ####[facility]ATORYCLIA [id number] [address] [place] Neutrophils (Bld) [#/Vol] 2.83 10*3/uL Normal 1.45-7.50 [facility] Comment on above: Order Comment: Speci men Type: BLOOD SPECIMENOrdering Facility: [facility] Address: [address] [place] [address] Performed By: #### 5 7021-8 ####[facility]ATORYCLIA [id number] [address] [place] Neutrophils/100 WBC (Bld) 37.3 % Normal [facility] Comment on above: Order Comment: Speci men Type: BLOOD SPECIMENOrdering Facility: [facility] Address: [address] [place] [address] Performed By: #### 5 7021-8 ####[facility]ATORYCLIA [id number] [place] [address] [place] Nucleated RBC (Bld) [#/Vol] 10*3/uL Normal <0.01 [facility] Comment on above: Order Comment: Speci men Type: BLOOD SPECIMENOrdering Facility: [facility] Address: [address] [place] [address] Performed By: #### 5 7021-8 ####[facility]ATORYCLIA [id number] [place] [address] [place] Nucleated RBC/100 WBC (Bld) [Ratio] 0.0 /100 WBC Normal [facility] Comment on above: Order Comment: Speci men Type: BLOOD SPECIMENOrdering Facility: [facility] Address: [address] [place] [address] Performed By: #### 5 7021-8 ####[facility] LABORATORYCLIA [id number] [place] [address] [place] Platelet mean volume (Bld) [Entitic vol] 10.3 fL Normal 9.0-12.7 [facility] Comment on above: Order Comment: Speci men Type: BLOOD SPECIMENOrdering Facility: [facility] Address: [address] [place] [address] Performed By: #### 5 7021-8 ####[facility] LABORATORYCLIA [id number] [address] [place] Platelets (Bld) [#/Vol] 236 10*3/uL Normal 150-400 [facility] Comment on above: Order Comment: Speci men Type: BLOOD SPECIMENOrdering Facility: [facility] Address: [address] [place] [address] Performed By: #### 5 7021-8 ####[facility] LABORATORYCLIA [id number] [place] [address] [place] RBC (Bld) [#/Vol] 4.74 10*6/uL Normal 3.90-5.20 [facility] Comment on above: Order Comment: Speci men Type: BLOOD SPECIMENOrdering Facility: [facility] Address: [address] [place] [address] Performed By: #### 5 7021-8 ####[facility] LABORATORYCLIA [id number] [address] [place] WBC (Bld) [#/Vol] 7.58 10*3/uL Normal 3.70-11.00 [facility] Comment on above: Order Comment: Speci men Type: BLOOD SPECIMENOrdering Facility: [facility] Address: [address] [place] [address] Performed By: #### 5 7021-8 ####[facility]ORYCLIA [id number] [place] [address] [place] CNOVon 06-23-2024 CNOV Normal [facility] CNPNon 06-23-2024 CNPN Normal [facility] Comprehensive metabolic 2000 panelon 06-23-2024 Albumin [Mass/Vol] 3.8 g/dL Low 3.9-4.9 [facility] Comment on above: Order Comment: Speci men Type: BLOOD SPECIMENOrdering Facility: [facility] Address: [address] [place] [address] Performed By: #### 2 4323-8 ####[facility]ORYCLIA [id number] [place] [address] [place] ALP [Catalytic activity/Vol] 49 U/L Normal 34-123 [facility] Comment on above: Order Comment: Speci men Type: BLOOD SPECIMENOrdering Facility: [facility] Address: [address] [place] [address] Performed By: #### 2 4323-8 ####[facility] LABORATORYCLIA [id number] [place] [address] [place] ALT With P-5'-P [Catalytic activity/Vol] 18 U/L Normal 7-38 [facility] Comment on above: Order Comment: Speci men Type: BLOOD SPECIMENOrdering Facility: [facility] Address: [facility] [place] [address] Performed By: #### 2 4323-8 ####[facility]ORATORYCLIA [id number] [place] [id number] [place] Anion gap [Moles/Vol] 10 mmol/L Normal 8-15 [facility] Comment on above: Order Comment: Speci men Type: BLOOD SPECIMENOrdering Facility: [facility] Address: [address] [place] [address] Performed By: #### 2 4323-8 ####[facility]ORATORYCLIA [id number] [place] [address] [place] AST With P-5'-P [Catalytic activity/Vol] 23 U/L Normal 13-35 [facility] Comment on above: Order Comment: Speci men Type: BLOOD SPECIMENOrdering Facility: [facility] Address: [address] [place] [address] Performed By: #### 2 4323-8 ####[facility]ATORYCLIA [id number] [place] [address] [place] Bilirubin [Mass/Vol] 0.2 mg/dL Normal 0.2-1.3 [facility] Comment on above: Order Comment: Speci men Type: BLOOD SPECIMENOrdering Facility: [facility] Address: [address] [place] [address] Performed By: #### 2 4323-8 ####[facility]ATORYCLIA [id number] [place] [address] [place] Calcium [Mass/Vol] 9.3 mg/dL Normal 8.5-10.2 [facility] Comment on above: Order Comment: Speci men Type: BLOOD SPECIMENOrdering Facility: [facility] Address: [address] [place] [address] Performed By: #### 2 4323-8 ####[facility]ATORYCLIA [id number] [place] [address] [place] Chloride [Moles/Vol] 105 mmol/L Normal 98-107 [facility] Comment on above: Order Comment: Speci men Type: BLOOD SPECIMENOrdering Facility: [facility] Address: [address] [place] [address] Performed By: #### 2 4323-8 ####[facility]ORYCLIA [id number] [place] [address] [place] CO2 [Moles/Vol] 24 mmol/L Normal 22-30 [facility] Comment on above: Order Comment: Speci men Type: BLOOD SPECIMENOrdering Facility: [facility] Address: [address] [place] [address] Performed By: #### 2 4323-8 ####[facility] HE[facility] SERVICESCLIA [id number] [place] [id number] [facility] Creatinine [Mass/Vol] 0.85 mg/dL Normal 0.58-0.96 [facility] Comment on above: Order Comment: Iris martinez Type: BLOOD SPECIMENOrdering Facility: [facility] Address: [address] [place] [address] Performed By: #### 2 4323-8 ####[facility] HE[facility] SERVICESCLIA [id number] [place] [id number] [facility] Creatinine and Glomerular filtration rate.predicted panel (S/P/Bld) 94 mL/min/1.73m??? Normal >=60 [facility] Comment on above: Order Comment: Iris martinez Type: BLOOD SPECIMENOrdering Facility: [facility] Address: [address] [place] [address] Result Comment: Jesica mated Glomerular Filtration Rate (eGFR) is calculated using the 2020 CKD-EPI creatinine equation. This equation utilizes serum creatinine, sex, and age as parameters. The creatinine assay has traceable calibration to isotope dilution-mass spectrometry. Refer to KDIGO guidelines for clinical interpretation. In patients with unstable renal function, e.g. those with acute kidney injury, the eGFR may not accurately reflect actual GFR. Performed By: #### 2 4323-8 ####[facility] HOSPITALIA [id number] [place] [id number] [place] Glucose [Mass/Vol] 90 mg/dL Normal 74-99 [facility] Comment on above: Order Comment: Iris martinez Type: BLOOD SPECIMENOrdering Facility: [facility] Address: [address] [place] [address] Result Comment: The [place] Diabetes Association (ADA) provides guidance for cutoff values for fasting glucose and random glucose. The ADA defines fasting as no caloric intake for at least 8 hours. Fasting plasma glucose results between 100 to 125 mg/dL indicate increased risk for diabetes (prediabetes).Fasting plasma glucose results greater than or equal to 126 mg/dL meet the criteria for diagnosis of diabetes. In the absence of unequivocal hyperglycemia, results should be confirmed by repeat testing. In a patient with classic symptoms of hyperglycemia or hyperglycemic crisis, random plasma glucose results greater than or equal to 200 mg/dL meet the criteria for diagnosis of diabetes.Reference: Standards of Medical Care in Diabetes 2016, [place] Diabetes Association. Diabetes Care. 2016.39(Suppl 1). Performed By: #### 2 4323-8 ####[facility]ORATORYCLIA [id number] [place] [address] [place] Potassium [Moles/Vol] 4.7 mmol/L Normal 3.7-5.1 [facility] Comment on above: Order Comment: Speci men Type: BLOOD SPECIMENOrdering Facility: [facility] Address: [address] [place] [address] Performed By: #### 2 4323-8 ####[facility] DiagnosticsREYNOLDS MEM[facility] LABORATORYCLIA [id number] [place] [address] [place] Protein [Mass/Vol] 6.9 g/dL Normal 6.3-8.0 [facility] Comment on above: Order Comment: Speci men Type: BLOOD SPECIMENOrdering Facility: [facility] Address: [address] [place] [address] Performed By: #### 2 4323-8 ####[facility] DiagnosticsRON [facility] LABORATORYCLIA [id number] [place] [address] [place] Sodium [Moles/Vol] 139 mmol/L Normal 136-144 [facility] Comment on above: Order Comment: Yovanyi men Type: BLOOD SPECIMENOrdering Facility: [facility] Address: [address] [place] [address] Performed By: #### 2 4323-8 ####[facility]ORATORYCLIA [id number] [place] [address] [place] Urea nitrogen [Mass/Vol] 12 mg/dL Normal 7-21 [facility] Comment on above: Order Comment: Yovanyi men Type: BLOOD SPECIMENOrdering Facility: [facility] Address: [address] [place] [address] Performed By: #### 2 4323-8 ####[facility] LABORATORYCLIA [id number] [place] [address] [place] BERNARDO HOOK PANELon 025 EBV NA AB, QUAL Positive Abnormal Negative [facility] Comment on above: Order Comment: Speci men Type: BLOOD SPECIMENOrdering Facility: [facility] Address: [address] [place] [address] Performed By: #### E BVPNL ####[facility] LABCLIA [id number] [address], [place] [address] [place] EBV VCA IGG, QUAL Positive Abnormal Negative [facility] Comment on above: Order Comment: Speci men Type: BLOOD SPECIMENOrdering Facility: [facility] Address: [address] [place] [address] Performed By: #### E BVPNL ####[facility] LABCLIA [id number] [place] [address] [place] EBV VCA IGM, QUAL Negative Normal Negative [facility] Comment on above: Order Comment: Speci men Type: BLOOD SPECIMENOrdering Facility: [facility] Address: [address] [place] [address] Performed By: #### E BVPNL ####[facility] LABCLIA [id number] [place] [address] [place] INTERPRETATION (EBVPNL) Normal [facility] Comment on above: Order Comment: Speci men Type: BLOOD SPECIMENOrdering Facility: [facility] Address: [address] [place] [address] Performed By: #### E BVPNL ####[facility] LABCLIA [id number] [place] [address] [place] Heteroph Ab Ser Ql LAon 05-31 Heterophile Ab LA Ql (S) Negative Normal Negative [facility] Comment on above: Order Comment: Speci men Type: BLOOD SPECIMENOrdering Facility: [facility] Address: [address] [place] [address] Result Comment: Infe ctious Mononucleosis rapid test is used as an aid in diagnosis of acute infection with Bernardo-Hook virus (EBV). The antibody levels may occasionally remain elevated up to several months after a primary EBV infection. Final interpretation should be done in conjunction with EBV-specific serology and clinical correlation. False positive results may occasionally be seen with other infectious agents such as Cytomegalovirus, Toxoplasma, and HIV among others as well as non-infectious conditions such as lymphoma. Clinical correlation is required. Performed By: #### 5 213-4 ####[facility] LABCLIA [id number] [place] [address] [place] CNOVon 06-19-2024 CNOV Normal [facility] CNPNon 06-10-2024 CNPN Normal [facility] CNOVon 06-02-2024 CNOV Normal [facility] FERRITINon 05-27-2024 Ferritin [Mass/Vol] 38.9 ng/mL 14.7 - 205.1 ng/mL [facility] Ferritin [Mass/Vol]on 2024 Interpretation and review of laboratory results Normal [facility] Iron and Iron binding capaci ty panelon 05-27-2024 Interpretation and review of laboratory results Abnormal [facility] Iron [Mass/Vol] 91 ug/dL 41 - 186 ug/dL [facility] Iron binding capacity [Mass/Vol] 411 ug/dL High 232 - 386 ug/dL [facility] Iron/TIBC [Molar ratio] 22.1 % 15.0 - 57.0 % [facility] CNOVon 05-26-2024 CNOV Normal [facility] Ferritin SerPl-mCncon 2024 Ferritin [Mass/Vol] 38.9 ng/mL Normal 14.7-205.1 [facility] Comment on above: Order Comment: Speci men Type: BLOOD SPECIMENOrdering Facility: [facility] Address: [address] [place] [address] Performed By: #### 5 0190-8, 2276-4 ####[facility] LABCLIA [id number] [place] [address] [place] Iron and Iron binding capaci ty panelon 05-26-2024 Iron [Mass/Vol] 91 ug/dL Normal 41-186 [facility] Comment on above: Order Comment: Speci men Type: BLOOD SPECIMENOrdering Facility: [facility] Address: [address] [place] [address] Performed By: #### 5 0190-8, 2276-4 ####[facility] LABIA [id number] [place] [address] [place] Iron binding capacity [Mass/Vol] 411 ug/dL High 232-386 [facility] Comment on above: Order Comment: Speci men Type: BLOOD SPECIMENOrdering Facility: [facility] Address: [address] [place] [address] Performed By: #### 5 0190-8, 6-4 ####[facility] LABIA [id number] [place] [address] [place] Iron/TIBC [Molar ratio] 22.1 % Normal 15.0-57.0 [facility] Comment on above: Order Comment: Speci men Type: BLOOD SPECIMENOrdering Facility: [facility] Address: [address] [place] [address] Performed By: #### 5 0190-8, 6-4 ####[facility] [id number] [place] [address] [place] 25(OH)D3 SerPl-ncon 2024 25-hydroxyvitamin D3 [Mass/Vol] 100.0 ng/mL High 31.0-80.0 [facility] Comment on above: Order Comment: Speci men Type: BLOOD SPECIMENOrdering Facility: [facility] Address: [address] [place] [address] Result Comment: Clas sification of 25 [place] Vitamin D status:Deficiency/Insufficiency: < or = 30 ng/ml.Sufficiency/Optimal Levels: 31-80 ng/mLToxicity: > 100 ng/mL.Test performed by chemiluminescent immunoassay. Performed By: #### 1 989-3 ####[facility] LABCLIA [id number] [place] [address] [place] Aldolase SerPl-cCncon 2024 Aldolase [Catalytic activity/Vol] 2.5 mU/mL Normal 1.5-8.1 [facility] Comment on above: Order Comment: Speci men Type: BLOOD SPECIMENOrdering Facility: [facility] Address: [address] [place] [address] Result Comment: This test was developed, and its performance characteristics determined by the [facility] Department of Pathology and Laboratory Medicine. It has not been cleared or approved by the FDA. The [facility] Department of Pathology and Laboratory Medicine is regulated under CLIA as qualified to perform high-complexity testing. This test is used for clinical purposes. It should not be regarded as investigational or for research. Performed By: #### 2 0448-7, 1761-6 ####[facility] LABCLIA [id number] [place] [address] [place] CBC W Auto Differential pane l (Bld)on 05-25-2024 Basophils (Bld) [#/Vol] 0.04 10*3/uL Normal <0.11 [facility] Comment on above: Order Comment: Speci men Type: BLOOD SPECIMENOrdering Facility: [facility] Address: [address] [place] [address] Performed By: #### 5 7021-8 ####[facility] [id number] [place] [address] [place] Basophils/100 WBC (Bld) 0.6 % Normal [facility] Comment on above: Order Comment: Speci men Type: BLOOD SPECIMENOrdering Facility: [facility] Address: [address] [place] [address] Performed By: #### 5 7021-8 ####[facility] [id number] [place] [address] [place] Differential cell count method Nom (Bld) Auto Normal [facility] Comment on above: Order Comment: Speci men Type: BLOOD SPECIMENOrdering Facility: [facility] Address: [address] [place] [address] Performed By: #### 5 7021-8 ####[facility] [id number] [place] [address] [place] Eosinophils (Bld) [#/Vol] 0.12 10*3/uL Normal <0.46 [facility] Comment on above: Order Comment: Speci men Type: BLOOD SPECIMENOrdering Facility: [facility] Address: [address] [place] [address] Performed By: #### 5 7021-8 ####[facility] [id number] [place] [address] [place] Eosinophils/100 WBC (Bld) 1.7 % Normal [facility] Comment on above: Order Comment: Speci men Type: BLOOD SPECIMENOrdering Facility: [facility] Address: [address] [place] [address] Performed By: #### 5 7021-8 ####[facility] [id number] [place] [address] [place] Erythrocyte distribution width (RBC) [Ratio] 12.7 % Normal 11.5-15.0 [facility] Comment on above: Order Comment: Speci men Type: BLOOD SPECIMENOrdering Facility: [facility] Address: [address] [place] [address] Performed By: #### 5 7021-8 ####[facility] [id number] [place] [address] [place] Hematocrit (Bld) [Volume fraction] 42.4 % Normal 36.0-46.0 [facility] Comment on above: Order Comment: Speci men Type: BLOOD SPECIMENOrdering Facility: [facility] Address: [address] [place] [address] Performed By: #### 5 7021-8 ####[facility] DARIANWNCLIA [id number] [place] [address] [place] Hemoglobin (Bld) [Mass/Vol] 14.2 g/dL Normal 11.5-15.5 [facility] Comment on above: Order Comment: Speci men Type: BLOOD SPECIMENOrdering Facility: [facility] Address: [address] [place] [address] Performed By: #### 5 7021-8 ####[facility] COMM[facility] HOSPITALNCLIA [id number] [place] [address] [place] Immature granulocytes (Bld) [#/Vol] 10*3/uL Normal <0.10 [facility] Comment on above: Order Comment: Speci men Type: BLOOD SPECIMENOrdering Facility: [facility] Address: [address] [place] [address] Performed By: #### 5 7021-8 ####[facility]ALTH[facility] [id number] [place] [address] [place] Immature granulocytes/100 WBC (Bld) 0.3 % Normal [facility] Comment on above: Order Comment: Speci men Type: BLOOD SPECIMENOrdering Facility: [facility] Address: [address] [place] [address] Performed By: #### 5 7021-8 ####[facility] HEALTHLIA [id number] [place] [address] [place] Lymphocytes (Bld) [#/Vol] 3.50 10*3/uL Normal 1.00-4.00 [facility] Comment on above: Order Comment: Speci men Type: BLOOD SPECIMENOrdering Facility: [facility] Address: [address] [place] [address] Performed By: #### 5 7021-8 ####[facility]ALTHLIA [id number] [place] [address] [place] Lymphocytes/100 WBC (Bld) 50.9 % Normal [facility] Comment on above: Order Comment: Speci men Type: BLOOD SPECIMENOrdering Facility: [facility] Address: [address] [place] [address] Performed By: #### 5 7021-8 ####[facility] FISHERMEN’[facility] COMMUNITY HOSPITALLEISA [id number] [place] [address] [place] MCH (RBC) [Entitic mass] 30.0 pg Normal 26.0-34.0 [facility] Comment on above: Order Comment: Speci men Type: BLOOD SPECIMENOrdering Facility: [facility] Address: [address] [place] [address] Performed By: #### 5 7021-8 ####[facility]ERMEN[facility] COMMUNITY HOSPITALNCANGELINE [id number] [place] [address] [place] MCHC (RBC) [Mass/Vol] 33.5 g/dL Normal 30.5-36.0 [facility] Comment on above: Order Comment: Speci men Type: BLOOD SPECIMENOrdering Facility: [facility] Address: [address] [place] [address] Performed By: #### 5 7021-8 ####[facility] COMM[facility] HOSPITALLEISA [id number] [place] [address] [place] MCV (RBC) [Entitic vol] 89.6 fL Normal 80.0-100.0 [facility] Comment on above: Order Comment: Speci men Type: BLOOD SPECIMENOrdering Facility: [facility] Address: [address] [place] [address] Performed By: #### 5 7021-8 ####[facility] COMMUNITY HOSPITALNCLI [id number] [place] [address] [place] Monocytes (Bld) [#/Vol] 0.50 10*3/uL Normal <0.87 [facility] Comment on above: Order Comment: Speci men Type: BLOOD SPECIMENOrdering Facility: [facility] Address: [address] [place] [address] Performed By: #### 5 7021-8 ####[facility]IMMEEA [id number] [place] [address] [place] Monocytes/100 WBC (Bld) 7.3 % Normal [facility] Comment on above: Order Comment: Speci men Type: BLOOD SPECIMENOrdering Facility: [facility] Address: [address] [place] [address] Performed By: #### 5 7021-8 ####[facility] [id number] [place] [address] [place] Neutrophils (Bld) [#/Vol] 2.70 10*3/uL Normal 1.45-7.50 [facility] Comment on above: Order Comment: Speci men Type: BLOOD SPECIMENOrdering Facility: [facility] Address: [address] [place] [address] Performed By: #### 5 7021-8 ####[facility]IM[facility] [id number] [place] [address] [place] Neutrophils/100 WBC (Bld) 39.2 % Normal [facility] Comment on above: Order Comment: Speci men Type: BLOOD SPECIMENOrdering Facility: [facility] Address: [address] [place] [address] Performed By: #### 5 7021-8 ####[facility] [id number] [place] [address] [place] Nucleated RBC (Bld) [#/Vol] 10*3/uL Normal <0.01 [facility] Comment on above: Order Comment: Speci men Type: BLOOD SPECIMENOrdering Facility: [facility] Address: [address] [place] [address] Performed By: #### 5 7021-8 ####[facility] LUDANCLIA [id number] [place] [address] [place] Nucleated RBC/100 WBC (Bld) [Ratio] 0.0 /100 WBC Normal [facility] Comment on above: Order Comment: Speci men Type: BLOOD SPECIMENOrdering Facility: [facility] Address: [address] [place] [address] Performed By: #### 5 7021-8 ####[facility] COMM[facility] HOSPITALNCLIA [id number] [place] [address] [place] Platelet mean volume (Bld) [Entitic vol] 9.0 fL Normal 9.0-12.7 [facility] Comment on above: Order Comment: Speci men Type: BLOOD SPECIMENOrdering Facility: [facility] Address: [address] [place] [address] Performed By: #### 5 7021-8 ####[facility] HOSPITALNCLIA [id number] [place] [address] [place] Platelets (Bld) [#/Vol] 231 10*3/uL Normal 150-400 [facility] Comment on above: Order Comment: Speci men Type: BLOOD SPECIMENOrdering Facility: [facility] Address: [address] [place] [address] Performed By: #### 5 7021-8 ####[facility] HOSPITALNCLIA [id number] [place] [address] [place] RBC (Bld) [#/Vol] 4.73 10*6/uL Normal 3.90-5.20 [facility] Comment on above: Order Comment: Speci men Type: BLOOD SPECIMENOrdering Facility: [facility] Address: [address] [place] [address] Performed By: #### 5 7021-8 ####[facility] HOSPITALNCLIA [id number] [place] [address] [place] WBC (Bld) [#/Vol] 6.88 10*3/uL Normal 3.70-11.00 [facility] Comment on above: Order Comment: Speci men Type: BLOOD SPECIMENOrdering Facility: [facility] Address: [address] [place] [address] Performed By: #### 5 7021-8 ####[facility] [id number] [place] [address] [place] CK SerPl-cCncon 05-25-2024 CK [Catalytic activity/Vol] 49 U/L Normal 42-196 [facility] Comment on above: Order Comment: Speci men Type: BLOOD SPECIMENOrdering Facility: [facility] Address: [address] [place] [address] Performed By: #### 2 157-6, 3016-3, 3024-7 ####[facility] LABCLIA [id number] [place] [address] [place]#### 82794-1 ####[facility] LABCLIA [id number] [place] [address] [place] [facility] [id number] [place] [address] [place] CRP SerPl-mCncon 05-25-2024 CRP [Mass/Vol] mg/L Normal <0.9 [facility] Comment on above: Order Comment: Speci men Type: BLOOD SPECIMENOrdering Facility: [facility] Address: [address] [place] [address] Performed By: #### 2 132-9, 1988- ####[facility] LABCLIA [id number] [address] [address] [place] Comprehensive metabolic 2000 panelon 05-25-2024 Albumin [Mass/Vol] 4.0 g/dL Normal 3.9-4.9 [facility] Comment on above: Order Comment: Speci men Type: BLOOD SPECIMENOrdering Facility: [facility] Address: [address] [place] [address] Performed By: #### 1 9123-9, 22046-0 ####[facility] HOSPITALNCBEAV[facility] [id number] [place] [address] [place] ALP [Catalytic activity/Vol] 44 U/L Normal 34-123 [facility] Comment on above: Order Comment: Speci men Type: BLOOD SPECIMENOrdering Facility: [facility] Address: [address] [place] [address] Performed By: #### 1 9123-9, 82178-8 ####[facility] [id number] [place] [address] [place] ALT [Catalytic activity/Vol] 14 U/L Normal 7-38 [facility] Comment on above: Order Comment: Speci men Type: BLOOD SPECIMENOrdering Facility: [facility] Address: [address] [place] [address] Performed By: #### 1 9123-9, 21747-8 ####[facility] [id number] [place] [address] [place] Anion gap [Moles/Vol] 9 mmol/L Normal 8-15 [facility] Comment on above: Order Comment: Speci men Type: BLOOD SPECIMENOrdering Facility: [facility] Address: [address] [place] [address] Performed By: #### 1 9123-9, 05237-8 ####[facility] [id number] [place] [address] [place] AST [Catalytic activity/Vol] 14 U/L Normal 13-35 [facility] Comment on above: Order Comment: Speci men Type: BLOOD SPECIMENOrdering Facility: [facility] Address: [address] [place], [place] [address] Performed By: #### 1 9123-9, 66705-6 ####[facility] LUDALATAA [id number] [place] [address] [place] Bilirubin [Mass/Vol] 0.2 mg/dL Normal 0.2-1.3 [facility] Comment on above: Order Comment: Speci men Type: BLOOD SPECIMENOrdering Facility: [facility] Address: [address] [place] [address] Performed By: #### 1 9123-9, 92302-4 ####[facility] DARIANPAU [id number] [place] [address] [place] Calcium [Mass/Vol] 9.2 mg/dL Normal 8.5-10.2 [facility] Comment on above: Order Comment: Speci men Type: BLOOD SPECIMENOrdering Facility: [facility] Address: [address] [place] [address] Performed By: #### 1 9123-9, 34611-5 ####[facility] DARIANBUFFALOLEISA [id number] [place] [address] [place] Chloride [Moles/Vol] 103 mmol/L Normal 98-107 [facility] Comment on above: Order Comment: Speci men Type: BLOOD SPECIMENOrdering Facility: [facility] Address: [address] [place] [address] Performed By: #### 1 9123-9, 11750-5 ####[facility] DARIANBUFFALOTAYLORLIA [id number] [place] [address] [place] CO2 [Moles/Vol] 24 mmol/L Normal 22-30 [facility] Comment on above: Order Comment: Speci men Type: BLOOD SPECIMENOrdering Facility: [facility] Address: [address] [place] [address] Performed By: #### 1 9123-9, 92780-6 ####[facility]ITALNCLIA [id number] [place] [address] [place] Creatinine [Mass/Vol] 0.89 mg/dL Normal 0.58-0.96 [facility] Comment on above: Order Comment: Iris martinez Type: BLOOD SPECIMENOrdering Facility: [facility] Address: [address] [place] [address] Performed By: #### 1 9123-9, 05648-3 ####[facility] HOS[facility]ITALNCLI [id number] [place] [address] [place] Creatinine and Glomerular filtration rate.predicted panel (S/P/Bld) 89 mL/min/1.73m??? Normal >=60 [facility] Comment on above: Order Comment: Iris martinez Type: BLOOD SPECIMENOrdering Facility: [facility] Address: [address] [place] [address] Result Comment: Jesica mated Glomerular Filtration Rate (eGFR) is calculated using the 2020 CKD-EPI creatinine equation. This equation utilizes serum creatinine, sex, and age as parameters. The creatinine assay has traceable calibration to isotope dilution-mass spectrometry. Refer to KDIGO guidelines for clinical interpretation. In patients with unstable renal function, e.g. those with acute kidney injury, the eGFR may not accurately reflect actual GFR. Performed By: #### 1 9123-9, 54360-2 ####[facility] [id number] [place] [address] [place] Glucose [Mass/Vol] 95 mg/dL Normal 74-99 [facility] Comment on above: Order Comment: Iris martinez Type: BLOOD SPECIMENOrdering Facility: [facility] Address: [address] [place] [address] Result Comment: The [place] Diabetes Association (ADA) provides guidance for cutoff values for fasting glucose and random glucose. The ADA defines fasting as no caloric intake for at least 8 hours. Fasting plasma glucose results between 100 to 125 mg/dL indicate increased risk for diabetes (prediabetes).Fasting plasma glucose results greater than or equal to 126 mg/dL meet the criteria for diagnosis of diabetes. In the absence of unequivocal hyperglycemia, results should be confirmed by repeat testing. In a patient with classic symptoms of hyperglycemia or hyperglycemic crisis, random plasma glucose results greater than or equal to 200 mg/dL meet the criteria for diagnosis of diabetes.Reference: Standards of Medical Care in Diabetes 2016, [place] Diabetes Association. Diabetes Care. 2016.39(Suppl 1). Performed By: #### 1 9123-9, 52763-3 ####[facility] MILLTOWNCLIA [id number] [place] [address] [place] Potassium [Moles/Vol] 4.2 mmol/L Normal 3.7-5.1 [facility] Comment on above: Order Comment: Speci men Type: BLOOD SPECIMENOrdering Facility: [facility] Address: [address] [place] [address] Performed By: #### 1 9123-9, 99368-8 ####[facility]ITALWLEISA [id number] [place] [address] [place] Protein [Mass/Vol] 6.9 g/dL Normal 6.3-8.0 [facility] Comment on above: Order Comment: Speci men Type: BLOOD SPECIMENOrdering Facility: [facility] Address: [address] [place] [address] Performed By: #### 1 9123-9, ####[facility]ITALWNCLIA [id number] [place] [address] [place] Sodium [Moles/Vol] 136 mmol/L Normal 136-144 [facility] Comment on above: Order Comment: Speci men Type: BLOOD SPECIMENOrdering Facility: [facility] Address: [address] [place] [address] Performed By: #### 1 9123-9, ####[facility] MILLWTAYLORLIA [id number] [place] [id number] [place] Urea nitrogen [Mass/Vol] 11 mg/dL Normal 7-21 [facility] Comment on above: Order Comment: Iris martinez Type: BLOOD SPECIMENOrdering Facility: [facility] Address: [address] [place] [address] Performed By: #### 1 9123-9, 71837-8 ####[facility] [id number] [place] [address] [place] HbA1c (Bld)on 05-25-2024 Average glucose Estimated from glycated hemoglobin (Bld) [Mass/Vol] 91 mg/dL Normal [facility] Comment on above: Order Comment: Iris martinez Type: BLOOD SPECIMENOrdering Facility: [facility] Address: [address] [place] [address] Result Comment: eAG: (Estimated average glucose) is a calculated value from HgbA1c and is payable representative of the average blood glucose level in the last 2-3 month period. Performed By: #### 5 5454-3 ####[facility] LABCLIA [id number] [place] [address] [place] HbA1c (Bld) [Mass fraction] 4.8 % Normal 4.3-5.6 [facility] Comment on above: Order Comment: Iris martinez Type: BLOOD SPECIMENOrdering Facility: [facility] Address: [address] [place] [address] Result Comment: Amer [place] Diabetes Association guidelines indicate that patients with HgbA1c in the range 5.7-6.4% are at increased risk for development of diabetes, and intervention by lifestyle modification may be beneficial. HgbA1c greater or equal to 6.5% is considered diagnostic of diabetes. Performed By: #### 5 5454-3 ####[facility] LABCLIA [id number] [place] [address] [place] Insulin SerPl-aCncon 025 Insulin Qn 10.0 uU/mL Normal 2.6-24.9 [facility] Comment on above: Order Comment: Speci men Type: BLOOD SPECIMENOrdering Facility: [facility] Address: [address] [place] [address] Performed By: #### 2 0448-7, 1761-6 ####[facility] LABCLIA [id number] [place] [address] [place] Lipid 1996 panelon 5 Cholesterol [Mass/Vol] 196 mg/dL Normal <200 [facility] Comment on above: Order Comment: Speci men Type: BLOOD SPECIMENOrdering Facility: [facility] Address: [address] [place] [address] Result Comment: <200 mg/dL, Desirable 200-239 mg/dL, Borderline high>239 mg/dL, High Performed By: #### 2 157-6, 3015-3, 3023-10 ####[facility] LABCLIA [id number] [place] [address] [place]#### 65395-9 ####[facility] LABCLIA [id number] [address] STATES OF [facility] [id number] [address] [place] Cholesterol in HDL [Mass/Vol] 75 mg/dL Normal >39 [facility] Comment on above: Order Comment: Speci men Type: BLOOD SPECIMENOrdering Facility: [facility] Address: [address] [place] [address] Result Comment: 40-5 9 mg/dL, Acceptable>59 mg/dL, High: Negative risk factor for coronary heart disease<40 mg/dL, Low: Positive risk factor for coronary heart disease Performed By: #### 2 157-6, 3016-3, 7 ####[facility] LABCLIA [id number] [place] [id number] [place]#### 07819-0 ####[facility] LABCLIA [id number] [address] [id number] [address] Cholesterol in LDL [Mass/Vol] 92 mg/dL Normal <100 [facility] Comment on above: Order Comment: Speci men Type: BLOOD SPECIMENOrdering Facility: [facility] Address: [address] [place] [address] Result Comment: <100 mg/dL, Optimal 100-129 mg/dL, Near optimal/above optimal 130-159 mg/dL, Borderline high 160-189 mg/dL, High>189 mg/dL, Very highSecondary prevention optimal LDL Cholesterol levels are recommended to be < 70 mg/dL Performed By: #### 2 157-6, 3016-3, 3024-7 ####[facility] LABCLIA [id number] [address] [place]#### 90116-9 ####[facility] LABCLIA [id number] [address] [id number] [address] [place] Cholesterol in LDL/Cholesterol in HDL [Mass ratio] 1.23 {ratio} Normal <2.54 [facility] Comment on above: Order Comment: Speci men Type: BLOOD SPECIMENOrdering Facility: [facility] Address: [address] [place] [address] Result Comment: Henrique sandoval:1. National Cholesterol Education Program ATP III Guideline At-A-Glance Quick Desk Reference: National Heart, Lung, and Blood [place]. National Institutes of Health. 2001: NIH Publication No. 01-3305.2. An International Atherosclerosis Society position paper: global recommendations for the management of dyslipidemia: executive summary, Atherosclerosis. 2014: 232(2):410-413. Performed By: #### 2 157-6, 3016-3, 3024-7 ####[facility] LABCLIA [id number] [place] [address] [place]#### 84207-1 ####[facility] LABCLIA [id number] [place] [id number] [facility] [id number] [place] [address] [place] Cholesterol in VLDL [Mass/Vol] 29 mg/dL Normal <30 [facility] Comment on above: Order Comment: Speci men Type: BLOOD SPECIMENOrdering Facility: [facility] Address: [address] [place] [address] Performed By: #### 2 157-6, 3015-3, 7 ####[facility] LABCLIA [id number] [place] [address] [place]#### 71799-1 ####[facility] LABCLIA [id number] [address] [id number] [place] [address] [place] Cholesterol non HDL [Mass/Vol] 121 mg/dL Normal <130 [facility] Comment on above: Order Comment: Speci men Type: BLOOD SPECIMENOrdering Facility: [facility] Address: [facility] [place] [address] Result Comment: <130 mg/dL, Optimal 130-159 mg/dL, Near optimal/above optimal 160-189 mg/dL, Borderline high 190-219 mg/dL, High>219 mg/dL, Very highSecondary prevention optimal non HDL Cholesterol levels are recommended to be <100 mg/dL Performed By: #### 2 157-6, 3016-3, 7 ####[facility] LABCLIA [id number] [place] [address] [place]#### 26103-3 ####[facility] LABCLIA [id number] [address] [address] [facility] [id number] [place] [address] [place] Cholesterol.total/Ch olesterol in HDL [Mass ratio] 2.61 {ratio} Normal <5.10 [facility] Comment on above: Order Comment: Speci men Type: BLOOD SPECIMENOrdering Facility: [facility] Address: [address] [place], [place] [address] Performed By: #### 2 157-6, 6-3, 7 ####[facility] LABCLIA [id number] [place] [address] [place]#### 08995-3 ####[facility] LABCLIA [id number] [address] [id number] [place] [address] [place] FASTING TIME 10 hrs Normal [facility] Comment on above: Order Comment: Speci men Type: BLOOD SPECIMENOrdering Facility: [facility] Address: [address] [place], [place] [address] Performed By: #### 2 157-6, 6-3, 7 ####[facility] LABCLIA [id number] [place] [id number] [place]#### 06960-1 ####[facility] LABCLIA [id number] [place] [id number] [place] [facility] [id number] [place] [address] [place] Triglyceride [Mass/Vol] 145 mg/dL Normal <150 [facility] Comment on above: Order Comment: Speci men Type: BLOOD SPECIMENOrdering Facility: [facility] Address: [address] [place] [address] Result Comment: <150 mg/dL, Normal 150-199 mg/dL, Borderline high 200-499 mg/dL, High>499 mg/dL, Very high Performed By: #### 2 157-6, 3015-3, 3023-10 ####[facility] LABCLIA [id number] [place] [address] [place]#### 52099-0 ####[facility] LABCLIA [id number] [place] [address] [place] [facility] [id number] [place] [address] [place] Magnesium SerPl-mCncon 05-25 Magnesium [Mass/Vol] 2.2 mg/dL Normal 1.7-2.3 [facility] Comment on above: Order Comment: Speci men Type: BLOOD SPECIMENOrdering Facility: [facility] Address: [address] [place] [address] Performed By: #### 1 9123-9, 94081-6 ####[facility] [id number] [place] [address] [place] T4 Free SerPl-mCncon 025 Free T4 [Mass/Vol] 1.2 ng/dL Normal 0.9-1.7 [facility] Comment on above: Order Comment: Speci men Type: BLOOD SPECIMENOrdering Facility: [facility] Address: [address] [place] [address] Performed By: #### 2 157-6, 3015-3, 3023-10 ####[facility] LABCLIA [id number] [place] [address] [place]#### 98423-2 ####[facility] LABCLIA [id number] [place] [address] [place] [facility] [id number] [place] [address] [place] TSH SerPl-aCncon 05-25-2024 TSH Qn 2.320 m[IU]/L Normal 0.270-4.200 [facility] Comment on above: Order Comment: Speci men Type: BLOOD SPECIMENOrdering Facility: [facility] Address: [address] [place] [address] Result Comment: If t he patient is , TSH reference range varies by gestational period:First Trimester (weeks 9-12): 0.180-2.990 mIU/LSecond Trimester: 0.110-3.980 mIU/LThird Trimester: 0.480-4.710 mIU/Yumiko Cartwright et al. A Practical Approach for the Verifications and Determination of Site- and Trimester-Specific Reference Intervals for Thyroid Function tests in . Thyroid, 2019:29:3:412-420. Jv E, et al. 2017 Guidelines of the [place] Thyroid Association for the Diagnosis and Management of Thyroid Disease during and the . Thyroid, 2017:27:3:315-389. Performed By: #### 2 157-6, 3016-3, 3024-7 ####[facility] LABIA [id number] [place] [address] [place]#### 15554-6 ####[facility] LABCLIA [id number] [place] [address] [place] [facility] [id number] [place] [address] [place] Vit B12 SerPl-mCncon 025 Cobalamin (Vitamin B12) [Mass/Vol] 1239 pg/mL Normal 232-1245 [facility] Comment on above: Order Comment: Speci men Type: BLOOD SPECIMENOrdering Facility: [facility] Address: [address] [place] [address] Performed By: #### 2 132-9, 1987- ####[facility] LABCLIA [id number] [address] [place] XR SCOLIOSIS 2V PA STAND/LAT on 05-21-2024 XR SCOLIOSIS 2V PA STAND/LAT * * *Final Report* * * DATE OF EXAM: May 21 2024 4:48PM MDX [id number] - XR SCOLIOSIS 2V PA STAND/LAT / PROCEDURE REASON: M41.20-Idiopathic scoliosis and kyphoscoliosis * * * * Physician Interpretation * * * * EXAM(s): XR SCOLIOSIS 2V PA STAND/LAT..... HISTORY: 33 years old Clinical information: Idiopathic scoliosis and kyphoscoliosis IDIOPATHIC SCOLIOSIS AND KYPHOSCOLIOSIS, PT REQUESTS FOR MEASUREMENTS OF LYNCH ANGLES TECHNIQUE: Images: XR SCOLIOSIS 2V PA STAND/LAT Comparison: 10/08/2023 RESULT: Findings: Bone density well-preserved. There are no fractures or dislocations are seen There is scoliosis of the thoracolumbar spine. There is RIGHT convex scoliosis in the thoracic region 25 degrees and 14 degrees to the LEFT in the lumbar region. This appears very similar to the previous study IMPRESSION: Findings as discussed in results portion of report Glaze Mixer: P[facility] Transcribe Date/Time: May 22 2024 9:50A Dictated by : SUZY DU DO This examination was interpreted and the report reviewed and electronically signed by: SUZY DU DO on May 22 2024 9:54AM EST [id number] [facility] CNPNon 05-18-2024 CNPN Normal [facility] CNOVon 05-07-2024 CNOV Normal [facility] CNOVon 05-05-2024 CNOV Normal [facility] CNOVon 05-01-2024 CNOV Normal [facility] CNPNon 05-01-2024 CNPN Normal [facility] XR ESOPHAGRAMon 04-30-2024 XR ESOPHAGRAM * * *Final Report* * * DATE OF EXAM: Apr 30 2024 2:12PM AWX [id number] - XR ESOPHAGRAM / PROCEDURE REASON: Gastroesophageal reflux disease, unspecified whether esophagitis present * * * * Physician Interpretation * * * * EXAM TITLE: XR ESOPHAGRAM DATE: 04/30/2024 INDICATION: Gastroesophageal reflux COMPARISON: None. This study was performed by Carrol Lees RPA. Images were submitted for my interpretation. 70 images were obtained. 51 seconds of fluoroscopic time utilized. With patient upright, AP and lateral centimeters esophagography was performed during single swallows of barium. Normal pharyngeal and laryngeal motion with swallowing. Next remainder the esophagus was examined with patient upright as well as lying semiprone. Stricture: None. Ulceration/erosions: None. Motility: Normal. Hiatal hernia: None identified. Gastroesophageal reflux: None demonstrated. 13 mm barium tablet: Administered orally. Passed freely into the stomach. IMPRESSION: Normal esophagram. Glaze Mixer: [facility] Transcribe Date/Time: Apr 30 2024 2:41P Dictated by : WALT TRAYLOR MD This examination was interpreted and the report reviewed and electronically signed by: WALT TRAYLOR MD on Apr 30 2024 2:51PM EST [id number] Normal [facility] XR Esophagus Views W laurazeus rayne Lino 04-30-2024 IMPRESSION: Normal esophagram. Glaze Mixer: [facility] Transcribe Date/Time: Apr 30 2024 2:41P Dictated by : WALT TRAYLRO MD This examination was interpreted and the report reviewed and electronically signed by: WALT TRAYLOR MD on Apr 30 2024 2:51PM EST [facility] * * *Final Report* * * DATE OF EXAM: Apr 30 2024 2:12PM AWX [id number] - XR ESOPHAGRAM / PROCEDURE REASON: Gastroesophageal reflux disease, unspecified whether esophagitis present * * * * Physician Interpretation * * * * EXAM TITLE: XR ESOPHAGRAM DATE: 04/30/2024 INDICATION: Gastroesophageal reflux COMPARISON: None. This study was performed by Carrol Lees RPA. Images were submitted for my interpretation. 70 images were obtained. 51 seconds of fluoroscopic time utilized. With patient upright, AP and lateral centimeters esophagography was performed during single swallows of barium. Normal pharyngeal and laryngeal motion with swallowing. Next remainder the esophagus was examined with patient upright as well as lying semiprone. Stricture: None. Ulceration/erosions: None. Motility: Normal. Hiatal hernia: None identified. Gastroesophageal reflux: None demonstrated. 13 mm barium tablet: Administered orally. Passed freely into the stomach. [employer] SYNGO Provider, Casi Travon day [place] - 04/30/2024 * * *Final Report* * * DATE OF EXAM: Apr 30 2024 2:12PM AWX [id number] - XR ESOPHAGRAM / PROCEDURE REASON: Gastroesophageal reflux disease, unspecified whether esophagitis present * * * * Physician Interpretation * * * * EXAM TITLE: XR ESOPHAGRAM DATE: 04/30/2024 INDICATION: Gastroesophageal reflux COMPARISON: None. This study was performed by Carrol Lees RPA. Images were submitted for my interpretation. 70 images were obtained. 51 seconds of fluoroscopic time utilized. With patient upright, AP and lateral centimeters esophagography was performed during single swallows of barium. Normal pharyngeal and laryngeal motion with swallowing. Next remainder the esophagus was examined with patient upright as well as lying semiprone. Stricture: None. Ulceration/erosions: None. Motility: Normal. Hiatal hernia: None identified. Gastroesophageal reflux: None demonstrated. 13 mm barium tablet: Administered orally. Passed freely into the stomach. IMPRESSION IMPRESSION: Normal esophagram. Glaze Mixer: BONNIE Transcribe Date/Time: Apr 30 2024 2:41P Dictated by : WALT TRAYLOR MD This examination was interpreted and the report reviewed and electronically signed by: WALT TRAYLOR MD on Apr 30 2024 2:51PM EST [facility] Radiology Study observation (narrative) [facility] XR Esophagus Views W contras t POOrdered By: Ccf Provider on 04-30-2024 [facility] C diff Tox gens Stl Ql RITU+p robeon 04-24-2024 C. difficile toxin genes RITU+probe Ql (Stl) Negative Normal Negative for C. difficile toxin by PCR [facility] Comment on above: Order Comment: Speci men Type: STOOL SPECIMENOrdering Facility: [facility] Address: [address] [place] [address] Performed By: #### 5 4067-4, 71417-9 ####[facility] LABCLIA [id number] [place] [address] [place] Calprotectin (Stl) [Mass/Mas s]on 04-24-2024 CALPROTECTIN, FECAL QUANTITATIVE 61.7 ug/g High <50 [facility] Comment on above: Order Comment: Speci men Type: STOOL SPECIMENOrdering Facility: [facility] Address: [address] [place] [address] Performed By: #### 5 4067-4, 63278-5 ####[facility] LABCLIA [id number] [place] [address] [place] Gastrointestinal pathogens p kristin RITU+probe (Stl)on 04-24-2024 ADENOVIRUS F 40/41 DNA Not detected Normal Not Detected [facility] Comment on above: Order Comment: Speci men Type: STOOL SPECIMENOrdering Facility: [facility] Address: [address] [place] [address] Performed By: #### 7 9381-0 ####[facility] LABCLIA [id number] [place] [address] [place] ASTROVIRUS RNA Not detected Normal Not Detected [facility] Comment on above: Order Comment: Speci men Type: STOOL SPECIMENOrdering Facility: [facility] Address: [address] [place] [address] Performed By: #### 7 9381-0 ####[facility] LABCLIA [id number] [place] [address] [place] C. cayetanensis DNA RITU+probe Ql (Unsp spec) Not detected Normal Not Detected [facility] Comment on above: Order Comment: Speci men Type: STOOL SPECIMENOrdering Facility: [facility] Address: [address] [place] [address] Performed By: #### 7 9381-0 ####[facility] LABCLIA [id number] [place] [address] [place] Campylobacter sp DNA.diarrheagenic RITU+probe Ql (Stl) Not detected Normal Not Detected [facility] Comment on above: Order Comment: Speci men Type: STOOL SPECIMENOrdering Facility: [facility] Address: [address] [place] [address] Performed By: #### 7 9381-0 ####[facility] LABCLIA [id number] [place] [address] [place] Cryptosporidium sp DNA RITU+probe Ql (Unsp spec) Not detected Normal Not Detected [facility] Comment on above: Order Comment: Speci men Type: STOOL SPECIMENOrdering Facility: [facility] Address: [address] [place] [address] Performed By: #### 7 9381-0 ####[facility] LABCLIA [id number] [place] [address] [place] E. coli O157:H7 DNA RITU+probe Ql (Unsp spec) Not applicable Normal Not detected [facility] Comment on above: Order Comment: Speci men Type: STOOL SPECIMENOrdering Facility: [facility] Address: [address] [place] [address] Performed By: #### 7 9381-0 ####[facility] LABCLIA [id number] [place] [address] [place] E. coli stx1+stx2 genes RITU+probe Ql (Stl) Not detected Normal Not Detected [facility] Comment on above: Order Comment: Speci men Type: STOOL SPECIMENOrdering Facility: [facility] Address: [address] [place] [address] Performed By: #### 7 9381-0 ####[facility] LABCLIA [id number] [place] [address] [place] E. histolytica DNA RITU+probe Ql (Unsp spec) Not detected Normal Not Detected [facility] Comment on above: Order Comment: Speci men Type: STOOL SPECIMENOrdering Facility: [facility] Address: [address] [place] [address] Performed By: #### 7 9381-0 ####[facility] LABCLIA [id number] [place] [address] [place] ENTEROAGGREGATIVE E. COLI (EAEC) DNA Not detected Normal Not Detected [facility] Comment on above: Order Comment: Speci men Type: STOOL SPECIMENOrdering Facility: [facility] Address: [address] [place] [address] Performed By: #### 7 9381-0 ####[facility] LABCLIA [id number] [place] [address] [place] ENTEROPATHOGENIC E. COLI (EPEC) DNA Not detected Normal Not detected [facility] Comment on above: Order Comment: Speci men Type: STOOL SPECIMENOrdering Facility: [facility] Address: [address] [place] [address] Performed By: #### 7 9381-0 ####[facility] LABCLIA [id number] [place] [address] [place] ENTEROTOXIGENIC E. COLI (ETEC) DNA Not detected Normal Not Detected [facility] Comment on above: Order Comment: Speci men Type: STOOL SPECIMENOrdering Facility: [facility] Address: [address] [place] [address] Performed By: #### 7 9381-0 ####[facility] LABCLIA [id number] [place] [address] [place] G. lamblia DNA RITU+probe Ql (Unsp spec) Not detected Normal Not Detected [facility] Comment on above: Order Comment: Speci men Type: STOOL SPECIMENOrdering Facility: [facility] Address: [address] [place] [address] Performed By: #### 7 9381-0 ####[facility] LABCLIA [id number] [place] [address] [place] NOROVIRUS GI/GII RNA Not detected Normal Not Detected [facility] Comment on above: Order Comment: Speci men Type: STOOL SPECIMENOrdering Facility: [facility] Address: [address] [place] [address] Performed By: #### 7 9381-0 ####[facility] LABCLIA [id number] [place] [address] [place] PLESIOMONAS SHIGELLOIDES DNA Not detected Normal Not Detected [facility] Comment on above: Order Comment: Speci men Type: STOOL SPECIMENOrdering Facility: [facility] Address: [address] [place] [address] Performed By: #### 7 9381-0 ####[facility] LABCLIA [id number] [place] [address] [place] ROTAVIRUS A RNA Not detected Normal Not Detected [facility] Comment on above: Order Comment: Speci men Type: STOOL SPECIMENOrdering Facility: [facility] Address: [address] [place] [address] Performed By: #### 7 9381-0 ####[facility] LABCLIA [id number] [place] [address] [place] Salmonella sp DNA RITU+probe Ql (Unsp spec) Not detected Normal Not Detected [facility] Comment on above: Order Comment: Speci men Type: STOOL SPECIMENOrdering Facility: [facility] Address: [address] [place] [address] Performed By: #### 7 9381-0 ####[facility] LABCLIA [id number] [place] [address] [place] SAPOVIRUS (GENOGROUPS I, II, IV, V) RNA Not detected Normal Not Detected [facility] Comment on above: Order Comment: Speci men Type: STOOL SPECIMENOrdering Facility: [facility] Address: [address] [place] [address] Performed By: #### 7 9381-0 ####[facility] LABCLIA [id number] [place] [address] [place] Shigella species+EIEC invasion plasmid antigen H ipaH gene RITU+probe Ql (Stl) Not detected Normal Not Detected [facility] Comment on above: Order Comment: Speci men Type: STOOL SPECIMENOrdering Facility: [facility] Address: [address] [place] [address] Performed By: #### 7 9381-0 ####[facility] LABCLIA [id number] [place] [address] [place] V. cholerae DNA RITU+probe Ql (Unsp spec) Not detected Normal Not Detected [facility] Comment on above: Order Comment: Speci men Type: STOOL SPECIMENOrdering Facility: [facility] Address: [address] [place] [address] Performed By: #### 7 9381-0 ####[facility] LABCLIA [id number] [place] [address] [place] Vibrio sp DNA RITU+probe Nom (Unsp spec) Not detected Normal Not Detected [facility] Comment on above: Order Comment: Speci men Type: STOOL SPECIMENOrdering Facility: [facility] Address: [address] [place] [address] Performed By: #### 7 9381-0 ####[facility] LABCLIA [id number] [place] [address] [place] Yersinia sp DNA RITU+probe Nom (Unsp spec) Not detected Normal Not Detected [facility] Comment on above: Order Comment: Speci men Type: STOOL SPECIMENOrdering Facility: [facility] Address: [address] [place] [address] Performed By: #### 7 9381-0 ####[facility] LABCLIA [id number] [place] [address] [place] US ABDOMEN COMPLETEon 2023 US ABDOMEN COMPLETE * * *Final Report* * * DATE OF EXAM: Apr 23 2024 11:06AM LAURA 1040 - US ABDOMEN COMPLETE / PROCEDURE REASON: R10.30-Lower abdominal pain * * * * Physician Interpretation * * * * EXAMINATION: COMPLETE ABDOMINAL ULTRASOUND CLINICAL HISTORY: Lower abdominal pain TECHNIQUE: Sonography of the abdomen was performed. Images were obtained and stored in a permanent archive. MQ: UAbC_1 COMPARISON: None RESULT: Pancreas: Normal sonographic appearance. Portions obscured: Tail Lesions: None Liver: Echotexture: Normal, homogeneous. Echogenicity: Normal Surface contour: Smooth Lesions: None. Biliary: No intrahepatic biliary duct dilation. CBD: 0.5 cm at the hilum. Gallbladder: Normal caliber -Contents: No cholelithiasis -Wall: Normal -Other: No pericholecystic fluid. Spleen: Craniocaudal length: 11.1 cm normal Lesions: None Right Kidney: -Renal length: 10.1 cm -Parenchyma: Normal parenchymal echogenicity. Normal parenchymal thickness. -Collecting system: No hydronephrosis. -Calculus: No echogenic, shadowing calculus. -Lesion: None. Left Kidney: -Renal length: 11.0 cm -Parenchyma: Normal parenchymal echogenicity. Normal parenchymal thickness. -Collecting system: No hydronephrosis. -Calculus: No echogenic, shadowing calculus. -Lesion: None. Bladder: Normal. IVC: Imaged segment is patent. Abdominal Aorta: Imaged segment is patent. Ascites: None. IMPRESSION: No abnormality Glaze Mixer: [facility] Transcribe Date/Time: Apr 23 2024 11:56A Dictated by : REBECA DAY MD This examination was interpreted and the report reviewed and electronically signed by: REBECA DAY MD on Apr 23 2024 11:58AM EST [id number] Normal [facility] US Abdomenon 04-23-2024 IMPRESSION: No abnormality Glaze Mixer: [facility] Transcribe Date/Time: Apr 23 2024 11:56A Dictated by : REBECA DAY MD This examination was interpreted and the report reviewed and electronically signed by: REBECA DAY MD on Apr 23 2024 11:58AM EST [facility] * * *Final Report* * * DATE OF EXAM: Apr 23 2024 11:06AM [facility] 1040 - US ABDOMEN COMPLETE / PROCEDURE REASON: R10.30-Lower abdominal pain * * * * Physician Interpretation * * * * EXAMINATION: COMPLETE ABDOMINAL ULTRASOUND CLINICAL HISTORY: Lower abdominal pain TECHNIQUE: Sonography of the abdomen was performed. Images were obtained and stored in a permanent archive. MQ: UAbC_1 COMPARISON: None RESULT: Pancreas: Normal sonographic appearance. Portions obscured: Tail Lesions: None Liver: Echotexture: Normal, homogeneous. Echogenicity: Normal Surface contour: Smooth Lesions: None. Biliary: No intrahepatic biliary duct dilation. CBD: 0.5 cm at the hilum. Gallbladder: Normal caliber -Contents: No cholelithiasis -Wall: Normal -Other: No pericholecystic fluid. Spleen: Craniocaudal length: 11.1 cm normal Lesions: None Right Kidney: -Renal length: 10.1 cm -Parenchyma: Normal parenchymal echogenicity. Normal parenchymal thickness. -Collecting system: No hydronephrosis. -Calculus: No echogenic, shadowing calculus. -Lesion: None. Left Kidney: -Renal length: 11.0 cm -Parenchyma: Normal parenchymal echogenicity. Normal parenchymal thickness. -Collecting system: No hydronephrosis. -Calculus: No echogenic, shadowing calculus. -Lesion: None. Bladder: Normal. IVC: Imaged segment is patent. Abdominal Aorta: Imaged segment is patent. Ascites: None. [facility] Provider, [facility] - 04/23/2024 * * *Final Report* * * DATE OF EXAM: Apr 23 2024 11:06AM [facility]U 1040 - US ABDOMEN COMPLETE / PROCEDURE REASON: R10.30-Lower abdominal pain * * * * Physician Interpretation * * * * EXAMINATION: COMPLETE ABDOMINAL ULTRASOUND CLINICAL HISTORY: Lower abdominal pain TECHNIQUE: Sonography of the abdomen was performed. Images were obtained and stored in a permanent archive. MQ: UAbC_1 COMPARISON: None RESULT: Pancreas: Normal sonographic appearance. Portions obscured: Tail Lesions: None Liver: Echotexture: Normal, homogeneous. Echogenicity: Normal Surface contour: Smooth Lesions: None. Biliary: No intrahepatic biliary duct dilation. CBD: 0.5 cm at the hilum. Gallbladder: Normal caliber -Contents: No cholelithiasis -Wall: Normal -Other: No pericholecystic fluid. Spleen: Craniocaudal length: 11.1 cm normal Lesions: None Right Kidney: -Renal length: 10.1 cm -Parenchyma: Normal parenchymal echogenicity. Normal parenchymal thickness. -Collecting system: No hydronephrosis. -Calculus: No echogenic, shadowing calculus. -Lesion: None. Left Kidney: -Renal length: 11.0 cm -Parenchyma: Normal parenchymal echogenicity. Normal parenchymal thickness. -Collecting system: No hydronephrosis. -Calculus: No echogenic, shadowing calculus. -Lesion: None. Bladder: Normal. IVC: Imaged segment is patent. Abdominal Aorta: Imaged segment is patent. Ascites: None. IMPRESSION IMPRESSION: No abnormality [facility] Transcribe Date/Time: Apr 23 2024 11:56A Dictated by : REBECA DAY MD This examination was interpreted and the report reviewed and electronically signed by: REBECA DAY MD on Apr 23 2024 11:58AM EST [facility] Radiology Study observation (narrative) [facility] US AbdomenOrdered By: Casi morgan on 04-23-2024 [facility] CNOVon 04-15-2024 CNOV Normal [facility] CNPNon 04-15-2024 CNPN Normal [facility] CNOVon 04-09-2024 CNOV Normal [facility] INTRACU/DERM TESTS-IMMEDIA R Xon 04-09-2024 [facility] CNOVon 02-18-2024 CNOV Normal [facility] CNPNon 01-31-2024 CNPN Normal [facility] CNOVon 01-30-2024 CNOV Normal [facility] CNPNon 01-28-2024 CNPN Normal [facility] CNOVon 01-14-2024 CNOV Normal [facility] CNPNon 01-01-2024 CNPN Normal [facility] VISUAL FIELD 30-2 OU (BOTH E YES)on 12-24-2023 [facility] Radiology Study observation (narrative) [facility] CNCOon 12-18-2023 CNCO Letter Text Normal [facility] CNPNon 12-18-2023 CNPN Normal [facility] CNPNon 12-13-2023 CNPN Normal [facility] Talent Assistant Office Visit Reporton 12-13-2023 Talent Assistant Office Visit Report [facility] [address], [address] [place] [address] OFFICE VISIT Date of Service: 12/13/23 MR#: [id number] Acct: [id number] Name: TRAVIS STEWARD Rep #: [id number] : 1990 Provider: Dr. Maria G Bose DO Age/Sex: 33/F Location: [facility] Status: Signed Intake Vital Signs 06/25/23 13:48 12/13/23 11:39 12/13/23 11:39 Height 5 ft 6 in 5 ft 6 in 5 ft 6 in Weight: 152 lb 4 oz BMI 24.5 BP 117/80 Intake Visit Reasons: LEFT BREAST NUMBNESS Tax Revenue Officer Required: No Is patient in pain?: No Allergies lactose Adverse Reaction (Intermediate, Verified 12/13/23 11:39) Nausea/Vom/Diarrhea ondansetron (From Zofran) Adverse Reaction (Intermediate, Verified 12/13/23 11:39) Constipation metoclopramide Adverse Reaction (Mild, Verified 12/13/23 11:39) adhesive tape Adverse Reaction (Verified 12/13/23 11:39) RASH haloperidol (From Haldol) Adverse Reaction (Verified 12/13/23 11:39) panic attack Medications ???Medication ???Instructions ???Recorded ???Confirmed ???Type L.acidoph, paracasei,B. lactis 10 1 ea PO DAILY 05/30/16 12/13/23 History billion cell capsule glycopyrrolate 1 mg tablet 1 mg PO BID 08/05/16 12/13/23 History clonazepam 0.5 mg tablet 0.5 mg PO BID PRN Anxiety 08/05/17 12/13/23 History buspirone 30 mg tablet 30 mg PO BID 10/19/19 12/13/23 History triamcinolone acetonide 0.5 % 1 applic topical DAILY 10/19/19 12/13/23 History topical cream cyclobenzaprine 5 mg tablet 5 mg PO QHS 30 days #60 tabs 12/16/19 12/13/23 Rx food supplemt, lactose-reduced ea PO 03/31/20 12/13/23 History 0.06 gram-1 kcal/mL oral liquid (Boost High Protein) famotidine 20 mg tablet (Pepcid) 40 mg PO QDAY 05/01/21 12/13/23 History fluvoxamine 100 mg tablet 100 mg PO QHS 05/01/21 12/13/23 History bupropion HCl 150 mg tablet,12 hr 300 mg PO BID 05/03/22 12/13/23 History sustained-release fexofenadine 60 mg tablet (Allergy 180 mg PO DAILY 05/03/22 12/13/23 History Relief (fexofenadine)) linaclotide 72 mcg capsule 145 mcg PO DAILY 05/03/22 12/13/23 History (Linzess) magnesium oxide 600 mg PO DAILY 05/03/22 12/13/23 History nortriptyline 25 mg capsule 25 mg PO DAILY 06/14/23 12/13/23 History topiramate 25 mg tablet (Topamax) 25 mg PO DAILY 06/14/23 12/13/23 History nortriptyline 25 mg capsule 25 mg PO DAILY Depression 06/25/23 12/13/23 History segesterone acet 0.15 mg-ethinyl 1 vag ring vaginal Q4W 06/25/23 12/13/23 History estradiol 0.013 mg/24 hr vaginal ring (Annovera) segesterone acet 0.15 mg-ethinyl 1 vag ring vaginal Q4W #1 ea 06/25/23 12/13/23 Rx estradiol 0.013 mg/24 hr vaginal ring (Annovera) topiramate 25 mg tablet 75 mg PO DAILY Headache/Migraine 06/25/23 12/13/23 History Disorder Post menopausal: No Patient : No : No PFSH Medical History Neck pain Acute insomnia Bloating Epigastric pain Hyperprolactinemia Family history of breast cancer History of posttraumatic stress disorder (PTSD) Panic disorder Major depressive disorder, recurrent, moderate Thyroiditis PCOS (polycystic ovarian syndrome) Scoliosis Hx of migraine headaches Breast lump UTI (urinary tract infection) Back problem Anxiety and depression Seasonal allergies Surgical History S/P right breast biopsy [place] teeth extracted right index finger Family History Brother Asthma Mother Breast cancer Social History Smoking Status: Never smoker second hand exposure: No alcohol intake: never substance use type: does not use caffeine: No what type of physical activity do you participate in: none seatbelt use: always do you feel safe at home: Yes additional social history: single- HPI LEFT BREAST NUMBNESS Details: TRAVIS STEWARD is a 33 year old who presents for the complaint of breast numbness on the left outer breast wall. She has an active migraine currently and states that her left deltoid is tender and the pain runs up to her neck. She states that this discomfort has been going on since last week. She remembers carrying a heavy box and tripped going down the stairs. She denies bruising or lump on the breast. She has extreme anxiety and lives at home with he mom. Her mom had breast cancer twice. History 0 Elective abortions Hx Para Spontaneous abortions Hx # Term Pregnancies Ectopic pregnancies Hx # Pregnancies Multiple births # of living children ROS : Denies nipple discharge Skin Skin/Breast: Denies breast mass, breast pain, breast skin lisa (more content not included)... Normal [facility] CNOVon 11-12-2023 CNOV Normal [facility] CNOVon 11-06-2023 CNOV Normal [facility] CNOVon 10-21-2023 CNOV Normal [facility] CNPNon 10-16-2023 CNPN Normal [facility] CNPNon 10-14-2023 CNPN Normal [facility] CNOVon 10-11-2023 CNOV Normal [facility] CNOVon 10-09-2023 CNOV Normal [facility] Comprehensive metabolic 2000 panelon 10-09-2023 Albumin [Mass/Vol] 3.9 g/dL 3.9 - 4.9 g/dL [facility] ALP [Catalytic activity/Vol] 50 U/L 34 - 123 U/L [facility] ALT [Catalytic activity/Vol] 14 U/L 7 - 38 U/L [facility] Anion gap [Moles/Vol] 10 mmol/L 8 - 15 mmol/L [facility] AST [Catalytic activity/Vol] 21 U/L 13 - 35 U/L [facility] Bilirubin [Mass/Vol] 0.2 mg/dL 0.2 - 1 .3 mg/dL [facility] Calcium [Mass/Vol] 9.5 mg/dL 8.5 - 10. 2 mg/dL [facility] Chloride [Moles/Vol] 107 mmol/L 98 - 10 7 mmol/L [facility] CO2 [Moles/Vol] 23 mmol/L 22 - 30 mmol/L [facility] Creatinine [Mass/Vol] 0.83 mg/dL 0.58 - 0.96 mg/dL [facility] GFR/1.73 sq M.predicted among non-blacks MDRD (S/P/Bld) [Vol rate/Area] 97 mL/min/{1.73_m2} - PINF [facility] Comment on above: Estimated Glomerular Filtration Rate (eGFR) is calculated using the 2020 CKD-EPI creatinine equation. This equation utilizes serum creatinine, sex, and age as parameters. The creatinine assay has traceable calibration to isotope dilution-mass spectrometry. Refer to KDIGO guidelines for clinical interpretation. In patients with unstable renal function, e.g. those with acute kidney injury, the eGFR may not accurately reflect actual GFR. Glucose [Mass/Vol] 68 mg/dL Low 74 - 99 mg/dL [facility] Comment on above: The [place] Diabete s Association (ADA) provides guidance for cutoff values for fasting glucose and random glucose. The ADA defines fasting as no caloric intake for at least 8 hours. Fasting plasma glucose results between 100 to 125 mg/dL indicate increased risk for diabetes (prediabetes). Fasting plasma glucose results greater than or equal to 126 mg/dL meet the criteria for diagnosis of diabetes. In the absence of unequivocal hyperglycemia, results should be confirmed by repeat testing. In a patient with classic symptoms of hyperglycemia or hyperglycemic crisis, random plasma glucose results greater than or equal to 200 mg/dL meet the criteria for diagnosis of diabetes. Reference: Standards of Medical Care in Diabetes 2016, [place] Diabetes Association. Diabetes Care. 2016.39(Suppl 1). Interpretation and review of laboratory results Abnormal [facility] Potassium [Moles/Vol] 4.3 mmol/L 3.7 - 5.1 mmol/L [facility] Protein [Mass/Vol] 6.6 g/dL 6.3 - 8.0 g/dL [facility] Sodium [Moles/Vol] 140 mmol/L 136 - 144 mmol/L [facility] Urea nitrogen [Mass/Vol] 9 mg/dL 7 - 21 mg/dL [facility] THYROID STIMULATING HORMONEo n 10-09-2023 TSH Qn 2.130 m[IU]/L [facility] Comment on above: If the patient is pr egnant, TSH reference range varies by gestational period: First Trimester (weeks 9-12): 0.180-2.990 mIU/L Second Trimester: 0.110-3.980 mIU/L Third Trimester: 0.480-4.710 mIU/L Mateusz Cartwright et al. A Practical Approach for the Verifications and Determination of Site- and Trimester-Specific Reference Intervals for Thyroid Function tests in . Thyroid, 2019:29:3:412-420. Jv Ba, et al. 2017 Guidelines of the [place] Thyroid Association for the Diagnosis and Management of Thyroid Disease during and the . Thyroid, 2017:27:3:315-389. TSH Qnon 10-09-2023 Interpretation and review of laboratory results Normal [facility] XR Lumbar spine 3 Viewson IMPRESSION: Stable l umbar spine X-ray without acute findings. Glaze Mixer: [facility] Transcribe Date/Time: Oct 09 2023 10:18A Dictated by : LUCIANO PETERSON MD This examination was interpreted and the report reviewed and electronically signed by: LUCIANO PETERSON MD on Oct 09 2023 10:19AM [facility] DIVISION OF RADIOLOGY * * *Final Report* * * DATE OF EXAM: Oct 08 2023 3:32PM [id number] - XR LUMBAR 3V AP/LAT/L5-S1 / PROCEDURE REASON: multiple diagnoses * * * * Physician Interpretation * * * * EXAM TITLE: XR LUMBAR 3V AP/LAT/L5-S1 EXAM DATE/TIME: 10/08/2023 3:32 PM COMPARISON: X-ray lumbar spine on 01/14/2023 CLINICAL INDICATION/HISTORY: Low back pain. TECHNIQUE: AP, lateral and cone down lateral views of the lumbar spine are presented. FINDINGS: There are five [id number] lumbar vertebrae. No fracture or subluxations are noted. The disc spaces are well preserved. There is no significant osteophyte formation. DIVISION OF RADIOLOGY Provider, Casi Sampson - 10/09/2023 * * *Final Report* * * DATE OF EXAM: Oct 08 2023 3:32PM [id number] - XR LUMBAR 3V AP/LAT/L5-S1 / PROCEDURE REASON: multiple diagnoses * * * * Physician Interpretation * * * * EXAM TITLE: XR LUMBAR 3V AP/LAT/L5-S1 EXAM DATE/TIME: 10/08/2023 3:32 PM COMPARISON: X-ray lumbar spine on 01/14/2023 CLINICAL INDICATION/HISTORY: Low back pain. TECHNIQUE: AP, lateral and cone down lateral views of the lumbar spine are presented. FINDINGS: There are five [id number] lumbar vertebrae. No fracture or subluxations are noted. The disc spaces are well preserved. There is no significant osteophyte formation. IMPRESSION IMPRESSION: Stable lumbar spine X-ray without acute findings. Glaze Mixer: [facility] Transcribe Date/Time: Oct 09 2023 10:18A Dictated by : LUCIANO PETERSON MD This examination was interpreted and the report reviewed and electronically signed by: LUCIANO PETERSON MD on Oct 09 2023 10:19AM EST [facility] XR Lumbar spine 3 ViewsOrder ed By: Ccf Provider on 10-09-2023 [facility] ALLERGEN FOOD PANEL RL1on Barley IgE Qn (S) <0.35 Normal <0.35 [facility] Comment on above: Order Comment: Speci men Type: BLOOD SPECIMENOrdering Facility: [facility] Address: [address] [place] [address] Performed By: #### L [id number] ####[facility] LABIA [id number] [place] [address] [place] Barley IgE RAST class (S) Class 0 Normal Class 0 [facility] Comment on above: Order Comment: Speci men Type: BLOOD SPECIMENOrdering Facility: [facility] Address: [address] [place] [address] Performed By: #### L [id number] ####[facility] [id number] [place] [address] [place] IgE Qn (S) <0.35 Normal <0.35 [facility] Comment on above: Order Comment: Speci men Type: BLOOD SPECIMENOrdering Facility: [facility] Address: [address] [place] [address] Performed By: #### L [id number] ####[facility] LABCLIA [id number] [place] [address] [place] IgE RAST class (S) Class 0 Normal Class 0 [facility] Comment on above: Order Comment: Speci men Type: BLOOD SPECIMENOrdering Facility: [facility] Address: [address] [place] [address] Performed By: #### L [id number] ####[facility] LABCLIA [id number] [place] [address] [place] Cow milk IgE Qn (S) <0.35 Normal <0.35 [facility] Comment on above: Order Comment: Speci men Type: BLOOD SPECIMENOrdering Facility: [facility] Address: [address] [place] [address] Performed By: #### L [id number] ####[facility] LABCLIA [id number] [place] [address] [place] Cow milk IgE RAST class (S) Class 0 Normal Class 0 [facility] Comment on above: Order Comment: Speci men Type: BLOOD SPECIMENOrdering Facility: [facility] Address: [address] [place] [address] Performed By: #### L [id number] ####[facility] LABCLIA [id number] [place] [address] [place] Egg white IgE Qn (S) <0.35 Normal <0.35 [facility] Comment on above: Order Comment: Speci men Type: BLOOD SPECIMENOrdering Facility: [facility] Address: [address] [place] [address] Performed By: #### L [id number] ####[facility] LABCLIA [id number] [place] [address] [place] Egg white IgE RAST class (S) Class 0 Normal Class 0 [facility] Comment on above: Order Comment: Speci men Type: BLOOD SPECIMENOrdering Facility: [facility] Address: [address] [place] [address] Performed By: #### L [id number] ####[facility] LABCLIA [id number] [place] [address] [place] Gluten IgE Qn (S) <0.35 Normal <0.35 [facility] Comment on above: Order Comment: Speci men Type: BLOOD SPECIMENOrdering Facility: [facility] Address: [address] [place] [address] Performed By: #### L [id number] ####[facility] LABCLIA [id number] [place] [address] [place] Gluten IgE RAST class (S) Class 0 Normal Class 0 [facility] Comment on above: Order Comment: Speci men Type: BLOOD SPECIMENOrdering Facility: [facility] Address: [address] [place] [address] Performed By: #### L [id number] ####[facility] LABCLIA [id number] [address] [place] Oat IgE Qn (S) <0.35 Normal <0.35 [facility] Comment on above: Order Comment: Speci men Type: BLOOD SPECIMENOrdering Facility: [facility] Address: [address] [place] [address] Performed By: #### L [id number] ####[facility] LABCLIA [id number] [place] [address] [place] Oat IgE RAST class (S) Class 0 Normal Class 0 [facility] Comment on above: Order Comment: Speci men Type: BLOOD SPECIMENOrdering Facility: [facility] Address: [address] [place] [address] Performed By: #### L [id number] ####[facility] LABCLIA [id number] [address] [id number] [address] [place] Maryneal IgE Qn (S) <0.35 Normal <0.35 [facility] Comment on above: Order Comment: Speci men Type: BLOOD SPECIMENOrdering Facility: [facility] Address: [address] [place] [address] Performed By: #### L [id number] ####[facility] LABCLIA [id number] [place] [address] [place] Maryneal IgE RAST class (S) Class 0 Normal Class 0 [facility] Comment on above: Order Comment: Speci men Type: BLOOD SPECIMENOrdering Facility: [facility] Address: [address] [place] [address] Performed By: #### L [id number] ####[facility] LABCLIA [id number] [place] [address] [place] Peanut IgE Qn (S) <0.35 Normal <0.35 [facility] Comment on above: Order Comment: Speci men Type: BLOOD SPECIMENOrdering Facility: [facility] Address: [address] [place] [address] Performed By: #### L [id number] ####[facility] LABCLIA [id number] [place] [address] [place] Peanut IgE RAST class (S) Class 0 Normal Class 0 [facility] Comment on above: Order Comment: Speci men Type: BLOOD SPECIMENOrdering Facility: [facility] Address: [address] [place] [address] Performed By: #### L [id number] ####[facility] LABCLIA [id number] [place] [address] [place] Pork IgE Qn (S) <0.35 Normal <0.35 [facility] Comment on above: Order Comment: Speci men Type: BLOOD SPECIMENOrdering Facility: [facility] Address: [address] [place] [address] Performed By: #### L [id number] ####[facility] LABCLIA [id number] [place] [address] [place] Pork IgE RAST class (S) Class 0 Normal Class 0 [facility] Comment on above: Order Comment: Speci men Type: BLOOD SPECIMENOrdering Facility: [facility] Address: [address] [place] [address] Performed By: #### L [id number] ####[facility] LABCLIA [id number] [place] [address] [place] Potato IgE Qn (S) <0.35 Normal <0.35 [facility] Comment on above: Order Comment: Speci men Type: BLOOD SPECIMENOrdering Facility: [facility] Address: [address] [place] [address] Performed By: #### L [id number] ####[facility] LABCLIA [id number] [place] [address] [place] Potato IgE RAST class (S) Class 0 Normal Class 0 [facility] Comment on above: Order Comment: Speci men Type: BLOOD SPECIMENOrdering Facility: [facility] Address: [address] [place] [address] Performed By: #### L [id number] ####[facility] LABCLIA [id number] [place] [address] [place] Rice IgE Qn (S) <0.35 Normal <0.35 [facility] Comment on above: Order Comment: Speci men Type: BLOOD SPECIMENOrdering Facility: [facility] Address: [address] [place], [place] [address] Performed By: #### L [id number] ####[facility] LABCLIA [id number] [place] [address] [place] Rice IgE RAST class (S) Class 0 Normal Class 0 [facility] Comment on above: Order Comment: Speci men Type: BLOOD SPECIMENOrdering Facility: [facility] Address: [address] [place] [address] Performed By: #### L [id number] ####[facility] LABCLIA [id number] [place] [address] [place] Franklin IgE Qn (S) <0.35 Normal <0.35 [facility] Comment on above: Order Comment: Speci men Type: BLOOD SPECIMENOrdering Facility: [facility] Address: [address] [place] [address] Performed By: #### L [id number] ####[facility] LABCLIA [id number] [place] [address] [place] Franklin IgE RAST class (S) Class 0 Normal Class 0 [facility] Comment on above: Order Comment: Speci men Type: BLOOD SPECIMENOrdering Facility: [facility] Address: [address] [place] [address] Performed By: #### L [id number] ####[facility] LABCLIA [id number] [place] [address] [place] Soybean IgE Qn (S) <0.35 Normal <0.35 [facility] Comment on above: Order Comment: Speci men Type: BLOOD SPECIMENOrdering Facility: [facility] Address: [address] [place] [address] Performed By: #### L [id number] ####[facility] LABCLIA [id number] [place] [address] [place] Soybean IgE RAST class (S) Class 0 Normal Class 0 [facility] Comment on above: Order Comment: Speci men Type: BLOOD SPECIMENOrdering Facility: [facility] Address: [address] [place] [address] Performed By: #### L [id number] ####[facility] LABCLIA [id number] [place] [address] [place] Tomato IgE Qn (S) <0.35 Normal <0.35 [facility] Comment on above: Order Comment: Speci men Type: BLOOD SPECIMENOrdering Facility: [facility] Address: [address] [place] [address] Performed By: #### L [id number] ####[facility] LABCLIA [id number] [place] [address] [place] Tomato IgE RAST class (S) Class 0 Normal Class 0 [facility] Comment on above: Order Comment: Speci men Type: BLOOD SPECIMENOrdering Facility: [facility] Address: [address] [place] [address] Performed By: #### L [id number] ####[facility] LABCLIA [id number] [place] [address] [place] Wheat IgE Qn (S) <0.35 Normal <0.35 [facility] Comment on above: Order Comment: Speci men Type: BLOOD SPECIMENOrdering Facility: [facility] Address: [address] [place] [address] Performed By: #### L [id number] ####[facility] LABIA [id number] [address] [place] Wheat IgE RAST class (S) Class 0 Normal Class 0 [facility] Comment on above: Order Comment: Speci men Type: BLOOD SPECIMENOrdering Facility: [facility] Address: [address] [place] [address] Performed By: #### L [id number] ####[facility] LABIA [id number] [place] [address] [place] ALLERGEN FOOD PANEL RL2on Banana IgE Qn (S) <0.35 Normal <0.35 [facility] Comment on above: Order Comment: Speci men Type: BLOOD SPECIMENOrdering Facility: [facility] Address: [address] [place] [address] Performed By: #### L [id number] ####[facility] LABCLIA [id number] [place] [address] [place] Banana IgE RAST class (S) Class 0 Normal Class 0 [facility] Comment on above: Order Comment: Speci men Type: BLOOD SPECIMENOrdering Facility: [facility] Address: [address] [place] [address] Performed By: #### L [id number] ####[facility] LABCLIA [id number] [place] [address] [place] Beef IgE RAST class (S) Class 0 Normal Class 0 [facility] Comment on above: Order Comment: Speci men Type: BLOOD SPECIMENOrdering Facility: [facility] Address: [address] [place] [address] Performed By: #### L [id number] ####[facility] LABCLIA [id number] [place] [address] [place] Beef IgG (S) [Mass/Vol] <0.35 Normal <0.35 [facility] Comment on above: Order Comment: Speci men Type: BLOOD SPECIMENOrdering Facility: [facility] Address: [address] [place] [address] Performed By: #### L [id number] ####[facility] LABCLIA [id number] [place] [address] [place] Cheese cheddar type IgE Qn (S) <0.35 Normal <0.35 [facility] Comment on above: Order Comment: Speci men Type: BLOOD SPECIMENOrdering Facility: [facility] Address: [address] [place] [address] Performed By: #### L [id number] ####[facility] LABCLIA [id number] [place] [address] [place] Cheese cheddar type IgE RAST class (S) Class 0 Normal Class 0 [facility] Comment on above: Order Comment: Speci men Type: BLOOD SPECIMENOrdering Facility: [facility] Address: [address] [place] [address] Performed By: #### L [id number] ####[facility] LABCLIA [id number] [place] [address] [place] Chicken meat IgE Qn (S) <0.35 Normal <0.35 [facility] Comment on above: Order Comment: Speci men Type: BLOOD SPECIMENOrdering Facility: [facility] Address: [address] [place] [address] Performed By: #### L [id number] ####[facility] LABCLIA [id number] [place] [address] [place] Chicken meat IgE RAST class (S) Class 0 Normal Class 0 [facility] Comment on above: Order Comment: Speci men Type: BLOOD SPECIMENOrdering Facility: [facility] Address: [address] [place] [address] Performed By: #### L [id number] ####[facility] LABCLIA [id number] [place] [address] [place] YEAST CLASS Class 0 Normal Class 0 [facility] Comment on above: Order Comment: Speci men Type: BLOOD SPECIMENOrdering Facility: [facility] Address: [address] [place] [address] Performed By: #### L [id number] ####[facility] LABCLIA [id number] [place] [address] [place] YEAST IGE <0.35 Normal <0.35 [facility] Comment on above: Order Comment: Speci men Type: BLOOD SPECIMENOrdering Facility: [facility] Address: [address] [place] [address] Performed By: #### L [id number] ####[facility] LABCLIA [id number] [place] [address] [place] CBC W Auto Differential pane l (Bld)on 10-08-2023 Basophils (Bld) [#/Vol] 0.04 10*3/uL [facility] Basophils/100 WBC (Bld) 0.6 % [facility] Differential cell count method Nom (Bld) Auto [facility] Eosinophils (Bld) [#/Vol] 0.11 10*3/uL [facility] Eosinophils/100 WBC (Bld) 1.5 % [facility] Erythrocyte distribution width (RBC) [Ratio] 12.5 % 11.5 - 15.0 % [facility] Hematocrit (Bld) [Volume fraction] 42.5 % 36.0 - 46.0 % [facility] Hemoglobin (Bld) [Mass/Vol] 13.9 g/dL 11.5 - 15.5 g/dL [facility] Immature granulocytes (Bld) [#/Vol] 0.03 10*3/uL [facility] Immature granulocytes/100 WBC (Bld) 0.4 % [facility] Lymphocytes (Bld) [#/Vol] 3.15 10*3/uL [facility] Lymphocytes/100 WBC (Bld) 43.8 % [facility] MCH (RBC) [Entitic mass] 30.2 pg 26.0 - 34.0 pg [facility] MCHC (RBC) [Mass/Vol] 32.7 g/dL 30.5 - 36.0 g/dL [facility] MCV (RBC) [Entitic vol] 92.4 fL 80.0 - 100.0 fL [facility] Monocytes (Bld) [#/Vol] 0.58 10*3/uL [facility] Monocytes/100 WBC (Bld) 8.1 % [facility] Neutrophils (Bld) [#/Vol] 3.28 10*3/uL [facility] Neutrophils/100 WBC (Bld) 45.6 % [facility] Nucleated RBC (Bld) [#/Vol] [facility] Nucleated RBC/100 WBC (Bld) [Ratio] 0.0 % /100 WBC [facility] Platelet mean volume (Bld) [Entitic vol] 9.7 fL 9.0 - 12.7 fL [facility] Platelets (Bld) [#/Vol] 236 10*3/uL [facility] RBC (Bld) [#/Vol] 4.60 10*6/uL 3.90 - 5.2 0 m/uL [facility] WBC (Bld) [#/Vol] 7.19 10*3/uL [facility] Basophils (Bld) [#/Vol] 0.04 10*3/uL Normal <0.11 [facility] Comment on above: Order Comment: Speci men Type: BLOOD SPECIMENOrdering Facility: [facility] Address: [address] [place] [address] Performed By: #### 5 7021-8 ####[facility] LABCLIA [id number] [place] [address] [place] Basophils/100 WBC (Bld) 0.6 % Normal [facility] Comment on above: Order Comment: Speci men Type: BLOOD SPECIMENOrdering Facility: [facility] Address: [address] [place] [address] Performed By: #### 5 7021-8 ####[facility] LABCLIA [id number] [place] [address] [place] Differential cell count method Nom (Bld) Auto Normal [facility] Comment on above: Order Comment: Speci men Type: BLOOD SPECIMENOrdering Facility: [facility] Address: [address] [place] [address] Performed By: #### 5 7021-8 ####[facility] LABCLIA [id number] [place] [address] [place] Eosinophils (Bld) [#/Vol] 0.11 10*3/uL Normal <0.46 [facility] Comment on above: Order Comment: Speci men Type: BLOOD SPECIMENOrdering Facility: [facility] Address: [address] [place] [address] Performed By: #### 5 7021-8 ####[facility] LABCLIA [id number] [place] [address] [place] Eosinophils/100 WBC (Bld) 1.5 % Normal [facility] Comment on above: Order Comment: Speci men Type: BLOOD SPECIMENOrdering Facility: [facility] Address: [address] [place] [address] Performed By: #### 5 7021-8 ####[facility] LABIA [id number] [place] [address] [place] Erythrocyte distribution width (RBC) [Ratio] 12.5 % Normal 11.5-15.0 [facility] Comment on above: Order Comment: Speci men Type: BLOOD SPECIMENOrdering Facility: [facility] Address: [address] [place] [address] Performed By: #### 5 7021-8 ####[facility] LABIA [id number] [place] [address] [place] Hematocrit (Bld) [Volume fraction] 42.5 % Normal 36.0-46.0 [facility] Comment on above: Order Comment: Speci men Type: BLOOD SPECIMENOrdering Facility: [facility] Address: [address] [place] [address] Performed By: #### 5 7021-8 ####[facility] LABIA [id number] [place] [address] [place] Hemoglobin (Bld) [Mass/Vol] 13.9 g/dL Normal 11.5-15.5 [facility] Comment on above: Order Comment: Speci men Type: BLOOD SPECIMENOrdering Facility: [facility] Address: [address] [place] [address] Performed By: #### 5 7021-8 ####[facility] LABIA [id number] [place] [address] [place] Immature granulocytes (Bld) [#/Vol] 0.03 10*3/uL Normal <0.10 [facility] Comment on above: Order Comment: Speci men Type: BLOOD SPECIMENOrdering Facility: [facility] Address: [address] [place] [address] Performed By: #### 5 7021-8 ####[facility] LABCLIA [id number] [place] [address] [place] Immature granulocytes/100 WBC (Bld) 0.4 % Normal [facility] Comment on above: Order Comment: Speci men Type: BLOOD SPECIMENOrdering Facility: [facility] Address: [address] [place] [address] Performed By: #### 5 7021-8 ####[facility] LABIA [id number] [place] [address] [place] Lymphocytes (Bld) [#/Vol] 3.15 10*3/uL Normal 1.00-4.00 [facility] Comment on above: Order Comment: Speci men Type: BLOOD SPECIMENOrdering Facility: [facility] Address: [address] [place] [address] Performed By: #### 5 7021-8 ####[facility] LABIA [id number] [place] [address] [place] Lymphocytes/100 WBC (Bld) 43.8 % Normal [facility] Comment on above: Order Comment: Speci men Type: BLOOD SPECIMENOrdering Facility: [facility] Address: [address] [place] [address] Performed By: #### 5 7021-8 ####[facility] LABIA [id number] [place] [address] [place] MCH (RBC) [Entitic mass] 30.2 pg Normal 26.0-34.0 [facility] Comment on above: Order Comment: Speci men Type: BLOOD SPECIMENOrdering Facility: [facility] Address: [address] [place] [address] Performed By: #### 5 7021-8 ####[facility] LABIA [id number] [place] [address] [place] MCHC (RBC) [Mass/Vol] 32.7 g/dL Normal 30.5-36.0 [facility] Comment on above: Order Comment: Speci men Type: BLOOD SPECIMENOrdering Facility: [facility] Address: [address] [place] [address] Performed By: #### 5 7021-8 ####[facility] LABCLIA [id number] [place] [address] [place] MCV (RBC) [Entitic vol] 92.4 fL Normal 80.0-100.0 [facility] Comment on above: Order Comment: Speci men Type: BLOOD SPECIMENOrdering Facility: [facility] Address: [address] [place] [address] Performed By: #### 5 7021-8 ####[facility] LABIA [id number] [place] [address] [place] Monocytes (Bld) [#/Vol] 0.58 10*3/uL Normal <0.87 [facility] Comment on above: Order Comment: Speci men Type: BLOOD SPECIMENOrdering Facility: [facility] Address: [address] [place] [address] Performed By: #### 5 7021-8 ####[facility] LABIA [id number] [place] [address] [place] Monocytes/100 WBC (Bld) 8.1 % Normal [facility] Comment on above: Order Comment: Speci men Type: BLOOD SPECIMENOrdering Facility: [facility] Address: [address] [place] [address] Performed By: #### 5 7021-8 ####[facility] LABIA [id number] [place] [address] [place] Neutrophils (Bld) [#/Vol] 3.28 10*3/uL Normal 1.45-7.50 [facility] Comment on above: Order Comment: Speci men Type: BLOOD SPECIMENOrdering Facility: [facility] Address: [address] [place] [address] Performed By: #### 5 7021-8 ####[facility] LABCLIA [id number] [place] [address] [place] Neutrophils/100 WBC (Bld) 45.6 % Normal [facility] Comment on above: Order Comment: Speci men Type: BLOOD SPECIMENOrdering Facility: [facility] Address: [address] [place] [address] Performed By: #### 5 7021-8 ####[facility] LABIA [id number] [place] [address] [place] Nucleated RBC (Bld) [#/Vol] 10*3/uL Normal <0.01 [facility] Comment on above: Order Comment: Speci men Type: BLOOD SPECIMENOrdering Facility: [facility] Address: [address] [place] [address] Performed By: #### 5 7021-8 ####[facility] LABIA [id number] [place] [address] [place] Nucleated RBC/100 WBC (Bld) [Ratio] 0.0 /100 WBC Normal [facility] Comment on above: Order Comment: Speci men Type: BLOOD SPECIMENOrdering Facility: [facility] Address: [address] [place] [address] Performed By: #### 5 7021-8 ####[facility] LABIA [id number] [place] [address] [place] Platelet mean volume (Bld) [Entitic vol] 9.7 fL Normal 9.0-12.7 [facility] Comment on above: Order Comment: Speci men Type: BLOOD SPECIMENOrdering Facility: [facility] Address: [address] [place] [address] Performed By: #### 5 7021-8 ####[facility] LABIA [id number] [place] [address] [place] Platelets (Bld) [#/Vol] 236 10*3/uL Normal 150-400 [facility] Comment on above: Order Comment: Speci men Type: BLOOD SPECIMENOrdering Facility: [facility] Address: [address] [place] [address] Performed By: #### 5 7021-8 ####[facility] LABCLIA [id number] [place] [address] [place] RBC (Bld) [#/Vol] 4.60 10*6/uL Normal 3.90-5.20 [facility] Comment on above: Order Comment: Speci men Type: BLOOD SPECIMENOrdering Facility: [facility] Address: [address] [place] [address] Performed By: #### 5 7021-8 ####[facility] LABCLIA [id number] [place] [address] [place] WBC (Bld) [#/Vol] 7.19 10*3/uL Normal 3.70-11.00 [facility] Comment on above: Order Comment: Speci men Type: BLOOD SPECIMENOrdering Facility: [facility] Address: [address] [place] [address] Performed By: #### 5 7021-8 ####[facility] LABIA [id number] [place] [address] [place] C[employer]AC ASSOC HLA-DQ GENOTYPE on 10-08-2023 CELIAC CATEGORY Category 3 Normal [facility] Comment on above: Order Comment: Speci men Type: BLOOD SPECIMENOrdering Facility: [facility] Address: [address] [place] [address] Result Comment: NERISSA ARANGO DQ HAPLOTYPE RELATIVE RISKCategory 7 DQ2.2 AND DQ2.5 Extremely HighCategory 7 DQ2.5 AND DQ2.5 Extremely HighCategory 6 DQ2.2 AND DQA1*05, DQB1*03:01 Very HighCategory 5 DQ2.2 AND DQ8 Very HighCategory 5 DQ2.5 AND DQ8 Very HighCategory 4 DQ8 AND DQ8 HighCategory 3 DQ2.5 AND DQA1*05, DQB1*03:01 HighCategory 3 DQ2.5 AND DQA1*02:01, DQB1*03:03 HighCategory 3 DQ2.5 AND DQA1*03, DQB1*02 HighCategory 3 DQ2.5 AND OTHER LOW RISK ALLELE HighCategory 3 DQ2.2 AND DQA1*05, DQB1*03:03 HighCategory 2 DQ8 AND OTHER LOW RISK ALLELE ModerateCategory 1 DQ2.2 AND OTHER LOW RISK ALLELE LowCategory 0 NEGATIVE FOR DQ2.2 NegativeCategory 0 NEGATIVE FOR DQ2.5 NegativeCategory 0 NEGATIVE FOR DQ8 NegativeDQ2.2 = DQA1*02:01, DQB1*02:02DQ2.5 = DQA1*05, DQB1*02:01DQ8 = DQA1*03, DQB1*03:02The identification of one of these HLA-DQ genotypes is not, by itself, sufficient for the diagnosis of celiac disease, since both DQ2 and DQ8 are relatively common in the general population. The strongest reported HLA associations with celiac disease include DQ2 (DQ2.5 or DQA1*05-DQB1*02:01 & DQA2.2 or DQA1*02:01-DQB1*02:02) and DQ8 (DQA1*03:01/DQB1*03:02). This test is useful for family members of celiac patients and patients with negative serology results. This testing can rule out celiac disease with high negative predictive value (NPV) of 95-100% depending on the ethnic background.In cases of an ambiguous HLA allele assignment where multiple rare alleles cannot be excluded, the most common HLA allele is reported.References: 1. Gera L, Mehrdad J, Yessenia K, et al. Cost-effective HLA typing with tagging SNPs predicts celiac disease risk haplotypes in the [place]ian, Australian and [place] populations. Immunogenetics. 2009 Jul;61(4):247-56. 2. Leonardo TIWARI. Celiac disease: dissecting a complex inflammatory disorder. Mehnaz Rev Immunol. 2002 Sep;2(9):025-55. 3. Carlos E, Gus HS, Lamont CA, et al. Risk of pediatric celiac disease according to HLA haplotype and country. N Engl J Med. 2014 ;371(1):42-9.HLA typing performed by PCR-RSSOP and/or NGS.This test was developed and its performance characteristics determined by [facility]. The test has not been cleared or approved by the [place] FDA. However, FDA approval was not necessary since this lab is certified under CLIA for high complexity testing.Test performed by: [facility], [facility] [place] [address]. CLIA [id number]. Performed By: #### C ELOISE ####[facility] [id number] [address] CELIAC RISK HAPLOTYPE Positive Normal [facility] Comment on above: Order Comment: Iris martinez Type: BLOOD SPECIMENOrdering Facility: [facility] Address: [address] [place] [address] Performed By: #### C ELOISE ####[facility]IESCLIA [id number] [place] [address] [place] HLA-DQA1 GENOTYPE HLA-DQA1*: 05, 01 Normal [facility] Comment on above: Order Comment: Iris martinez Type: BLOOD SPECIMENOrdering Facility: [facility] Address: [address] [place] [address] Performed By: #### C ELOISE ####[facility]CL[facility] [id number] [address] [place] HLA-DQB1 GENOTYPE HLA-DQB1*: 02:01, 06 Normal [facility] Comment on above: Order Comment: Iris martinez Type: BLOOD SPECIMENOrdering Facility: [facility] Address: [address] [place] [address] Performed By: #### C ELOISE ####[facility]IESCLIA [id number] [place] [id number] [facility] OF [place] CELIAC SCREENon 10-08-2023 GLIAD DEAMIDATED IGA QUAL Negative Normal Negative, Test not Indicated [facility] Comment on above: Order Comment: Speci men Type: BLOOD SPECIMENOrdering Facility: [facility] Address: [address] [place] [address] Result Comment: This is used as an aid in diagnosis of celiac disease. Clinical correlation is required.The following results were obtained with an [employer]ova QUANTA Lite Gliadin IgA ZULEIKA Gliadin. Gliadin IgA values obtained with different manufacturers' assay methods may not be used interchangeably. The magnitude of the reported IgA levels cannot be correlated to an endpoint titer. Performed By: #### L [id number] ####[facility] LABIA [id number] [address] [place] Gliadin peptide IgA Qn (S) 3 Units Normal <20 [facility] Comment on above: Order Comment: Iris martinez Type: BLOOD SPECIMENOrdering Facility: [facility] Address: [address] [place] [address] Performed By: #### L [id number] ####[facility] LABCLIA [id number] [place] [address] [place] INTERPRETATION No serological evide nce of celiac disease, however, if celiac disease is clinically suspected and patient is not on gluten-free diet, histological diagnosis may be considered. HLA testing may help with risk assessment. Normal [facility] Comment on above: Order Comment: Iris [facility] Type: BLOOD SPECIMENOrdering Facility: [facility] Address: [address] [place] [address] Performed By: #### L [id number] ####[facility] LABIA [id number] [address] [place] TRANSGLUTAMINASE IGA ABS INTERPRETATION Negative Normal Negative [facility] Comment on above: Order Comment: Iris [facility] Type: BLOOD SPECIMENOrdering Facility: [facility] Address: [address] [place] [address] Result Comment: The following results were obtained with [employer] QUANTA Lite R h-tTG IgA ZULEIKA.???R h-tTG IgA values obtained with different manufacturers' assay methods may not be used interchangeably. The magnitude of the reported IgA levels cannot be corelated to an endpoint???concentration.This is used as an aid in diagnosis of celiac disease. Clinical correlation is required. Performed By: #### L [id number] ####[facility] LABCLIA [id number] [place] [address] [place] tTG IgA Qn (S) <2 Normal <4 [facility] Comment on above: Order Comment: Speci men Type: BLOOD SPECIMENOrdering Facility: [facility] Address: [address] [place] [address] Performed By: #### L [id number] ####[facility] LABIA [id number] [place] [address] [place] CNOVon 10-08-2023 CNOV Normal [facility] Comprehensive metabolic 2000 panelon 10-08-2023 Albumin [Mass/Vol] 3.9 g/dL Normal 3.9-4.9 [facility] Comment on above: Order Comment: Speci men Type: BLOOD SPECIMENOrdering Facility: [facility] Address: [address] [place] [address] Performed By: #### 3 016-3, 83544-3 ####[facility] LABIA [id number] [place] [address] [place] ALP [Catalytic activity/Vol] 50 U/L Normal 34-123 [facility] Comment on above: Order Comment: Speci men Type: BLOOD SPECIMENOrdering Facility: [facility] Address: [address] [place] [address] Performed By: #### 3 016-3, 61342-4 ####[facility] LABIA [id number] [place] [address] [place] ALT [Catalytic activity/Vol] 14 U/L Normal 7-38 [facility] Comment on above: Order Comment: Speci men Type: BLOOD SPECIMENOrdering Facility: [facility] Address: [address] [place] [address] Performed By: #### 3 016-3, 17323-8 ####[facility] LABCLIA [id number] [place] [id number] [place] Anion gap [Moles/Vol] 10 mmol/L Normal 8-15 [facility] Comment on above: Order Comment: Speci men Type: BLOOD SPECIMENOrdering Facility: [facility] Address: [address] [place] [address] Performed By: #### 3 016-3, ####[facility] LABCLIA [id number] [place] [address] [place] AST [Catalytic activity/Vol] 21 U/L Normal 13-35 [facility] Comment on above: Order Comment: Speci men Type: BLOOD SPECIMENOrdering Facility: [facility] Address: [address] [place] [address] Performed By: #### 3 016-3, ####[facility] LABCLIA [id number] [place] [address] [place] Bilirubin [Mass/Vol] 0.2 mg/dL Normal 0.2-1.3 [facility] Comment on above: Order Comment: Speci men Type: BLOOD SPECIMENOrdering Facility: [facility] Address: [address] [place] [address] Performed By: #### 3 016-3, ####[facility] LABCLIA [id number] [place] [address] [place] Calcium [Mass/Vol] 9.5 mg/dL Normal 8.5-10.2 [facility] Comment on above: Order Comment: Speci men Type: BLOOD SPECIMENOrdering Facility: [facility] Address: [address] [place] [address] Performed By: #### 3 016-3, 79023-3 ####[facility] LABCLIA [id number] [place] [address] [place] Chloride [Moles/Vol] 107 mmol/L Normal 98-107 [facility] Comment on above: Order Comment: Speci men Type: BLOOD SPECIMENOrdering Facility: [facility] Address: [address] [place] [address] Performed By: #### 3 016-3, 50921-6 ####[facility] LABCLIA [id number] [place] [address] [place] CO2 [Moles/Vol] 23 mmol/L Normal 22-30 [facility] Comment on above: Order Comment: Speci men Type: BLOOD SPECIMENOrdering Facility: [facility] Address: [address] [place] [address] Performed By: #### 3 016-3, 95108-5 ####[facility] LABCLIA [id number] [place] [address] [place] Creatinine [Mass/Vol] 0.83 mg/dL Normal 0.58-0.96 [facility] Comment on above: Order Comment: Speci men Type: BLOOD SPECIMENOrdering Facility: [facility] Address: [address] [place] [address] Performed By: #### 3 016-3, ####[facility] LABIA [id number] [place] [address] [place] Creatinine and Glomerular filtration rate.predicted panel (S/P/Bld) 97 mL/min/1.73m??? Normal >=60 [facility] Comment on above: Order Comment: Speci men Type: BLOOD SPECIMENOrdering Facility: [facility] Address: [address] [place] [address] Result Comment: Jesica mated Glomerular Filtration Rate (eGFR) is calculated using the 2020 CKD-EPI creatinine equation. This equation utilizes serum creatinine, sex, and age as parameters. The creatinine assay has traceable calibration to isotope dilution-mass spectrometry. Refer to KDIGO guidelines for clinical interpretation. In patients with unstable renal function, e.g. those with acute kidney injury, the eGFR may not accurately reflect actual GFR. Performed By: #### 3 016-3, 64360-4 ####[facility] LABCLIA [id number] [place] [address] [place] Glucose [Mass/Vol] 68 mg/dL Low 74-99 [facility] Comment on above: Order Comment: Speci men Type: BLOOD SPECIMENOrdering Facility: [facility] Address: [address] [place] [address] Result Comment: The [place] Diabetes Association (ADA) provides guidance for cutoff values for fasting glucose and random glucose. The ADA defines fasting as no caloric intake for at least 8 hours. Fasting plasma glucose results between 100 to 125 mg/dL indicate increased risk for diabetes (prediabetes).Fasting plasma glucose results greater than or equal to 126 mg/dL meet the criteria for diagnosis of diabetes. In the absence of unequivocal hyperglycemia, results should be confirmed by repeat testing. In a patient with classic symptoms of hyperglycemia or hyperglycemic crisis, random plasma glucose results greater than or equal to 200 mg/dL meet the criteria for diagnosis of diabetes.Reference: Standards of Medical Care in Diabetes 2016, [place] Diabetes Association. Diabetes Care. 2016.39(Suppl 1). Performed By: #### 3 016-3, 81744-0 ####[facility] LABCLIA [id number] [place] [address] [place] Potassium [Moles/Vol] 4.3 mmol/L Normal 3.7-5.1 [facility] Comment on above: Order Comment: Speci men Type: BLOOD SPECIMENOrdering Facility: [facility] Address: [address] [place] [address] Performed By: #### 3 016-3, 21241-6 ####[facility] LABIA [id number] [place] [address] [place] Protein [Mass/Vol] 6.6 g/dL Normal 6.3-8.0 [facility] Comment on above: Order Comment: Speci men Type: BLOOD SPECIMENOrdering Facility: [facility] Address: [address] [place] [address] Performed By: #### 3 016-3, 81169-2 ####[facility] LABCLIA [id number] [place] [address] [place] Sodium [Moles/Vol] 140 mmol/L Normal 136-144 [facility] Comment on above: Order Comment: Speci men Type: BLOOD SPECIMENOrdering Facility: [facility] Address: [address] [place] [address] Performed By: #### 3 016-3, 32993-7 ####[facility] LABCLIA [id number] [place] [address] [place] Urea nitrogen [Mass/Vol] 9 mg/dL Normal 7-21 [facility] Comment on above: Order Comment: Speci men Type: BLOOD SPECIMENOrdering Facility: [facility] Address: [address] [place] [address] Performed By: #### 3 016-3, 70157-7 ####[facility] LABIA [id number] [place] [address] [place] H. pylori IgG [place] Qlon 2023 H. pylori IgG, Qualitative Negative Negative [facility] Comment on above: Cannot exclude H. py sienna infection if the specimen collected 3-4 weeks after onset of symptoms. Interpretation and review of laboratory results Normal [facility] H. PYLORI IGG, QUAL Negative Normal Negative [facility] Comment on above: Order Comment: Speci men Type: BLOOD SPECIMENOrdering Facility: [facility] Address: [address] [place] [address] Result Comment: Yunior ot exclude H. pylori infection if the specimen collected 3-4 weeks after onset of symptoms. Performed By: #### 1 7859-0 ####[facility] LABIA [id number] [place] [address] [place] IgA SerPl-mCncon 10-08-2023 IgA [Mass/Vol] 147 mg/dL Normal 70-400 [facility] Comment on above: Order Comment: Speci men Type: BLOOD SPECIMENOrdering Facility: [facility] Address: [address] [place] [address] Performed By: #### 2 458-8 ####[facility] LABIA [id number] [place] [address] [place] TSH SerPl-aCncon 10-08-2023 TSH Qn 2.130 m[IU]/L Normal 0.270-4.200 [facility] Comment on above: Order Comment: Iris martinez Type: BLOOD SPECIMENOrdering Facility: [facility] Address: [address] [place] [address] Result Comment: If t he patient is , TSH reference range varies by gestational period:First Trimester (weeks 9-12): 0.180-2.990 mIU/LSecond Trimester: 0.110-3.980 mIU/LThird Trimester: 0.480-4.710 mIU/Yumiko Cartwright et al. A Practical Approach for the Verifications and Determination of Site- and Trimester-Specific Reference Intervals for Thyroid Function tests in . Thyroid, 2019:29:3:412-420. Jv E, et al. 2017 Guidelines of the [place] Thyroid Association for the Diagnosis and Management of Thyroid Disease during and the . Thyroid, 2017:27:3:315-389. Performed By: #### 3 016-3, 11631-0 ####[facility] LABIA [id number] [place] [address] [place] VITAMIN Con 10-08-2023 VITAMIN C 52 umol/L Normal 23-114 [facility] Comment on above: Order Comment: Iris martinez Type: BLOOD SPECIMENOrdering Facility: [facility] Address: [address] [place] [address] Result Comment: Rachel min C concentrations lower than 11 umol/L indicate deficiency.Concentrations between 11 and 23 umol/L are consistent with amoderate risk of deficiency due to inadequate tissue stores.Vitamin C concentration is reported as micromoles per liter(umol/L). To convert concentration to milligrams per deciliter(mg/dL), multiply the result by 0.0176.This test was developed and its performance characteristicsdetermined by [facility]. It has not been cleared orapproved by the [place] Food and Drug Administration. This test wasperformed in a CLIA certified laboratory and is intended forclinical purposes.Performed By: [facility] [place], [place] [address] Director: Pawan Smith MD, PhDCLIA Number: [id number] Performed By: #### V ITC ####[facility] [id number] [place] [address] XR LUMBAR 3V AP/LAT/L5-S1on 10-08-2023 XR LUMBAR 3V AP/LAT/L5-S1 Normal [facility] XR Lumbar spine 3 [facility] Study observation (narrative) [facility] XR SCOLIOSIS 2V PA STAND/LAT on 10-08-2023 XR SCOLIOSIS 2V PA STAND/LAT Normal [facility] C-REACTIVE PROTEINon 024 CRP [Mass/Vol] mg/dL [facility] - 0.9 mg/dL [facility] CBC W Auto Differential pane l (Bld)on 09-03-2023 Basophils (Bld) [#/Vol] 0.04 10*3/uL [facility] Basophils/100 WBC (Bld) 0.5 % [facility] Differential cell count method Nom (Bld) Auto [facility] Eosinophils (Bld) [#/Vol] 0.12 10*3/uL [facility] Eosinophils/100 WBC (Bld) 1.6 % [facility] Erythrocyte distribution width (RBC) [Ratio] 12.6 % 11.5 - 15.0 % [facility] Hematocrit (Bld) [Volume fraction] 41.6 % 36.0 - 46.0 % [facility] Hemoglobin (Bld) [Mass/Vol] 13.6 g/dL 11.5 - 15.5 g/dL [facility] Immature granulocytes (Bld) [#/Vol] 0.03 10*3/uL [facility] Immature granulocytes/100 WBC (Bld) 0.4 % [facility] Lymphocytes (Bld) [#/Vol] 3.47 10*3/uL [facility] Lymphocytes/100 WBC (Bld) 46.7 % [facility] MCH (RBC) [Entitic mass] 30.0 pg 26.0 - 34.0 pg [facility] MCHC (RBC) [Mass/Vol] 32.7 g/dL 30.5 - 36.0 g/dL [facility] MCV (RBC) [Entitic vol] 91.8 fL 80.0 - 100.0 fL [facility] Monocytes (Bld) [#/Vol] 0.63 10*3/uL [facility] Monocytes/100 WBC (Bld) 8.5 % [facility] Neutrophils (Bld) [#/Vol] 3.14 10*3/uL [facility] Neutrophils/100 WBC (Bld) 42.3 % [facility] Nucleated RBC (Bld) [#/Vol] NINF [facility] Nucleated RBC/100 WBC (Bld) [Ratio] 0.0 % /100 WBC [facility] Platelet mean volume (Bld) [Entitic vol] 9.9 fL 9.0 - 12.7 fL [facility] Platelets (Bld) [#/Vol] 226 10*3/uL [facility] RBC (Bld) [#/Vol] 4.53 10*6/uL 3.90 - 5.2 0 m/uL [facility] WBC (Bld) [#/Vol] 7.43 10*3/uL [facility] Cobalamin (Vitamin B12) [Mas s/Vol]on 09-03-2023 Interpretation and review of laboratory results Normal [facility] Comprehensive metabolic 2000 panelon 09-03-2023 Albumin [Mass/Vol] 3.8 g/dL Low 3.9 - 4.9 g/dL [facility] ALP [Catalytic activity/Vol] 50 U/L 34 - 123 U/L [facility] ALT [Catalytic activity/Vol] 10 U/L 7 - 38 U/L [facility] Anion gap [Moles/Vol] 10 mmol/L 9 - 18 mmol/L [facility] AST [Catalytic activity/Vol] 17 U/L 13 - 35 U/L [facility] Bilirubin [Mass/Vol] 0.2 mg/dL 0.2 - 1 .3 mg/dL [facility] Calcium [Mass/Vol] 9.4 mg/dL 8.5 - 10. 2 mg/dL [facility] Chloride [Moles/Vol] 106 mmol/L High 97 - 10 5 mmol/L [facility] CO2 [Moles/Vol] 24 mmol/L 22 - 30 mmol/L [facility] Creatinine [Mass/Vol] 0.87 mg/dL 0.58 - 0.96 mg/dL [facility] GFR/1.73 sq M.predicted among non-blacks MDRD (S/P/Bld) [Vol rate/Area] 91 mL/min/{1.73_m2} - PINF [facility] Comment on above: Estimated Glomerular Filtration Rate (eGFR) is calculated using the 2020 CKD-EPI creatinine equation. This equation utilizes serum creatinine, sex, and age as parameters. The creatinine assay has traceable calibration to isotope dilution-mass spectrometry. Refer to KDIGO guidelines for clinical interpretation. In patients with unstable renal function, e.g. those with acute kidney injury, the eGFR may not accurately reflect actual GFR. Glucose [Mass/Vol] 82 mg/dL 74 - 99 mg/dL [facility] Comment on above: The [place] Diabete s Association (ADA) provides guidance for cutoff values for fasting glucose and random glucose. The ADA defines fasting as no caloric intake for at least 8 hours. Fasting plasma glucose results between 100 to 125 mg/dL indicate increased risk for diabetes (prediabetes). Fasting plasma glucose results greater than or equal to 126 mg/dL meet the criteria for diagnosis of diabetes. In the absence of unequivocal hyperglycemia, results should be confirmed by repeat testing. In a patient with classic symptoms of hyperglycemia or hyperglycemic crisis, random plasma glucose results greater than or equal to 200 mg/dL meet the criteria for diagnosis of diabetes. Reference: Standards of Medical Care in Diabetes 2016, [place] Diabetes Association. Diabetes Care. 2016.39(Suppl 1). Interpretation and review of laboratory results Abnormal [facility] Potassium [Moles/Vol] 4.0 mmol/L 3.7 - 5.1 mmol/L [facility] Protein [Mass/Vol] 6.7 g/dL 6.3 - 8.0 g/dL [facility] Sodium [Moles/Vol] 140 mmol/L 136 - 144 mmol/L [facility] Urea nitrogen [Mass/Vol] 13 mg/dL 7 - 21 mg/dL [facility] ESR Westergren method (Bld) [Velocity]on 09-03-2023 ESR (Bld) [Velocity] 2 mm/h [facility] Interpretation and review of laboratory results Normal [facility] MAGNESIUMon 09-03-2023 Magnesium [Mass/Vol] 2.1 mg/dL 1.7 - 2 .3 mg/dL [facility] No Panel Informationon 09-02 Interpretation and review of laboratory results Normal [facility] Interpretation and review of laboratory results Normal [facility] PANC ELASTASE, FECALon 09-02 ELASTASE INTERPRETATION Normal Normal [facility] ELASTASE-1 CONCENTRATION ug/g 200 - PINF ug/g [facility] Comment on above: Interpretation: <100 ug/g: Severe Exocrine Pancreatic Insufficiency 100-199 ug/g: Mild to Moderate Exocrine Pancreatic Insufficiency >=200 ug/g: Normal Interpretation and review of laboratory results Normal [facility] T3, FREEon 09-03-2023 Free T3 [Mass/Vol] 2.7 pg/mL 2.3 - 4.1 pg/mL [facility] T4 FREE/FREE THYROXINEon Free T4 [Mass/Vol] 1.0 ng/dL 0.9 - 1.7 ng/dL [facility] THYROID STIMULATING HORMONEo n 09-03-2023 TSH Qn 1.650 m[IU]/L [facility] Comment on above: If the patient is pr egnant, TSH reference range varies by gestational period: First Trimester (weeks 9-12): 0.180-2.990 mIU/L Second Trimester: 0.110-3.980 mIU/L Third Trimester: 0.480-4.710 mIU/L Mateusz Cartwright et al. A Practical Approach for the Verifications and Determination of Site- and Trimester-Specific Reference Intervals for Thyroid Function tests in . Thyroid, 2019:29:3:412-420. Jv E, et al. 2017 Guidelines of the [place] Thyroid Association for the Diagnosis and Management of Thyroid Disease during and the . Thyroid, 2017:27:3:315-389. VITAMIN B12on 09-03-2023 Cobalamin (Vitamin B12) [Mass/Vol] 376 pg/mL 232 - 1245 pg/mL [facility] EXTRA ECOFIX CONTAINER PERFO RMABLEon 09-02-2023 [facility] Gastrointestinal pathogens i dentified RITU+probe Nom (Stl)Ordered By: Natasha Churchill on 08-31-2023 Campylobacter sp DNA RITU+probe Nom (Unsp spec) Not detected Not Detected [facility] Interpretation and review of laboratory results Normal [facility] Salmonella sp DNA RITU+probe Ql (Unsp spec) Not detected Not Detected [facility] Shiga toxin stx gene RITU+probe Nom (Unsp spec) Not detected Not Detected [facility] Shigella sp DNA RITU+probe Ql (Unsp spec) Not detected Not Detected [facility] H. pylori Ag IA Ql (Stl)Orde red By: Coby Albrecht on 08-31-2023 Interpretation and review of laboratory results Normal [facility] Microorganism or agent identified Nom (Unsp spec) Negative Negative for H. Pylori antigen by EIA [facility] MR Brain WO and W contrast I Von 06-28-2023 [facility] No Panel Informationon 02-12 [facility] XR LUMBAR GENERAL 3V AP/LAT/ L5-S1on 01-14-2023 [facility] No Panel Informationon 10-25 [facility] MRI PITUITARY WO/W IVCONon 0 10-23-2022 [facility] No Panel Informationon 06-29 [facility] RNA POLYMERASE III ABon 02-1 0-2022 RNA polymerase III Ab Qn (S) 3 Units 0 - 19 Units [facility] LILY BY IFA WITH REFLEXon Nuclear Ab IF (S) [Titer] Negative Negative [facility] LILY BY IFA WITH REFLEXon Nuclear Ab IF (S) [Titer] Negative Normal Negative [facility] Comment on above: Order Comment: Speci men Type: BLOOD SPECIMEN Ordering Facility: [facility] Address: [address] [phone] Result Comment: Anti -nuclear antibody test is used as an aid in diagnosis of systemic autoimmune diseases. Where positive and clinically warranted, follow-up using disease-specific testing is recommended. Low positive titers are not uncommon with advanced age, certain chronic infections, and malignancies among others. Test methodology: Indirect fluorescence immunoassay (IFA) using HEp-2 cells. Performed By: #### A NAIFR #### [facility] CLIA [id number] [address] [facility] [address] [address] [place] C-REACTIVE PROTEIN (CRP)on 0 06-05-2022 CRP [Mass/Vol] <0.9 mg/dL [facility] CBC W Auto Differential pane l (Bld)on 06-05-2022 Basophils (Bld) [#/Vol] 0.04 10*3/uL Normal <0.11 [facility] Comment on above: Order Comment: Speci men Type: BLOOD SPECIMEN Ordering Facility: [facility] Address: [address] [address] Performed By: #### 5 7021-8 #### [facility] CLIA [id number] [address] [place] [address] [place] Basophils/100 WBC (Bld) 0.5 % Normal [facility] Comment on above: Order Comment: Speci men Type: BLOOD SPECIMEN Ordering Facility: [facility] Address: [address] [address] Performed By: #### 5 7021-8 #### [facility] IA [id number] [address] [place] [address] [place] Differential cell count method Nom (Bld) Auto Normal [facility] Comment on above: Order Comment: Speci men Type: BLOOD SPECIMEN Ordering Facility: [facility] Address: [address] [address] Performed By: #### 5 7021-8 #### [facility] CLIA [id number] [address] [place] [address] [place] Eosinophils (Bld) [#/Vol] 0.07 10*3/uL Normal <0.46 [facility] Comment on above: Order Comment: Speci men Type: BLOOD SPECIMEN Ordering Facility: [facility] Address: [address] [address] Performed By: #### 5 7021-8 #### [facility] CLIA [id number] [address] [facility] [place] [address] [place] Eosinophils/100 WBC (Bld) 0.8 % Normal [facility] Comment on above: Order Comment: Speci men Type: BLOOD SPECIMEN Ordering Facility: [facility] Address: [address] [address] Performed By: #### 5 7021-8 #### [facility] IA [id number] [address] [place] [address] [place] Erythrocyte distribution width (RBC) [Ratio] 12.5 % Normal 11.5-15.0 [facility] Comment on above: Order Comment: Speci men Type: BLOOD SPECIMEN Ordering Facility: [facility] Address: [address] [address] Performed By: #### 5 7021-8 #### [facility] IA [id number] [address] [place] [address] [place] Hematocrit (Bld) [Volume fraction] 42.5 % Normal 36.0-46.0 [facility] Comment on above: Order Comment: Speci men Type: BLOOD SPECIMEN Ordering Facility: [facility] Address: [address] [address] Performed By: #### 5 7021-8 #### [facility] IA [id number] [address] [place] [address] [place] Hemoglobin (Bld) [Mass/Vol] 14.0 g/dL Normal 11.5-15.5 [facility] Comment on above: Order Comment: Speci men Type: BLOOD SPECIMEN Ordering Facility: [facility] Address: [address] [address] Performed By: #### 5 7021-8 #### [facility] IA [id number] [address] [place] [address] [place] Immature granulocytes (Bld) [#/Vol] 0.03 10*3/uL Normal <0.10 [facility] Comment on above: Order Comment: Speci men Type: BLOOD SPECIMEN Ordering Facility: [facility] Address: [address] [address] Performed By: #### 5 7021-8 #### [facility] IA [id number] [address] [place] [address] [place] Immature granulocytes/100 WBC (Bld) 0.3 % Normal [facility] Comment on above: Order Comment: Speci men Type: BLOOD SPECIMEN Ordering Facility: [facility] Address: [address] [address] Performed By: #### 5 7021-8 #### [facility] CLIA [id number] [address] [place] [address] [place] Lymphocytes (Bld) [#/Vol] 3.54 10*3/uL Normal 1.00-4.00 [facility] Comment on above: Order Comment: Speci men Type: BLOOD SPECIMEN Ordering Facility: [facility] Address: [address] [address] Performed By: #### 5 7021-8 #### [facility] CLIA [id number] [place] Lymphocytes/100 WBC (Bld) 40.3 % Normal [facility] Comment on above: Order Comment: Speci men Type: BLOOD SPECIMEN Ordering Facility: [facility] Address: [address] [address] Performed By: #### 5 7021-8 #### [facility] CLIA [id number] [address] [place] [address] [place] MCH (RBC) [Entitic mass] 30.4 pg Normal 26.0-34.0 [facility] Comment on above: Order Comment: Speci men Type: BLOOD SPECIMEN Ordering Facility: [facility] Address: [address] Performed By: #### 5 7021-8 #### [facility] CLIA [id number] [place] MCHC (RBC) [Mass/Vol] 32.9 g/dL Normal 30.5-36.0 [facility] Comment on above: Order Comment: Speci men Type: BLOOD SPECIMEN Ordering Facility: [facility] Address: [address] Performed By: #### 5 7021-8 #### [facility] CLIA [id number] [address] [place] [address] [place] MCV (RBC) [Entitic vol] 92.2 fL Normal 80.0-100.0 [facility] Comment on above: Order Comment: Speci men Type: BLOOD SPECIMEN Ordering Facility: [facility] Address: [address] [address] Performed By: #### 5 7021-8 #### [facility] IA [id number] [address] [place] [address] [place] Monocytes (Bld) [#/Vol] 0.59 10*3/uL Normal <0.87 [facility] Comment on above: Order Comment: Speci men Type: BLOOD SPECIMEN Ordering Facility: [facility] Address: [address] [address] Performed By: #### 5 7021-8 #### [facility] IA [id number] [address] [place] [address] [place] Monocytes/100 WBC (Bld) 6.7 % Normal [facility] Comment on above: Order Comment: Speci men Type: BLOOD SPECIMEN Ordering Facility: [facility] Address: [address] [place] [address] Performed By: #### 5 7021-8 #### [facility] IA [id number] [address] [place] [address] [place] Neutrophils (Bld) [#/Vol] 4.51 10*3/uL Normal 1.45-7.50 [facility] Comment on above: Order Comment: Speci men Type: BLOOD SPECIMEN Ordering Facility: [facility] Address: [address] [address] Performed By: #### 5 7021-8 #### [facility] IA [id number] [address] [place] [address] [place] Neutrophils/100 WBC (Bld) 51.4 % Normal [facility] Comment on above: Order Comment: Speci men Type: BLOOD SPECIMEN Ordering Facility: [facility] Address: [address] Performed By: #### 5 7021-8 #### [facility] IA [id number] [address] [place] [address] [place] Nucleated RBC (Bld) [#/Vol] 10*3/uL Normal <0.01 [facility] Comment on above: Order Comment: Speci men Type: BLOOD SPECIMEN Ordering Facility: [facility] Address: [address] Performed By: #### 5 7021-8 #### [facility] IA [id number] [address] [place] [address] [place] Nucleated RBC/100 WBC (Bld) [Ratio] 0.0 /100 WBC Normal [facility] Comment on above: Order Comment: Speci men Type: BLOOD SPECIMEN Ordering Facility: [facility] Address: [address] [address] Performed By: #### 5 7021-8 #### [facility] IA [id number] [address] [place] [address] [place] Platelet mean volume (Bld) [Entitic vol] 9.9 fL Normal 9.0-12.7 [facility] Comment on above: Order Comment: Speci men Type: BLOOD SPECIMEN Ordering Facility: [facility] Address: [address] Performed By: #### 5 7021-8 #### [facility] IA [id number] [address] [facility] [place] [address] [place] Platelets (Bld) [#/Vol] 259 10*3/uL Normal 150-400 [facility] Comment on above: Order Comment: Speci men Type: BLOOD SPECIMEN Ordering Facility: [facility] Address: [address] Performed By: #### 5 7021-8 #### [facility] IA [id number] [address] [facility] [place] [address] [place] RBC (Bld) [#/Vol] 4.61 10*6/uL Normal 3.90-5.20 [facility] Comment on above: Order Comment: Speci men Type: BLOOD SPECIMEN Ordering Facility: [facility] Address: [address] [address] Performed By: #### 5 7021-8 #### [facility] CLIA [id number] [address] [place], [place] [address] [place] [address] OF [facility] WBC (Bld) [#/Vol] 8.78 10*3/uL Normal 3.70-11.00 [facility] Comment on above: Order Comment: Speci men Type: BLOOD SPECIMEN Ordering Facility: [facility] Address: [address] [address] Performed By: #### 5 7021-8 #### [facility] CLIA [id number] [address] [facility] [place] [address] [place] [address] OF [facility] Basophils (Bld) [#/Vol] 0.04 10*3/uL <0.11 k/uL [facility] Basophils/100 WBC (Bld) 0.5 % [facility] Differential cell count method Nom (Bld) Auto [facility] Eosinophils (Bld) [#/Vol] 0.07 10*3/uL <0.46 k/uL [facility] Eosinophils/100 WBC (Bld) 0.8 % [facility] Erythrocyte distribution width (RBC) [Ratio] 12.5 % 11.5 - 15.0 % [facility] Hematocrit (Bld) [Volume fraction] 42.5 % 36.0 - 46.0 % [facility] Hemoglobin (Bld) [Mass/Vol] 14.0 g/dL 11.5 - 15.5 g/dL [facility] Immature granulocytes (Bld) [#/Vol] 0.03 10*3/uL <0.10 k/uL [facility] Immature granulocytes/100 WBC (Bld) 0.3 % [facility] Lymphocytes (Bld) [#/Vol] 3.54 10*3/uL 1.00 - 4.00 k/uL [facility] Lymphocytes/100 WBC (Bld) 40.3 % [facility] MCH (RBC) [Entitic mass] 30.4 pg 26.0 - 34.0 pg [facility] MCHC (RBC) [Mass/Vol] 32.9 g/dL 30.5 - 36.0 g/dL [facility] MCV (RBC) [Entitic vol] 92.2 fL 80.0 - 100.0 fL [facility] Monocytes (Bld) [#/Vol] 0.59 10*3/uL <0.87 k/uL [facility] Monocytes/100 WBC (Bld) 6.7 % [facility] Neutrophils (Bld) [#/Vol] 4.51 10*3/uL 1.45 - 7.50 k/uL [facility] Neutrophils/100 WBC (Bld) 51.4 % [facility] Nucleated RBC (Bld) [#/Vol] <0.01 k/uL [facility] Nucleated RBC/100 WBC (Bld) [Ratio] 0.0 /100 WBC [facility] Platelet mean volume (Bld) [Entitic vol] 9.9 fL 9.0 - 12.7 fL [facility] Platelets (Bld) [#/Vol] 259 10*3/uL 150 - 400 k/uL [facility] RBC (Bld) [#/Vol] 4.61 10*6/uL 3.90 - 5.2 0 m/uL [facility] WBC (Bld) [#/Vol] 8.78 10*3/uL 3.70 - 11.00 k/uL [facility] CREATININE Don 06-05-2022 Creatinine [Mass/Vol] 0.87 mg/dL Normal 0.58-0.96 [facility] Comment on above: Order Comment: Iris martinez Type: BLOOD SPECIMEN Ordering Facility: [facility] Address: [address] [phone] Performed By: #### A NAIFR #### [facility] CLIA [id number] [address] [facility] [address] ESTIMATED GLOMERULAR FILTRATION RATE 93 mL/min/1.73m??? Normal >=60 [facility] Comment on above: Order Comment: Iris martinez Type: BLOOD SPECIMEN Ordering Facility: [facility] Address: [address] [phone] Result Comment: Jesica mated Glomerular Filtration Rate (eGFR) is calculated using the 2020 CKD-EPI creatinine equation. This equation utilizes serum creatinine, sex, and age as parameters. The creatinine assay has traceable calibration to isotope dilution-mass spectrometry. Refer to KDIGO guidelines for clinical interpretation. In patients with unstable renal function, e.g. those with acute kidney injury, the eGFR may not accurately reflect actual GFR. Performed By: #### A NAIFR #### [facility] CLIA [id number] [address] [place] [address] [place] Creatinine [Mass/Vol] 0.87 mg/dL 0.58 - 0.96 mg/dL [facility] Estimated Glomerular Filtration Rate 93 mL/min/1.73m >=60 mL/min/1.73 m [facility] CRP SerPl-mCncon 06-05-2022 CRP [Mass/Vol] mg/L Normal <0.9 [facility] Comment on above: Order Comment: Iris martinez Type: BLOOD SPECIMEN Ordering Facility: [facility] Address: [address] [place] [address] Performed By: #### A NAIFR #### [facility] CLIA [id number] [facility] [address] Centromere Ab IF Ql (S)on Centromere Ab Qn (S) <0.2 Normal <1.0 [facility] Comment on above: Order Comment: Iris martinez Type: BLOOD SPECIMEN Ordering Facility: [facility] Address: [address] [place] [address] Result Comment: Anti -centromere antibody is used as in aid in diagnosis of systemic sclerosis. Clinical correlation is required. Test Methodology: Multiplex flow immunoassay. Performed By: #### 5 1775-5, 67335-5, 29290-7, 78800-0, 81285-6, 19502-3, 13937-8, 48195-7 #### [facility] CLIA [id number] [facility] [address] OF [facility] CENTROMERE AB QUAL Negative Normal Negative [facility] Comment on above: Order Comment: Iris martinez Type: BLOOD SPECIMEN Ordering Facility: [facility] Address: [address] [place] [address] Performed By: #### 5 5-5, 34845-1, 85765-9, 91900-0, 52260-8, 17783-5, 11257-5, 20032-4 #### [facility] CLIA [id number] [address] [place] [address] [place] Chromatin Ab Qnon 06-05-2022 CHROMATIN AB QUAL Negative Normal Negative [facility] Comment on above: Order Comment: Speci men Type: BLOOD SPECIMEN Ordering Facility: [facility] Address: [address] [place] [address] Performed By: #### 5 1774-5, 16455-1, 26039-9, 98435-6, 36831-7, 36019-6, 58316-5, 52690-6 #### [facility] CLIA [id number] [address] [place] [address] [place] Chromatin Ab SerPl-aCncon Chromatin Ab Qn <0.2 Normal <1.0 [facility] Comment on above: Order Comment: Speci men Type: BLOOD SPECIMEN Ordering Facility: [facility] Address: [address] [place] [address] Result Comment: Test Methodology: Multiplex flow immunoassay. Performed By: #### 5 5-5, 97922-1, 01950-2, 35034-9, 10628-4, 34744-1, 21672-3, 67227-6 #### [facility] CLIA [id number] [address] [place] [address] [place] BHAVIK Jo1 Ab Ser-aCncon 2022 Arianna-1 extractable nuclear Ab Qn (S) <0.2 Normal <1.0 [facility] Comment on above: Order Comment: Speci men Type: BLOOD SPECIMEN Ordering Facility: [facility] Address: [address] [place] [address] Performed By: #### 5 1774-5, 10438-4, 09757-0, 79099-3, 31460-8, 66588-8, 57771-3, 45756-0 #### [facility] CLIA [id number] [address] [place] [address] BHAVIK [employer]TE[employer] Ab Ser-aCncon 2022 Ribonucleoprotein extractable nuclear Ab Qn (S) <0.2 Normal <1.0 [facility] Comment on above: Order Comment: Speci men Type: BLOOD SPECIMEN Ordering Facility: [facility] Address: [address] [place] [address] Performed By: #### 5 5-5, 92311-7, 57400-3, 19731-7, 18252-8, 12798-0, 15259-7, 17100-0 #### [facility] CLIA [id number] [address] [place] [address] [place] Performed By: #### A NAIFR #### [facility] CLIA [id number] [address] [place] [address] [place] BHAVIK SM IgG Ser-aCncon 2022 Alfaro extractable nuclear IgG Qn (S) <0.2 Normal <1.0 [facility] Comment on above: Order Comment: Speci men Type: BLOOD SPECIMEN Ordering Facility: [facility] Address: [address] [place] [address] Performed By: #### 5 5-5, 64068-3, 72869-2, 66891-0, 38997-4, 75037-8, 87716-9, 66236-2 #### [facility] CLIA [id number] [address] [place] [address] [place] BHAVIK SS-A Ab Ser-aCncon 06-05 Sjogrens syndrome-A extractable nuclear Ab Qn (S) <0.2 Normal <1.0 [facility] Comment on above: Order Comment: Speci men Type: BLOOD SPECIMEN Ordering Facility: [facility] Address: [address] [place] [address] Result Comment: Test Methodology: Multiplex flow immunoassay. Performed By: #### A NAIFR #### [facility] IA [id number] [address] [place] [address] [place] BHAVIK SS-B Ab Ser-aCncon 06-05 Sjogrens syndrome-B extractable nuclear Ab Qn (S) <0.2 Normal <1.0 [facility] Comment on above: Order Comment: Speci men Type: BLOOD SPECIMEN Ordering Facility: [facility] Address: [address] [place] [address] Result Comment: Anti -SSB (anti-La) antibody is used as an aid in diagnosis of a variety of systemic autoimmune diseases, especially for Sjogren's syndrome and systemic lupus erythematosus. Clinical correlation is required. Test Methodology: Multiplex flow immunoassay. Performed By: #### 5 1775-5, 62848-1, 93931-8, 80122-2, 39310-4, 66424-7, 32220-7, 66445-6 #### [facility] CLIA [id number] [address] [place] [address] [place] ESR Westergren method (Bld) [Velocity]on 06-05-2022 ESR (Bld) [Velocity] 5 mm/h 0 - 20 mm/hr [facility] ESR (Bld) [Velocity] 5 mm/h Normal 0-20 [facility] Comment on above: Order Comment: Yovanyi men Type: BLOOD SPECIMEN Ordering Facility: [facility] Address: [address] [place] [address] Performed By: #### 4 537-7 #### [facility] CLIA [id number] [address] [place] [address] [place] Hepatic function 2000 panelo n 06-05-2022 Albumin [Mass/Vol] 4.1 g/dL Normal 3.9-4.9 [facility] Comment on above: Order Comment: Speci men Type: BLOOD SPECIMEN Ordering Facility: [facility] Address: [address] [place] [address], [place] Performed By: #### A NAIFR #### [facility] CLIA [id number] [address] [place] ALP [Catalytic activity/Vol] 44 U/L Normal 34-123 [facility] Comment on above: Order Comment: Speci men Type: BLOOD SPECIMEN Ordering Facility: [facility] Address: [address] [place] [address] Performed By: #### A NAIFR #### [facility] CLIA [id number] [address] [place] [address] [place] ALT [Catalytic activity/Vol] 10 U/L Normal 7-38 [facility] Comment on above: Order Comment: Speci men Type: BLOOD SPECIMEN Ordering Facility: [facility] Address: [address] Performed By: #### A NAIFR #### [facility] CLIA [id number] [address] [place] AST [Catalytic activity/Vol] 15 U/L Normal 13-35 [facility] Comment on above: Order Comment: Speci men Type: BLOOD SPECIMEN Ordering Facility: [facility] Address: [address] [place], [place] Performed By: #### A NAIFR #### [facility] CLIA [id number] [address] [place] [address] [place] Bilirubin [Mass/Vol] 0.2 mg/dL Normal 0.2-1.3 [facility] Comment on above: Order Comment: Speci men Type: BLOOD SPECIMEN Ordering Facility: [facility] Address: [address] [place] [id number] Performed By: #### A NAIFR #### [facility] CLIA [id number] [address] [place] [address] [place] Bilirubin.conjugated [Mass/Vol] mg/dL Normal <0.2 [facility] Comment on above: Order Comment: Iris martinez Type: BLOOD SPECIMEN Ordering Facility: [facility] Address: [address] [place] [address] Performed By: #### A NAIFR #### [facility] CLIA [id number] [address] [place] [address] [place] Protein [Mass/Vol] 7.1 g/dL Normal 6.3-8.0 [facility] Comment on above: Order Comment: Iris martinez Type: BLOOD SPECIMEN Ordering Facility: [facility] Address: [address] [place] [address] Performed By: #### A NAIFR #### [facility] CLIA [id number] [address] [place] [address] [place] Albumin [Mass/Vol] 4.1 g/dL 3.9 - 4.9 g/dL [facility] ALP [Catalytic activity/Vol] 44 U/L 34 - 123 U/L [facility] ALT [Catalytic activity/Vol] 10 U/L 7 - 38 U/L [facility] AST [Catalytic activity/Vol] 15 U/L 13 - 35 U/L [facility] Bilirubin [Mass/Vol] 0.2 mg/dL 0.2 - 1 .3 mg/dL [facility] Bilirubin.conjugated [Mass/Vol] <0.2 mg/dL [facility] Protein [Mass/Vol] 7.1 g/dL 6.3 - 8.0 g/dL [facility] Arianna-1 extractable nuclear Ab Qn (S)on 06-05-2022 ARIANNA 1 ANTIBODY QUAL Negative Normal Negative [facility] Comment on above: Order Comment: Iris martinez Type: BLOOD SPECIMEN Ordering Facility: [facility] Address: [address] [place] [address] Result Comment: Anti -ARIANNA-1 antibody is used as an aid in diagnosis of polymyositis and dermatomyositis especially with pulmonary involvement. A negative result cannot rule out polymyositis or dermatomyositis. Clinical correlation is required. Test Methodology: Multiplex flow immunoassay. Performed By: #### 5 1775-5, 07633-0, 59394-5, 12727-3, 78746-7, 04035-6, 15217-1, 32196-8 #### [facility] CLIA [id number] [address] [place] [address] [place] Ribonucleoprotein extractabl e nuclear Ab Qn (S)on 06-05-2022 ANTI-MAINTENANCE PLANNER QUAL Negative Normal Negative [facility] Comment on above: Order Comment: Iris martinez Type: BLOOD SPECIMEN Ordering Facility: [facility] Address: [address] [place] [address] Performed By: #### A NAIFR #### [facility] CLIA [id number] [address] [place] [address] [place] RIBOSOMAL MAINTENANCE PLANNER QUAL Negative Normal Negative [facility] Comment on above: Order Comment: Iris martinez Type: BLOOD SPECIMEN Ordering Facility: [facility] Address: [address] [place] [address] Result Comment: Anti -Ribosomal RNA (Ribosomal P) antibody is used as an aid in diagnosis of systemic autoimmune diseases especially systemic lupus erythematosus and mixed connective tissue disease. Cross-reactivity with Anti-alfaro antibody is not uncommon. Clinical correlation is required. Test Methodology: Multiplex flow immunoassay. Performed By: #### 5 5-5, 59092-6, 63260-7, 52847-3, 43790-8, 18022-5, 96593-4, 12850-0 #### [facility] CLIA [id number] [address] [place] [address] [place] SCL-70 extractable nuclear I gG IA Qn (S)on 06-05-2022 SCLERODERMA AB QUAL Positive Abnormal Negative [facility] Comment on above: Order Comment: Iris martinez Type: BLOOD SPECIMEN Ordering Facility: [facility] Address: [address] [place] [address] Performed By: #### 5 1775-5, 04694-8, 90172-1, 84768-4, 52842-6, 45908-7, 50464-7, 09871-6 #### [facility] CLIA [id number] [address] [place] [address] [place] SCLERODERMA IGG AB 2.5 AI High <1.0 [facility] Comment on above: Order Comment: Speci men Type: BLOOD SPECIMEN Ordering Facility: [facility] Address: [address] [place] [address] Result Comment: Test Methodology: Multiplex flow immunoassay. Performed By: #### 5 1775-5, 16711-6, 47223-7, 74212-7, 97607-0, 29262-4, 62781-2, 30382-2 #### [facility] CLIA [id number] [address] [place] [address] [place] Sjogrens syndrome-A extracta ble nuclear Ab Qn (S)on 06-05-2022 SSA ANTIBODY QUAL Negative Normal Negative [facility] Comment on above: Order Comment: Speci men Type: BLOOD SPECIMEN Ordering Facility: [facility] Address: [address] [place] [address] Performed By: #### A NAIFR #### [facility] CLIA [id number] [address] [place] [address] [place] Sjogrens syndrome-B extracta ble nuclear Ab Qn (S)on 06-05-2022 SSB ANTIBODY QUAL Negative Normal Negative [facility] Comment on above: Order Comment: Speci men Type: BLOOD SPECIMEN Ordering Facility: [facility] Address: [address] [place] [address] Performed By: #### 5 1775-5, 94931-0, 35706-2, 33263-0, 70536-1, 89390-8, 39695-5, 98500-9 #### [facility] CLIA [id number] [address] [place] [address] [place] Alfaro extractable nuclear Ig G Qn (S)on 06-05-2022 SM ANTIBODY QUAL Negative Normal Negative [facility] Comment on above: Order Comment: Speci men Type: BLOOD SPECIMEN Ordering Facility: [facility] Address: [address] [place] [address] [place] [address] Result Comment: Anti -Sm (Alfaro) antibody is used as an aid in diagnosis of systemic lupus erythematosus and its presence is associated with renal disease. A negative result cannot rule out systemic lupus erythematosus. Clinical correlation is required. Test Methodology: Multiplex flow immunoassay. Performed By: #### 5 1775-5, 68629-3, 44360-9, 52720-2, 17651-7, 99225-4, 11627-8, 87562-1 #### [facility] CLIA [id number] [address] [facility] [address] [place] [id number] [place] XR SCOLIOSIS PA STAND/LAT 2V on 05-29-2022 [facility] XR SCOLIOSIS PA STAND/LAT 2V on 05-24-2022 [facility] No Panel Informationon 05-18 [facility] EMG(NEURO/NI)on 03-19-2022 [facility] Vital Signs Date Time Vital Sign Value Performing Clinician Faci lity 08-12-2024 09:41-0400 Body mass index (BMI) [Ratio] 25.85 kg/m2 Antolin June DO Work Phone: [facility] 08-12-2024 09:41-0400 Body temperature 98.1 [degF] Antolin June DO Work Phone: [facility] 08-12-2024 09:41-0400 Body weight 73.75 kg Antolin June DO Work Phone: [facility] 08-12-2024 09:41-0400 Diastolic blood pressure 71 mm[Hg] Antolin June DO Work Phone: [facility] 08-12-2024 09:41-0400 Heart rate 122 /min Antolin June DO Work Phone: [facility] 08-12-2024 09:41-0400 Respiratory rate 12 /min Antolin June DO Work Phone: [facility] 08-12-2024 09:41-0400 SaO2% (BldA) [Mass fraction] 98 % Antolin June DO Work Phone: [facility] 08-12-2024 09:41-0400 Systolic blood pressure 100 mm[Hg] Antolin June DO Work Phone: [facility] 08-10-2024 09:23-0400 Body mass index (BMI) [Ratio] 26.23 kg/m2 Antolin June DO Work Phone: [facility] 08-10-2024 09:23-0400 Body temperature 97 [degF] Antolin June DO Work Phone: [facility] 08-10-2024 09:23-0400 Body weight 74.84 kg Antolin June DO Work Phone: [facility] 08-10-2024 09:23-0400 Diastolic blood pressure 60 mm[Hg] Antolin June DO Work Phone: [facility] 08-10-2024 09:23-0400 Heart rate 86 /min Antolin June DO Work Phone: [facility] 08-10-2024 09:23-0400 Respiratory rate 12 /min Antolin June DO Work Phone: [facility] 08-10-2024 09:23-0400 Systolic blood pressure 96 mm[Hg] Antolin June DO Work Phone: [facility] 08-07-2024 15:57-0400 Body mass index (BMI) [Ratio] 26.11 kg/m2 Alicja Belcherer PA-C Work Phone: [facility] 08-07-2024 15:57-0400 Body temperature 98.71 [degF] Alicja Belcherer PA-C Work Phone: [facility] 08-07-2024 15:57-0400 Body weight 74.5 kg Alicja Belcherer PA-C Work Phone: [facility] 08-07-2024 15:57-0400 Diastolic blood pressure 71 mm[Hg] Alicja Belcherer PA-C Work Phone: [facility] 08-07-2024 15:57-0400 Heart rate 111 /min Alicja Queener PA-C Work Phone: [facility] 08-07-2024 15:57-0400 SaO2% (BldA) [Mass fraction] 100 % Alicja Belcherer PA-C Work Phone: [facility] 08-07-2024 15:57-0400 Systolic blood pressure 94 mm[Hg] Alicja Belcherer PA-C Work Phone: [facility] 07-21-2024 13:41-0400 Body height 168.9 cm Monica Kalka PA-C Work Phone: [facility] 07-21-2024 13:41-0400 Body mass index (BMI) [Ratio] 25.91 kg/m2 Monica Kalka PA-C Work Phone: [facility] 07-21-2024 13:41-0400 Body weight 73.94 kg Monica Kalka PA-C Work Phone: [facility] 07-21-2024 13:41-0400 Diastolic blood pressure 68 mm[Hg] Monica Kalka PA-C Work Phone: [facility] 07-21-2024 13:41-0400 Heart rate 90 /min Monica Kalka PA-C Work Phone: [facility] 07-21-2024 13:41-0400 SaO2% (BldA) [Mass fraction] 100 % Monica Kalka PA-C Work Phone: [facility] 07-21-2024 13:41-0400 Systolic blood pressure 110 mm[Hg] Monica Kalka PA-C Work Phone: [facility] 06-23-2024 14:07-0500 Body mass index (BMI) [Ratio] 23.82 kg/m2 Kae Shepherd APRN.CNP Work Phone: [facility] 06-23-2024 14:07-0500 Body weight 68.04 kg Kae Shepherd APRN.TEMPERATURE CONTROL INSPECTOR Work Phone: [facility] 06-23-2024 14:07-0500 Diastolic blood pressure 78 mm[Hg] Kae Shepherd APRN.TEMPERATURE CONTROL INSPECTOR Work Phone: [facility] 06-23-2024 14:07-0500 Heart rate 114 /min Kae Shepherd APRN.TEMPERATURE CONTROL INSPECTOR Work Phone: [facility] 06-23-2024 14:07-0500 SaO2% (BldA) [Mass fraction] 98 % Kae Shepherd APRN.TEMPERATURE CONTROL INSPECTOR Work Phone: [facility] 06-23-2024 14:07-0500 Systolic blood pressure 113 mm[Hg] Kae Shepherd APRN.TEMPERATURE CONTROL INSPECTOR Work Phone: [facility] 06-19-2024 14:32-0500 Body mass index (BMI) [Ratio] 23.82 kg/m2 Kae Shepherd APRN.TEMPERATURE CONTROL INSPECTOR Work Phone: [facility] 06-19-2024 14:32-0500 Body weight 68.04 kg Kae Shepherd APRN.TEMPERATURE CONTROL INSPECTOR Work Phone: [facility] 06-19-2024 14:32-0500 Diastolic blood pressure 74 mm[Hg] Kae Shepherd APRN.TEMPERATURE CONTROL INSPECTOR Work Phone: [facility] 06-19-2024 14:32-0500 Heart rate 113 /min Kae Shepherd APRN.TEMPERATURE CONTROL INSPECTOR Work Phone: [facility] 06-19-2024 14:32-0500 Systolic blood pressure 105 mm[Hg] Kae Shepherd APRN.TEMPERATURE CONTROL INSPECTOR Work Phone: [facility] 05-26-2024 14:43-0500 Body mass index (BMI) [Ratio] 24.46 kg/m2 Herve Madrid PA-C Work Phone: [facility] 05-26-2024 14:43-0500 Body weight 69.85 kg Herve Madrid PA-C Work Phone: [facility] 05-26-2024 14:43-0500 Diastolic blood pressure 82 mm[Hg] Herve Madrid PA-C Work Phone: [facility] 05-26-2024 14:43-0500 Heart rate 124 /min Herve Bogner PA-C Work Phone: [facility] 05-26-2024 14:43-0500 Respiratory rate 16 /min Herve Bogner PA-C Work Phone: [facility] 05-26-2024 14:43-0500 SaO2% (BldA) [Mass fraction] 99 % Herve Bogner PA-C Work Phone: [facility] 05-26-2024 14:43-0500 Systolic blood pressure 108 mm[Hg] Herve Bogner PA-C Work Phone: [facility] 05-07-2024 15:57-0500 Body mass index (BMI) [Ratio] 24.47 kg/m2 Alicjagigi Belcherer PA-C Work Phone: [facility] 05-07-2024 15:57-0500 Body weight 69.9 kg Alicjagigi Belcherer PA-C Work Phone: [facility] 05-07-2024 15:57-0500 Diastolic blood pressure 81 mm[Hg] Alicjagigi Belcherer PA-C Work Phone: [facility] 05-07-2024 15:57-0500 Heart rate 106 /min Alicjagigi Belcherer PA-C Work Phone: [facility] 05-07-2024 15:57-0500 SaO2% (BldA) [Mass fraction] 99 % Alicjagigi Belcherer PA-C Work Phone: [facility] 05-07-2024 15:57-0500 Systolic blood pressure 121 mm[Hg] Alicjagigi Belcherer PA-C Work Phone: [facility] 05-05-2024 14:40-0500 Body mass index (BMI) [Ratio] 24.3 kg/m2 Herve Bogner PA-C Work Phone: [facility] 05-05-2024 14:40-0500 Body weight 69.4 kg Herve Bogner PA-C Work Phone: [facility] 05-05-2024 14:40-0500 Diastolic blood pressure 82 mm[Hg] Herve Bogner PA-C Work Phone: [facility] 05-05-2024 14:40-0500 Heart rate 116 /min Herve Bogner PA-C Work Phone: [facility] 05-05-2024 14:40-0500 Respiratory rate 16 /min Herve Bogner PA-C Work Phone: [facility] 05-05-2024 14:40-0500 SaO2% (BldA) [Mass fraction] 98 % Herve Bogner PA-C Work Phone: [facility] 05-05-2024 14:40-0500 Systolic blood pressure 112 mm[Hg] Herve Bogner PA-C Work Phone: [facility] 05-01-2024 14:44-0500 Body height 169 cm Antolin June DO Work Phone: [facility] 05-01-2024 14:44-0500 Body mass index (BMI) [Ratio] 24.3 kg/m2 Antolin June DO Work Phone: [facility] 05-01-2024 14:44-0500 Body temperature 97.11 [degF] Antolin June DO Work Phone: [facility] 05-01-2024 14:44-0500 Body weight 69.4 kg Antolin June DO Work Phone: [facility] 05-01-2024 14:44-0500 Diastolic blood pressure 60 mm[Hg] Antolin June DO Work Phone: [facility] 05-01-2024 14:44-0500 Heart rate 84 /min Antolin June DO Work Phone: [facility] 05-01-2024 14:44-0500 Respiratory rate 12 /min Antolin June DO Work Phone: [facility] 05-01-2024 14:44-0500 Systolic blood pressure 90 mm[Hg] Antolin June DO Work Phone: [facility] 04-15-2024 14:38-0500 Body height 167.6 cm Monica Kalka PA-C Work Phone: [facility] 04-15-2024 14:38-0500 Body mass index (BMI) [Ratio] 24.53 kg/m2 Monica Kalka PA-C Work Phone: [facility] 04-15-2024 14:38-0500 Body weight 68.95 kg Monica Kalka PA-C Work Phone: [facility] 04-15-2024 14:38-0500 Diastolic blood pressure 70 mm[Hg] Monica Kalka PA-C Work Phone: [facility] 04-15-2024 14:38-0500 Heart rate 110 /min Monica Kalka PA-C Work Phone: [facility] 04-15-2024 14:38-0500 Systolic blood pressure 104 mm[Hg] Monica Kalka PA-C Work Phone: [facility] 04-09-2024 14:11-0500 Body mass index (BMI) [Ratio] 24.48 kg/m2 Vaibhav Culp MD Work Phone: [facility] 04-09-2024 14:11-0500 Body weight 68.8 kg Vaibhav Clup MD Work Phone: [facility] 04-09-2024 14:11-0500 Heart rate 109 /min Vaibhav Culp MD Work Phone: [facility] 04-09-2024 14:11-0500 SaO2% (BldA) [Mass fraction] 98 % Vaibhav Culp MD Work Phone: [facility] 01-30-2024 15:13-0400 Body mass index (BMI) [Ratio] 23.77 kg/m2 Alicja Belcherer PA-C Work Phone: [facility] 01-30-2024 15:13-0400 Body weight 66.8 kg Alicja Belcherer PA-C Work Phone: [facility] 01-30-2024 15:13-0400 Diastolic blood pressure 71 mm[Hg] Alicja Belcherer PA-C Work Phone: [facility] 01-30-2024 15:13-0400 Heart rate 106 /min Alicja West PA-C Work Phone: [facility] 01-30-2024 15:13-0400 SaO2% (BldA) [Mass fraction] 100 % Alicja West PA-C Work Phone: [facility] 01-30-2024 15:13-0400 Systolic blood pressure 105 mm[Hg] Alicja Belcherer PA-C Work Phone: [facility] 11-06-2023 15:37-0400 Diastolic blood pressure 72 mm[Hg] Ashwini Haagen CLOTHESPIN DRIER OPERATOR.TEMPERATURE CONTROL INSPECTOR Work Phone: [facility] 11-06-2023 15:37-0400 Heart rate 114 /min Ashwini Haagen [employer]OTHESPIN DRIER OPERATOR.TEMPERATURE CONTROL INSPECTOR Work Phone: [facility] 11-06-2023 15:37-0400 Respiratory rate 16 /min Ashwini Haagen CLOTHESPIN DRIER OPERATOR.TEMPERATURE CONTROL INSPECTOR Work Phone: [facility] 11-06-2023 15:37-0400 SaO2% (BldA) [Mass fraction] 96 % Ashwini Haagen CLOTHESPIN DRIER OPERATOR.TEMPERATURE CONTROL INSPECTOR Work Phone: [facility] 11-06-2023 15:37-0400 Systolic blood pressure 100 mm[Hg] Ashwini Haagen CLOTHESPIN DRIER OPERATOR.TEMPERATURE CONTROL INSPECTOR Work Phone: [facility] 10-21-2023 12:01-0400 Body mass index (BMI) [Ratio] 23.95 kg/m2 Kym Ortiz CLOTHESPIN DRIER OPERATOR.TEMPERATURE CONTROL INSPECTOR Work Phone: [facility] 10-21-2023 12:01-0400 Body temperature 98.01 [degF] Kym Podlogar [employer]OTHESPIN DRIER OPERATOR.TEMPERATURE CONTROL INSPECTOR Work Phone: [facility] 10-21-2023 12:01-0400 Body weight 67.31 kg Kym Podlogar [employer]OTHESPIN DRIER OPERATOR.TEMPERATURE CONTROL INSPECTOR Work Phone: [facility] 10-21-2023 12:01-0400 Diastolic blood pressure 62 mm[Hg] Kym Podlogar [employer]OTHESPIN DRIER OPERATOR.TEMPERATURE CONTROL INSPECTOR Work Phone: [facility] 10-21-2023 12:01-0400 Heart rate 120 /min Kym Podlogar [employer]OTHESPIN DRIER OPERATOR.TEMPERATURE CONTROL INSPECTOR Work Phone: [facility] 10-21-2023 12:01-0400 Respiratory rate 16 /min Kym Podlogar CLOTHESPIN DRIER OPERATOR.TEMPERATURE CONTROL INSPECTOR Work Phone: [facility] 10-21-2023 12:01-0400 SaO2% (BldA) [Mass fraction] 95 % Kym Podlogar [employer]OTHESPIN DRIER OPERATOR.TEMPERATURE CONTROL INSPECTOR Work Phone: [facility] 10-21-2023 12:01-0400 Systolic blood pressure 88 mm[Hg] Kym Podlogar CLOTHESPIN DRIER OPERATOR.TEMPERATURE CONTROL INSPECTOR Work Phone: [facility] 10-11-2023 15:13-0400 Body mass index (BMI) [Ratio] 23.24 kg/m2 Arelis Suppan [employer]OTHESPIN DRIER OPERATOR.MEDICAL OFFICE ASST Work Phone: [facility] 10-11-2023 15:13-0400 Body temperature 98.71 [degF] Arelis Suppan CLOTHESPIN DRIER OPERATOR.MEDICAL OFFICE ASST Work Phone: [facility] 10-11-2023 15:13-0400 Body weight 65.32 kg Arelis Suppan [employer]OTHESPIN DRIER OPERATOR.MEDICAL OFFICE ASST Work Phone: [facility] 10-11-2023 15:13-0400 Diastolic blood pressure 54 mm[Hg] Arelis Suppan CLOTHESPIN DRIER OPERATOR.MEDICAL OFFICE ASST Work Phone: [facility] 10-11-2023 15:13-0400 Heart rate 111 /min Arelis Suppan [employer]OTHESPIN DRIER OPERATOR.MEDICAL OFFICE ASST Work Phone: [facility] 10-11-2023 15:13-0400 Respiratory rate 16 /min Arelis Suppan [employer]OTHESPIN DRIER OPERATOR.MEDICAL OFFICE ASST Work Phone: [facility] 10-11-2023 15:13-0400 SaO2% (BldA) [Mass fraction] 98 % Arelis Suppan [employer]OTHESPIN DRIER OPERATOR.MEDICAL OFFICE ASST Work Phone: [facility] 10-11-2023 15:13-0400 Systolic blood pressure 88 mm[Hg] Arelis Suppan CLOTHESPIN DRIER OPERATOR.MEDICAL OFFICE ASST Work Phone: [facility] 10-09-2023 15:24-0400 Body mass index (BMI) [Ratio] 22.9 kg/m2 Alicja Queener PA-C Work Phone: [facility] 10-09-2023 15:24-0400 Body weight 64.36 kg Alicja Queener PA-C Work Phone: [facility] 10-09-2023 15:24-0400 Diastolic blood pressure 68 mm[Hg] Alicja Queener PA-C Work Phone: [facility] 10-09-2023 15:24-0400 Heart rate 108 /min Alicja Queener PA-C Work Phone: [facility] 10-09-2023 15:24-0400 Respiratory rate 18 /min Alicja Queener PA-C Work Phone: [facility] 10-09-2023 15:24-0400 SaO2% (BldA) [Mass fraction] 99 % Alicja Queener PA-C Work Phone: [facility] 10-09-2023 15:24-0400 Systolic blood pressure 103 mm[Hg] Alicja Queener PA-C Work Phone: [facility] 08-06-2023 14:21-0400 Body weight 64.23 kg Alicja Queener PA-C Work Phone: [facility] 08-06-2023 14:21-0400 Diastolic blood pressure 64 mm[Hg] Alicja Queener PA-C Work Phone: [facility] 08-06-2023 14:21-0400 Heart rate 104 /min Alicja West PA-C Work Phone: [facility] 08-06-2023 14:21-0400 Respiratory rate 16 /min Alicaj West PA-C Work Phone: [facility] 08-06-2023 14:21-0400 SaO2% (BldA) [Mass fraction] 96 % Alicja West PA-C Work Phone: [facility] 08-06-2023 14:21-0400 Systolic blood pressure 118 mm[Hg] Alicja West PA-C Work Phone: [facility] 07-08-2023 10:35-0400 Diastolic blood pressure 76 mm[Hg] Mahad Izaguirre Jr., MD Work Phone: [facility] 07-08-2023 10:35-0400 Heart rate 126 /min Mahad Izaguirre Jr., MD Work Phone: [facility] 07-08-2023 10:35-0400 Respiratory rate 16 /min Mahad Izaguirre Jr., MD Work Phone: [facility] 07-08-2023 10:35-0400 SaO2% (BldA) [Mass fraction] 98 % Mahad Izaguirre Jr., MD Work Phone: [facility] 07-08-2023 10:35-0400 Systolic blood pressure 110 mm[Hg] Mahad Izaguirre Jr., MD Work Phone: [facility] 06-26-2023 15:09-0500 Body height 167.6 cm Negrito Damico PA-C Work Phone: [facility] 06-26-2023 15:09-0500 Body weight 62 kg Negrito Damico PA-C Work Phone: [facility] 06-26-2023 15:09-0500 Diastolic blood pressure 77 mm[Hg] Negrito Damico PA-C Work Phone: [facility] 06-26-2023 15:09-0500 Heart rate 111 /min Negrito Damico PA-C Work Phone: [facility] 06-26-2023 15:09-0500 SaO2% (BldA) [Mass fraction] 100 % Negrito Damico PA-C Work Phone: [facility] 06-26-2023 15:09-0500 Systolic blood pressure 103 mm[Hg] Negrito Damico PA-C Work Phone: [facility] 06-14-2023 13:36-0500 Diastolic blood pressure 80 mm[Hg] Lalit Dee MD Work Phone: [facility] 06-14-2023 13:36-0500 Heart rate 132 /min Lalit Dee MD Work Phone: [facility] 06-14-2023 13:36-0500 Respiratory rate 16 /min Lalti Dee MD Work Phone: [facility] 06-14-2023 13:36-0500 SaO2% (BldA) [Mass fraction] 99 % Lalit Dee MD Work Phone: [facility] 06-14-2023 13:36-0500 Systolic blood pressure 104 mm[Hg] Lalit Dee MD Work Phone: [facility] 06-03-2023 14:11-0500 Body weight 62.41 kg Mahad Izaguirre Jr., MD Work Phone: [facility] 06-03-2023 14:11-0500 Diastolic blood pressure 64 mm[Hg] Mahad Izaguirre Jr., MD Work Phone: [facility] 06-03-2023 14:11-0500 Heart rate 117 /min Mahad Izaguirre Jr., MD Work Phone: [facility] 06-03-2023 14:11-0500 Respiratory rate 16 /min Mahad Izaguirre Jr., MD Work Phone: [facility] 06-03-2023 14:11-0500 SaO2% (BldA) [Mass fraction] 97 % Mahad Izaguirre Jr., MD Work Phone: [facility] 06-03-2023 14:11-0500 Systolic blood pressure 110 mm[Hg] Mahad Izaguirre Jr., MD Work Phone: [facility] 08-27-2022 16:00-0400 Body height 167.6 cm Monica Fraire MD Work Phone: [facility] 08-27-2022 16:00-0400 Body weight 60.87 kg Monica Fraire MD Work Phone: [facility] 08-27-2022 16:00-0400 Diastolic blood pressure 60 mm[Hg] Monica Fraire MD Work Phone: [facility] 08-27-2022 16:00-0400 Heart rate 127 /min Monica Fraire MD Work Phone: [facility] 08-27-2022 16:00-0400 SaO2% (BldA) [Mass fraction] 99 % Monica Fraire MD Work Phone: [facility] 08-27-2022 16:00-0400 Systolic blood pressure 89 mm[Hg] Monica Fraire MD Work Phone: [facility] 06-05-2022 14:04-0500 Body weight 60.65 kg Rob Elliott MD Work Phone: [facility] 06-05-2022 14:04-0500 Diastolic blood pressure 84 mm[Hg] Rob Elliott MD Work Phone: [facility] 06-05-2022 14:04-0500 Heart rate 124 /min Rob Elliott MD Work Phone: [facility] 06-05-2022 14:04-0500 Respiratory rate 16 /min Rob Elliott MD Work Phone: [facility] 06-05-2022 14:04-0500 Systolic blood pressure 117 mm[Hg] Rob Elliott MD Work Phone: [facility] 05-31-2022 15:59-0500 Body height 167.6 cm Jamel Almeida MD Work Phone: [facility] 05-31-2022 15:59-0500 Body weight 62.01 kg Jamel Almeida MD Work Phone: [facility] 05-31-2022 15:59-0500 Diastolic blood pressure 76 mm[Hg] Jamel Almeida MD Work Phone: [facility] 05-31-2022 15:59-0500 Heart rate 92 /min Jamel Almeida MD Work Phone: [facility] 05-31-2022 15:59-0500 Systolic blood pressure 118 mm[Hg] Jamel Almeida MD Work Phone: [facility] 02-19-2022 10:26-0400 Body temperature 97 [degF] Antolin June DO Work Phone: [facility] 02-19-2022 10:26-0400 Body weight 59.88 kg Antolin June DO Work Phone: [facility] 02-19-2022 10:26-0400 Diastolic blood pressure 60 mm[Hg] Antolin June DO Work Phone: [facility] 02-19-2022 10:26-0400 Heart rate 80 /min Antolin June DO Work Phone: [facility] 02-19-2022 10:26-0400 Respiratory rate 12 /min Antolin June DO Work Phone: [facility] 02-19-2022 10:26-0400 Systolic blood pressure 90 mm[Hg] Antolin June DO Work Phone: [facility] Encounters Encounter Date Encounter Type Care Provider Facility Start: 10-23-2024 ambulatory Antolin Mejía y:[facility] Start: 09-24-2024 End: 09-25-2024 Telephone encounter Antolin June DO Work Phone: [facility] [place] Comment on above: Patient Question; Or ders Start: 09-16-2024 ambulatory Antolin Koon Facilit y:[facility] Start: 09-04-2024 End: 09-04-2024 Patient encounter procedure Antolin Cartwright June DO Work Phone: [facility] Comment on above: Fatty liver (Primary Dx); Foot pain, right; Myalgia; Segmental and somatic dysfunction of rib cage; Somatic dysfunction of thoracic region; Somatic dysfunction of pelvic region; Somatic dysfunction of spine affecting head region; Somatic dysfunction of cervical region; Somatic dysfunction of spine, lumbar Start: 09-04-2024 End: 09-04-2024 ambulatory ANTOLIN JUNE Facility:[facility] Start: 08-25-2024 End: 08-25-2024 Patient encounter procedure [facility] Comment on above: Chronic midline low back pain without sciatica (Primary Dx); Neck pain Start: 08-25-2024 End: 08-25-2024 ambulatory SHERRILL HENLEY Facility:[facility] Start: 08-24-2024 End: 08-24-2024 Refill Antolin Gabbie June DO Work Phone: [facility] Comment on above: Refill Request Start: 08-19-2024 End: 08-27-2024 Telephone encounter Antolin June DO Work Phone: [facility] Start: 08-17-2024 [facility] Start: 08-17-2024 End: 08-17-2024 ambulatory [facility] Facility:[facility] Start: 08-14-2024 ambulatory NATHALY ZUÑIGA [facility] ty:[facility] Start: 08-14-2024 End: 08-14-2024 Subsequent hospital visit by physician [facility] Work Phone: Radiology Comment on above: Abnormal CT scan, pe lvis [R93.5] Start: 08-14-2024 End: 08-14-2024 Telephone encounter Monica Hunt PA-C Work Phone: [facility] [place] Comment on above: Results patient freaking out about my chart message recieved on CT Start: 08-13-2024 End: 08-13-2024 Emergency department patient visit Antolin June Facility:[facility] Start: 08-13-2024 ambulatory ANTOLIN JUNE Facil ity:[facility] Start: 08-13-2024 End: 08-13-2024 Subsequent hospital visit by physician [facility] Comment on above: Dysuria [R30.0] Start: 08-12-2024 End: 08-13-2024 Follow-up encounter Antolin June DO Work Phone: [facility] Comment on above: Results Start: 08-12-2024 End: 08-12-2024 Patient encounter procedure Antolin June DO Work Phone: [facility] Comment on above: Dysuria (Primary Dx) ; Acute cystitis with hematuria; Nausea; Myalgia; Lower abdominal pain; Flank pain Start: 08-12-2024 End: 08-12-2024 ambulatory ANTOLIN JUNE Facility:[facility] Start: 08-10-2024 End: 08-10-2024 ambulatory ANTOLIN L JUNE Facility:[facility] Start: 08-10-2024 End: 08-10-2024 Patient encounter procedure Antolin June DO Work Phone: [facility] Comment on above: Dysuria (Primary Dx) ; Anxiety; Recurrent UTI (urinary tract infection) Start: 08-07-2024 End: 08-07-2024 ambulatory ANTOLIN L JUNE Facility:[facility] Start: 08-07-2024 End: 08-07-2024 Patient encounter procedure Alicja West PA-C Work Phone: Neurology Comment on above: Intractable chronic migraine without aura and without status migrainosus (Primary Dx) Start: 08-03-2024 End: 08-03-2024 ambulatory ANTOLIN L JUNE Facility:[facility] Start: 07-31-2024 End: 07-31-2024 ambulatory ANTOLIN L JUNE Facility:[facility] Start: 07-31-2024 End: 07-31-2024 Subsequent hospital visit by physician [facility] Comment on above: Elevated fecal calpr otectin [R19.5] Start: 07-21-2024 End: 07-21-2024 ambulatory ANTOLIN L JUNE Facility:[facility] Start: 07-21-2024 End: 07-21-2024 Patient encounter procedure Monica Hunt PA-C Work Phone: [facility] [place] Comment on above: Elevated fecal calpr otectin (Primary Dx); Change in bowel habits; Lower abdominal pain; Gastroesophageal reflux disease, unspecified whether esophagitis present Start: 07-20-2024 End: 07-20-2024 Refill Antolin L June DO Work Phone: [facility] [place] Comment on above: Refill Request Start: 07-17-2024 End: 07-17-2024 ambulatory Marie Waggoner Facility:[facility] Start: 07-16-2024 End: 07-16-2024 Follow-up encounter Antolin Johnsonrison DO Work Phone: [facility] [place] Start: 07-14-2024 End: 07-14-2024 ambulatory ANTOLIN L JUNE Facility:[facility] Start: 07-14-2024 End: 07-14-2024 Subsequent hospital visit by physician [facility] Emil Work Phone: Radiology Comment on above: Acute pain of right shoulder [M25.511] Localized enlarged l ymph nodes [R59.0] Start: 07-09-2024 End: 07-09-2024 Refill [facility]C [facility] Comment on above: Refill Request Start: 07-06-2024 Encounter for gynecological examination (general) (routine) without abnormal findings Diana Piña [facility] Start: 07-06-2024 End: 07-06-2024 ambulatory Antolin Johnsonrison Facility:[facility] Start: 07-06-2024 End: 07-06-2024 ambulatory Diana Piña Facility:[facility] Start: 07-02-2024 End: 07-06-2024 Telephone encounter Antolin Cartwright June DO Work Phone: [facility] [place] Comment on above: Patient Update; Rubia ent Question Start: 06-30-2024 End: 06-30-2024 ambulatory ANTOLIN JUNE Facility:[facility] Start: 06-30-2024 End: 06-30-2024 Patient encounter procedure Antolin Koon DO Work Phone: [facility] [place] Comment on above: Localized enlarged l ymph nodes (Primary Dx); Neck pain; Acute non-recurrent maxillary sinusitis; Acute pain of right shoulder; Chronic bilateral thoracic back pain; Depression, unspecified depression type; Fatigue, unspecified type; Vitamin D deficiency; Hypermobility arthralgia; Segmental and somatic dysfunction of rib cage; Somatic dysfunction of thoracic region; Somatic dysfunction of cervical region; Somatic dysfunction of pelvic region Start: 06-25-2024 End: 06-25-2024 Follow-up encounter Sully Lemus PA-C Work Phone: [facility] [place] Start: 06-23-2024 End: 06-23-2024 ambulatory ANTOLIN JUNE Facility:[facility] Start: 06-23-2024 End: 06-23-2024 Patient encounter procedure Kae Shepherd APRN.CNP Work Phone: [facility] [place] Comment on above: Fatigue, unspecified type (Primary Dx); URI, acute Start: 06-23-2024 End: 06-23-2024 Telephone encounter Kae Shepherd APRN.CNP Work Phone: [facility] [place] Comment on above: Results Start: 06-23-2024 End: 06-23-2024 ambulatory ANTOLIN JUNE Facility:[facility] Start: 06-20-2024 End: 06-22-2024 Refill Antolin June DO Work Phone: [facility] [place] Comment on above: Refill Request Start: 06-19-2024 End: 06-19-2024 Patient encounter procedure Kae Shepherd APRN.CNP Work Phone: [facility] [place] Comment on above: Acute non-recurrent maxillary sinusitis (Primary Dx) Start: 06-19-2024 End: 06-22-2024 ambulatory Kae Shepherd APRN.CNP Work Phone: [facility] [place] Comment on above: Sinus infection Start: 06-15-2024 End: 06-16-2024 Refill Alicja West PA-C Work Phone: Neurology Comment on above: Refill Request Start: 06-11-2024 End: 06-12-2024 Refill Antolin Cartwright June Work Phone: [facility] [place] Comment on above: Refill Request Start: 06-10-2024 End: 06-10-2024 Telephone encounter Antolin Gabbie June Work Phone: [facility] [place] Comment on above: Refill Request; Rubia ent Question (re vascular surgery consult) Start: 06-05-2024 End: 06-15-2024 ambulatory Antolin June Work Phone: [facility] [place] Comment on above: xray Start: 06-05-2024 End: 06-15-2024 E-mail encounter from caregiver Antolin Gabbie June Work Phone: [facility] [place] Start: 06-02-2024 End: 06-02-2024 Patient encounter procedure Antolin June DO Work Phone: [facility] [place] Comment on above: 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); Fatigue, unspecified type; Depression, unspecified depression type; URI, acute; Idiopathic scoliosis and kyphoscoliosis; Chronic bilateral thoracic back pain; Somatic dysfunction of spine, lumbar; Somatic dysfunction of thoracic region; Somatic dysfunction of head region; Segmental and somatic dysfunction of rib cage; Somatic dysfunction of cervical region; Somatic dysfunction of pelvic region Start: 06-02-2024 End: 06-02-2024 ambulatory ANTOLIN L JUNE Facility:[facility] Start: 05-26-2024 End: 05-26-2024 Office outpatient visit 15 minutes Herve Madrid PA-C Work Phone: [facility] [place] Comment on above: Depression, unspecif ied depression type (Primary Dx); Fatigue, unspecified type; Vitamin D deficiency; Post-nasal drainage; Popliteal artery entrapment syndrome (HCC) Start: 05-26-2024 End: 05-26-2024 ambulatory ANTOLIN L JUNE Facility:[facility] Start: 05-25-2024 End: 05-25-2024 ambulatory ANTOLIN JUNE Facility:[facility] Start: 05-21-2024 ambulatory ANTOLIN JUNE Facil ity:[facility] Start: 05-21-2024 End: 05-21-2024 Subsequent hospital visit by physician Harris [facility] Comment on above: Idiopathic scoliosis and kyphoscoliosis [M41.20] Start: 05-20-2024 End: 05-20-2024 ambulatory Zee Glasgow DO Work Phone: Orthopaedics Comment on above: Chronic compartment syndrome of lower extremity; Popliteal artery entrapment syndrome (HCC) Start: 05-20-2024 End: 05-20-2024 Telemedicine consultation with patient Zee lGasgow DO Work Phone: Orthopaedics Start: 05-18-2024 End: 05-19-2024 Refill Antolin June DO Work Phone: [facility] [place] Comment on above: Refill Request Medication Question Start: 05-07-2024 End: 05-07-2024 ambulatory ANTOLIN JUNE Facility:[facility] Start: 05-07-2024 End: 05-07-2024 Patient encounter procedure Alicja West PA-C Work Phone: Neurology Comment on above: Intractable chronic migraine without aura and without status migrainosus (Primary Dx) Start: 05-05-2024 End: 05-05-2024 ambulatory ANTOLIN JUNE Facility:[facility] Start: 05-05-2024 End: 05-05-2024 Office outpatient visit 25 minutes Herve Madrid PA-C Work Phone: [facility] [place] Comment on above: Chronic compartment syndrome of lower extremity (Primary Dx); Popliteal artery entrapment syndrome (HCC); Chronic rhinitis Start: 05-01-2024 End: 05-01-2024 Patient encounter procedure Antolin June DO Work Phone: [facility] [place] Comment on above: Well adult exam ([facility] khushbu Dx); Anxiety; Chronic bilateral thoracic back pain; Idiopathic scoliosis and kyphoscoliosis; Need for COVID-19 vaccine; Myalgia Start: 05-01-2024 End: 05-01-2024 Patient encounter status Antolin June DO Work Phone: [facility] Work Phone: Start: 05-01-2024 End: 05-01-2024 ambulatory ANTOLIN JUNE Facility:[facility] Start: 05-01-2024 Encounter for edelmira l adult medical examination without abnormal findings ANTOLIN JUNE [facility] Start: 05-01-2024 End: 05-05-2024 Telephone encounter Antolin June DO Work Phone: [facility] [place] Start: 04-30-2024 ambulatory MONICA HUNT Facility: [facility] Start: 04-30-2024 End: 04-30-2024 Subsequent hospital visit by physician [facility] Comment on above: Gastroesophageal ref lux disease, unspecified whether esophagitis present [K21.9] Start: 04-28-2024 End: 04-28-2024 Orders Only Valery Phillips PA-C Work Phone: [facility] [place] Comment on above: Change in bowel habi ts (Primary Dx); Lower abdominal pain Start: 04-23-2024 End: 04-27-2024 Patient encounter procedure Antolin June DO Work Phone: [facility] [place] Comment on above: Referral Start: 04-23-2024 End: 04-27-2024 ambulatory Antolin June DO Work Phone: [facility] [place] Start: 04-23-2024 End: 04-24-2024 Subsequent hospital visit by physician Us Joelle Payton 1 Work Phone: Radiology Comment on above: Lower abdominal pain [R10.30] Refill Request Start: 04-21-2024 End: 04-23-2024 ambulatory Alicja West PA-C Work Phone: Neurology Comment on above: Migraine Start: 04-17-2024 End: 04-19-2024 ambulatory Monica Hunt PA-C Work Phone: [facility] [place] Comment on above: Diet Start: 04-15-2024 End: 04-15-2024 Patient encounter procedure Monica Hunt JULIABridget Work Phone: [facility] Comment on above: Change in bowel habi ts (Primary Dx); Lower abdominal pain; Gastroesophageal reflux disease, unspecified whether esophagitis present Start: 04-15-2024 End: 04-16-2024 ambulatory Monica Hunt JULIABridget [facility] Comment on above: Colonoscopy Botox Start: 04-15-2024 End: 04-16-2024 E-mail encounter from caregiver Alicja Jenna NESBITT Work Phone: Neurology Start: 04-15-2024 End: 04-15-2024 Telephone encounter Monica Hunt JULIABridget Work Phone: [facility] Comment on above: FYI-No Action Needed Start: 04-09-2024 End: 04-09-2024 ambulatory ANTOLIN L JUNE Facility:[facility] Start: 04-09-2024 End: 04-09-2024 Patient encounter procedure Vaibhav Culp MD Work Phone: Allergy Comment on above: Nonallergic rhinitis (Primary Dx); Chronic constipation; Post-nasal drainage; Rash and nonspecific skin eruption Start: 03-31-2024 End: 04-03-2024 ambulatory Alicja Jenna NESBITT Work Phone: Neurology Comment on above: Naproxen Start: 03-23-2024 End: 03-24-2024 Refill Antolin L June DO Work Phone: [facility] [place] Comment on above: Refill Request Start: 03-17-2024 End: 03-17-2024 ambulatory ANTOLIN L JUNE Facility:[facility] Start: 02-18-2024 End: 02-18-2024 Patient encounter procedure Antolin L June DO Work Phone: [facility] [place] Comment on above: Chronic constipation (Primary Dx); Post-nasal drainage; Chronic maxillary sinusitis; Somatic dysfunction of cervical region; Segmental and somatic dysfunction of rib cage; Somatic dysfunction of thoracic region; Somatic dysfunction of spine affecting head region; Somatic dysfunction of spine, lumbar; Chronic bilateral thoracic back pain; Idiopathic scoliosis and kyphoscoliosis Start: 02-18-2024 End: 02-18-2024 ambulatory ANTOLIN L JUNE Facility:[facility] Start: 02-10-2024 End: 02-11-2024 Refill Antolin L June DO Work Phone: [facility] [place] Comment on above: Refill Request Start: 02-04-2024 End: 02-04-2024 ambulatory ANTOLIN L JUNE Facility:[facility] Start: 02-04-2024 End: 02-04-2024 Patient encounter procedure Ephraim Valenzuela OD Work Phone: Ophthalmology Comment on above: Headache disorder (P rimary Dx); Myopia, bilateral; Regular astigmatism of both eyes Start: 01-31-2024 End: 01-31-2024 Telephone encounter Antolin Johnsonrison DO Work Phone: [facility] [place] Comment on above: Patient Question Start: 01-30-2024 End: 01-30-2024 ambulatory ALICJA WEST Facility:[facility] Start: 01-30-2024 End: 01-30-2024 Patient encounter procedure Alicja West PA-C Work Phone: Neurology Comment on above: Intractable chronic migraine without aura and without status migrainosus (Primary Dx) Start: 01-28-2024 End: 01-29-2024 Telephone encounter Antolin Johnsonrison DO Work Phone: [facility] [place] Comment on above: Orders Start: 01-27-2024 End: 01-28-2024 Refill Antolin L June DO Work Phone: [facility] [place] Comment on above: Refill Request Start: 01-14-2024 End: 01-14-2024 ambulatory ANTOLIN L JUNE Facility:[facility] Start: 01-14-2024 End: 01-14-2024 Patient encounter procedure Antolin Gabbie June DO Work Phone: [facility] [place] Comment on above: Midline thoracic samir k pain, unspecified chronicity (Primary Dx); Chronic pain of both knees; Patellofemoral pain syndrome of both knees; Need for influenza vaccination; Headache disorder; Somatic dysfunction of spine, lumbar; Segmental and somatic dysfunction of rib cage; Somatic dysfunction of thoracic region; Somatic dysfunction of cervical region; Somatic dysfunction of spine affecting head region Start: 01-01-2024 End: 01-06-2024 Telephone encounter Antolin Johnsonrison DO Work Phone: [facility] [place] Comment on above: compression sleeve/A TB to be sent to phamacy Start: 12-31-2023 End: 12-31-2023 ambulatory ANTOLIN L JUNE Facility:[facility] Start: 12-24-2023 End: 12-24-2023 ambulatory ANTOLIN L JUNE Facility:[facility] Start: 12-24-2023 End: 12-24-2023 Patient encounter procedure Ephraim Valenzuela OD Work Phone: Ophthalmology Comment on above: Headache disorder (P rimary Dx); Myopia, bilateral; Regular astigmatism of both eyes Start: 12-20-2023 ambulatory Antolin Johnsonrison Facilit y:[facility] Start: 12-18-2023 End: 12-18-2023 Refill Antolin L June DO Work Phone: [facility] [place] Comment on above: Refill Request Insurance Authorizat ion Start: 12-13-2023 End: 12-24-2023 Telephone encounter Alicja West PA-C Work Phone: Neurology Comment on above: Medication Question Start: 12-13-2023 End: 12-13-2023 ambulatory Antolin June Facility:[facility] Start: 11-26-2023 End: 11-26-2023 Refill Antolin L June DO Work Phone: [facility] [place] Comment on above: Refill Request Start: 11-12-2023 End: 11-12-2023 Patient encounter procedure Antolin L June DO Work Phone: [facility] [place] Comment on above: Chronic midline low back pain without sciatica (Primary Dx); Somatic dysfunction of head region; Somatic dysfunction of cervical region; Segmental and somatic dysfunction of rib cage; Somatic dysfunction of thoracic region; Somatic dysfunction of spine, lumbar; Somatic dysfunction of pelvic region; Anxiety; Diarrhea, unspecified type Start: 11-12-2023 End: 11-12-2023 ambulatory ANTOLIN L JUNE Facility:[facility] Start: 11-06-2023 End: 11-06-2023 Office outpatient visit 25 minutes Ashwini Miller [employer]OTHESPIN DRIER OPERATOR.TEMPERATURE CONTROL INSPECTOR Work Phone: [facility] [place] Comment on above: Bee sting, accidenta l or unintentional, subsequent encounter (Primary Dx) Start: 11-06-2023 End: 11-06-2023 ambulatory ANTOLIN Cartwright JUNE Facility:[facility] Start: 10-21-2023 End: 10-21-2023 ambulatory ANTOLIN L JUNE Facility:[facility] Start: 10-21-2023 End: 10-21-2023 Patient encounter procedure Kym Ortiz [employer]OTHESPIN DRIER OPERATOR.TEMPERATURE CONTROL INSPECTOR Work Phone: [facility] [place] Comment on above: Eustachian tube dysf unction, left (Primary Dx) Start: 10-17-2023 ambulatory [facility] [place] Comment on above: Results Start: 10-17-2023 E-mail encounter fro m caregiver [facility] Family Mo [place] Start: 10-16-2023 Telephone encounter Antolin rosas DO Work Phone: [facility] [place] Comment on above: Results; xray Insurance Authorizat ion (Botox) Start: 10-14-2023 Telephone encounter Antolin rosas DO Work Phone: [facility] [place] Comment on above: Patient Question Start: 10-12-2023 ambulatory Arelis hughes [employer]OTHESPIN DRIER OPERATOR.MEDICAL OFFICE ASST Work Phone: [facility] [place] Comment on above: Ear Issue Start: 10-11-2023 End: 10-11-2023 Office outpatient visit 15 minutes Arelis Soliz [employer]OTHESPIN DRIER OPERATOR.MEDICAL OFFICE ASST Work Phone: [facility] [place] Comment on above: Acute non-recurrent frontal sinusitis (Primary Dx); Eustachian tube disorder, left Start: 10-11-2023 End: 10-11-2023 ambulatory Antolin L June DO Work Phone: [facility] [place] Comment on above: Dizziness Start: 10-09-2023 End: 10-09-2023 Patient encounter procedure Alicja West PA-C Work Phone: Neurology Comment on above: Chronic intractable headache, unspecified headache type (Primary Dx); Headache disorder Start: 10-09-2023 End: 10-09-2023 ambulatory ALICJA WEST Facility:[facility] Start: 10-08-2023 End: 10-08-2023 Subsequent hospital visit by physician [facility] [place] Work Phone: Radiology Comment on above: Chronic midline low back pain without sciatica [M54.50, G89.29] Start: 10-08-2023 End: 10-08-2023 ambulatory ANTOLIN JOHNSONRISON Facility:[facility] Start: 10-08-2023 End: 10-08-2023 ambulatory ANTOLIN JOHNSONRISON Facility:[facility] Start: 10-08-2023 End: 10-08-2023 Patient encounter procedure Antolin June DO Work Phone: [facility] [place] Comment on above: Chronic midline low back pain without sciatica (Primary Dx); Bowel habit changes; Bruising; Fatigue, unspecified type; Somatic dysfunction of head region; Somatic dysfunction of cervical region; Segmental and somatic dysfunction of rib cage; Somatic dysfunction of thoracic region; Somatic dysfunction of spine, lumbar Start: 09-18-2023 Telephone encounter Antolin rosas DO Work Phone: [facility] [place] Comment on above: Abdominal Pain Refill Request Start: 09-17-2023 ambulatory Antolin oLpez son DO Work Phone: [facility] [place] Comment on above: Acid Reflux Start: 09-12-2023 Telephone encounter Antolin rosas DO Work Phone: [facility] [place] Comment on above: Patient Question Start: 09-11-2023 ambulatory Antolin haro DO Work Phone: [facility] [place] Comment on above: Stomach Issues Start: 09-11-2023 Telephone encounter Antolin rosas DO Work Phone: [facility] [place] Comment on above: Question (persist) Start: 09-05-2023 Telephone encounter Antolin rosas DO Work Phone: [facility] [place] Comment on above: Results Start: 09-03-2023 End: 09-03-2023 Patient encounter procedure Antolin June DO Work Phone: [facility] [place] Comment on above: Diarrhea, unspecifie d type (Primary Dx); Fatigue, unspecified type; Anxiety; Borderline abnormal thyroid function test; Chronic midline low back pain without sciatica; Somatic dysfunction of head region; Somatic dysfunction of cervical region; Segmental and somatic dysfunction of rib cage; Somatic dysfunction of thoracic region; Somatic dysfunction of pelvic region Start: 08-28-2023 ambulatory Alicja hutchins PA-C Work Phone: Neurology Comment on above: Ubrelvy Start: 08-28-2023 Telephone encounter Antolin rosas DO Work Phone: [facility] [place] Start: 08-27-2023 End: 08-27-2023 Patient encounter procedure Antolin June DO Work Phone: [facility] [place] Comment on above: Neck pain (Primary D x); Headache disorder; Acute bilateral thoracic back pain; Somatic dysfunction of spine, lumbar; Somatic dysfunction of thoracic region; Segmental and somatic dysfunction of rib cage; Somatic dysfunction of cervical region; Somatic dysfunction of spine affecting head region; Somatic dysfunction of pelvic region Start: 08-20-2023 Telephone encounter Alicja tripathi PA-C Work Phone: Neurology Comment on above: Medication Authoriza tion Start: 08-19-2023 Refill Antolin haro DO Work Phone: [facility] [place] Comment on above: Refill Request Start: 08-18-2023 Refill Mahad booth MD Work Phone: Neurology Comment on above: Refill Request Start: 08-17-2023 ambulatory Alicja hutchins PA-C Work Phone: Neurology Comment on above: Almost out of med Start: 08-06-2023 End: 08-06-2023 Patient encounter procedure Alicja West PA-C Work Phone: Neurology Comment on above: Chronic intractable headache, unspecified headache type (Primary Dx); Headache disorder Start: 08-06-2023 End: 08-06-2023 Patient encounter procedure Antolin June DO Work Phone: [facility] [place] Comment on above: Neck pain (Primary D x); Chronic midline low back pain without sciatica; Somatic dysfunction of head region; Somatic dysfunction of cervical region; Segmental and somatic dysfunction of rib cage; Somatic dysfunction of thoracic region; Somatic dysfunction of pelvic region; Somatic dysfunction of spine, lumbar; Headache disorder Start: 07-17-2023 Telephone encounter Antolin rosas DO Work Phone: [facility] [place] Comment on above: Patient Question Start: 07-08-2023 End: 07-08-2023 Patient encounter procedure Mahad Izaguirre MD Work Phone: Neurology Comment on above: Chronic intractable headache, unspecified headache type (Primary Dx) Start: 07-03-2023 Telephone encounter Antolin rosas DO Work Phone: NOC Comment on above: Appointment Start: 06-28-2023 End: 06-28-2023 Subsequent hospital visit by physician [facility] (I-Stat/1.5t) Work Phone: Radiology Comment on above: Chronic intractable headache, unspecified headache type [R51.9, G89.29] Start: 06-26-2023 End: 06-26-2023 Refill Antolin June DO Work Phone: [facility] [place] Comment on above: Refill Request Chronic midline low back pain without sciatica; Other form of scoliosis of thoracolumbar spine Start: 06-14-2023 End: 06-14-2023 Patient encounter procedure Lalit Dee MD Work Phone: [facility] [place] Comment on above: Dizziness (Primary D x); Dehydration; Otitis of both ears; Nausea and vomiting, unspecified vomiting type Start: 06-11-2023 Refill Antolin haro DO Work Phone: [facility] [place] Start: 06-04-2023 End: 06-04-2023 Patient encounter procedure Antolin Jnue DO Work Phone: [facility] [place] Comment on above: Neck pain (Primary D x); Chronic midline low back pain without sciatica; Other form of scoliosis of thoracolumbar spine; Headache disorder; Somatic dysfunction of head region; Somatic dysfunction of cervical region; Segmental and somatic dysfunction of rib cage; Somatic dysfunction of thoracic region; Somatic dysfunction of pelvic region; Somatic dysfunction of spine, lumbar Start: 06-03-2023 End: 06-03-2023 Patient encounter procedure Mahad Izaguirre MD Work Phone: Neurology Comment on above: Chronic intractable headache, unspecified headache type (Primary Dx); Headache disorder Start: 04-30-2023 Refill Antolin haro DO Work Phone: [facility] [place] Comment on above: Refill Request Start: 03-29-2023 Refill Antolin haro DO Work Phone: [facility] [place] Comment on above: Refill Request Start: 03-19-2023 End: 03-19-2023 Patient encounter procedure Antolin June DO Work Phone: [facility] [place] Comment on above: Chronic bilateral th oracic back pain (Primary Dx); Foot pain, bilateral; Neck pain; Somatic dysfunction of head region; Somatic dysfunction of cervical region; Somatic dysfunction of thoracic region; Segmental and somatic dysfunction of rib cage; Somatic dysfunction of pelvic region Start: 03-18-2023 Telephone encounter Antolin rosas DO Work Phone: [facility] [place] Comment on above: Medication Question Start: 02-18-2023 Refill Antolin haro DO Work Phone: [facility] [place] Comment on above: Refill Request Start: 02-12-2023 End: 02-12-2023 Subsequent hospital visit by physician [facility] [place] Work Phone: Radiology Comment on above: Foot pain, bilateral [M79.671, M79.672] Start: 02-12-2023 End: 02-12-2023 Patient encounter procedure Antolin June DO Work Phone: [facility] [place] Comment on above: Foot pain, bilateral (Primary Dx); Neck pain; Chronic bilateral thoracic back pain; Somatic dysfunction of head region; Somatic dysfunction of cervical region; Somatic dysfunction of thoracic region; Segmental and somatic dysfunction of rib cage; Somatic dysfunction of spine, lumbar; Somatic dysfunction of pelvic region Start: 01-14-2023 End: 01-14-2023 Subsequent hospital visit by physician [facility] [place] Work Phone: Radiology Comment on above: Acute right-sided lo w back pain with right-sided sciatica [M54.41] Start: 01-02-2023 Refill Antolin haro DO Work Phone: [facility] [place] Comment on above: Refill Request Start: 12-20-2022 Telephone encounter Antolin rosas DO Work Phone: [facility] [place] Comment on above: Orders (Knee Brace) Start: 12-04-2022 Telephone encounter Antolin rosas DO Work Phone: [facility] [place] Comment on above: Forms Start: 11-07-2022 End: 11-07-2022 ambulatory Raquel Hooper MD Work Phone: Endocrinology Comment on above: History of pituitary adenoma (Primary Dx) Start: 11-07-2022 End: 11-07-2022 Telemedicine consultation with patient Raquel Hooper MD Work Phone: [facility] Start: 10-31-2022 End: 10-31-2022 ambulatory Rere Monk MD Work Phone: [facility] Comment on above: Bilateral leg pain ( Primary Dx); Popliteal artery entrapment syndrome (HCC) Start: 10-31-2022 End: 10-31-2022 Telemedicine consultation with patient Rere Monk MD Work Phone: [facility] Start: 10-25-2022 End: 10-25-2022 Refill Antolin Gabbie Koon DO Work Phone: [facility] [place] Comment on above: Refill Request Pain in younger, unspec ified laterality [M79.669] Start: 10-23-2022 End: 10-23-2022 Subsequent hospital visit by physician [facility] (I-Stat/1.5t) Work Phone: Radiology Comment on above: Abnormal brain MRI [ R90.89] Start: 09-28-2022 Refill Antolin haro DO Work Phone: [facility] [place] Comment on above: Refill Request Start: 09-11-2022 End: 09-11-2022 Patient encounter procedure Antolin Gabbie June DO Work Phone: [facility] [place] Comment on above: Chronic bilateral th oracic back pain (Primary Dx); Somatic dysfunction of cervical region; Somatic dysfunction of thoracic region; Somatic dysfunction of head region; Somatic dysfunction of spine, lumbar; Segmental and somatic dysfunction of rib cage; Chronic constipation Start: 09-07-2022 Orders Only Raquel bailey MD Work Phone: Endocrinology Comment on above: Prolactinoma (HCC) ( Primary Dx) Start: 09-04-2022 Telephone encounter Earle Joseph MD Work Phone: General Surgery Comment on above: Patient Question Start: 08-27-2022 End: 08-27-2022 Patient encounter procedure Monica Fraire MD Work Phone: General Surgery Comment on above: Constipation, unspec ified constipation type (Primary Dx); Epigastric abdominal pain; Irritable bowel syndrome with alternating bowel habits; Nausea; Major depressive disorder, single episode, in remission (HCC) Start: 08-27-2022 Telephone encounter Antolin rosas DO Work Phone: Appointment Center Comment on above: Appointment (resched ule) Start: 07-26-2022 Refill Shena Fraire APRN.CNP Work Phone: [facility] [place] Comment on above: Refill Request Start: 07-17-2022 End: 07-17-2022 Patient encounter procedure Antolin June DO Work Phone: [facility] [place] Comment on above: Chronic bilateral th oracic back pain (Primary Dx); Other form of scoliosis of thoracolumbar spine; Somatic dysfunction of cervical region; Somatic dysfunction of thoracic region; Somatic dysfunction of head region; Somatic dysfunction of spine, lumbar; Segmental and somatic dysfunction of rib cage Start: 07-16-2022 Refill Antolin haro DO Work Phone: [facility] Comment on above: Refill Request Start: 07-08-2022 Refill Shena Fraire APRN.TEMPERATURE CONTROL INSPECTOR Work Phone: [facility] Comment on above: Refill Request Start: 07-05-2022 Telephone encounter Antolin rosas DO Work Phone: [facility] Comment on above: fingernail problem Start: 07-04-2022 End: 07-04-2022 ambulatory Rere Monk MD Work Phone: [facility] Comment on above: 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); Bilateral leg pain Start: 07-04-2022 End: 07-04-2022 Telemedicine consultation with patient Rere Monk MD Work Phone: [facility] Start: 06-29-2022 End: 06-29-2022 Subsequent hospital visit by physician [facility] (I-Stat/1.5t) Work Phone: Radiology Comment on above: Encounter for observ ation for other suspected diseases and conditions ruled out [Z03.89] Start: 06-20-2022 End: 06-20-2022 Patient encounter procedure Antolin June DO Work Phone: [facility] Comment on above: Chronic bilateral th oracic back pain (Primary Dx); Other form of scoliosis of thoracolumbar spine; Somatic dysfunction of cervical region; Somatic dysfunction of thoracic region; Somatic dysfunction of head region; Segmental and somatic dysfunction of rib cage; Somatic dysfunction of spine, lumbar Start: 06-19-2022 Telephone encounter Rob crystal MD Work Phone: Rheumatology Comment on above: Results Start: 06-11-2022 Telephone encounter Antolin rosas DO Work Phone: [address] [place] [address] Comment on above: Appointment Start: 06-08-2022 Telephone encounter Luciano paredes MD Work Phone: [facility] Comment on above: Results Start: 06-06-2022 Telephone encounter Jamel robertson MD Work Phone: G[facility] [place] Comment on above: Medication Authoriza tion Start: 06-05-2022 End: 06-06-2022 ambulatory ROB ELLIOTT [facility] Start: 06-05-2022 End: 06-05-2022 Patient encounter procedure Rob Elliott MD Work Phone: Rheumatology Comment on above: Neck pain (Primary D x); Scl-70 antibody positive; Raynaud's phenomenon without gangrene Start: 06-05-2022 Telephone encounter [facility] Comment on above: Appointment Reschedu led Start: 06-04-2022 ambulatory Rere Monk MD Work Phone: [facility] Comment on above: Vascular lab informa tion Start: 06-04-2022 E-mail encounter fro m caregiver Rere Monk MD Work Phone: [facility] [address] Start: 06-01-2022 ambulatory Jamel Rodriguez i, MD Work Phone: [facility] Comment on above: Linzess Start: 06-01-2022 E-mail encounter sofia m caregiver Jamel Almeida MD Work Phone: [facility] Start: 05-31-2022 End: 05-31-2022 Patient encounter procedure Jamel Almeida MD Work Phone: [facility] Comment on above: Pelvic floor dysfunc tion (Primary Dx); Belching; Generalized abdominal pain; Anxiety; Abdominal distension (gaseous); Abdominal pain, unspecified abdominal location; Altered bowel habits; Gas pain; Nausea; Alteration in appetite; Stress-related physiological response affecting physical condition Start: 05-30-2022 ambulatory Antolin haro DO Work Phone: [facility] Comment on above: xray findings Start: 05-30-2022 E-mail encounter fro m caregiver Antolin June DO Work Phone: [facility] [place] Start: 05-29-2022 End: 05-29-2022 Subsequent hospital visit by physician [facility] [place] Work Phone: Radiology Comment on above: Other form of scolio sis of thoracolumbar spine [M41.85] Start: 05-29-2022 End: 05-29-2022 Patient encounter procedure Antolin June DO Work Phone: [facility] Comment on above: Chronic bilateral th oracic back pain (Primary Dx); Other form of scoliosis of thoracolumbar spine; Somatic dysfunction of cervical region; Somatic dysfunction of thoracic region; Somatic dysfunction of head region Start: 05-25-2022 Telephone encounter [facility] DO [facility] Comment on above: Patient Update Start: 05-24-2022 End: 05-24-2022 Subsequent hospital visit by physician [facility] [place] Work Phone: Radiology Comment on above: Other form of scolio sis of thoracolumbar spine [M41.85] Start: 05-22-2022 Telephone encounter Antolin rosas DO Work Phone: [facility] Comment on above: Patient Question Start: 05-18-2022 End: 05-18-2022 Subsequent hospital visit by physician [facility] [place] Work Phone: Radiology Comment on above: Pain [R52] Start: 05-18-2022 End: 05-18-2022 Patient encounter procedure Antolin Koon DO Work Phone: [facility] Comment on above: Neck pain (Primary D x); Somatic dysfunction of cervical region; Somatic dysfunction of thoracic region; Segmental and somatic dysfunction of rib cage; Somatic dysfunction of head region; Somatic dysfunction of pelvic region; Pain in younger, unspecified laterality; Generalized abdominal pain Start: 05-09-2022 Orders Only Rere Monk MD Work Phone: [facility] Therapy Comment on above: Pain (Primary Dx) Start: 05-08-2022 Telephone encounter Natasha Vazquez RN Orthopedics Comment on above: Follow Up (Ortho gama t) Start: 04-18-2022 End: 04-18-2022 Patient encounter procedure Antolin June DO Work Phone: [facility] [place] Comment on above: Neck pain (Primary D x); Somatic dysfunction of thoracic region; Somatic dysfunction of cervical region; Segmental and somatic dysfunction of rib cage; Somatic dysfunction of head region; Somatic dysfunction of pelvic region Start: 04-10-2022 Telephone encounter Antolin rosas DO Work Phone: [facility] [place] Comment on above: Patient Question Start: 03-19-2022 End: 03-19-2022 ambulatory Emg 850) Neurology Start: 03-19-2022 End: 03-19-2022 Patient encounter procedure Emg 2 Neur Romero (Max Weight: 850) ROMERO Start: 03-02-2022 End: 03-02-2022 Patient encounter procedure Luciano Vides DO Work Phone: [facility] [place] Comment on above: Paresthesia of bilat eral legs (Primary Dx) Start: 02-28-2022 End: 02-28-2022 ambulatory Brayden Altamirano [facility] Physical Therapy Comment on above: Pain in younger, unspec ified laterality (Primary Dx) Start: 02-22-2022 Telephone encounter Antolin rosas DO Work Phone: [facility] [place] Comment on above: Medication Question Start: 02-19-2022 End: 02-19-2022 Patient encounter procedure Antolin June DO Work Phone: [facility] [place] Comment on above: Skin lesion of left lower limb (Primary Dx); Anxiety Start: 02-13-2022 End: 02-13-2022 Patient encounter procedure Antolin June DO Work Phone: [facility] [place] Comment on above: Neck pain (Primary D x); Sprain of rotator cuff capsule, unspecified laterality, initial encounter; Somatic dysfunction of thoracic region; Somatic dysfunction of cervical region; Segmental and somatic dysfunction of rib cage; Somatic dysfunction of head region Start: 01-24-2022 Pelon booth APRN.TEMPERATURE CONTROL INSPECTOR Work Phone: [facility] Comment on above: Refill Request Start: 01-17-2022 End: 01-17-2022 ambulatory Brayden Cuenca [facility] Physical Therapy Comment on above: Pain in younger, unspec ified laterality (Primary Dx) Start: 01-16-2022 Telephone encounter Antolin Gabbie Day tonijo ann DO Work Phone: [facility] Comment on above: Consult Start: 01-15-2022 End: 01-15-2022 Patient encounter procedure Antolin Cartwright June DO Work Phone: [facility] Comment on above: Neck pain (Primary D x); Need for influenza vaccination; Scl-70 antibody positive; Raynaud's phenomenon without gangrene; Somatic dysfunction of thoracic region; Somatic dysfunction of cervical region; Segmental and somatic dysfunction of pelvic region; Somatic dysfunction of head region; Segmental and somatic dysfunction of rib cage Start: 01-12-2022 Refill Shena [place] k CLOTHESPIN DRIER OPERATOR.TEMPERATURE CONTROL INSPECTOR Work Phone: Allergy Comment on above: Refill Request Start: 01-12-2022 Refill Shena Zurloric k CLOTHESPIN DRIER OPERATOR.TEMPERATURE CONTROL INSPECTOR Work Phone: Allergy Comment on above: Refill Request Start: 01-03-2022 End: 01-03-2022 Patient encounter procedure Antolin Gabbie Koon DO Work Phone: [facility] Comment on above: Neck pain (Primary D x); Somatic dysfunction of thoracic region; Somatic dysfunction of cervical region; Segmental and somatic dysfunction of pelvic region; Somatic dysfunction of head region; Somatic dysfunction of rib Start: 01-03-2022 End: 01-03-2022 ambulatory Brayden Cuenca [facility] Physical Therapy Comment on above: Pain in younger, unspec ified laterality (Primary Dx) Start: 12-29-2021 End: 12-29-2021 ambulatory Brayden Cuenca [facility] Physical Therapy Comment on above: Pain in younger, unspec ified laterality (Primary Dx) Start: 12-19-2021 End: 12-19-2021 ambulatory Brayden Cuenca [facility] Physical Therapy Comment on above: Pain in younger, unspec ified laterality (Primary Dx) Start: 12-15-2021 End: 12-15-2021 ambulatory Brayden Cuenca [facility] Physical Therapy Comment on above: Pain in younger, unspec ified laterality (Primary Dx) Start: 12-08-2021 End: 12-08-2021 ambulatory Brayden Cuenca [facility] Physical Therapy Comment on above: Pain in younger, unspec ified laterality (Primary Dx) Start: 12-05-2021 End: 12-05-2021 ambulatory Brayden Cuenca [facility] Physical Therapy Comment on above: Pain in younger, unspec ified laterality (Primary Dx) Start: 12-01-2021 End: 12-01-2021 ambulatory Brayden Cuenca [facility] Physical Therapy Comment on above: Pain in younger, unspec ified laterality (Primary Dx) Start: 11-28-2021 End: 11-28-2021 ambulatory Brayden Cuenca [facility] Physical Therapy Comment on above: Pain in younger, unspec ified laterality (Primary Dx) Start: 11-27-2021 End: 11-27-2021 Patient encounter procedure Antolin June DO Work Phone: [facility] Comment on above: Neck pain (Primary D x); Somatic dysfunction of thoracic region; Somatic dysfunction of cervical region; Segmental and somatic dysfunction of pelvic region; Somatic dysfunction of head region Start: 11-25-2021 Refill Antolin haro DO Work Phone: [facility] Comment on above: Refill Request Start: 11-24-2021 End: 11-24-2021 ambulatory Brayden Cuenca [facility] Physical Therapy Comment on above: Pain in younger, unspec ified laterality (Primary Dx) Refill Request Start: 11-24-2021 Telephone encounter Shena Dara martinez APRN.CNP Work Phone: [facility] Comment on above: Opened In Error Start: 11-13-2021 End: 11-13-2021 ambulatory Brayden Cuenca [facility] Physical Therapy Comment on above: Pain in younger, unspec ified laterality (Primary Dx) Start: 11-08-2021 Refill Vaibhav Culp MD Work Phone: Allergy Comment on above: Refill Request Start: 10-31-2021 End: 10-31-2021 Patient encounter procedure Antolin June DO Work Phone: [facility] [place] Comment on above: Pain in right hip (P rimary Dx); Neck pain; Somatic dysfunction of thoracic region; Somatic dysfunction of cervical region; Segmental and somatic dysfunction of pelvic region; Change in nail appearance; Fatigue, unspecified type; Brittle nails Start: 10-31-2021 Telephone encounter Antolin rosas DO Work Phone: [facility] [place] Comment on above: Referral Request Start: 10-27-2021 End: 10-27-2021 Patient encounter procedure Luciano Vides DO Work Phone: [facility] [place] Comment on above: Pain in younger, unspec ified laterality (Primary Dx); Pain in right hip Start: 10-24-2021 Orders Only Luciano Vides D O Work Phone: Orthopaedics Comment on above: Pain in right hip (P rimary Dx) vv prep Start: 10-23-2021 Telephone encounter Raquel Henderson MD Work Phone: Endocrinology Comment on above: Question Fax Requested Start: 10-02-2021 Telephone encounter Antolin Gabbie rosas DO Work Phone: [facility] [place] Comment on above: Medication Request ( toenail fungus) Start: 10-02-2021 End: 10-02-2021 Patient encounter procedure Antolin June DO Work Phone: [facility] [place] Comment on above: Neck pain (Primary D x); Pain in right hip; Somatic dysfunction of thoracic region; Somatic dysfunction of cervical region; Segmental and somatic dysfunction of pelvic region Start: 09-27-2021 Refill Shena Zurawic k CLOTHESPIN DRIER OPERATOR.TEMPERATURE CONTROL INSPECTOR Work Phone: [facility] [place] Comment on above: Refill Request; Refi ll Request Start: 09-27-2021 Refill Shena Zurawic k CLOTHESPIN DRIER OPERATOR.TEMPERATURE CONTROL INSPECTOR Work Phone: [facility] [place] Comment on above: Refill Request; Refi ll Request Start: 09-15-2021 Telephone encounter Raquel Henderson MD Work Phone: Endocrinology Comment on above: Received Outside Med ical Records Start: 09-05-2021 End: 09-05-2021 ambulatory Raquel Hooper MD Work Phone: Endocrinology Comment on above: Elevated prolactin gabbie busch (Primary Dx) Start: 09-05-2021 End: 09-05-2021 Telemedicine consultation with patient Raquel Hooper MD Work Phone: [facility] Start: 09-01-2021 ambulatory Antolin haro DO Work Phone: [facility] [place] Comment on above: Technical Services Consultant Start: 08-31-2021 ambulatory Antolin haro DO Work Phone: [facility] [place] Comment on above: Neurologist Procedures Date Procedure Procedure Detail Performing Clinician Start: 08-13-2024 Ct abdomen & pelvis w/contrast material Antolin Koon DO Work Phone: Start: 08-10-2024 End: 08-10-2024 Culture bacterial quanttative colony count urine Antolin Koon DO Work Phone: Start: 08-10-2024 Urnls dip stick/tabl et rgnt auto w/o microscopy Antolin Johnsonrison DO Work Phone: Start: 07-31-2024 Ct abdomen & pelvis w/contrast material Monica MYRICK-C Work Phone: Start: 07-14-2024 Ct soft tissue neck w/contrast material Antolin Johnsonrison DO Work Phone: Start: 05-01-2024 PFIZER-BIONTECH COVI D-19 VACCINE AGE 12+ YR (COMIRNATY) Antolin Johnsonrison DO Work Phone: Start: 04-30-2024 Radiologic exam esop hagus single contrast study Monica MYRICK-Bridget Work Phone: Start: 04-23-2024 Us abdominal real ti me w/image documentation Monica Hunt PA-C Work Phone: Start: 12-12-2024 Intracutaneous tests w/allergenic extracts Vaibhav A Culp MD Work Phone: Start: 12-24-2023 Visual field xm uni/ bi w/interp extended exam Ephraim Valenzuela OD Work Phone: Start: 08-30-2023 EXTRA ECOFIX CONTAIN ER PERFORMABLE Antolin L June DO Work Phone: Start: 08-30-2023 Iaad ia hpylori stool J ordan L June DO Work Phone: Start: 08-30-2023 PANC ELASTASE, FECAL Arianna rdan L June DO Work Phone: Start: 06-28-2023 Mri brain brain stem w/o w/contrast material Mahad Izaguirre MD Work Phone: Start: 02-12-2023 Radex foot complete minimum 3 views Antolin L June DO Work Phone: Start: 01-14-2023 Radex spine lumbosac ral 2/3 views Antolin L June DO Work Phone: Start: 10-25-2022 Us compl joint r-t w /image documentation Rere Monk MD Work Phone: Start: 10-23-2022 Mri brain brain stem w/o w/contrast material Raquel Hooper MD Work Phone: Start: 06-29-2022 Mri lower extrem oth /thn jt w/o contr matrl Rere Monk MD Work Phone: Start: 05-29-2022 Radex entir thrc lmb r crv sac spi w/skull 2/3 vw Antolin L June DO Work Phone: Start: 05-24-2022 Radex entir thrc lmb r crv sac spi w/skull 2/3 vw Antolin L June DO Work Phone: Start: 05-18-2022 Radiologic examinati on tibia & fibula 2 views Rere Monk MD Work Phone: Start: 03-19-2022 Nerve conduction beto dies 5-6 studies Luciano Vides DO Work Phone: Start: 01-15-2022 INFLUENZA VACCINE QUADRIVALENT 6 MO - 64 YRS IM Antolin June DO Work Phone: Plan of Treatment Date Care Activity Detail Author Start: 01-13-2034 Urine microalbumin profile DTaP,Tdap,Td Vaccine (8 - Td or Tdap) [facility] Start: 05-01-2026 PAP TESTING PAP TESTING [facility] Start: 05-01-2026 Screening for malignant neoplasm of cervix [facility] Start: 02-05-2025 End: 02-05-2025 Patient encounter procedure 02/05/2025 1:45 PM EDT Office Visit [facility] Ophthalmology [address] [address] Ephraim Valenzuela, OD [address] [address] 1 YR F/U Ophthalmology Comment on above: 1 YR F/U Start: 01-12-2025 End: 01-12-2025 Patient encounter procedure 01/12/2025 2:20 PM EDT Office Visit [facility] [place] [address] [place] [address] Antolin June, [address] [place] [address] OMT [facility] [place] Comment on above: OMT Start: 12-29-2024 End: 12-29-2024 Patient encounter procedure 12/29/2024 3:20 PM EDT Office Visit [facility] [place] [address] [place] [address] Antolin June DO [address] [place] [address] OMT [facility] [place] Comment on above: OMT Start: 12-04-2024 End: 12-04-2024 Patient encounter procedure 12/04/2024 3:00 PM EDT Office Visit [facility] [place] [address] [place] [address] Antolin June, DO [address] [place] [address] OMT [facility] [place] Comment on above: OMT Start: 11-13-2024 End: 11-13-2024 Patient encounter procedure 11/13/2024 3:00 PM EDT Office Visit [facility] [place] [address] [place] [address] Antolin June, DO [address] [place] [address] OMT [facility] [place] Comment on above: OMT Start: 11-10-2024 End: 11-10-2024 Patient encounter procedure 11/10/2024 2:40 PM EDT Office Visit [facility] [place] [address] [place] [address] Antolin June, DO [address] [place] [address] OMT [facility] [place] Comment on above: OMT Start: 10-21-2024 End: 10-21-2024 Follow-up encounter 10/21/2024 12:30 PM EDT [facility] [address] [facility] [place] [id number] Monica Hunt PA-C [address] [facility] [place] [address] 3 Month follow up [facility] Comment on above: 3 Month follow up Start: 10-09-2024 End: 10-09-2024 Patient encounter procedure 10/09/2024 3:00 PM EDT Office Visit [facility] [place] [address] [place] [address] Antolin June, DO [address] [place] [address] OMT [facility] [place] Comment on above: OMT Start: 09-29-2024 End: 09-29-2024 Patient encounter procedure 09/29/2024 2:20 PM EDT Office Visit [facility] [place] [address] [facility] [place] [address] Antolin June DO [address] [place] [address] OMT Family Medicine [place] Comment on above: OMT Start: 09-25-2024 End: 12-25-2024 Thyrotropin [Units/volume] in Serum or Plasma THYROID STIMULATING HORMONE Lab Routine Hot flashes Expected: 09/25/2024, Expires: 12/25/2024 [facility] Work Phone: Comment on above: Expected: 09/25/2024, Expires: Start: 09-25-2024 End: 12-25-2024 Thyroxine (T4) free [Mass/volume] in Serum or Plasma T4 FREE/FREE THYROXINE Lab Routine Hot flashes Expected: 09/25/2024, Expires: 12/25/2024 [facility] Comment on above: Expected: 09/25/2024, Expires: Start: 09-25-2024 End: 12-25-2024 Triiodothyronine (T3) Free [Mass/volume] in Serum or Plasma T3, FREE Lab Routine Hot flashes Expected: 09/25/2024, Expires: 12/25/2024 [facility] Comment on above: Expected: 09/25/2024, Expires: Start: 09-09-2024 End: 09-09-2024 Patient encounter procedure 09/09/2024 3:30 PM EDT Office Visit Integrative Medicine [address] [place] [address] Dov Dunn DC [address] [place] [address] [place] Comment on above: [place] Start: 09-04-2024 End: 09-04-2024 Patient encounter procedure 09/04/2024 3:00 PM EDT Office Visit [facility] [place] [address] [facility] [place] [address] Antolin June, DO [address] [facility] [place] [address] OMT [facility] [place] Comment on above: OMT Start: 09-01-2024 End: 09-01-2024 Patient encounter procedure [facility] [place] Comment on above: OMT Neck and low back Start: 08-26-2024 End: 08-26-2024 Patient encounter procedure 08/26/2024 10:40 AM EDT Office Visit [facility] [place] [address] [facility] [place] [address] Antolin June, DO [address] [facility] [place] [address] UTI/OMT [facility] [place] Comment on above: UTI/OMT Start: 08-25-2024 End: 08-25-2024 Patient encounter procedure 08/25/2024 1:00 PM EDT Office Visit Integrative Medicine [address] [place] [address] Sherrill Henley R [address] [place] [address] ACUPUNCTURE [facility] Comment on above: ACUPUNCTURE Start: 08-14-2024 End: 08-14-2024 Patient encounter procedure 08/14/2024 5:00 PM EDT Appointment Radiology [address] [place] [address] scan, pelvis [R93.5] Radiology Comment on above: Abnormal CT scan, pelvis [R93.5] Start: 08-13-2024 End: 08-13-2024 Patient encounter procedure Cat Scan Comment on above: Dysuria [R30.0]; Acute cystitis with hem aturia [N30.01]; Nausea [R11.0]; Lower abdominal pain [R10.30]; Flank pain [R10.9] Start: 08-12-2024 End: 08-12-2024 Patient encounter procedure 08/12/2024 3:30 PM EDT Office Visit Integrative Medicine [address] [place] [address] Dov Dunn DC [address] [place] [address] [place] [facility] Comment on above: [place] Start: 08-12-2024 End: 11-11-2024 Creatine kinase [Enzymatic activity/volume] in Serum or Plasma [facility] Work Phone: Comment on above: Expected: 08/12/2024, Expires: Start: 08-10-2024 End: 11-09-2024 Bacteria identified in Urine by Culture BACTERIAL CULTURE, URINE Microbiology Routine Dysuria Expected: 08/10/2024, Expires: 11/09/2024 [facility] Work Phone: Comment on above: Expected: 08/10/2024, Expires: Start: 08-07-2024 End: 08-07-2024 Patient encounter procedure 08/07/2024 4:00 PM EDT Office Visit Neurology [address] [place] [address] [place] [phone] Alicja West PA-C [address] [place] [address] botox Neurology Comment on above: botox Start: 08-03-2024 End: 08-03-2024 Patient encounter procedure 08/03/2024 1:40 PM EDT Office Visit [facility] [place] [address] [place], [place] [id number] Antolin June, [address] [place] [address] OMT Family Medicine [place] Comment on above: OMT Start: 07-31-2024 End: 07-31-2024 Patient encounter procedure Cat Scan Comment on above: Elevated fecal calprotectin [R19.5] Start: 07-28-2024 End: 07-28-2024 Patient encounter procedure 07/28/2024 1:40 PM EDT Office Visit [facility] [place] [address] [place] [address] Antolin June, DO [address] [place], [place] [address] OMT Family Medicine [place] Comment on above: OMT Start: 07-21-2024 End: 07-21-2024 Patient encounter procedure [facility] Comment on above: f/u for change in bowels Start: 07-15-2024 End: 07-15-2024 Patient encounter procedure 07/15/2024 2:30 PM EDT Office Visit Integrative Medicine [address] [place] [address] Dov Dunn DC [address] [place] [address] [place] [facility] Comment on above: [place] Start: 07-14-2024 End: 07-14-2024 Patient encounter procedure Radiology Comment on above: XR SHOULDER GENERAL 3V OR MORE AP/TRUE A P/OTHER RIGHT CT NECK SOFT TISSUE W IVCON Start: 06-30-2024 End: 06-30-2024 Patient encounter procedure 06/30/2024 3:20 PM EST Office Visit [facility] [place] [address] [place] [address] Antolin June DO [address] [place], [place] [address] OMT Family [facility] [place] Comment on above: OMT Start: 06-23-2024 End: 06-23-2024 Patient encounter procedure 06/23/2024 2:20 PM EST Office Visit [facility] [place] [address] [place] [address] Kae Shepherd APRN.TEMPERATURE CONTROL INSPECTOR [address] [place], [place] [id number] Follow up [facility] [place] Comment on above: Follow up Start: 06-23-2024 End: 09-22-2024 Comprehensive metabolic 2000 panel - Serum or Plasma [facility] Work Phone: Comment on above: Expected: 06/23/2024, Expires: Start: 06-23-2024 End: 09-22-2024 BERNARDO HOOK PANEL [facility] Comment on above: Expected: 06/23/2024, Expires: Start: 06-23-2024 End: 09-22-2024 Heterophile Ab [Presence] in Serum by Latex agglutination [facility] Comment on above: Expected: 06/23/2024, Expires: Start: 06-17-2024 End: 06-17-2024 Patient encounter procedure 06/17/2024 2:30 PM EST Office Visit Integrative Medicine [address] [place] [address] Dov Dunn DC [address] [place] [address] [place] [facility] Comment on above: [place] Start: 06-02-2024 End: 06-02-2024 Patient encounter procedure 06/02/2024 3:20 PM EST Office Visit [facility] [place] [address] [facility] [place] [address] Antolin June DO [address] [facility], [place] [address] OMT Family Medicine [place] Comment on above: OMT Start: 05-26-2024 End: 05-26-2024 Patient encounter procedure 05/26/2024 2:40 PM EST Office Visit [facility] [place] [address] [facility] [place] [address] Herve Madrid PA-C [address] [place] [address] Follow Up Family Medicine [place] Comment on above: Follow Up Start: 05-20-2024 End: 05-20-2024 Patient encounter procedure 05/20/2024 3:00 PM EST Office Visit Orthopaedics [address] [address] Zee Glasgow DO [address] [facility], [place] [address] Chronic compartment syndrome of lower extremity [M79.A29]; 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] Orthopaedics Comment on above: Chronic compartment syndrome of lower ex tremity [M79.A29]; 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] Start: 05-07-2024 End: 05-07-2024 Patient encounter procedure 05/07/2024 4:00 PM EST Office Visit Neurology [address] [place] [address] [place] [address] Alicja West PA-C [address] [place] [address] botox follow up Neurology Comment on above: botox follow up Start: 05-05-2024 End: 05-05-2024 Patient encounter procedure 05/05/2024 2:40 PM EST Office Visit [facility] [place] [address] [place] [address] Herve Madrid PA-C [address] [facility] [place] [address] Issues Management/Guidance [facility] [place] Comment on above: Issues Management/Guidance Start: 05-01-2024 End: 05-01-2024 Patient encounter procedure 05/01/2024 2:40 PM EST Office Visit [facility] [place] [address] [place] [address] Antolin June DO [address] [facility] [place] [address] Wellness Check [facility] [place] Comment on above: Wellness Check Start: 05-01-2024 End: 07-31-2024 25-hydroxyvitamin D3 [Mass/volume] in Serum or Plasma VITAMIN D 25 HYDROXY Lab Routine Well adult exam Expected: 05/01/2024, Expires: 07/31/2024 [facility] Comment on above: Expected: 05/01/2024, Expires: Start: 05-01-2024 End: 07-31-2024 Aldolase [Enzymatic activity/volume] in Serum or Plasma ALDOLASE BLD Lab Routine Myalgia Expected: 05/01/2024, Expires: 07/31/2024 [facility] Comment on above: Expected: 05/01/2024, Expires: Start: 05-01-2024 End: 07-31-2024 C reactive protein [Mass/volume] in Serum or Plasma C-REACTIVE PROTEIN Lab Routine Well adult exam Expected: 05/01/2024, Expires: 07/31/2024 [facility] Comment on above: Expected: 05/01/2024, Expires: Start: 05-01-2024 End: 07-31-2024 CBC W Auto Differential panel - Blood COMPLETE BLOOD COUNT AND DIFFERENTIAL Lab Routine Well adult exam Expected: 05/01/2024, Expires: 07/31/2024 [facility] Comment on above: Expected: 05/01/2024, Expires: Start: 05-01-2024 End: 07-31-2024 Cobalamin (Vitamin B12) [Mass/volume] in Serum or Plasma VITAMIN B12 Lab Routine Well adult exam Expected: 05/01/2024, Expires: 07/31/2024 [facility] Comment on above: Expected: 05/01/2024, Expires: Start: 05-01-2024 End: 07-31-2024 Comprehensive metabolic 2000 panel - Serum or Plasma COMPREHENSIVE METABOLIC PANEL Lab Routine Well adult exam Expected: 05/01/2024, Expires: 07/31/2024 [facility] Work Phone: Comment on above: Expected: 05/01/2024, Expires: Start: 05-01-2024 End: 07-31-2024 Creatine kinase [Enzymatic activity/volume] in Serum or Plasma CREATINE KINASE/CK Lab Routine Myalgia Expected: 05/01/2024, Expires: 07/31/2024 [facility] Comment on above: Expected: 05/01/2024, Expires: Start: 05-01-2024 End: 07-31-2024 Hemoglobin A1c in Blood HEMOGLOBIN A1C Lab Routine Well adult exam Expected: 05/01/2024, Expires: 07/31/2024 [facility] Comment on above: Expected: 05/01/2024, Expires: Start: 05-01-2024 End: 07-31-2024 Insulin [Units/volume] in Serum or Plasma INSULIN ASSAY BLOOD Lab Routine Well adult exam Expected: 05/01/2024, Expires: 07/31/2024 [facility] Comment on above: Expected: 05/01/2024, Expires: Start: 05-01-2024 End: 07-31-2024 Lipid 1996 panel - Serum or Plasma LIPID PANEL BASIC Lab Routine Well adult exam Expected: 05/01/2024, Expires: 07/31/2024 [facility] Comment on above: Expected: 05/01/2024, Expires: Start: 05-01-2024 End: 07-31-2024 Magnesium [Mass/volume] in Serum or Plasma MAGNESIUM Lab Routine Myalgia Expected: 05/01/2024, Expires: 07/31/2024 [facility] Comment on above: Expected: 05/01/2024, Expires: Start: 05-01-2024 PAP TESTING PAP TESTING [facility] Start: 05-01-2024 End: 07-31-2024 Thyrotropin [Units/volume] in Serum or Plasma THYROID STIMULATING HORMONE Lab Routine Well adult exam Expected: 05/01/2024, Expires: 07/31/2024 [facility] Comment on above: Expected: 05/01/2024, Expires: Start: 05-01-2024 End: 07-31-2024 Thyroxine (T4) free [Mass/volume] in Serum or Plasma T4 FREE/FREE THYROXINE Lab Routine Well adult exam Expected: 05/01/2024, Expires: 07/31/2024 [facility] Comment on above: Expected: 05/01/2024, Expires: Start: 04-30-2024 End: 04-30-2024 Patient encounter procedure 04/30/2024 2:00 PM EST Appointment [facility] [address] [place], [place] [id number] Gastroesophageal reflux disease, unspecified whether esophagitis present [K21.9] [facility] Comment on above: Gastroesophageal reflux disease, unspeci fied whether esophagitis present [K21.9] Start: 04-21-2024 End: 04-21-2024 Patient encounter procedure [facility] Comment on above: Gastroesophageal reflux disease, unspeci fied whether esophagitis present [K21.9] US Then GI/ Start: 04-17-2024 End: 04-17-2024 Patient encounter procedure 04/17/2024 3:00 PM EST Office Visit Family [facility] [address] [place], [place] [id number] Antolin June DO [address] [place], [place] [id number] [facility] Comment on above: OMT Start: 04-15-2024 End: 04-15-2024 Patient encounter procedure 04/15/2024 3:05 PM EST Office Visit [facility]astroenterology [facility] [address] [place] [phone] Monica Hunt PA-C [address] [place], [place] [id number] belching, abd pain, constipation-Provider putting in order. [facility] Comment on above: belching, abd pain, constipation-Provide r putting in order. Start: 04-14-2024 End: 04-14-2024 Patient encounter procedure 04/14/2024 1:40 PM EST Office Visit Family [facility] [address] [place], [place] [id number] Antolin June DO [address] [place], [place] [id number] [facility] Comment on above: OMT Start: 04-09-2024 End: 04-09-2024 Patient encounter procedure 04/09/2024 2:00 PM EST Office Visit Allergy [address] [address] Vaibhav Culp MD [address] [place] [address] Skin Allergy Testing Allergy Comment on above: Skin Allergy Testing Start: 03-17-2024 End: 03-17-2024 Patient encounter procedure 03/17/2024 1:40 PM EST Office Visit [facility] [place] [address] [place] [address] Antolin June, DO [address] [facility] [place] [address] OMT Family Medicine [place] Comment on above: OMT Start: 03-13-2024 End: 03-13-2024 Patient encounter procedure 03/13/2024 1:00 PM EST Office Visit [facility] [place] [address] [place] [address] Antolin June, DO [address] [facility] [place] [address] OMT Family [facility] [place] Comment on above: OMT Start: 02-18-2024 End: 02-18-2024 Patient encounter procedure 02/18/2024 3:20 PM EDT Office Visit Family Medicine [place] [address] [place] [address] Antolin June, DO [address] [facility] [place] [address] OMT Family Medicine [place] Comment on above: OMT Start: 02-17-2024 End: 02-17-2024 Patient encounter procedure 02/17/2024 1:40 PM EDT Office Visit Family Medicine [place] [address] [place] [address] Antolin June, DO [address] [facility] [place] [address] OMT Family Medicine [place] Comment on above: OMT Start: 02-07-2024 End: 02-07-2024 Patient encounter procedure 02/07/2024 11:40 AM EDT Office Visit [facility] [place] [address] [place] [address] Antolin June, [address] [place] [address] OMT Family Medicine [place] Comment on above: OMT Start: 02-04-2024 End: 02-04-2024 Patient encounter procedure 02/04/2024 3:15 PM EDT Office Visit [facility] Ophthalmology [address] [place] [address] Ephraim Valenzuela, OD [address] [place] [address] Return in about 6 weeks (around 02/04/2024) for headache and refraction check . Ophthalmology Comment on above: Return in about 6 weeks (around ) for headache and refraction check . Start: 02-03-2024 End: 02-03-2024 Patient encounter procedure 02/03/2024 2:45 PM EDT Office Visit [facility] Ophthalmology [address] [place] [address] Ephraim Valenzuela, OD [address] [place] [address] HEADACHES AND MIGRANTS Ophthalmology Comment on above: HEADACHES [employer] MIG[employer]S Start: 01-30-2024 End: 01-30-2024 Patient encounter procedure 01/30/2024 3:00 PM EDT Office Visit Neurology [address] [place] [address] Alicja West PA-C [address] [place] [address] Botox Neurology Comment on above: Botox Start: 01-22-2024 End: 01-22-2024 Patient encounter procedure 01/22/2024 3:30 PM EDT Office Visit Neurology [address] [place] [address] Alicja West PA-C [address] [place] [address] 3 month Migraine Salguero follow up Neurology Comment on above: 3 month Migraine Salguero follow up Start: 01-16-2024 End: 01-16-2024 Patient encounter procedure 01/16/2024 9:00 AM EDT Office Visit Neurology [address] [place] [address] [place] [phone] Alicja West PA-C [address] [place] [address] Botox Neurology Comment on above: Botox Start: 01-14-2024 End: 01-14-2024 Patient encounter procedure 01/14/2024 1:40 PM EDT Office Visit Family Medicine [place] [address] [facility] [place] [address] Antolin uJne DO [address] [place] [address] OMT Family [facility] Comment on above: OMT Start: 01-13-2024 Urine microalbumin profile [facility] Start: 12-31-2023 End: 12-31-2023 Patient encounter procedure 12/31/2023 1:40 PM EDT Office Visit Family [facility] [address] [facility] [place] [address] Antolin June DO [address] [place] [address] OMT Family [facility] Comment on above: OMT Start: 12-29-2023 Covid-19 Vaccine ( season) Covid-19 Vaccine ( season) [facility] Start: 12-29-2023 Influenza vaccination Influenza Vaccine (#1) [facility] Start: 12-24-2023 End: 12-24-2023 Patient encounter procedure 12/24/2023 1:00 PM EDT Office Visit [facility] Ophthalmology [address] [place] [address] Ephraim Valenzuela, OD [address] [place] [address] HEADACHES [employer] MIGRANTS Ophthalmology Comment on above: HEADACHES [employer] MIGRANTS Start: 12-18-2023 End: 12-18-2023 Patient encounter procedure 12/18/2023 11:15 AM EDT Office Visit Neurology [address] [place] [address] Alicja West PA-C [address] [place] [address] 3 month Migraine Salguero follow up Neurology Comment on above: 3 month Migraine Salguero follow up Start: 12-11-2023 End: 12-11-2023 Patient encounter procedure 12/11/2023 4:15 PM EDT Office Visit Neurology [address] [place] [address] Alicja West PA-C [address] [place] [address] 3 month Migraine Salguero follow up Neurology Comment on above: 3 month Migraine Salguero follow up Start: 12-10-2023 End: 12-10-2023 Patient encounter procedure 12/10/2023 1:40 PM EDT Office Visit [facility] [place] [address] [place] [address] Antolin June, [address] [place] [address] OMT Family Medicine [place] Comment on above: OMT Start: 11-26-2023 End: 11-26-2023 Patient encounter procedure 11/26/2023 1:40 PM EDT Office Visit Family Medicine [place] [address] [place] [address] Antolin June DO [address] [address] OMT Family Medicine [place] Comment on above: OMT Start: 11-12-2023 End: 11-12-2023 Patient encounter procedure 11/12/2023 1:40 PM EDT Office Visit [facility] [place] [address] [place] [address] Antolin June DO [address] [place] [address] OMT Family Medicine [place] Comment on above: OMT Start: 10-09-2023 End: 10-09-2023 Patient encounter procedure 10/09/2023 3:30 PM EDT Office Visit Neurology [address] [address] Alicja West PA-C [address] [place] [address] 3 month Migraine Salguero follow up Neurology Comment on above: 3 month Migraine Salguero follow up Start: 10-08-2023 End: 01-07-2024 ALLERGEN FOOD PANEL RL1 [facility] Comment on above: Expected: 10/08/2023, Expires: Start: 10-08-2023 End: 01-07-2024 ALLERGEN FOOD PANEL RL2 [facility] Comment on above: Expected: 10/08/2023, Expires: Start: 10-08-2023 End: 01-07-2024 Ascorbate [Mass/volume] in Serum or Plasma [facility] Comment on above: Expected: 10/08/2023, Expires: Start: 10-08-2023 End: 01-07-2024 CELIAC COMPREHENSIVE PANEL [facility] Comment on above: Expected: 10/08/2023, Expires: Start: 10-08-2023 End: 10-08-2023 Patient encounter procedure 10/08/2023 1:40 PM EDT Office Visit Family [facility] [place] [address] [place] [address] Antolin June DO [address] [place] [address] OMT Family Medicine [place] Comment on above: OMT Start: 09-03-2023 End: 12-03-2023 25-hydroxyvitamin D3 [Mass/volume] in Serum or Plasma [facility] Work Phone: Comment on above: Expected: 09/03/2023, Expires: 4 Start: 09-03-2023 End: 09-03-2023 Patient encounter procedure 09/03/2023 1:40 PM EDT Office [facility] [address] [place] [address] Antolin June, [address] [place] [address] [facility] Comment on above: OMT Start: 08-27-2023 End: 08-27-2023 Patient encounter procedure 08/27/2023 3:20 PM EDT Office Visit [facility] [address] [place] [address] Antolin June, [address] [facility] [place] [address] OMT [facility] Comment on above: [facility] Start: 12-28-2022 Covid-19 Vaccine () Covid-19 Vaccine () [facility] Start: 12-28-2022 Influenza vaccination [facility] Start: 09-07-2022 End: 11-07-2022 Corticotropin [Mass/volume] in Plasma ACTH BLD Lab Routine Prolactinoma (HCC) Expected: 09/07/2022, Expires: 11/07/2022 [facility] Work Phone: Comment on above: Expected: 09/07/2022, Expires: 3 Start: 09-07-2022 End: 11-07-2022 Cortisol [Mass/volume] in Serum or Plasma CORTISOL BLD Lab Routine Prolactinoma (HCC) Expected: 09/07/2022, Expires: 11/07/2022 [facility] Work Phone: Comment on above: Expected: 09/07/2022, Expires: 3 Start: 09-07-2022 End: 11-07-2022 INSULIN LIK GR FAC I INSULIN LIK GR FAC I Lab Routine Prolactinoma ([facility]) Expected: 09/07/2022, Expires: 11/07/2022 [facility] Work Phone: Comment on above: Expected: 09/07/2022, Expires: 3 Start: 09-07-2022 End: 11-07-2022 Prolactin [Mass/volume] in Serum or Plasma PROLACTIN BLD Lab Routine Prolactinoma ([facility]) Expected: 09/07/2022, Expires: 11/07/2022 [facility] Work Phone: Comment on above: Expected: 09/07/2022, Expires: 3 Start: 09-07-2022 End: 11-07-2022 Somatostatin [Mass/volume] in Plasma GROWTH HORMONE Lab Routine Prolactinoma ([facility]) Expected: 09/07/2022, Expires: 11/07/2022 [facility] Work Phone: Comment on above: Expected: 09/07/2022, Expires: 3 Start: 09-07-2022 End: 11-07-2022 Thyrotropin [Units/volume] in Serum or Plasma TSH BLD Lab Routine Prolactinoma ([facility]) Expected: 09/07/2022, Expires: 11/07/2022 [facility] Work Phone: Comment on above: Expected: 09/07/2022, Expires: 3 Start: 09-07-2022 End: 11-07-2022 Thyroxine (T4) free [Mass/volume] in Serum or Plasma T4 FREE/FREE THYROX Lab Routine Prolactinoma ([facility]) Expected: 09/07/2022, Expires: 11/07/2022 [facility] Work Phone: Comment on above: Expected: 09/07/2022, Expires: 3 Start: 2022 HPV TESTING HPV TESTING [facility] Start: 2022 Screening for malignant neoplasm of cervix HPV Testing [facility] Start: 12-28-2021 Influenza vaccination INFLUENZA (#1) [facility] Start: 10-31-2021 End: 12-31-2021 25-hydroxyvitamin D3 [Mass/volume] in Serum or Plasma VITAMIN D 25 HYDROXY Lab Routine Neck pain Change in nail appearance Fatigue, unspecified type Brittle nails Expected: 10/31/2021, Expires: 12/31/2021 [facility] Work Phone: Comment on above: Expected: 10/31/2021, Expires: 2 Start: 10-31-2021 End: 12-31-2021 CBC W Auto Differential panel - Blood CBC + DIFF Lab Routine Neck pain Change in nail appearance Fatigue, unspecified type Brittle nails Expected: 10/31/2021, Expires: 12/31/2021 [facility] Work Phone: Comment on above: Expected: 10/31/2021, Expires: 2 Start: 10-31-2021 End: 12-31-2021 Comprehensive metabolic 2000 panel - Serum or Plasma COMP METABOLIC PANEL Lab Routine Neck pain Change in nail appearance Fatigue, unspecified type Brittle nails Expected: 10/31/2021, Expires: 12/31/2021 [facility] Work Phone: Comment on above: Expected: 10/31/2021, Expires: 2 Start: 10-31-2021 End: 12-31-2021 Iron and Iron binding capacity panel - Serum or Plasma IRON + TIBC Lab Routine Neck pain Change in nail appearance Fatigue, unspecified type Brittle nails Expected: 10/31/2021, Expires: 12/31/2021 [facility] Work Phone: Comment on above: Expected: 10/31/2021, Expires: 2 Start: 10-31-2021 End: 12-31-2021 RBC FOLATE RBC FOLATE Lab Routine Neck pain Change in nail appearance Fatigue, unspecified type Brittle nails Expected: 10/31/2021, Expires: 12/31/2021 [facility] Work Phone: Comment on above: Expected: 10/31/2021, Expires: 2 Start: 10-31-2021 End: 12-31-2021 Thyrotropin [Units/volume] in Serum or Plasma TSH BLD Lab Routine Neck pain Change in nail appearance Fatigue, unspecified type Brittle nails Expected: 10/31/2021, Expires: 12/31/2021 [facility] Work Phone: Comment on above: Expected: 10/31/2021, Expires: 2 Start: 10-31-2021 End: 12-31-2021 Thyroxine (T4) free [Mass/volume] in Serum or Plasma T4 FREE/FREE THYROX Lab Routine Neck pain Change in nail appearance Fatigue, unspecified type Brittle nails Expected: 10/31/2021, Expires: 12/31/2021 [facility] Work Phone: Comment on above: Expected: 10/31/2021, Expires: 2 Start: 10-31-2021 End: 12-31-2021 Triiodothyronine (T3) Free [Mass/volume] in Serum or Plasma T3 FREE BLD Lab Routine Neck pain Change in nail appearance Fatigue, unspecified type Brittle nails Expected: 10/31/2021, Expires: 12/31/2021 [facility] Work Phone: Comment on above: Expected: 10/31/2021, Expires: 2 Start: 09-27-2021 End: 11-27-2021 Corticotropin [Mass/volume] in Plasma ACTH BLD Lab Routine Elevated prolactin level Expected: 09/27/2021, Expires: 11/27/2021 [facility] Work Phone: Comment on above: Expected: 09/27/2021, Expires: 2 Start: 09-27-2021 End: 11-27-2021 Cortisol [Mass/volume] in Serum or Plasma CORTISOL BLD Lab Routine Elevated prolactin level Expected: 09/27/2021, Expires: 11/27/2021 [facility] Work Phone: Comment on above: Expected: 09/27/2021, Expires: 2 Start: 09-27-2021 End: 11-27-2021 INSULIN LIK GR FAC I INSULIN LIK GR FAC I Lab Routine Elevated prolactin level Expected: 09/27/2021, Expires: 11/27/2021 [facility] Work Phone: Comment on above: Expected: 09/27/2021, Expires: 2 Start: 09-27-2021 End: 11-27-2021 Prolactin [Mass/volume] in Serum or Plasma PROLACTIN BLD Lab Routine Elevated prolactin level Expected: 09/27/2021, Expires: 11/27/2021 [facility] Work Phone: Comment on above: Expected: 09/27/2021, Expires: 2 Start: 09-27-2021 End: 11-27-2021 Somatostatin [Mass/volume] in Plasma GROWTH HORMONE Lab Routine Elevated prolactin level Expected: 09/27/2021, Expires: 11/27/2021 [facility] Work Phone: Comment on above: Expected: 09/27/2021, Expires: 2 Start: 09-09-2021 PAP TESTING PAP TESTING [facility] Start: 09-05-2021 End: 11-05-2021 Prolactin [Mass/volume] in Serum or Plasma PROLACTIN BLD Lab Routine Elevated prolactin level Expected: 09/05/2021, Expires: 11/05/2021 [facility] Work Phone: Comment on above: Expected: 09/05/2021, Expires: 2 Start: 07-06-2021 COVID-19 VACCINE (4 - Booster for Moderna series) COVID-19 VACCINE (4 - Booster for Moderna series) [facility] ALLERGEN SKIN TEST-O THER INHAL ALLERGEN SKIN TEST-OTHER INHAL Procedures Routine Post-nasal drainage Nonallergic rhinitis Rash and nonspecific skin eruption Ordered: 04/09/2024 [facility] Work Phone: Comment on above: Ordered: 04/09/2024 End: 08-10-2025 Bacteria identified in Urine by Culture BACTERIAL CULTURE, URINE Microbiology Routine Recurrent UTI (urinary tract infection) Once per week for 50 Occurrences starting 08/10/2024 until 08/10/2025, 2 completed [facility] Comment on above: Once per week for 50 Occurrences startin g 08/10/2024 until 08/10/2025, 2 completed Calprotectin [Mass/m ass] in Stool CALPROTECTIN,FECAL Lab Routine Change in bowel habits Ordered: 04/15/2024 [facility] Comment on above: Ordered: 04/15/2024 Calprotectin [Mass/m ass] in Stool CALPROTECTIN,FECAL Lab Routine Change in bowel habits Lower abdominal pain Ordered: 04/28/2024 [facility] Work Phone: Comment on above: Ordered: 04/28/2024 Calprotectin [Mass/m ass] in Stool CALPROTECTIN,FECAL Lab Routine Elevated fecal calprotectin Ordered: 07/21/2024 [facility] Work Phone: Comment on above: Ordered: 07/21/2024 Clostridioides diffi cile toxin genes [Presence] in Stool by RITU with probe detection C. DIFFICILE PCR Lab Routine Change in bowel habits Ordered: 04/15/2024 [facility] Comment on above: Ordered: 04/15/2024 End: 08-31-2023 COLONOSCOPY DIAGNOSTIC COLONOSCOPY DIAGNOSTIC Endoscopy Routine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 used Substance Use Topics Alcohol use: No Drug use: No ROS: See HPI PE: LMP 05/24/2020 Gen: A&OX3, NAD, non-toxic appearing Neck: No LAD, no thyromegaly, no meningismus. C2-6NRlSBl Left suboccipital tension and muscle fullness Left 1st rib inhalation dysfunction T2-8 NRrSBr Skin: No rashes, lesions, or wounds on exposed skin. Scoliosis changes thoracic and lumbar spine No spinal TTP Left anterior pelvis somatic dysfunction Paraspinal tension in low back area with L1-2NRrSBr Restriction in bilateral quadratus lumborum muscle with tension present Normal peripheral pulses, no edema ASSESSMENT/PLAN: 1. Neck pain - ICD9: 723.1, ICD10: M54.2 (primary diagnosis) OMT: Discussed risks, benefits, alternatives, and potential SEs of treatment. Patient wished to proceed with OMT. OMT was performed to the cervical region, head region, pelvis region, lumbar region, thoracic region, and ribs including soft tissue, functional methods, and HVLA. Patient tolerated treatment well with good release, increase ROM, and decrease in pain, without complications. Instructed patient to drink plenty of water. Gentle stretches at home. 2. Headache disorder - ICD9: 784.0, ICD10: R51.9 OMT: Discussed risks, benefits, alternatives, and potential SEs of treatment. Patient wished to proceed with OMT. OMT was performed to the cervical region, head region, pelvis region, lumbar region, thoracic region, and ribs including soft tissue, functional methods, and HVLA. Patient tolerated treatment well with good release, increase ROM, and decrease in pain, without complications. Instructed patient to drink plenty of water. Gentle stretches at home. 3. Acute bilateral thoracic back pain - ICD9: 724.1, ICD10: M54.6 OMT: Discussed risks, benefits, alternatives, and potential SEs of treatment. Patient wished to proceed with OMT. OMT was performed to the cervical region, head region, pelvis region, lumbar region, thoracic region, and ribs including soft tissue, functional methods, and HVLA. Patient tolerated treatment well with good release, increase ROM, and decrease in pain, without complications. Instructed patient to drink plenty of water. Gentle stretches at home. 4. Somatic dysfunction of spine, lumbar - ICD9: 739.3, ICD10: M99.03 OMT: Discussed risks, benefits, alternatives, and potential SEs of treatment. Patient wished to proceed with OMT. OMT was performed to the cervical region, head region, pelvis region, lumbar region, thoracic region, and ribs including soft tissue, functional methods, and HVLA. Patient tolerated treatment well with good release, increase ROM, and decrease in pain, without complications. Instructed patient to drink plenty of water. Gentle stretches at home. 5. Somatic dysfunction of thoracic region - ICD9: 739.2, ICD10: M99.02 OMT: Discussed risks, benefits, alternatives, and potential SEs of treatment. Patient wished to proceed with OMT. OMT was performed to the cervical region, head region, pelvis region, lumbar region, thoracic region, and ribs including soft tissue, functional methods, and HVLA. Patient tolerated treatment well with good release, increase ROM, and decrease in pain, without complications. Instructed patient to drink plenty of water. Gentle stretches at home. 6. Segmental and somatic dysfunction of rib cage - ICD9: 739.8, ICD10: M99.08 OMT: Discussed risks, benefits, alternatives, and potential SEs of treatment. Patient wished to proceed with OMT. OMT was performed to the cervical region, head region, pelvis region, lumbar region, thoracic region, and ribs including soft tissue, functional methods, and HVLA. Patient tolerated treatment well with good release, increase ROM, and decrease in pain, without complications. Instructed patient to drink plenty of water. Gentle stretches at home. 7. Somatic dysfunction of cervical region - ICD9: 739.1, ICD10: M99.01 OMT: Discussed risks, benefits, alternatives, and potential SEs of treatment. Patient wished to proceed with OMT. OMT was performed to the cervical region, head region, pelvis region, lumbar region, thoracic region, and ribs including soft tissue, functional methods, and HVLA. Patient tolerated treatment well with good release, increase ROM, and decrease in pain, without complications. Instructed patient to drink plenty of water. Gentle stretches at home. 8. Somatic dysfunction of spine affecting head region - ICD9: 739.0, ICD10: M99.00 OMT: Discussed risks, benefits, alternatives, and potential SEs of treatment. Patient wished to proceed with OMT. OMT was performed to the cervical region, head region, pelvis region, lumbar region, thoracic region, and ribs including soft tissue, functional methods, and HVLA. Patient tolerated treatment well with good release, increase ROM, and decrease in pain, without complications. Instructed patient to drink plenty of water. Gentle stretches at home. 9. Somatic dysfunction of pelvic region - ICD9: 739.5, ICD10: M99.05 OMT: Discussed risks, benefits, alternatives, and potential SEs of treatment. Patient wished to proceed with OMT. OMT was performed to the cervical region, head region, pelvis region, lumbar region, thoracic region, and ribs including soft tissue, functional methods, and HVLA. Patient tolerated treatment well with good release, increase ROM, and decrease in pain, without complications. Instructed patient to drink plenty of water. Gentle stretches at home. Antolin June DO Return if no improvement. Follow up with Antolin June DO. To ER if develops chest pain, shortness of breath,. Discussed risks, benefits, alternatives, and potential side effects of medications. Patient/Guardian expressed understanding and agreed with the plan. See patient instructions. Antolin June DO [address] [place] [address] documented in this encounter [facility] 08-28-2023 Telephone encounter Note PA started via [facility]. [place]- [id number]. Meggan Mueller LPN [facility] 08-22-2023 Telephone encounter Note As there is no specifications for denial, can try Ubrelvy 100mg with onset of headache due to similar MOA. Alicja West PA-C [facility] 08-22-2023 Miscellaneous Notes As there is no specifications for denial, can try Ubrelvy 100mg with onset of headache due to similar MOA. Alicja West PA-C No fax received in office at this time. Please advise on next steps as denial reason is unspecified. Thank you. MARIA LUZ Maya [facility] states PA for Nurtec was denied. Denial reason: not specified Please watch for determination fax for more information. MARIA LUZ Maya Prior Auth for Nurtec started via [facility]. [place]- [id number]. Meggan Mueller LPN documented in this encounter [facility] 08-22-2023 Telephone encounter Note No fax received in office at this time. Please advise on next steps as denial reason is unspecified. Thank you. MARIA LUZ Maya [facility] 08-21-2023 Telephone encounter Note [facility] states PA for Nurtec was denied. Denial reason: not specified Please watch for determination fax for more information. MARIA LUZ Maya [facility] 08-20-2023 Telephone encounter Note Prior Auth for Nurtec started via [facility]. [place]- [id number]. Meggan Mueller LPN [facility] 08-20-2023 Note Addended by: ALICJA WEST on: 08/20/2023 10:44 AM Modules accepted: Orders [facility] 08-20-2023 Miscellaneous Notes Addended by: ALICJA WEST on: 08/20/2023 10:44 AM Modules accepted: Orders BERTHA 08/06/23 with MQ NOV 12/11/23 with MQ Refill 3/11/24 with qty: 60 and 2 refills Meggan Mueller LPN BERTHA Assessment/Plan Travis Steward is a 32 year old right-handed female with a history of Raynaud's, popliteal artery entrapment syndrome, scoliosis, lumbar back pain depression, anxiety. Her examination demonstrates no neurologic abnormalities. Patient with chronic headaches, at last appointment patient was put on gabapentin 300 mg twice daily after not tolerating Topamax. Is currently on nortriptyline, has been on this for multiple months due to increased anxiety over life stressors. Notes this is not significantly impacted her headaches. However, notes gabapentin was beneficial in decreasing her headache days in severity. Notes from having 14 moderate to severe headache days to 6 mild to moderate headache days in a month, with migrainous symptoms. No autonomic features, recent MRI of the brain did show low-lying cerebellar tonsils, but no signs of obstruction. No side effects with the gabapentin. Has been using naproxen 500 mg for abortive relief with moderate effectiveness, no side effects. At this time, no new symptoms sooner warranting further imaging at this time. Discussed further increasing gabapentin as she is tolerated this well and has been beneficial to her and she agrees. Will increase to 300 mg in the morning and 600 mg at night. Discussed common side effects and patient is amenable. Regarding abortive therapy, patient would like to continue with naproxen as needed, would not like to try any medications today. Encouraged conservative therapies as well and education regarding supplements, increasing water, finding common triggers was given to patient. documented in this encounter [facility] 08-20-2023 Telephone encounter Note Refill for gabapentin refilled on previous medication request for 300mg in the morning and 600mg at night. Will start nurtec 75mg as an abortive, will refrain from triptans due to increased risk of serotonin syndrome with antidepressants. PDMP website checked and validated. All prescriptions have been APPROPRIATELY filled. No suspicious activity was identified. 08/20/2023 by Alicja West PA-C [facility] 08-20-2023 Miscellaneous Notes Refill for gabapentin refilled on previous medication request for 300mg in the morning and 600mg at night. Will start nurtec 75mg as an abortive, will refrain from triptans due to increased risk of serotonin syndrome with antidepressants. PDMP website checked and validated. All prescriptions have been APPROPRIATELY filled. No suspicious activity was identified. 08/20/2023 by Alicja West PA-C documented in this encounter [facility] 08-19-2023 Telephone encounter Note Patient has been identified by name and date of : Pharmacy phones for refill(s): Requested Prescriptions Pending Prescriptions Disp Refills LINZESS 72 mcg capsule 30 capsule 4 Sig: Take 1 capsule by mouth once daily. Date of last office visit in primary care: 08/06/2023 Date of next office visit in primary care: 08/27/2023 Please advise. Thank you. Valery Saravia RN. [facility] 08-19-2023 Miscellaneous Notes Patient has been identified by name and date of : Pharmacy phones for refill(s): Requested Prescriptions Pending Prescriptions Disp Refills LINZESS 72 mcg capsule 30 capsule 4 Sig: Take 1 capsule by mouth once daily. Date of last office visit in primary care: 08/06/2023 Date of next office visit in primary care: 08/27/2023 Please advise. Thank you. Valery Saravia RN. documented in this encounter [facility] 08-19-2023 Telephone encounter Note BERTHA 08/06/23 with MQ NOV 12/11/23 with MQ Refill 07/08/23 with qty: 60 and 2 refills Meggan Mueller LPN BERTHA Assessment/Plan Travis Bridget Steward is a 32 year old right-handed female with a history of Raynaud's, popliteal artery entrapment syndrome, scoliosis, lumbar back pain depression, anxiety. Her examination demonstrates no neurologic abnormalities. Patient with chronic headaches, at last appointment patient was put on gabapentin 300 mg twice daily after not tolerating Topamax. Is currently on nortriptyline, has been on this for multiple months due to increased anxiety over life stressors. Notes this is not significantly impacted her headaches. However, notes gabapentin was beneficial in decreasing her headache days in severity. Notes from having 14 moderate to severe headache days to 6 mild to moderate headache days in a month, with migrainous symptoms. No autonomic features, recent MRI of the brain did show low-lying cerebellar tonsils, but no signs of obstruction. No side effects with the gabapentin. Has been using naproxen 500 mg for abortive relief with moderate effectiveness, no side effects. At this time, no new symptoms sooner warranting further imaging at this time. Discussed further increasing gabapentin as she is tolerated this well and has been beneficial to her and she agrees. Will increase to 300 mg in the morning and 600 mg at night. Discussed common side effects and patient is amenable. Regarding abortive therapy, patient would like to continue with naproxen as needed, would not like to try any medications today. Encouraged conservative therapies as well and education regarding supplements, increasing water, finding common triggers was given to patient. [facility] 08-06-2023 Instructions Alicja West PA-C - 08/06/2023 3:14 PM EDT Preventative: Increase gabapentin to 600 mg at night and 300mg in the morning (let me know when you run low and will send in a refill) Abortive: Continue with naproxen 500 mg with onset of headache (no more than 3 doses in a week) Follow up in 3-4 months Headache Preventive Treatment: Please keep in mind that it takes 4-6 weeks for the medication to start working well and 2-3 months at the appropriate dose before deciding if it will be useful or not. If it is not helping at all by this time, then we will discuss other medications to try. Supplements may take 3-6 months until you see full effect. Natural supplements: Magnesium Oxide 500 mg at bed Coenzyme Q10 300 mg in AM Vitamin B2- 200 mg twice a day Feverfew 50 mg twice a day Vitamins and herbs that show potential Magnesium: Magnesium (250 mg twice a day or 500 mg at bed) has a relaxant effect on smooth muscles such as blood vessels. Individuals suffering from frequent or daily headache usually have low magnesium levels which can be increase with daily supplementation of 400-750 mg. Three trials found 40-90% average headache reduction when used as a preventative. Magnesium also demonstrated the benefit in menstrually related migraine. Magnesium is part of the messenger system in the serotonin cascade and it is a good muscle relaxant. It is also useful for constipation which can be a side effect of other medications used to treat migraine. Good sources include nuts, whole grains, and tomatoes. Magnesium comes in many different forms: Magnesium glycinate is a good choice for those with a sensitive stomach who have gastrointestinal side effects such as diarrhea with other forms of magnesium. It is anecdotally also helpful with anxiety and sleep. Magnesium threonate also has low risk of gastrointestinal side effects and anecdotally helpful with cognitive function and brain fog symptoms. Magnesium malate has low gastrointestinal side effects and is reportedly more energizing and anecdotally often helpful in fibromyalgia and chronic fatigue syndrome. Magnesium citrate is one of the most studied, popular, and well-absorbed forms of magnesium. It can also be mixed easily with liquids if you can't take pills. However, it comes with a higher risk of diarrhea and gastrointestinal side effects, although this could be helpful for those with constipation. Magnesium oxide is also well studied, cheap, and often used for heartburn and indigestion. However, it is not well absorbed and can have some laxative side effects as well, so can also be helpful for constipation. Riboflavin (vitamin B 2) 200 mg twice a day. This vitamin assists nerve cells in the production of ATP a principal energy storing molecule. It is necessary for many chemical reactions in the body. There have been at least 3 clinical trials of riboflavin using 400 mg per day all of which suggested that migraine frequency can be decreased. All 3 trials showed significant improvement in over half of migraine sufferers. The supplement is found in bread, cereal, milk, meat, and poultry. Most Americans get more riboflavin than the recommended daily allowance, however riboflavin deficiency is not necessary for the supplements to help prevent headache. Feverfew: Feverfew is a common garden herb qagan tayagungin to [place] and popular in [facility] as a treatment for disorders typically controlled by aspirin. The mechanism of action is unknown but is believed to be related to a chemical called parthenolide which helps the body use serotonin more effectively. Serotonin helps prevent migraine and assists with resolution when it occurs. Parthenolide also inhibits the release of histamine which is linked to pain and inflammation. Consistency of active ingredients in different products can be a problem. Some formulations don't have the active ingredient (parthenolide) that prevents migraine. A parthenolide content of 0.2% is generally recommended. Typical dosage is one capsule 3 times a day. Coenzyme Q10: This is present in almost all cells in the body and is critical component for the conversion of energy. Recent studies have shown that a nutritional supplement of CoQ10 can reduce the frequency of migraine attacks by improving the energy production of cells as with riboflavin. Doses of 150 mg twice a day have been shown to be effective. Melatonin: Increasing evidence shows correlation between melatonin secretion and headache conditions. Melatonin supplementation has decreased headache intensity and duration. It is widely used as a sleep aid. Sleep is natures way of dealing with migraine. A dose of 3 mg is recommended to start for headaches including cluster headache. Higher doses up to 15 mg has been reviewed for use in Cluster headache and have been used. The rationale behind using melatonin for cluster is that many theories regarding the cause of Cluster headache center around the disruption of the normal circadian rhythm in the brain. This helps restore the normal circadian rhythm. Lorna: Lorna has a small amount of antihistamine and anti-inflammatory action which may help headache. It is primarily used for nausea and may aid in the absorption of other medications. HEADACHE DIET: Foods and beverages which may trigger migraine Note that only 20% of headache patients are food sensitive. You will know if you are food sensitive if you get a headache consistently 20 minutes to 2 hours after eating a certain food. Only cut out a food if it causes headaches, otherwise you might remove foods you enjoy! What matters most for diet is to eat a well balanced healthy diet full of vegetables and low fat protein, and to not miss meals. Chocolate, other sweets ALL cheeses except cottage and cream cheese Dairy products, yogurt, sour cream, ice cream Liver Meat extracts (Bovril, Marmite, meat tenderizers) Meats or fish which have undergone aging, fermenting, pickling or smoking. These include: Hotdogs,salami,Lox,sausage, mortadellas,smoked salmon, pepperoni, Pickled maradiaga Pods of broad fan (Djiboutian beans, Swazi pea pods, Tongan (annabel) beans, ahmadi and navy beans Ripe avocado, ripe banana Yeast extracts or active yeast preparations such as Burns's or Jose's (commercial bakes goods are permitted) Tomato based foods, pizza (lasagna, etc.) MSG (monosodium glutamate) is disguised as many things; look for these common aliases: Monopotassium glutamate Autolysed yeast Hydrolysed protein Sodium caseinate flavorings all natural preservatives Nutrasweet Avoid all other foods that convincingly provoke headaches. Headache Prevention Strategies: 1. Maintain a headache diary; learn to identify and avoid triggers. Common triggers include: Emotional triggers: Emotional/Upset family or friends Emotional/Upset occupation Business reversal/success Anticipation anxiety Crisis-serious Post-crisis periodNew job/position Physical triggers: Vacation Day Weekend Strenuous Exercise High Altitude Location New Move Menstrual Day Physical Illness Oversleep/Not enough sleep Weather changes Light: Photophobia or light sesnitivity treatment involves a balance between desensitization and reduction in overly strong input. Use dark polarized glasses outside, but not inside. Avoid bright or fluorescent light, but do not dim environment to the point that going into a normally lit room hurts. Consider FL-41 tint lenses, which reduce the most irritating wavelengths without blocking too much light. These can be obtained at [employer].Cempra or [employer]Cempra Foods: see list above. 2. Limit use of acute treatments (ikib-kfx-zbhhbny medications, triptans, etc.) to no more than 2 days per week or 10 days per month to prevent medication overuse headache (rebound headache). 3. Follow a regular schedule (including weekends and holidays): Don't skip meals. Eat a balanced diet. 8 hours of sleep nightly. Minimize stress. Exercise 30 minutes per day. Being overweight is associated with a 5 times increased risk of chronic migraine. Keep well hydrated and drink 6-8 glasses of water per day. 4. Initiate non-pharmacologic measures at the earliest onset of your headache. Rest and quiet environment. Relax and reduce stress. [id number] is a free gama that can instruct you on some simple relaxtion and breathing techniques. Http://[employer].Cempra is a free website that provides teaching videos on relaxation. Also, there are many apps that can be downloaded for mindful relaxation. An gama called YOGA NIDRA will help walk you through mindfulness. Cold compresses. 5. Don't wait!! Take the maximum allowable dosage of prescribed medication at the first sign of migraine. 6. Compliance: Take prescribed medication regularly as directed and at the first sign of a migraine. 7. Communicate: Call your physician when problems arise, especially if your headaches change, increase in frequency/severity, or become associated with neurological symptoms (weakness, numbness, slurred speech, etc.). 8. Headache/pain management therapies: Consider various complementary methods, including medication, behavioral therapy, psychological counselling, biofeedback, massage therapy, acupuncture, dry needling, and other modalities. Such measures may reduce the need for medications. Counseling for pain management, where patients learn to function and ignore/minimize their pain, seems to work very well. 9. Recommend changing family's attention and focus away from patient's headaches. Instead, emphasize daily activities. If first question of day is 'How are your headaches/Do you have a headache today?', then patient will constantly think about headaches, thus making them worse. Goal is to re-direct attention away from headaches, toward daily activities and other distractions. 10. Helpful Websites: www.AmericanHeadacheSociety.org www.migrainetrust.org www.headaches.org www.migraine.org.uk www.achenet.org 11. HEADACHE EXPECTATIONS: There are many types of headaches, and only a rare few in which complete relief can be expected. In general, there is no cure for headache, especially migraine based headaches. There is nothing available that completely prevents headaches from occurring, breaking through, or having periodic flare-ups and fluctuations. Regardless of what you are using on a daily basis for prevention, episodic headaches should still be expected, and periods where frequency may escalate and fluctuate are unavoidable. There is no quick fix for most headaches. Furthermore, the longer you have had high frequency headaches (such as chronic daily headache), the longer it will likely take to expect any improvement. In fact, some people will never improve, regardless of how many medications or other treatments we try. Our treatment strategy is to evaluate for possible causes of your headache, although testing is usually always normal, even in cases of daily continuous headaches for years. Most types of headache such as migraine are electrical brain disorders (similar to how epilepsy is an electrical brain disorders). Therefore, there is no testing that will reveal this dysfunctional electrical circuitry such on MRI, or other testing. We try to find a medication that may help lessen the frequency and/or severity of your headaches. The goal is not to completely stop them from happening, although if that happens, great! Different people respond to different medications, and some people just don't respond to anything, so it's usually a matter of trying different options. We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 classified Somatic dysfunction of cervical region Nonallopathic lesion of cervical region, not elsewhere classified Segmental and somatic dysfunction of rib cage Nonallopathic lesion of rib cage, not elsewhere classified Somatic dysfunction of head region [facility] Diagnosis Skin lesion of left lower limb- Primary Unspecified disorder of skin and subcutaneous tissue Anxiety Anxiety state, unspecified [facility] Diagnosis Pain in younger, unspecified laterality- Primary [facility]* Diagnosis Paresthesia of bilateral legs- Primary Disturbance of skin sensation [facility] Diagnosis Paresthesia of bilateral legs Disturbance of skin sensation [facility]* Diagnosis Neck pain- Primary Cervicalgia Somatic dysfunction of thoracic region Nonallopathic lesion of thoracic region, not elsewhere classified Somatic dysfunction of cervical region Nonallopathic lesion of cervical region, not elsewhere classified Segmental and somatic dysfunction of rib cage Nonallopathic lesion of rib cage, not elsewhere classified Somatic dysfunction of head region Somatic dysfunction of pelvic region Nonallopathic lesion of pelvic region, not elsewhere classified [facility] Diagnosis Pain- Primary Generalized pain [facility]* Diagnosis Neck pain- Primary Cervicalgia Somatic dysfunction of cervical region Nonallopathic lesion of cervical region, not elsewhere classified Somatic dysfunction of thoracic region Nonallopathic lesion of thoracic region, not elsewhere classified Segmental and somatic dysfunction of rib cage Nonallopathic lesion of rib cage, not elsewhere classified Somatic dysfunction of head region Somatic dysfunction of pelvic region Nonallopathic lesion of pelvic region, not elsewhere classified Pain in younger, unspecified laterality Generalized abdominal pain Abdominal pain, generalized [facility] Diagnosis Other form of scoliosis of thoracolumbar spine- Primary [facility] Diagnosis Chronic bilateral thoracic back pain- Primary Other form of scoliosis of thoracolumbar spine Somatic dysfunction of cervical region Nonallopathic lesion of cervical region, not elsewhere classified Somatic dysfunction of thoracic region Nonallopathic lesion of thoracic region, not elsewhere classified Somatic dysfunction of head region [facility] Diagnosis Pelvic floor dysfunction- Primary Pelvic muscle wasting Belching Flatulence, eructation, and gas pain Generalized abdominal pain Abdominal pain, generalized Anxiety Anxiety state, unspecified Abdominal distension (gaseous) Flatulence, eructation, and gas pain Abdominal pain, unspecified abdominal location Altered bowel habits Other symptoms involving digestive system Gas pain Flatulence, eructation, and gas pain Nausea Nausea alone Alteration in appetite Other symptoms concerning nutrition, metabolism, and development Stress-related physiological response affecting physical condition [facility] Diagnosis Other form of scoliosis of thoracolumbar spine- Primary Somatic dysfunction of cervical region Nonallopathic lesion of cervical region, not elsewhere classified Somatic dysfunction of thoracic region Nonallopathic lesion of thoracic region, not elsewhere classified [facility] Diagnosis Neck pain- Primary Cervicalgia [id number] antibody positive Other and unspecified nonspecific immunological findings Raynaud's phenomenon without gangrene [facility] Diagnosis Chronic bilateral thoracic back pain- Primary Other form of scoliosis of thoracolumbar spine Somatic dysfunction of cervical region Nonallopathic lesion of cervical region, not elsewhere classified Somatic dysfunction of thoracic region Nonallopathic lesion of thoracic region, not elsewhere classified Somatic dysfunction of head region Segmental and somatic dysfunction of rib cage Nonallopathic lesion of rib cage, not elsewhere classified Somatic dysfunction of spine, lumbar Nonallopathic lesion of lumbar region, not elsewhere classified [facility]* Diagnosis Popliteal artery entrapment syndrome (HCC)- Primary Other specified disorders of arteries and arterioles Bilateral leg pain Pain in limb [facility]* Diagnosis Other eczema [facility]* Diagnosis Anxiety Anxiety state, unspecified [facility]* Diagnosis Chronic bilateral thoracic back pain- Primary Other form of scoliosis of thoracolumbar spine Somatic dysfunction of cervical region Nonallopathic lesion of cervical region, not elsewhere classified Somatic dysfunction of thoracic region Nonallopathic lesion of thoracic region, not elsewhere classified Somatic dysfunction of head region Somatic dysfunction of spine, lumbar Nonallopathic lesion of lumbar region, not elsewhere classified Segmental and somatic dysfunction of rib cage Nonallopathic lesion of rib cage, not elsewhere classified [facility] Constipation, unspecified constipation type- Primary Epigastric abdominal pain Abdominal pain, epigastric Irritable bowel syndrome with alternating bowel habits Nausea Nausea alone Major depressive disorder, single episode, in remission (HCC) Major depressive disorder, single episode, in partial or unspecified remission [facility] 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) [facility] Diagnosis Chronic bilateral thoracic back pain- Primary Somatic dysfunction of cervical region Nonallopathic lesion of cervical region, not elsewhere classified Somatic dysfunction of thoracic region Nonallopathic lesion of thoracic region, not elsewhere classified Somatic dysfunction of head region Somatic dysfunction of spine, lumbar Nonallopathic lesion of lumbar region, not elsewhere classified Segmental and somatic dysfunction of rib cage Nonallopathic lesion of rib cage, not elsewhere classified Chronic constipation Unspecified constipation [facility] Neck pain Cervicalgia Pain in right hip Pain in joint, pelvic region and thigh [facility] Diagnosis Anxiety Anxiety state, unspecified [facility] Diagnosis Bilateral leg pain- Primary Pain in limb Popliteal artery entrapment syndrome (HCC) Other specified disorders of arteries and arterioles [facility]* Diagnosis History of pituitary adenoma- Primary [facility]* Diagnosis Foot pain, bilateral- Primary Pain in limb Neck pain Cervicalgia Chronic bilateral thoracic back pain Somatic dysfunction of head region Somatic dysfunction of cervical region Nonallopathic lesion of cervical region, not elsewhere classified Somatic dysfunction of thoracic region Nonallopathic lesion of thoracic region, not elsewhere classified Segmental and somatic dysfunction of rib cage Nonallopathic lesion of rib cage, not elsewhere classified Somatic dysfunction of spine, lumbar Nonallopathic lesion of lumbar region, not elsewhere classified Somatic dysfunction of pelvic region Nonallopathic lesion of pelvic region, not elsewhere classified [facility] Diagnosis Anxiety Anxiety state, unspecified [facility] Diagnosis Pain in yougner, unspecified laterality [facility] Diagnosis Foot pain, bilateral Pain in limb [facility] Diagnosis Other form of scoliosis of thoracolumbar spine [facility]* Diagnosis Pain Generalized [facility] Diagnosis Other form of scoliosis of thoracolumbar spine [facility]* Diagnosis Abnormal brain MRI Nonspecific (abnormal) findings on radiological and other examination of skull and head [facility] Diagnosis Acute right-sided low back pain with right-sided sciatica [facility]* Diagnosis Encounter for observation for other suspected diseases and conditions ruled out Bilateral leg pain Pain in limb [facility]* Diagnosis Chronic bilateral thoracic back pain- Primary Foot pain, bilateral Pain in limb Neck pain Cervicalgia Somatic dysfunction of head region Somatic dysfunction of cervical region Nonallopathic lesion of cervical region, not elsewhere classified Somatic dysfunction of thoracic region Nonallopathic lesion of thoracic region, not elsewhere classified Segmental and somatic dysfunction of rib cage Nonallopathic lesion of rib cage, not elsewhere classified Somatic dysfunction of pelvic region Nonallopathic lesion of pelvic region, not elsewhere classified [facility] Diagnosis Neck pain Cervicalgia Pain in right hip Pain in joint, pelvic region and thigh [facility]* Diagnosis Neck pain- Primary Cervicalgia Chronic midline low back pain without sciatica Other form of scoliosis of thoracolumbar spine Headache disorder Headache Somatic dysfunction of head region Somatic dysfunction of cervical region Nonallopathic lesion of cervical region, not elsewhere classified Segmental and somatic dysfunction of rib cage Nonallopathic lesion of rib cage, not elsewhere classified Somatic dysfunction of thoracic region Nonallopathic lesion of thoracic region, not elsewhere classified Somatic dysfunction of pelvic region Nonallopathic lesion of pelvic region, not elsewhere classified Somatic dysfunction of spine, lumbar Nonallopathic lesion of lumbar region, not elsewhere classified [facility]* Diagnosis Chronic intractable headache, unspecified headache type- Primary Headache disorder Headache [facility]* Diagnosis Eczema of both external ears [facility]* Diagnosis Dizziness- Primary Dizziness and giddiness Dehydration Otitis of both ears Nausea and vomiting, unspecified vomiting type [facility]* Diagnosis Other eczema [facility]* Diagnosis Chronic midline low back pain without sciatica Other form of scoliosis of thoracolumbar spine [facility] Diagnosis Chronic intractable headache, unspecified headache type [facility] Diagnosis Chronic intractable headache, unspecified headache type- Primary [facility] Diagnosis Chronic intractable headache, unspecified headache type- Primary Headache disorder Headache [facility]* Diagnosis Neck pain- Primary Cervicalgia Chronic midline low back pain without sciatica Somatic dysfunction of head region Somatic dysfunction of cervical region Nonallopathic lesion of cervical region, not elsewhere classified Segmental and somatic dysfunction of rib cage Nonallopathic lesion of rib cage, not elsewhere classified Somatic dysfunction of thoracic region Nonallopathic lesion of thoracic region, not elsewhere classified Somatic dysfunction of pelvic region Nonallopathic lesion of pelvic region, not elsewhere classified Somatic dysfunction of spine, lumbar Nonallopathic lesion of lumbar region, not elsewhere classified Headache disorder Headache [facility]* Diagnosis Chronic intractable headache, unspecified headache type [facility]* Diagnosis Diarrhea, unspecified type- Primary Fatigue, unspecified type Anxiety Anxiety state, unspecified Borderline abnormal thyroid function test Nonspecific abnormal results of thyroid function study Chronic midline low back pain without sciatica Somatic dysfunction of head region Somatic dysfunction of cervical region Nonallopathic lesion of cervical region, not elsewhere classified Segmental and somatic dysfunction of rib cage Nonallopathic lesion of rib cage, not elsewhere classified Somatic dysfunction of thoracic region Nonallopathic lesion of thoracic region, not elsewhere classified Somatic dysfunction of pelvic region Nonallopathic lesion of pelvic region, not elsewhere classified [facility] Diagnosis Neck pain- Primary Cervicalgia Headache disorder Headache Acute bilateral thoracic back pain Somatic dysfunction of spine, lumbar Nonallopathic lesion of lumbar region, not elsewhere classified Somatic dysfunction of thoracic region Nonallopathic lesion of thoracic region, not elsewhere classified Segmental and somatic dysfunction of rib cage Nonallopathic lesion of rib cage, not elsewhere classified Somatic dysfunction of cervical region Nonallopathic lesion of cervical region, not elsewhere classified Somatic dysfunction of spine affecting head region Nonallopathic lesion of head region, not elsewhere classified Somatic dysfunction of pelvic region Nonallopathic lesion of pelvic region, not elsewhere classified [facility] Diagnosis Chronic midline low back pain without sciatica [facility] Diagnosis Chronic midline low back pain without sciatica- Primary Bowel habit changes Other symptoms involving digestive system Bruising Contusion of unspecified site Fatigue, unspecified type Somatic dysfunction of head region Somatic dysfunction of cervical region Nonallopathic lesion of cervical region, not elsewhere classified Segmental and somatic dysfunction of rib cage Nonallopathic lesion of rib cage, not elsewhere classified Somatic dysfunction of thoracic region Nonallopathic lesion of thoracic region, not elsewhere classified Somatic dysfunction of spine, lumbar Nonallopathic lesion of lumbar region, not elsewhere classified [facility] Diagnosis Chronic intractable headache, unspecified headache type- Primary Headache disorder Headache [facility]* Diagnosis Acute non-recurrent frontal sinusitis- Primary Eustachian tube disorder, left [facility] Diagnosis Eustachian tube dysfunction, left- Primary [facility] Diagnosis Diarrhea, unspecified type- Primary [facility] Diagnosis Bee sting, accidental or unintentional, subsequent encounter- Primary [facility] Diagnosis Chronic midline low back pain without sciatica- Primary Somatic dysfunction of head region Somatic dysfunction of cervical region Nonallopathic lesion of cervical region, not elsewhere classified Segmental and somatic dysfunction of rib cage Nonallopathic lesion of rib cage, not elsewhere classified Somatic dysfunction of thoracic region Nonallopathic lesion of thoracic region, not elsewhere classified Somatic dysfunction of spine, lumbar Nonallopathic lesion of lumbar region, not elsewhere classified Somatic dysfunction of pelvic region Nonallopathic lesion of pelvic region, not elsewhere classified Anxiety Anxiety state, unspecified Diarrhea, unspecified type [facility] Diagnosis Headache disorder- Primary Headache Myopia, bilateral Myopia Regular astigmatism of both eyes Regular astigmatism [facility] Diagnosis Acute pain of right knee- Primary [facility] Diagnosis Midline thoracic back pain, unspecified chronicity- Primary Chronic pain of both knees Patellofemoral pain syndrome of both knees Need for influenza vaccination Need for prophylactic vaccination and inoculation against influenza Headache disorder Headache Somatic dysfunction of spine, lumbar Nonallopathic lesion of lumbar region, not elsewhere classified Segmental and somatic dysfunction of rib cage Nonallopathic lesion of rib cage, not elsewhere classified Somatic dysfunction of thoracic region Nonallopathic lesion of thoracic region, not elsewhere classified Somatic dysfunction of cervical region Nonallopathic lesion of cervical region, not elsewhere classified Somatic dysfunction of spine affecting head region Nonallopathic lesion of head region, not elsewhere classified [facility]* Diagnosis Irritable bowel syndrome with both constipation and diarrhea- Primary [facility]* Diagnosis Somatic dysfunction of cervical region- Primary Nonallopathic lesion of cervical region, not elsewhere classified [facility] Diagnosis Intractable chronic migraine without aura and without status migrainosus- Primary Chronic migraine without aura, with intractable migraine, so stated, without mention of status migrainosus [facility]* Diagnosis Headache disorder- Primary Headache Myopia, bilateral Myopia Regular astigmatism of both eyes Regular astigmatism [facility]* Diagnosis Anxiety Anxiety state, unspecified [facility]* Diagnosis Chronic constipation- Primary Unspecified constipation Post-nasal drainage Unspecified sinusitis (chronic) Chronic maxillary sinusitis Somatic dysfunction of cervical region Nonallopathic lesion of cervical region, not elsewhere classified Segmental and somatic dysfunction of rib cage Nonallopathic lesion of rib cage, not elsewhere classified Somatic dysfunction of thoracic region Nonallopathic lesion of thoracic region, not elsewhere classified Somatic dysfunction of spine affecting head region Nonallopathic lesion of head region, not elsewhere classified Somatic dysfunction of spine, lumbar Nonallopathic lesion of lumbar region, not elsewhere classified Chronic bilateral thoracic back pain Idiopathic scoliosis and kyphoscoliosis Scoliosis (and kyphoscoliosis), idiopathic [facility]* Diagnosis Anxiety Anxiety state, unspecified [facility] Diagnosis Nonallergic rhinitis- Primary Chronic rhinitis Chronic constipation Unspecified constipation Post-nasal drainage Unspecified sinusitis (chronic) Rash and nonspecific skin eruption Rash and other nonspecific skin eruption [facility]* Diagnosis Change in bowel habits- Primary Other symptoms involving digestive system Lower abdominal pain Abdominal pain, other specified site Gastroesophageal reflux disease, unspecified whether esophagitis present [facility]* Diagnosis Lower abdominal pain Abdominal pain, other specified site [facility]* Diagnosis Change in bowel habits- Primary Other symptoms involving digestive system Lower abdominal pain Abdominal pain, other specified site [facility]* Diagnosis Gastroesophageal reflux disease, unspecified whether esophagitis present [facility] Diagnosis Well adult exam- Primary Routine general medical examination at a health care facility Anxiety Anxiety state, unspecified Chronic bilateral thoracic back pain Idiopathic scoliosis and kyphoscoliosis Scoliosis (and kyphoscoliosis), idiopathic Need for COVID-19 vaccine Myalgia Mylagia and myositis, unspecified [facility]* Diagnosis Intractable chronic migraine without aura and without status migrainosus- Primary Chronic migraine without aura, with intractable migraine, so stated, without mention of status migrainosus [facility]* Diagnosis Chronic compartment syndrome of lower extremity- Primary Nontraumatic compartment syndrome of lower extremity Popliteal artery entrapment syndrome (HCC) Other specified disorders of arteries and arterioles Chronic rhinitis [facility] Diagnosis Chronic compartment syndrome of lower extremity Nontraumatic compartment syndrome of lower extremity Popliteal artery entrapment syndrome (HCC) Other specified disorders of arteries and arterioles [facility]* Diagnosis Idiopathic scoliosis and kyphoscoliosis Scoliosis (and kyphoscoliosis), idiopathic [facility]* Diagnosis Depression, unspecified depression type- Primary Fatigue, unspecified type Vitamin D deficiency Unspecified vitamin D deficiency Post-nasal drainage Unspecified sinusitis (chronic) Popliteal artery entrapment syndrome (HCC) Other specified disorders of arteries and arterioles [facility]* Diagnosis Irritable bowel syndrome with both constipation and diarrhea [facility]* Diagnosis Other eczema [facility]* Diagnosis Popliteal artery entrapment syndrome (HCC)- Primary Other specified disorders of arteries and arterioles Fatigue, unspecified type Depression, unspecified depression type URI, acute Acute upper respiratory infections of unspecified site Idiopathic scoliosis and kyphoscoliosis Scoliosis (and kyphoscoliosis), idiopathic Chronic bilateral thoracic back pain Somatic dysfunction of spine, lumbar Nonallopathic lesion of lumbar region, not elsewhere classified Somatic dysfunction of thoracic region Nonallopathic lesion of thoracic region, not elsewhere classified Somatic dysfunction of head region Segmental and somatic dysfunction of rib cage Nonallopathic lesion of rib cage, not elsewhere classified Somatic dysfunction of cervical region Nonallopathic lesion of cervical region, not elsewhere classified Somatic dysfunction of pelvic region Nonallopathic lesion of pelvic region, not elsewhere classified [facility]* Diagnosis Acute non-recurrent maxillary sinusitis- Primary [facility]* Diagnosis Anxiety Anxiety state, unspecified documented in [facility] encounter [facility]* Diagnosis Fatigue, unspecified type- Primary URI, acute Acute upper respiratory infections of unspecified site [facility]* Diagnosis Headache disorder- Primary Headache [facility] Diagnosis Localized enlarged lymph nodes- Primary Enlargement of lymph nodes Neck pain Cervicalgia Acute non-recurrent maxillary sinusitis Acute pain of right shoulder Chronic bilateral thoracic back pain Depression, unspecified depression type Fatigue, unspecified type Vitamin D deficiency Unspecified vitamin D deficiency Hypermobility arthralgia Pain in joint, site unspecified Segmental and somatic dysfunction of rib cage Nonallopathic lesion of rib cage, not elsewhere classified Somatic dysfunction of thoracic region Nonallopathic lesion of thoracic region, not elsewhere classified Somatic dysfunction of cervical region Nonallopathic lesion of cervical region, not elsewhere classified Somatic dysfunction of pelvic region Nonallopathic lesion of pelvic region, not elsewhere classified documented in this encounter [facility]* Diagnosis Change in bowel habits Other symptoms involving digestive system [facility]* Diagnosis Acute pain of right shoulder [facility]* Diagnosis Localized enlarged lymph nodes Enlargement of lymph nodes Neck pain Cervicalgia [facility]* Diagnosis Chronic rhinitis [facility] Diagnosis Elevated fecal calprotectin- Primary Change in bowel habits Other symptoms involving digestive system Lower abdominal pain Abdominal pain, other specified site Gastroesophageal reflux disease, unspecified whether esophagitis present [facility]* Diagnosis Elevated fecal calprotectin Change in bowel habits Other symptoms involving digestive system Lower abdominal pain Abdominal pain, other specified site [facility]* Diagnosis Dysuria- Primary Acute cystitis with hematuria Acute cystitis Nausea Nausea alone Myalgia Mylagia and myositis, unspecified Lower abdominal pain Abdominal pain, other specified site Flank pain Abdominal pain, unspecified site [facility]* Diagnosis Dysuria- Primary Anxiety Anxiety state, unspecified Recurrent UTI (urinary tract infection) Urinary tract infection, site not specified [facility] Diagnosis Dysuria Acute cystitis with hematuria Acute cystitis Nausea Nausea alone Lower abdominal pain Abdominal pain, other specified site Flank pain Abdominal pain, unspecified site documented in this encounter [facility] note* Diagnosis Abnormal CT scan, pelvis- Primary Nonspecific (abnormal) findings on radiological and other examination of abdominal area, including retroperitoneum documented in this encounter [facility] note* Diagnosis Abnormal CT scan, pelvis Nonspecific (abnormal) findings on radiological and other examination of abdominal area, including retroperitoneum documented in this encounter [facility] note* Diagnosis Chronic midline low back pain without sciatica- Primary Neck pain Cervicalgia documented in this encounter [facility] note* Diagnosis Fatty liver- Primary Other chronic nonalcoholic liver disease Foot pain, right Pain in limb Myalgia Mylagia and myositis, unspecified Segmental and somatic dysfunction of rib cage Nonallopathic lesion of rib cage, not elsewhere classified Somatic dysfunction of thoracic region Nonallopathic lesion of thoracic region, not elsewhere classified Somatic dysfunction of pelvic region Nonallopathic lesion of pelvic region, not elsewhere classified Somatic dysfunction of spine affecting head region Nonallopathic lesion of head region, not elsewhere classified Somatic dysfunction of cervical region Nonallopathic lesion of cervical region, not elsewhere classified Somatic dysfunction of spine, lumbar Nonallopathic lesion of lumbar region, not elsewhere classified documented in this encounter [facility] note* Diagnosis Hot flashes- Primary Symptomatic menopausal or female climacteric states documented in this encounter [facility] for referral (narrative)* Diagnostic Procedure Only (Routine) - Pending Review Specialty Diagnoses / Procedures Referred By Vini mclain Referred To Contact XR IMAGING Diagnoses Pain in right hip Procedures XR HIP GENERAL 3V PELV/AP/LAT RIGHT RADEX HIP UNILATERAL WITH PELVIS 2-3 VIEWS Luciano Vides V, DO [address] [place] [address] Xr Imaging Referral ID Status Reason Start Date Expiration Date Visits Requested Visits Authorized [id number] Pending Review Auto-Generat ed Referral 10/24/2021 11/23/2022 1 1 [facility] for referral (narrative)* Outpatient Procedure (Routine) - Authorized Specialty Diagnoses / Procedures Referred By Contac t Referred To Contact [facility] Diagnoses Paresthesia of bilateral legs Procedures EMG(NEURO/NI) NERVE CONDUCTION STUDIES 9-10 STUDIES Luciano Vides V, DO [address] [place] [address] [facility] [place] [address] [place] [address] Referral ID Status Reason Start Date Expiration Date Visits Requested Visits Authorized [id number] Authorized Auto-Generat ed Referral 03/02/2022 03/02/2023 1 1 [facility] for referral (narrative)* Diagnostic Procedure Only (Routine) - Pending Review Specialty Diagnoses / Procedures Referred By Contac t Referred To Contact XR IMAGING Diagnoses Pain Procedures XR TIBIA FIBULA 2V AP/LAT RIGHT RADIOLOGIC EXAMINATION TIBIA & FIBULA 2 VIEWS Rere Monk MD [address] [place] [address] Xr Imaging Referral ID Status Reason Start Date Expiration Date Visits Requested Visits Authorized [id number] Pending Review Auto-Generat ed Referral 05/10/2022 06/08/2023 1 1 * Diagnostic Procedure Only (Routine) - Pending Review Specialty Diagnoses / Procedures Referred By Contac t Referred To Contact XR IMAGING Diagnoses Pain Procedures XR TIBIA FIBULA 2V AP/LAT LEFT RADIOLOGIC EXAMINATION TIBIA & FIBULA 2 VIEWS Rere Monk MD [address] [place] [address] Xr Imaging Referral ID Status Reason Start Date Expiration Date Visits Requested Visits Authorized [id number] Pending Review Auto-Generat ed Referral 05/10/2022 06/08/2023 1 1 [facility] for referral (narrative)* Diagnostic Procedure Only (Routine) - Pending Review Specialty Diagnoses / Procedures Referred By Contac t Referred To Contact XR IMAGING Diagnoses Other form of scoliosis of thoracolumbar spine Procedures XR SCOLIOSIS PA STAND/LAT 2V RADEX ENTIR THRC LMBR CRV SAC SPI W/SKULL 2/3 VW Antolin June, DO [address] [place] [address] Xr Imaging Referral ID Status Reason Start Date Expiration Date Visits Requested Visits Authorized [id number] Pending Review Auto-Generat ed Referral 05/23/2022 06/22/2023 1 1 [facility] for referral (narrative)* Diagnostic Procedure Only (Routine) - Closed Specialty Diagnoses / Procedures Referred By Contac t Referred To Contact XR IMAGING Diagnoses Other form of scoliosis of thoracolumbar spine Procedures XR SCOLIOSIS PA STAND/LAT 2V RADEX ENTIR THRC LMBR CRV SAC SPI W/SKULL 2/3 Antolin June, DO [address] [place] [address] Xr Imaging Referral ID Status Reason Start Date Expiration Date V isits Requested Visits Authorized [id number] Closed Auto-Generate d Referral 05/29/2022 06/28/2023 1 1 [facility] for referral (narrative)* Diagnostic Procedure Only (Routine) - Closed Specialty Diagnoses / Procedures Referred By Contac t Referred To Contact XR IMAGING Diagnoses Foot pain, bilateral Procedures XR FOOT GENERAL 3V AP/LAT/OBL BILATERAL RADEX FOOT COMPLETE MINIMUM 3 VIEWS Antolin June, DO [address] [place] [address] [place] [address] Referral ID Status Reason Start Date Expiration Date V isits Requested Visits Authorized [id number] Closed Auto-Generate d Referral 02/12/2023 03/13/2024 1 1 [facility] for referral (narrative)* Diagnostic Procedure Only (Routine) - Closed Specialty Diagnoses / Procedures Referred By Contac t Referred To Contact US IMAGING Diagnoses Pain in younger, unspecified laterality Procedures US MUSCLE RIGHT US LMTD JOINT/OTH NONVASC XTR STRUX R-T W/Rere Prabhakar MD [address] [place] [address] [place] [address] Referral ID Status Reason Start Date Expiration Date V isits Requested Visits Authorized [id number] Closed Auto-Generate d Referral 10/05/2022 11/04/2023 1 1 * Diagnostic Procedure Only (Routine) - Closed Specialty Diagnoses / Procedures Referred By Contac t Referred To Contact US IMAGING Diagnoses Pain in younger, unspecified laterality Procedures US MUSCLE LEFT US LMTD JOINT/OTH NONVASC XTR STRUX R-T W/Rere Prabhakar MD [address] [place] [address] [facility] [place] [address] Referral ID Status Reason Start Date Expiration Date V isits Requested Visits Authorized [id number] Closed Auto-Generate d Referral 10/05/2022 11/04/2023 1 1 [facility] for referral (narrative)* Diagnostic Procedure Only (Routine) - Closed Specialty Diagnoses / Procedures Referred By Contac t Referred To Contact XR IMAGING Diagnoses Foot pain, bilateral Procedures XR FOOT GENERAL 3V AP/LAT/OBL BILATERAL RADEX FOOT COMPLETE MINIMUM 3 VIEWS Antolin June, [address] [place] [address] [place] [address] Referral ID Status Reason Start Date Expiration Date V isits Requested Visits Authorized [id number] Closed Auto-Generate d Referral 02/12/2023 03/13/2024 1 1 [facility] for referral (narrative)* Diagnostic Procedure Only (Routine) - Closed Specialty Diagnoses / Procedures Referred By Contac t Referred To Contact XR IMAGING Diagnoses Other form of scoliosis of thoracolumbar spine Procedures XR SCOLIOSIS PA STAND/LAT 2V RADEX ENTIR THRC LMBR CRV SAC SPI W/SKULL 2/3 VW Antolin June, DO [address] [place] [address] [place] [address] Referral ID Status Reason Start Date Expiration Date V isits Requested Visits Authorized [id number] Closed Auto-Generate d Referral 05/29/2022 06/28/2023 1 1 [facility] for referral (narrative)* Diagnostic Procedure Only (Routine) - Closed Specialty Diagnoses / Procedures Referred By Contac t Referred To Contact XR IMAGING Diagnoses Pain Procedures XR TIBIA FIBULA 2V AP/LAT RIGHT RADIOLOGIC EXAMINATION TIBIA & FIBULA 2 VIEWS Rere Monk MD [address] [place] [address] [place] [address] Referral ID Status Reason Start Date Expiration Date V isits Requested Visits Authorized [id number] Closed Auto-Generate d Referral 05/10/2022 06/08/2023 1 1 * Diagnostic Procedure Only (Routine) - Closed Specialty Diagnoses / Procedures Referred By Contac t Referred To Contact XR IMAGING Diagnoses Pain Procedures XR TIBIA FIBULA 2V AP/LAT LEFT RADIOLOGIC EXAMINATION TIBIA & FIBULA 2 VIEWS Rere Monk MD [address] [place] [id number] [place] [address] Referral ID Status Reason Start Date Expiration Date V isits Requested Visits Authorized [id number] Closed Auto-Generate d Referral 05/10/2022 06/08/2023 1 1 [facility] for referral (narrative)* Diagnostic Procedure Only (Routine) - Closed Specialty Diagnoses / Procedures Referred By Contac t Referred To Contact XR IMAGING Diagnoses Other form of scoliosis of thoracolumbar spine Procedures XR SCOLIOSIS PA STAND/LAT 2V RADEX ENTIR THRC LMBR CRV SAC SPI W/SKULL 2/3 VW Antolin June DO [address] [place] [address] [place] [address] Referral ID Status Reason Start Date Expiration Date V isits Requested Visits Authorized [id number] Closed Auto-Generate d Referral 05/23/2022 06/22/2023 1 1 [facility] for referral (narrative)* Diagnostic Procedure Only (Routine) - Closed Specialty Diagnoses / Procedures Referred By Contac t Referred To Contact XR IMAGING Diagnoses Acute right-sided low back pain with right-sided sciatica Procedures XR LUMBAR GENERAL 3V AP/LAT/L5-S1 RADEX SPINE LUMBOSACRAL 2/3 VIEWS Antolin June DO [address] [place] [address] [place] [address] Referral ID Status Reason Start Date Expiration Date V isits Requested Visits Authorized [id number] Closed Auto-Generate d Referral 01/01/2023 01/31/2024 1 1 [facility] for referral (narrative)* Diagnostic Procedure Only (Routine) - Closed Specialty Diagnoses / Procedures Referred By Contac t Referred To Contact XR IMAGING Diagnoses Chronic midline low back pain without sciatica Procedures XR SCOLIOSIS PA STAND/LAT 2V RADEX ENTIR THRC LMBR CRV SAC SPI W/SKULL 2/3 Antolin June, DO [address] [place] [address] [place] [address] Referral ID Status Reason Start Date Expiration Date V isits Requested Visits Authorized [id number] Closed Auto-Generate d Referral 10/08/2023 11/06/2024 1 1 * Diagnostic Procedure Only (Routine) - Closed Specialty Diagnoses / Procedures Referred By Contac t Referred To Contact XR IMAGING Diagnoses Chronic midline low back pain without sciatica Procedures XR LUMBAR GENERAL 3V AP/LAT/L5-S1 RADEX SPINE LUMBOSACRAL 2/3 VIEWS Antolin June DO [address] [place] [address] [place] [address] Referral ID Status Reason Start Date Expiration Date V isits Requested Visits Authorized [id number] Closed Auto-Generate d Referral 10/08/2023 11/06/2024 1 1 [facility] for referral (narrative)* Diagnostic Procedure Only (Routine) - Authorized Specialty Diagnoses / Procedures Referred By Contac t Referred To Contact XR IMAGING Diagnoses Gastroesophageal reflux disease, unspecified whether esophagitis present Procedures XR ESOPHAGRAM RADIOLOGIC EXAM ESOPHAGUS SINGLE CONTRAST STUDY Monica Hunt PA-C [address] [place] [address] [place] [address] Referral ID Status Reason Start Date Expiration Date Visits Requested Visits Authorized [id number] Authorized Auto-Generat ed Referral 4 05/15/2025 1 1 * Diagnostic Procedure Only (Routine) - Authorized Specialty Diagnoses / Procedures Referred By Contac t Referred To Contact US IMAGING Diagnoses Lower abdominal pain Procedures US ABDOMEN COMPLETE US ABDOMINAL REAL TIME W/IMAGE DOCUMENTATION Monica Hunt PA-C [address] [place] [address] [place] [address] Referral ID Status Reason Start Date Expiration Date Visits Requested Visits Authorized [id number] Authorized Auto-Generat ed Referral 4 05/15/2025 1 1 [facility] for referral (narrative)* Diagnostic Procedure Only (Routine) - Closed Specialty Diagnoses / Procedures Referred By Contac t Referred To Contact US IMAGING Diagnoses Lower abdominal pain Procedures US ABDOMEN COMPLETE US ABDOMINAL REAL TIME W/IMAGE DOCUMENTATION Monica Hunt PA-C [address] [place] [address] [place] [address] Referral ID Status Reason Start Date Expiration Date V isits Requested Visits Authorized [id number] Closed Auto-Generate d Referral 04/15/2024 05/15/2025 1 1 [facility] for referral (narrative)* Diagnostic Procedure Only (Routine) - Closed Specialty Diagnoses / Procedures Referred By Contac t Referred To Contact XR IMAGING Diagnoses Gastroesophageal reflux disease, unspecified whether esophagitis present Procedures XR ESOPHAGRAM RADIOLOGIC EXAM ESOPHAGUS SINGLE CONTRAST STUDY Monica Hunt PA-C [address] [place] [address] [place] [address] Referral ID Status Reason Start Date Expiration Date V isits Requested Visits Authorized [id number] Closed Auto-Generate d Referral 04/15/2024 05/15/2025 1 1 [facility] for referral (narrative)* Diagnostic Procedure Only (Routine) - New Request Specialty Diagnoses / Procedures Referred By Vini t Referred To Contact XR IMAGING Diagnoses Idiopathic scoliosis and kyphoscoliosis Procedures XR SCOLIOSIS PA STAND/LAT 2V RADEX ENTIR THRC LMBR CRV SAC SPI W/SKULL 2/3 VW Antolin June, DO [address] [place] [address] [place] [address] Referral ID Status Reason Start Date Expiration Date Visits Requested Visits Authorized [id number] New Request Auto-Generat ed Referral 05/01/2024 05/31/2025 1 1 [facility] for visit Narrative* Outpatient Procedure (Routine) - Closed Specialty Diagnoses / Procedures Referred By Contac t Referred To Contact [facility] Diagnoses Paresthesia of bilateral legs Procedures EMG(NEURO/NI) NERVE CONDUCTION STUDIES 9-10 STUDIES Luciano Vides V, DO [address] [place] [address] [facility] [place] [address] [place] [address] Referral ID Status Reason Start Date Expiration Date V isits Requested Visits Authorized [id number] Closed Auto-Generate d Referral 03/02/2022 03/02/2023 1 1 [facility] for visit Narrative* Diagnostic Procedure Only (Routine) - Closed Specialty Diagnoses / Procedures Referred By Contac t Referred To Contact US IMAGING Diagnoses Pain in younger, unspecified laterality Procedures US MUSCLE RIGHT US LMTD JOINT/OTH NONVASC XTR STRUX R-T W/IMG Rere Monk MD [address] [place] [address] [place] [address] Referral ID Status Reason Start Date Expiration Date V isits Requested Visits Authorized [id number] Closed Auto-Generate d Referral 10/05/2022 11/04/2023 1 1 [facility] for visit Narrative* Diagnostic Procedure Only (Routine) - Closed Specialty Diagnoses / Procedures Referred By Contac t Referred To Contact XR IMAGING Diagnoses Foot pain, bilateral Procedures XR FOOT GENERAL 3V AP/LAT/OBL BILATERAL RADEX FOOT COMPLETE MINIMUM 3 VIEWS Antolin June, DO [address] [place] [address] [place] [address] Referral ID Status Reason Start Date Expiration Date V isits Requested Visits Authorized [id number] Closed Auto-Generate d Referral 02/12/2023 03/13/2024 1 1 [facility] for visit Narrative* Diagnostic Procedure Only (Routine) - Closed Specialty Diagnoses / Procedures Referred By Contac t Referred To Contact XR IMAGING Diagnoses Other form of scoliosis of thoracolumbar spine Procedures XR SCOLIOSIS PA STAND/LAT 2V RADEX ENTIR THRC LMBR CRV SAC SPI W/SKULL 2/3 VW Antolin June, DO [address] [place] [address] [place] [address] Referral ID Status Reason Start Date Expiration Date V isits Requested Visits Authorized [id number] Closed Auto-Generate d Referral 05/29/2022 06/28/2023 1 1 [facility] for visit Narrative* Diagnostic Procedure Only (Routine) - Closed Specialty Diagnoses / Procedures Referred By Contac t Referred To Contact XR IMAGING Diagnoses Pain Procedures XR TIBIA FIBULA 2V AP/LAT RIGHT RADIOLOGIC EXAMINATION TIBIA & FIBULA 2 VIEWS Rere Monk MD [address] [place] [address] [place] [address] Referral ID Status Reason Start Date Expiration Date V isits Requested Visits Authorized [id number] Closed Auto-Generate d Referral 05/10/2022 06/08/2023 1 1 [facility] for visit Narrative* Diagnostic Procedure Only (Routine) - Closed Specialty Diagnoses / Procedures Referred By Contac t Referred To Contact XR IMAGING Diagnoses Other form of scoliosis of thoracolumbar spine Procedures XR SCOLIOSIS PA STAND/LAT 2V RADEX ENTIR THRC LMBR CRV SAC SPI W/SKULL 2/3 VW Antolin June, DO [address] [place] [address] [place] [address] Referral ID Status Reason Start Date Expiration Date V isits Requested Visits Authorized [id number] Closed Auto-Generate d Referral 05/23/2022 06/22/2023 1 1 [facility] for visit Narrative* Diagnostic Procedure Only (Routine) - Closed Specialty Diagnoses / Procedures Referred By Contac t Referred To Contact XR IMAGING Diagnoses Acute right-sided low back pain with right-sided sciatica Procedures XR LUMBAR GENERAL 3V AP/LAT/L5-S1 RADEX SPINE LUMBOSACRAL 2/3 VIEWS Antolin June, DO [address] [place] [address] [place] [address] Referral ID Status Reason Start Date Expiration Date V isits Requested Visits Authorized [id number] Closed Auto-Generate d Referral 01/01/2023 01/31/2024 1 1 [facility] for visit Narrative* Diagnostic Procedure Only (Routine) - Closed Specialty Diagnoses / Procedures Referred By Contac t Referred To Contact XR IMAGING Diagnoses Chronic midline low back pain without sciatica Procedures XR SCOLIOSIS PA STAND/LAT 2V RADEX ENTIR THRC LMBR CRV SAC SPI W/SKULL 2/3 VW Antolin June L, DO [address] [place] [address] [place] [address] Referral ID Status Reason Start Date Expiration Date V isits Requested Visits Authorized [id number] Closed Auto-Generate d Referral 10/08/2023 11/06/2024 1 1 [facility] for visit Narrative* Diagnostic Procedure Only (Routine) - Closed Specialty Diagnoses / Procedures Referred By Contac t Referred To Contact XR IMAGING Diagnoses Gastroesophageal reflux disease, unspecified whether esophagitis present Procedures XR ESOPHAGRAM RADIOLOGIC EXAM ESOPHAGUS SINGLE CONTRAST STUDY Monica Hunt PA-C [address] [place] [address] [place] [address] Referral ID Status Reason Start Date Expiration Date V isits Requested Visits Authorized [id number] Closed Auto-Generate d Referral 04/15/2024 05/15/2025 1 1 [facility] for visit Narrative* Diagnostic Procedure Only (Routine) - Closed Specialty Diagnoses / Procedures Referred By Contac t Referred To Contact XR IMAGING Diagnoses Idiopathic scoliosis and kyphoscoliosis Procedures XR SCOLIOSIS PA STAND/LAT 2V RADEX ENTIR THRC LMBR CRV SAC SPI W/SKULL 2/3 Antolin June, DO [address] [place] [address] [place] [address] Referral ID Status Reason Start Date Expiration Date V isits Requested Visits Authorized [id number] Closed Auto-Generate d Referral 05/01/2024 05/31/2025 1 1 [facility] for visit Narrative* Diagnostic Procedure Only (Routine) - Closed Specialty Diagnoses / Procedures Referred By Contac t Referred To Contact XR IMAGING Diagnoses Acute pain of right shoulder Procedures XR SHOULDER GENERAL 3V OR MORE AP/TRUE AP/OTHER RIGHT RADEX SHOULDER COMPLETE MINIMUM 2 VIEWS Antolin June, DO [address] [place] [address] Phone: tel: fax: [place] [address] Referral ID Status Reason Start Date Expiration Date V isits Requested Visits Authorized [id number] Closed Auto-Generate d Referral 06/30/2024 07/30/2025 1 1 [facility] for visit Narrative* MRI/CT (Routine) - Closed Specialty Diagnoses / Procedures Referred By Contac t Referred To Contact CT IMAGING Diagnoses Elevated fecal calprotectin Change in bowel habits Lower abdominal pain Procedures CT ABD/PEL W IVCON CT ABD & PELVIS W/CONTRAST Monica Hunt PA-C [address] [facility] [place] [address] Phone: tel: fax: [place] [address] Referral ID Status Reason Start Date Expiration Date V isits Requested Visits Authorized [id number] Closed Auto-Generate d Referral 07/21/2024 08/20/2024 2 2 [facility] for visit Narrative* MRI/CT (Urgent) - Pending Review Specialty Diagnoses / Procedures Referred By Katelynac t Referred To Contact CT IMAGING Diagnoses Dysuria Acute cystitis with hematuria Nausea Lower abdominal pain Flank pain Procedures CT ABD/PEL W IVCON CT ABD & PELVIS W/CONTRAST Antolin June L, DO [address] [place] [address] Phone: tel: fax: [facility] IMAGING [id number] Referral ID Status Reason Start Date Expiration Date Visits Requested Visits Authorized [id number] Pending Review Auto-Genera rena Referral Patient Cleared - Admin/Chair man/Directo r advise to proceed or did not respond 08/12/2024 09/11/2025 2 2 [facility] for visit Narrative* Diagnostic Procedure Only (Routine) - Closed Specialty Diagnoses / Procedures Referred By Contac t Referred To Contact US IMAGING Diagnoses Abnormal CT scan, pelvis Procedures US FEMALE PELVIS TRANSVAG US TRANSVAGINAL Nathaly Zuñiga APRN.TEMPERATURE CONTROL INSPECTOR [address] [place] [address] Phone: tel: fax: US IMAGING [id number] Referral ID Status Reason Start Date Expiration Date V isits Requested Visits Authorized [id number] Closed Auto-Generate d Referral 08/14/2024 09/13/2025 1 1 [facility] for visit Narrative* Consult, Test, Treat (Routine) - Authorized Specialty Diagnoses / Procedures Referred By Contac t Referred To Contact [facility] Diagnoses ACUPUNCTURE Chronic Pain Procedures NEW [place] ACUPUNCTURE Self Sherrill Henley, R Ac [address] [place] [address] Referral ID Status Reason Start Date Expiration Date V isits Requested Visits Authorized [id number] Authorized 07/28/2024 04/28/2025 30 30 [facility] Reason for Referral Specialty Diagnoses / Procedures Referred By Contac t Referred To Contact [facility] Diagnoses Pain in younger, unspecified laterality Procedures CONSULT TO PHYSICAL THERAPY PHYSICAL THERAPY EVALUATION HIGH COMPLEX 45 MINS Luciano Vides V, DO [address] [place] [address] [facility] [place] [address] [place] [address] Referral ID Status Reason Start Date Expiration Date Visits Requested Visits Authorized [id number] Pending Review Auto-Generat ed Referral 10/27/2021 10/27/2022 1 1 Specialty Diagnoses / Procedures Referred By Contac t Referred To Contact Rheumatology Diagnoses Scl-70 antibody positive Neck pain Raynaud's phenomenon without gangrene Procedures CONSULT TO RHEUM/IMMUN DISEASE OFFICE/OUTPATIENT [facility] 60-74 MINUTES Antolin June, DO [address] [place] [address] Referral ID Status Reason Start Date Expiration Date Visits Requested Visits Authorized [id number] Authorized PCP Requested Referral 01/15/2022 01/15/2023 1 1 Specialty Diagnoses / Procedures Referred By Contac t Referred To Contact Jamel Almeida MD [address] [place] [address] Referral ID Status Reason Start Date Expiration Date Visits Re quested Visits Authorized [id number] Closed 1 1 Specialty Diagnoses / Procedures Referred By Contac t Referred To Contact [facility] Diagnoses Belching Generalized abdominal pain Pelvic floor dysfunction Anxiety Procedures CONSULT TO PHYSICAL THERAPY PHYSICAL THERAPY EVALUATION HIGH COMPLEX 45 MINS Jamel Almeida MD [address] [facility] [place] [address] [facility] [place] [address] [place] [address] Referral ID Status Reason Start Date Expiration Date Visits Requested Visits Authorized [id number] Pending Review Auto-Generat ed Referral 05/31/2022 05/31/2023 1 1 Specialty Diagnoses / Procedures Referred By Contac t Referred To Contact [facility] [place] Diagnoses Other form of scoliosis of thoracolumbar spine Somatic dysfunction of cervical region Somatic dysfunction of thoracic region Procedures CONSULT TO [facility] OFFICE/OUTPATIENT [facility] 60-74 MINUTES Antolin June DO [address] [place] [address] Referral ID Status Reason Start Date Expiration Date Visits Requested Visits Authorized [id number] Authorized PCP Requested Referral 06/07/2022 06/07/2023 1 1 Specialty Diagnoses / Procedures Referred By Contac t Referred To Contact Vascular Surgery Diagnoses Popliteal artery entrapment syndrome (HCC) Procedures CONSULT TO VASCULAR SURGERY OFFICE/OUTPATIENT [facility] [facility] ([facility] 60-74 MINUTES Rere Monk MD [address] [place] [address] Brayden Michel MD [address] [place] [address] Referral ID Status Reason Start Date Expiration Date Visits Requested Visits Authorized [id number] Authorized PCP Requested Referral 07/04/2022 07/04/2023 1 1 Specialty Diagnoses / Procedures Referred By Contac t Referred To Contact Diagnoses Major depressive disorder, single episode, in remission (HCC) Procedures REFER TO PACC - PRE ANESTHESIA CONSULTATION CLINIC OFFICE/OUTPATIENT [facility] 60-74 MINUTES Monica Fraire MD [address] [address] Referral ID Status Reason Start Date Expiration Date Visits Requested Visits Authorized [id number] Authorized PCP Requested Referral 08/30/2022 08/30/2023 1 1 Specialty Diagnoses / Procedures Referred By Contac t Referred To Contact [facility] Diagnoses Epigastric abdominal pain Nausea Procedures EGD DIAGNOSTIC ESOPHAGOGASTRODUODENOS COPY TRANSORAL DIAGNOSTIC Monica Fraire MD [address] [address] [facility] [place] [address] [place] [address] Referral ID Status Reason Start Date Expiration Date Visits Requested Visits Authorized [id number] Authorized Auto-Generat ed Referral 08/30/2022 08/31/2023 1 1 Specialty Diagnoses / Procedures Referred By Contac t Referred To Contact [facility] Diagnoses Constipation, unspecified constipation type Procedures COLONOSCOPY DIAGNOSTIC COLONOSCOPY FLX DX W/COLLJ SPEC WHEN PFRMD Monica Fraire MD [address] [address] [facility] [address] [address] Referral ID Status Reason Start Date Expiration Date Visits Requested Visits Authorized [id number] Authorized Auto-Generat ed Referral 08/30/2022 08/31/2023 1 1 Specialty Diagnoses / Procedures Referred By Contac t Referred To Contact Shena Fraire, [email or web address] [address] [place] [address] Referral ID Status Reason Start Date Expiration Date Visits Re quested Visits Authorized [id number] Closed 1 1 Specialty Diagnoses / Procedures Referred By Contac t Referred To Contact [facility] Diagnoses Abnormal brain MRI Procedures MRI PITUITARY WO/W IVCON MRI BRAIN BRAIN STEM W/O W/CONTRAST MATERIAL Raquel Hooper MD [address] [place] [address] Mr [facility] [place] [address] Referral ID Status Reason Start Date Expiration Date V isits Requested Visits Authorized [id number] Closed Auto-Generate d Referral 10/06/2022 11/05/2022 1 1 Specialty Diagnoses / Procedures Referred By Contac t Referred To Contact [facility] Diagnoses Encounter for observation for other suspected diseases and conditions ruled out Bilateral leg pain Procedures MRI LOWER LEG WO IVCON RT MRI LOWER EXTREM OTH/THN JT W/O CONTR Rere Mujica MD [address] [place] [address] [place] [address] Referral ID Status Reason Start Date Expiration Date V isits Requested Visits Authorized [id number] Closed Auto-Generate d Referral 06/15/2022 07/15/2022 1 1 Specialty Diagnoses / Procedures Referred By Contac t Referred To Contact [facility] Diagnoses Encounter for observation for other suspected diseases and conditions ruled out Bilateral leg pain Procedures MRI LOWER LEG WO IVCON LT MRI LOWER EXTREM OTH/THN JT W/O CONTR Rere Mujica MD [address] [place] [address] [place] [address] Referral ID Status Reason Start Date Expiration Date V isits Requested Visits Authorized [id number] Closed Auto-Generate d Referral 06/15/2022 07/15/2022 1 1 Specialty Diagnoses / Procedures Referred By Contac t Referred To Contact Antolin June DO [address] [place] [address] Referral ID Status Reason Start Date Expiration Date Visits Re quested Visits Authorized [id number] Closed 1 1 Specialty Diagnoses / Procedures Referred By Contac t Referred To Contact [facility] Diagnoses Chronic intractable headache, unspecified headache type Procedures MRI BRAIN WO/W IVCON MRI BRAIN BRAIN STEM W/O W/CONTRAST MATERIAL Mahad Izaguirre Jr., MD [address] [address] [place] [address] Referral ID Status Reason Start Date Expiration Date Visits Requested Visits Authorized [id number] Pending Review Auto-Generat ed Referral 06/03/2023 07/02/2024 1 1 Referral ID Status Reason Start Date Expiration Date V isits Requested Visits Authorized [id number] Closed Auto-Generate d Referral 06/17/2023 07/17/2023 1 1 Specialty Diagnoses / Procedures Referred By Contac t Referred To Contact Alicja West PA-C [address] [place] [address] Referral ID Status Reason Start Date Expiration Date V isits Requested Visits Authorized [id number] Pending Review 1 1 Referral ID Status Reason Start Date Expiration Date V isits Requested Visits Authorized [id number] Pending Review 1 1 Specialty Diagnoses / Procedures Referred By Contac t Referred To Contact Herve Madrid PA-C [address] [place] [address] Referral ID Status Reason Start Date Expiration Date V isits Requested Visits Authorized [id number] Authorized 12/18/2023 12/16/2024 1 1 Specialty Diagnoses / Procedures Referred By Contac t Referred To Contact Diagnoses Irritable bowel syndrome with both constipation and diarrhea Herve Madrid PA-C [address] [place] [address] Referral ID Status Reason Start Date Expiration Date Visits Re quested Visits Authorized [id number] Denied 01/28/2024 03/28/2024 1 1 Specialty Diagnoses / Procedures Referred By Contac t Referred To Contact [facility] Diagnoses Somatic dysfunction of cervical region Procedures CONSULT TO PHYSICAL THERAPY PHYSICAL THERAPY EVALUATION HIGH COMPLEX 45 MINS Herve Madrid PA-C [address] [place] [address] [facility] [place] [address] [place] [address] Referral ID Status Reason Start Date Expiration Date Visits Requested Visits Authorized [id number] Pending Review Auto-Generat ed Referral 01/28/2024 01/27/2025 1 1 Specialty Diagnoses / Procedures Referred By Contac t Referred To Contact Allergy Diagnoses Chronic constipation Post-nasal drainage Procedures CONSULT TO ALLERGY/IMMUNOLOGY OFFICE/OUTPATIENT [facility]DM 60 MINUTES Antolin June DO [address] [place] [address] Referral ID Status Reason Start Date Expiration Date Visits Requested Visits Authorized [id number] Authorized PCP Requested Referral 02/17/2025 1 1 Specialty Diagnoses / Procedures Referred By Contac t Referred To Contact Orthopedics Diagnoses 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) Procedures CONSULT TO ORTHOPAEDICS OFFICE/OUTPATIENT [facility] 60 MINUTES Herve Madrid PA-C [address] [place] [address] Referral ID Status Reason Start Date Expiration Date Visits Requested Visits Authorized [id number] Authorized PCP Requested Referral 05/05/2024 05/05/2025 1 1 Summary Purpose Family History No Family History Records FoundNo Family History Records FoundNo Family History Records FoundNo Family History Records FoundNo Family History Records Found Advance Directives No Advanced Directives Records FoundNo Advanced Directives Records FoundNo Advanced Directives Records FoundNo Advanced Directives Records FoundNo Advanced Directives Records Found Additional Source Comments Source Comments (unrecognize d section and content) In the event this informatio n is protected by the Federal Confidentiality of Alcohol and Drug Abuse Patient Records regulations: The Federal rules restrict any use of the information to criminally investigate or prosecute any alcohol or drug abuse patient.[facility] the event this information is protected by the Federal Confidentiality of Alcohol and Drug Abuse Patient Records regulations: The Federal rules restrict any use of the information to criminally investigate or prosecute any alcohol or drug abuse patient.[facility] CenterIn the event this information is protected by the Federal Confidentiality of Alcohol and Drug Abuse Patient Records regulations: The Federal rules restrict any use of the information to criminally investigate or prosecute any alcohol or drug abuse patient.[facility] CenterIn the event this information is protected by the Federal Confidentiality of Alcohol and Drug Abuse Patient Records regulations: The Federal rules restrict any use of the information to criminally investigate or prosecute any alcohol or drug abuse patient.[facility] CenterIn the event this information is protected by the Federal Confidentiality of Alcohol and Drug Abuse Patient Records regulations: The Federal rules restrict any use of the information to criminally investigate or prosecute any alcohol or drug abuse patient.[facility] CenterIn the event this information is protected by the Federal Confidentiality of Alcohol and Drug Abuse Patient Records regulations: The Federal rules restrict any use of the information to criminally investigate or prosecute any alcohol or drug abuse patient.[facility] CenterIn the event this information is protected by the Federal Confidentiality of Alcohol and Drug Abuse Patient Records regulations: The Federal rules restrict any use of the information to criminally investigate or prosecute any alcohol or drug abuse patient.[facility] CenterIn the event this information is protected by the Federal Confidentiality of Alcohol and Drug Abuse Patient Records regulations: The Federal rules restrict any use of the information to criminally investigate or prosecute any alcohol or drug abuse patient.[facility] CenterIn the event this information is protected by the Federal Confidentiality of Alcohol and Drug Abuse Patient Records regulations: The Federal rules restrict any use of the information to criminally investigate or prosecute any alcohol or drug abuse patient.[facility] CenterIn the event this information is protected by the Federal Confidentiality of Alcohol and Drug Abuse Patient Records regulations: The Federal rules restrict any use of the information to criminally investigate or prosecute any alcohol or drug abuse patient.[facility] CenterIn the event this information is protected by the Federal Confidentiality of Alcohol and Drug Abuse Patient Records regulations: The Federal rules restrict any use of the information to criminally investigate or prosecute any alcohol or drug abuse patient.[facility] CenterIn the event this information is protected by the Federal Confidentiality of Alcohol and Drug Abuse Patient Records regulations: The Federal rules restrict any use of the information to criminally investigate or prosecute any alcohol or drug abuse patient.[facility] CenterIn the event this information is protected by the Federal Confidentiality of Alcohol and Drug Abuse Patient Records regulations: The Federal rules restrict any use of the information to criminally investigate or prosecute any alcohol or drug abuse patient.[facility] CenterIn the event this information is protected by the Federal Confidentiality of Alcohol and Drug Abuse Patient Records regulations: The Federal rules restrict any use of the information to criminally investigate or prosecute any alcohol or drug abuse patient.[facility] CenterIn the event this information is protected by the Federal Confidentiality of Alcohol and Drug Abuse Patient Records regulations: The Federal rules restrict any use of the information to criminally investigate or prosecute any alcohol or drug abuse patient.[facility] CenterIn the event this information is protected by the Federal Confidentiality of Alcohol and Drug Abuse Patient Records regulations: The Federal rules restrict any use of the information to criminally investigate or prosecute any alcohol or drug abuse patient.[facility] CenterIn the event this information is protected by the Federal Confidentiality of Alcohol and Drug Abuse Patient Records regulations: The Federal rules restrict any use of the information to criminally investigate or prosecute any alcohol or drug abuse patient.[facility] CenterIn the event this information is protected by the Federal Confidentiality of Alcohol and Drug Abuse Patient Records regulations: The Federal rules restrict any use of the information to criminally investigate or prosecute any alcohol or drug abuse patient.[facility] CenterIn the event this information is protected by the Federal Confidentiality of Alcohol and Drug Abuse Patient Records regulations: The Federal rules restrict any use of the information to criminally investigate or prosecute any alcohol or drug abuse patient.[facility] CenterIn the event this information is protected by the Federal Confidentiality of Alcohol and Drug Abuse Patient Records regulations: The Federal rules restrict any use of the information to criminally investigate or prosecute any alcohol or drug abuse patient.[facility] CenterIn the event this information is protected by the Federal Confidentiality of Alcohol and Drug Abuse Patient Records regulations: The Federal rules restrict any use of the information to criminally investigate or prosecute any alcohol or drug abuse patient.[facility] CenterIn the event this information is protected by the Federal Confidentiality of Alcohol and Drug Abuse Patient Records regulations: The Federal rules restrict any use of the information to criminally investigate or prosecute any alcohol or drug abuse patient.[facility] CenterIn the event this information is protected by the Federal Confidentiality of Alcohol and Drug Abuse Patient Records regulations: The Federal rules restrict any use of the information to criminally investigate or prosecute any alcohol or drug abuse patient.[facility] CenterIn the event this information is protected by the Federal Confidentiality of Alcohol and Drug Abuse Patient Records regulations: The Federal rules restrict any use of the information to criminally investigate or prosecute any alcohol or drug abuse patient.[facility] CenterIn the event this information is protected by the Federal Confidentiality of Alcohol and Drug Abuse Patient Records regulations: The Federal rules restrict any use of the information to criminally investigate or prosecute any alcohol or drug abuse patient.[facility] CenterIn the event this information is protected by the Federal Confidentiality of Alcohol and Drug Abuse Patient Records regulations: The Federal rules restrict any use of the information to criminally investigate or prosecute any alcohol or drug abuse patient.[facility] CenterIn the event this information is protected by the Federal Confidentiality of Alcohol and Drug Abuse Patient Records regulations: The Federal rules restrict any use of the information to criminally investigate or prosecute any alcohol or drug abuse patient.[facility] CenterIn the event this information is protected by the Federal Confidentiality of Alcohol and Drug Abuse Patient Records regulations: The Federal rules restrict any use of the information to criminally investigate or prosecute any alcohol or drug abuse patient.[facility] CenterIn the event this information is protected by the Federal Confidentiality of Alcohol and Drug Abuse Patient Records regulations: The Federal rules restrict any use of the information to criminally investigate or prosecute any alcohol or drug abuse patient.[facility] CenterIn the event this information is protected by the Federal Confidentiality of Alcohol and Drug Abuse Patient Records regulations: The Federal rules restrict any use of the information to criminally investigate or prosecute any alcohol or drug abuse patient.[facility] CenterIn the event this information is protected by the Federal Confidentiality of Alcohol and Drug Abuse Patient Records regulations: The Federal rules restrict any use of the information to criminally investigate or prosecute any alcohol or drug abuse patient.[facility] CenterIn the event this information is protected by the Federal Confidentiality of Alcohol and Drug Abuse Patient Records regulations: The Federal rules restrict any use of the information to criminally investigate or prosecute any alcohol or drug abuse patient.[facility] CenterIn the event this information is protected by the Federal Confidentiality of Alcohol and Drug Abuse Patient Records regulations: The Federal rules restrict any use of the information to criminally investigate or prosecute any alcohol or drug abuse patient.[facility] CenterIn the event this information is protected by the Federal Confidentiality of Alcohol and Drug Abuse Patient Records regulations: The Federal rules restrict any use of the information to criminally investigate or prosecute any alcohol or drug abuse patient.[facility] CenterIn the event this information is protected by the Federal Confidentiality of Alcohol and Drug Abuse Patient Records regulations: The Federal rules restrict any use of the information to criminally investigate or prosecute any alcohol or drug abuse patient.[facility] CenterIn the event this information is protected by the Federal Confidentiality of Alcohol and Drug Abuse Patient Records regulations: The Federal rules restrict any use of the information to criminally investigate or prosecute any alcohol or drug abuse patient.[facility] CenterIn the event this information is protected by the Federal Confidentiality of Alcohol and Drug Abuse Patient Records regulations: The Federal rules restrict any use of the information to criminally investigate or prosecute any alcohol or drug abuse patient.[facility] CenterIn the event this information is protected by the Federal Confidentiality of Alcohol and Drug Abuse Patient Records regulations: The Federal rules restrict any use of the information to criminally investigate or prosecute any alcohol or drug abuse patient.[facility] CenterIn the event this information is protected by the Federal Confidentiality of Alcohol and Drug Abuse Patient Records regulations: The Federal rules restrict any use of the information to criminally investigate or prosecute any alcohol or drug abuse patient.[facility] CenterIn the event this information is protected by the Federal Confidentiality of Alcohol and Drug Abuse Patient Records regulations: The Federal rules restrict any use of the information to criminally investigate or prosecute any alcohol or drug abuse patient.[facility] CenterIn the event this information is protected by the Federal Confidentiality of Alcohol and Drug Abuse Patient Records regulations: The Federal rules restrict any use of the information to criminally investigate or prosecute any alcohol or drug abuse patient.[facility] CenterIn the event this information is protected by the Federal Confidentiality of Alcohol and Drug Abuse Patient Records regulations: The Federal rules restrict any use of the information to criminally investigate or prosecute any alcohol or drug abuse patient.[facility] CenterIn the event this information is protected by the Federal Confidentiality of Alcohol and Drug Abuse Patient Records regulations: The Federal rules restrict any use of the information to criminally investigate or prosecute any alcohol or drug abuse patient.[facility] CenterIn the event this information is protected by the Federal Confidentiality of Alcohol and Drug Abuse Patient Records regulations: The Federal rules restrict any use of the information to criminally investigate or prosecute any alcohol or drug abuse patient.[facility] CenterIn the event this information is protected by the Federal Confidentiality of Alcohol and Drug Abuse Patient Records regulations: The Federal rules restrict any use of the information to criminally investigate or prosecute any alcohol or drug abuse patient.[facility] CenterIn the event this information is protected by the Federal Confidentiality of Alcohol and Drug Abuse Patient Records regulations: The Federal rules restrict any use of the information to criminally investigate or prosecute any alcohol or drug abuse patient.[facility] CenterIn the event this information is protected by the Federal Confidentiality of Alcohol and Drug Abuse Patient Records regulations: The Federal rules restrict any use of the information to criminally investigate or prosecute any alcohol or drug abuse patient.[facility] CenterIn the event this information is protected by the Federal Confidentiality of Alcohol and Drug Abuse Patient Records regulations: The Federal rules restrict any use of the information to criminally investigate or prosecute any alcohol or drug abuse patient.[facility] CenterIn the event this information is protected by the Federal Confidentiality of Alcohol and Drug Abuse Patient Records regulations: The Federal rules restrict any use of the information to criminally investigate or prosecute any alcohol or drug abuse patient.[facility] CenterIn the event this information is protected by the Federal Confidentiality of Alcohol and Drug Abuse Patient Records regulations: The Federal rules restrict any use of the information to criminally investigate or prosecute any alcohol or drug abuse patient.[facility] CenterIn the event this information is protected by the Federal Confidentiality of Alcohol and Drug Abuse Patient Records regulations: The Federal rules restrict any use of the information to criminally investigate or prosecute any alcohol or drug abuse patient.[facility] CenterIn the event this information is protected by the Federal Confidentiality of Alcohol and Drug Abuse Patient Records regulations: The Federal rules restrict any use of the information to criminally investigate or prosecute any alcohol or drug abuse patient.[facility] CenterIn the event this information is protected by the Federal Confidentiality of Alcohol and Drug Abuse Patient Records regulations: The Federal rules restrict any use of the information to criminally investigate or prosecute any alcohol or drug abuse patient.[facility] CenterIn the event this information is protected by the Federal Confidentiality of Alcohol and Drug Abuse Patient Records regulations: The Federal rules restrict any use of the information to criminally investigate or prosecute any alcohol or drug abuse patient.[facility] CenterIn the event this information is protected by the Federal Confidentiality of Alcohol and Drug Abuse Patient Records regulations: The Federal rules restrict any use of the information to criminally investigate or prosecute any alcohol or drug abuse patient.[facility] CenterIn the event this information is protected by the Federal Confidentiality of Alcohol and Drug Abuse Patient Records regulations: The Federal rules restrict any use of the information to criminally investigate or prosecute any alcohol or drug abuse patient.[facility] CenterIn the event this information is protected by the Federal Confidentiality of Alcohol and Drug Abuse Patient Records regulations: The Federal rules restrict any use of the information to criminally investigate or prosecute any alcohol or drug abuse patient.[facility] CenterIn the event this information is protected by the Federal Confidentiality of Alcohol and Drug Abuse Patient Records regulations: The Federal rules restrict any use of the information to criminally investigate or prosecute any alcohol or drug abuse patient.[facility] CenterIn the event this information is protected by the Federal Confidentiality of Alcohol and Drug Abuse Patient Records regulations: The Federal rules restrict any use of the information to criminally investigate or prosecute any alcohol or drug abuse patient.[facility] CenterIn the event this information is protected by the Federal Confidentiality of Alcohol and Drug Abuse Patient Records regulations: The Federal rules restrict any use of the information to criminally investigate or prosecute any alcohol or drug abuse patient.[facility] CenterIn the event this information is protected by the Federal Confidentiality of Alcohol and Drug Abuse Patient Records regulations: The Federal rules restrict any use of the information to criminally investigate or prosecute any alcohol or drug abuse patient.[facility]In the event this information is protected by the Federal Confidentiality of Alcohol and Drug Abuse Patient Records regulations: The Federal rules restrict any use of the information to criminally investigate or prosecute any alcohol or drug abuse patient.[facility] CenterIn the event this information is protected by the Federal Confidentiality of Alcohol and Drug Abuse Patient Records regulations: The Federal rules restrict any use of the information to criminally investigate or prosecute any alcohol or drug abuse patient.[facility] CenterIn the event this information is protected by the Federal Confidentiality of Alcohol and Drug Abuse Patient Records regulations: The Federal rules restrict any use of the information to criminally investigate or prosecute any alcohol or drug abuse patient.[facility] CenterIn the event this information is protected by the Federal Confidentiality of Alcohol and Drug Abuse Patient Records regulations: The Federal rules restrict any use of the information to criminally investigate or prosecute any alcohol or drug abuse patient.[facility] CenterIn the event this information is protected by the Federal Confidentiality of Alcohol and Drug Abuse Patient Records regulations: The Federal rules restrict any use of the information to criminally investigate or prosecute any alcohol or drug abuse patient.[facility] CenterIn the event this information is protected by the Federal Confidentiality of Alcohol and Drug Abuse Patient Records regulations: The Federal rules restrict any use of the information to criminally investigate or prosecute any alcohol or drug abuse patient.[facility] CenterIn the event this information is protected by the Federal Confidentiality of Alcohol and Drug Abuse Patient Records regulations: The Federal rules restrict any use of the information to criminally investigate or prosecute any alcohol or drug abuse patient.[facility] CenterIn the event this information is protected by the Federal Confidentiality of Alcohol and Drug Abuse Patient Records regulations: The Federal rules restrict any use of the information to criminally investigate or prosecute any alcohol or drug abuse patient.[facility] CenterIn the event this information is protected by the Federal Confidentiality of Alcohol and Drug Abuse Patient Records regulations: The Federal rules restrict any use of the information to criminally investigate or prosecute any alcohol or drug abuse patient.[facility] CenterIn the event this information is protected by the Federal Confidentiality of Alcohol and Drug Abuse Patient Records regulations: The Federal rules restrict any use of the information to criminally investigate or prosecute any alcohol or drug abuse patient.[facility] CenterIn the event this information is protected by the Federal Confidentiality of Alcohol and Drug Abuse Patient Records regulations: The Federal rules restrict any use of the information to criminally investigate or prosecute any alcohol or drug abuse patient.[facility] CenterIn the event this information is protected by the Federal Confidentiality of Alcohol and Drug Abuse Patient Records regulations: The Federal rules restrict any use of the information to criminally investigate or prosecute any alcohol or drug abuse patient.[facility] CenterIn the event this information is protected by the Federal Confidentiality of Alcohol and Drug Abuse Patient Records regulations: The Federal rules restrict any use of the information to criminally investigate or prosecute any alcohol or drug abuse patient.[facility] CenterIn the event this information is protected by the Federal Confidentiality of Alcohol and Drug Abuse Patient Records regulations: The Federal rules restrict any use of the information to criminally investigate or prosecute any alcohol or drug abuse patient.[facility] CenterIn the event this information is protected by the Federal Confidentiality of Alcohol and Drug Abuse Patient Records regulations: The Federal rules restrict any use of the information to criminally investigate or prosecute any alcohol or drug abuse patient.[facility] CenterIn the event this information is protected by the Federal Confidentiality of Alcohol and Drug Abuse Patient Records regulations: The Federal rules restrict any use of the information to criminally investigate or prosecute any alcohol or drug abuse patient.[facility] CenterIn the event this information is protected by the Federal Confidentiality of Alcohol and Drug Abuse Patient Records regulations: The Federal rules restrict any use of the information to criminally investigate or prosecute any alcohol or drug abuse patient.[facility] CenterIn the event this information is protected by the Federal Confidentiality of Alcohol and Drug Abuse Patient Records regulations: The Federal rules restrict any use of the information to criminally investigate or prosecute any alcohol or drug abuse patient.[facility] CenterIn the event this information is protected by the Federal Confidentiality of Alcohol and Drug Abuse Patient Records regulations: The Federal rules restrict any use of the information to criminally investigate or prosecute any alcohol or drug abuse patient.[facility] CenterIn the event this information is protected by the Federal Confidentiality of Alcohol and Drug Abuse Patient Records regulations: The Federal rules restrict any use of the information to criminally investigate or prosecute any alcohol or drug abuse patient.[facility] CenterIn the event this information is protected by the Federal Confidentiality of Alcohol and Drug Abuse Patient Records regulations: The Federal rules restrict any use of the information to criminally investigate or prosecute any alcohol or drug abuse patient.[facility] CenterIn the event this information is protected by the Federal Confidentiality of Alcohol and Drug Abuse Patient Records regulations: The Federal rules restrict any use of the information to criminally investigate or prosecute any alcohol or drug abuse patient.[facility]In the event this information is protected by the Federal Confidentiality of Alcohol and Drug Abuse Patient Records regulations: The Federal rules restrict any use of the information to criminally investigate or prosecute any alcohol or drug abuse patient.[facility] CenterIn the event this information is protected by the Federal Confidentiality of Alcohol and Drug Abuse Patient Records regulations: The Federal rules restrict any use of the information to criminally investigate or prosecute any alcohol or drug abuse patient.[facility] CenterIn the event this information is protected by the Federal Confidentiality of Alcohol and Drug Abuse Patient Records regulations: The Federal rules restrict any use of the information to criminally investigate or prosecute any alcohol or drug abuse patient.[facility] CenterIn the event this information is protected by the Federal Confidentiality of Alcohol and Drug Abuse Patient Records regulations: The Federal rules restrict any use of the information to criminally investigate or prosecute any alcohol or drug abuse patient.[facility] CenterIn the event this information is protected by the Federal Confidentiality of Alcohol and Drug Abuse Patient Records regulations: The Federal rules restrict any use of the information to criminally investigate or prosecute any alcohol or drug abuse patient.[facility] CenterIn the event this information is protected by the Federal Confidentiality of Alcohol and Drug Abuse Patient Records regulations: The Federal rules restrict any use of the information to criminally investigate or prosecute any alcohol or drug abuse patient.[facility]In the event this information is protected by the Federal Confidentiality of Alcohol and Drug Abuse Patient Records regulations: The Federal rules restrict any use of the information to criminally investigate or prosecute any alcohol or drug abuse patient.[facility]In the event this information is protected by the Federal Confidentiality of Alcohol and Drug Abuse Patient Records regulations: The Federal rules restrict any use of the information to criminally investigate or prosecute any alcohol or drug abuse patient.[facility]In the event this information is protected by the Federal Confidentiality of Alcohol and Drug Abuse Patient Records regulations: The Federal rules restrict any use of the information to criminally investigate or prosecute any alcohol or drug abuse patient.[facility]In the event this information is protected by the Federal Confidentiality of Alcohol and Drug Abuse Patient Records regulations: The Federal rules restrict any use of the information to criminally investigate or prosecute any alcohol or drug abuse patient.[facility]In the event this information is protected by the Federal Confidentiality of Alcohol and Drug Abuse Patient Records regulations: The Federal rules restrict any use of the information to criminally investigate or prosecute any alcohol or drug abuse patient.[facility]In the event this information is protected by the Federal Confidentiality of Alcohol and Drug Abuse Patient Records regulations: The Federal rules restrict any use of the information to criminally investigate or prosecute any alcohol or drug abuse patient.[facility]In the event this information is protected by the Federal Confidentiality of Alcohol and Drug Abuse Patient Records regulations: The Federal rules restrict any use of the information to criminally investigate or prosecute any alcohol or drug abuse patient.[facility]In the event this information is protected by the Federal Confidentiality of Alcohol and Drug Abuse Patient Records regulations: The Federal rules restrict any use of the information to criminally investigate or prosecute any alcohol or drug abuse patient.[facility]In the event this information is protected by the Federal Confidentiality of Alcohol and Drug Abuse Patient Records regulations: The Federal rules restrict any use of the information to criminally investigate or prosecute any alcohol or drug abuse patient.[facility]In the event this information is protected by the Federal Confidentiality of Alcohol and Drug Abuse Patient Records regulations: The Federal rules restrict any use of the information to criminally investigate or prosecute any alcohol or drug abuse patient.[facility]In the event this information is protected by the Federal Confidentiality of Alcohol and Drug Abuse Patient Records regulations: The Federal rules restrict any use of the information to criminally investigate or prosecute any alcohol or drug abuse patient.[facility]In the event this information is protected by the Federal Confidentiality of Alcohol and Drug Abuse Patient Records regulations: The Federal rules restrict any use of the information to criminally investigate or prosecute any alcohol or drug abuse patient.[facility]In the event this information is protected by the Federal Confidentiality of Alcohol and Drug Abuse Patient Records regulations: The Federal rules restrict any use of the information to criminally investigate or prosecute any alcohol or drug abuse patient.[facility]In the event this information is protected by the Federal Confidentiality of Alcohol and Drug Abuse Patient Records regulations: The Federal rules restrict any use of the information to criminally investigate or prosecute any alcohol or drug abuse patient.[facility]In the event this information is protected by the Federal Confidentiality of Alcohol and Drug Abuse Patient Records regulations: The Federal rules restrict any use of the information to criminally investigate or prosecute any alcohol or drug abuse patient.[facility]In the event this information is protected by the Federal Confidentiality of Alcohol and Drug Abuse Patient Records regulations: The Federal rules restrict any use of the information to criminally investigate or prosecute any alcohol or drug abuse patient.[facility]In the event this information is protected by the Federal Confidentiality of Alcohol and Drug Abuse Patient Records regulations: The Federal rules restrict any use of the information to criminally investigate or prosecute any alcohol or drug abuse patient.[facility]In the event this information is protected by the Federal Confidentiality of Alcohol and Drug Abuse Patient Records regulations: The Federal rules restrict any use of the information to criminally investigate or prosecute any alcohol or drug abuse patient.[facility]In the event this information is protected by the Federal Confidentiality of Alcohol and Drug Abuse Patient Records regulations: The Federal rules restrict any use of the information to criminally investigate or prosecute any alcohol or drug abuse patient.[facility]In the event this information is protected by the Federal Confidentiality of Alcohol and Drug Abuse Patient Records regulations: The Federal rules restrict any use of the information to criminally investigate or prosecute any alcohol or drug abuse patient.[facility]In the event this information is protected by the Federal Confidentiality of Alcohol and Drug Abuse Patient Records regulations: The Federal rules restrict any use of the information to criminally investigate or prosecute any alcohol or drug abuse patient.[facility]In the event this information is protected by the Federal Confidentiality of Alcohol and Drug Abuse Patient Records regulations: The Federal rules restrict any use of the information to criminally investigate or prosecute any alcohol or drug abuse patient.[facility]In the event this information is protected by the Federal Confidentiality of Alcohol and Drug Abuse Patient Records regulations: The Federal rules restrict any use of the information to criminally investigate or prosecute any alcohol or drug abuse patient.[facility]In the event this information is protected by the Federal Confidentiality of Alcohol and Drug Abuse Patient Records regulations: The Federal rules restrict any use of the information to criminally investigate or prosecute any alcohol or drug abuse patient.[facility]In the event this information is protected by the Federal Confidentiality of Alcohol and Drug Abuse Patient Records regulations: The Federal rules restrict any use of the information to criminally investigate or prosecute any alcohol or drug abuse patient.[facility]In the event this information is protected by the Federal Confidentiality of Alcohol and Drug Abuse Patient Records regulations: The Federal rules restrict any use of the information to criminally investigate or prosecute any alcohol or drug abuse patient.[facility]In the event this information is protected by the Federal Confidentiality of Alcohol and Drug Abuse Patient Records regulations: The Federal rules restrict any use of the information to criminally investigate or prosecute any alcohol or drug abuse patient.[facility]In the event this information is protected by the Federal Confidentiality of Alcohol and Drug Abuse Patient Records regulations: The Federal rules restrict any use of the information to criminally investigate or prosecute any alcohol or drug abuse patient.[facility]In the event this information is protected by the Federal Confidentiality of Alcohol and Drug Abuse Patient Records regulations: The Federal rules restrict any use of the information to criminally investigate or prosecute any alcohol or drug abuse patient.[facility]In the event this information is protected by the Federal Confidentiality of Alcohol and Drug Abuse Patient Records regulations: The Federal rules restrict any use of the information to criminally investigate or prosecute any alcohol or drug abuse patient.[facility]In the event this information is protected by the Federal Confidentiality of Alcohol and Drug Abuse Patient Records regulations: The Federal rules restrict any use of the information to criminally investigate or prosecute any alcohol or drug abuse patient.[facility]In the event this information is protected by the Federal Confidentiality of Alcohol and Drug Abuse Patient Records regulations: The Federal rules restrict any use of the information to criminally investigate or prosecute any alcohol or drug abuse patient.[facility]In the event this information is protected by the Federal Confidentiality of Alcohol and Drug Abuse Patient Records regulations: The Federal rules restrict any use of the information to criminally investigate or prosecute any alcohol or drug abuse patient.[facility]In the event this information is protected by the Federal Confidentiality of Alcohol and Drug Abuse Patient Records regulations: The Federal rules restrict any use of the information to criminally investigate or prosecute any alcohol or drug abuse patient.[facility]In the event this information is protected by the Federal Confidentiality of Alcohol and Drug Abuse Patient Records regulations: The Federal rules restrict any use of the information to criminally investigate or prosecute any alcohol or drug abuse patient.[facility]In the event this information is protected by the Federal Confidentiality of Alcohol and Drug Abuse Patient Records regulations: The Federal rules restrict any use of the information to criminally investigate or prosecute any alcohol or drug abuse patient.[facility]In the event this information is protected by the Federal Confidentiality of Alcohol and Drug Abuse Patient Records regulations: The Federal rules restrict any use of the information to criminally investigate or prosecute any alcohol or drug abuse patient.[facility]In the event this information is protected by the Federal Confidentiality of Alcohol and Drug Abuse Patient Records regulations: The Federal rules restrict any use of the information to criminally investigate or prosecute any alcohol or drug abuse patient.[facility]In the event this information is protected by the Federal Confidentiality of Alcohol and Drug Abuse Patient Records regulations: The Federal rules restrict any use of the information to criminally investigate or prosecute any alcohol or drug abuse patient.[facility]In the event this information is protected by the Federal Confidentiality of Alcohol and Drug Abuse Patient Records regulations: The Federal rules restrict any use of the information to criminally investigate or prosecute any alcohol or drug abuse patient.[facility]In the event this information is protected by the Federal Confidentiality of Alcohol and Drug Abuse Patient Records regulations: The Federal rules restrict any use of the information to criminally investigate or prosecute any alcohol or drug abuse patient.[facility]In the event this information is protected by the Federal Confidentiality of Alcohol and Drug Abuse Patient Records regulations: The Federal rules restrict any use of the information to criminally investigate or prosecute any alcohol or drug abuse patient.[facility]In the event this information is protected by the Federal Confidentiality of Alcohol and Drug Abuse Patient Records regulations: The Federal rules restrict any use of the information to criminally investigate or prosecute any alcohol or drug abuse patient.[facility]In the event this information is protected by the Federal Confidentiality of Alcohol and Drug Abuse Patient Records regulations: The Federal rules restrict any use of the information to criminally investigate or prosecute any alcohol or drug abuse patient.[facility]In the event this information is protected by the Federal Confidentiality of Alcohol and Drug Abuse Patient Records regulations: The Federal rules restrict any use of the information to criminally investigate or prosecute any alcohol or drug abuse patient.[facility]In the event this information is protected by the Federal Confidentiality of Alcohol and Drug Abuse Patient Records regulations: The Federal rules restrict any use of the information to criminally investigate or prosecute any alcohol or drug abuse patient.[facility]In the event this information is protected by the Federal Confidentiality of Alcohol and Drug Abuse Patient Records regulations: The Federal rules restrict any use of the information to criminally investigate or prosecute any alcohol or drug abuse patient.[facility]In the event this information is protected by the Federal Confidentiality of Alcohol and Drug Abuse Patient Records regulations: The Federal rules restrict any use of the information to criminally investigate or prosecute any alcohol or drug abuse patient.[facility]In the event this information is protected by the Federal Confidentiality of Alcohol and Drug Abuse Patient Records regulations: The Federal rules restrict any use of the information to criminally investigate or prosecute any alcohol or drug abuse patient.[facility]In the event this information is protected by the Federal Confidentiality of Alcohol and Drug Abuse Patient Records regulations: The Federal rules restrict any use of the information to criminally investigate or prosecute any alcohol or drug abuse patient.[facility]In the event this information is protected by the Federal Confidentiality of Alcohol and Drug Abuse Patient Records regulations: The Federal rules restrict any use of the information to criminally investigate or prosecute any alcohol or drug abuse patient.[facility]In the event this information is protected by the Federal Confidentiality of Alcohol and Drug Abuse Patient Records regulations: The Federal rules restrict any use of the information to criminally investigate or prosecute any alcohol or drug abuse patient.[facility]In the event this information is protected by the Federal Confidentiality of Alcohol and Drug Abuse Patient Records regulations: The Federal rules restrict any use of the information to criminally investigate or prosecute any alcohol or drug abuse patient.[facility]In the event this information is protected by the Federal Confidentiality of Alcohol and Drug Abuse Patient Records regulations: The Federal rules restrict any use of the information to criminally investigate or prosecute any alcohol or drug abuse patient.[facility]In the event this information is protected by the Federal Confidentiality of Alcohol and Drug Abuse Patient Records regulations: The Federal rules restrict any use of the information to criminally investigate or prosecute any alcohol or drug abuse patient.[facility]In the event this information is protected by the Federal Confidentiality of Alcohol and Drug Abuse Patient Records regulations: The Federal rules restrict any use of the information to criminally investigate or prosecute any alcohol or drug abuse patient.[facility]In the event this information is protected by the Federal Confidentiality of Alcohol and Drug Abuse Patient Records regulations: The Federal rules restrict any use of the information to criminally investigate or prosecute any alcohol or drug abuse patient.[facility] CenterIn the event this information is protected by the Federal Confidentiality of Alcohol and Drug Abuse Patient Records regulations: The Federal rules restrict any use of the information to criminally investigate or prosecute any alcohol or drug abuse patient.[facility] CenterIn the event this information is protected by the Federal Confidentiality of Alcohol and Drug Abuse Patient Records regulations: The Federal rules restrict any use of the information to criminally investigate or prosecute any alcohol or drug abuse patient.[facility] CenterIn the event this information is protected by the Federal Confidentiality of Alcohol and Drug Abuse Patient Records regulations: The Federal rules restrict any use of the information to criminally investigate or prosecute any alcohol or drug abuse patient.[facility] CenterIn the event this information is protected by the Federal Confidentiality of Alcohol and Drug Abuse Patient Records regulations: The Federal rules restrict any use of the information to criminally investigate or prosecute any alcohol or drug abuse patient.[facility] CenterIn the event this information is protected by the Federal Confidentiality of Alcohol and Drug Abuse Patient Records regulations: The Federal rules restrict any use of the information to criminally investigate or prosecute any alcohol or drug abuse patient.[facility] CenterIn the event this information is protected by the Federal Confidentiality of Alcohol and Drug Abuse Patient Records regulations: The Federal rules restrict any use of the information to criminally investigate or prosecute any alcohol or drug abuse patient.[facility] CenterIn the event this information is protected by the Federal Confidentiality of Alcohol and Drug Abuse Patient Records regulations: The Federal rules restrict any use of the information to criminally investigate or prosecute any alcohol or drug abuse patient.[facility] CenterIn the event this information is protected by the Federal Confidentiality of Alcohol and Drug Abuse Patient Records regulations: The Federal rules restrict any use of the information to criminally investigate or prosecute any alcohol or drug abuse patient.[facility] CenterIn the event this information is protected by the Federal Confidentiality of Alcohol and Drug Abuse Patient Records regulations: The Federal rules restrict any use of the information to criminally investigate or prosecute any alcohol or drug abuse patient.[facility] CenterIn the event this information is protected by the Federal Confidentiality of Alcohol and Drug Abuse Patient Records regulations: The Federal rules restrict any use of the information to criminally investigate or prosecute any alcohol or drug abuse patient.[facility] CenterIn the event this information is protected by the Federal Confidentiality of Alcohol and Drug Abuse Patient Records regulations: The Federal rules restrict any use of the information to criminally investigate or prosecute any alcohol or drug abuse patient.[facility] CenterIn the event this information is protected by the Federal Confidentiality of Alcohol and Drug Abuse Patient Records regulations: The Federal rules restrict any use of the information to criminally investigate or prosecute any alcohol or drug abuse patient.[facility] CenterIn the event this information is protected by the Federal Confidentiality of Alcohol and Drug Abuse Patient Records regulations: The Federal rules restrict any use of the information to criminally investigate or prosecute any alcohol or drug abuse patient.[facility] CenterIn the event this information is protected by the Federal Confidentiality of Alcohol and Drug Abuse Patient Records regulations: The Federal rules restrict any use of the information to criminally investigate or prosecute any alcohol or drug abuse patient.[facility] CenterIn the event this information is protected by the Federal Confidentiality of Alcohol and Drug Abuse Patient Records regulations: The Federal rules restrict any use of the information to criminally investigate or prosecute any alcohol or drug abuse patient.[facility] CenterIn the event this information is protected by the Federal Confidentiality of Alcohol and Drug Abuse Patient Records regulations: The Federal rules restrict any use of the information to criminally investigate or prosecute any alcohol or drug abuse patient.[facility] CenterIn the event this information is protected by the Federal Confidentiality of Alcohol and Drug Abuse Patient Records regulations: The Federal rules restrict any use of the information to criminally investigate or prosecute any alcohol or drug abuse patient.[facility] CenterIn the event this information is protected by the Federal Confidentiality of Alcohol and Drug Abuse Patient Records regulations: The Federal rules restrict any use of the information to criminally investigate or prosecute any alcohol or drug abuse patient.[facility] CenterIn the event this information is protected by the Federal Confidentiality of Alcohol and Drug Abuse Patient Records regulations: The Federal rules restrict any use of the information to criminally investigate or prosecute any alcohol or drug abuse patient.[facility] CenterIn the event this information is protected by the Federal Confidentiality of Alcohol and Drug Abuse Patient Records regulations: The Federal rules restrict any use of the information to criminally investigate or prosecute any alcohol or drug abuse patient.[facility] CenterIn the event this information is protected by the Federal Confidentiality of Alcohol and Drug Abuse Patient Records regulations: The Federal rules restrict any use of the information to criminally investigate or prosecute any alcohol or drug abuse patient.[facility] CenterIn the event this information is protected by the Federal Confidentiality of Alcohol and Drug Abuse Patient Records regulations: The Federal rules restrict any use of the information to criminally investigate or prosecute any alcohol or drug abuse patient.[facility] CenterIn the event this information is protected by the Federal Confidentiality of Alcohol and Drug Abuse Patient Records regulations: The Federal rules restrict any use of the information to criminally investigate or prosecute any alcohol or drug abuse patient.[facility] CenterIn the event this information is protected by the Federal Confidentiality of Alcohol and Drug Abuse Patient Records regulations: The Federal rules restrict any use of the information to criminally investigate or prosecute any alcohol or drug abuse patient.[facility] CenterIn the event this information is protected by the Federal Confidentiality of Alcohol and Drug Abuse Patient Records regulations: The Federal rules restrict any use of the information to criminally investigate or prosecute any alcohol or drug abuse patient.[facility] CenterIn the event this information is protected by the Federal Confidentiality of Alcohol and Drug Abuse Patient Records regulations: The Federal rules restrict any use of the information to criminally investigate or prosecute any alcohol or drug abuse patient.[facility] CenterIn the event this information is protected by the Federal Confidentiality of Alcohol and Drug Abuse Patient Records regulations: The Federal rules restrict any use of the information to criminally investigate or prosecute any alcohol or drug abuse patient.[facility] CenterIn the event this information is protected by the Federal Confidentiality of Alcohol and Drug Abuse Patient Records regulations: The Federal rules restrict any use of the information to criminally investigate or prosecute any alcohol or drug abuse patient.[facility] CenterIn the event this information is protected by the Federal Confidentiality of Alcohol and Drug Abuse Patient Records regulations: The Federal rules restrict any use of the information to criminally investigate or prosecute any alcohol or drug abuse patient.[facility] CenterIn the event this information is protected by the Federal Confidentiality of Alcohol and Drug Abuse Patient Records regulations: The Federal rules restrict any use of the information to criminally investigate or prosecute any alcohol or drug abuse patient.[facility] CenterIn the event this information is protected by the Federal Confidentiality of Alcohol and Drug Abuse Patient Records regulations: The Federal rules restrict any use of the information to criminally investigate or prosecute any alcohol or drug abuse patient.[facility] CenterIn the event this information is protected by the Federal Confidentiality of Alcohol and Drug Abuse Patient Records regulations: The Federal rules restrict any use of the information to criminally investigate or prosecute any alcohol or drug abuse patient.[facility] CenterIn the event this information is protected by the Federal Confidentiality of Alcohol and Drug Abuse Patient Records regulations: The Federal rules restrict any use of the information to criminally investigate or prosecute any alcohol or drug abuse patient.[facility] CenterIn the event this information is protected by the Federal Confidentiality of Alcohol and Drug Abuse Patient Records regulations: The Federal rules restrict any use of the information to criminally investigate or prosecute any alcohol or drug abuse patient.[facility] CenterIn the event this information is protected by the Federal Confidentiality of Alcohol and Drug Abuse Patient Records regulations: The Federal rules restrict any use of the information to criminally investigate or prosecute any alcohol or drug abuse patient.[facility] CenterIn the event this information is protected by the Federal Confidentiality of Alcohol and Drug Abuse Patient Records regulations: The Federal rules restrict any use of the information to criminally investigate or prosecute any alcohol or drug abuse patient.[facility] CenterIn the event this information is protected by the Federal Confidentiality of Alcohol and Drug Abuse Patient Records regulations: The Federal rules restrict any use of the information to criminally investigate or prosecute any alcohol or drug abuse patient.[facility] CenterIn the event this information is protected by the Federal Confidentiality of Alcohol and Drug Abuse Patient Records regulations: The Federal rules restrict any use of the information to criminally investigate or prosecute any alcohol or drug abuse patient.[facility] CenterIn the event this information is protected by the Federal Confidentiality of Alcohol and Drug Abuse Patient Records regulations: The Federal rules restrict any use of the information to criminally investigate or prosecute any alcohol or drug abuse patient.[facility] CenterIn the event this information is protected by the Federal Confidentiality of Alcohol and Drug Abuse Patient Records regulations: The Federal rules restrict any use of the information to criminally investigate or prosecute any alcohol or drug abuse patient.[facility] CenterIn the event this information is protected by the Federal Confidentiality of Alcohol and Drug Abuse Patient Records regulations: The Federal rules restrict any use of the information to criminally investigate or prosecute any alcohol or drug abuse patient.[facility] CenterIn the event this information is protected by the Federal Confidentiality of Alcohol and Drug Abuse Patient Records regulations: The Federal rules restrict any use of the information to criminally investigate or prosecute any alcohol or drug abuse patient.[facility] CenterIn the event this information is protected by the Federal Confidentiality of Alcohol and Drug Abuse Patient Records regulations: The Federal rules restrict any use of the information to criminally investigate or prosecute any alcohol or drug abuse patient.[facility] CenterIn the event this information is protected by the Federal Confidentiality of Alcohol and Drug Abuse Patient Records regulations: The Federal rules restrict any use of the information to criminally investigate or prosecute any alcohol or drug abuse patient.[facility] CenterIn the event this information is protected by the Federal Confidentiality of Alcohol and Drug Abuse Patient Records regulations: The Federal rules restrict any use of the information to criminally investigate or prosecute any alcohol or drug abuse patient.[facility] CenterIn the event this information is protected by the Federal Confidentiality of Alcohol and Drug Abuse Patient Records regulations: The Federal rules restrict any use of the information to criminally investigate or prosecute any alcohol or drug abuse patient.[facility] CenterIn the event this information is protected by the Federal Confidentiality of Alcohol and Drug Abuse Patient Records regulations: The Federal rules restrict any use of the information to criminally investigate or prosecute any alcohol or drug abuse patient.[facility] CenterIn the event this information is protected by the Federal Confidentiality of Alcohol and Drug Abuse Patient Records regulations: The Federal rules restrict any use of the information to criminally investigate or prosecute any alcohol or drug abuse patient.[facility] CenterIn the event this information is protected by the Federal Confidentiality of Alcohol and Drug Abuse Patient Records regulations: The Federal rules restrict any use of the information to criminally investigate or prosecute any alcohol or drug abuse patient.[facility] CenterIn the event this information is protected by the Federal Confidentiality of Alcohol and Drug Abuse Patient Records regulations: The Federal rules restrict any use of the information to criminally investigate or prosecute any alcohol or drug abuse patient.[facility] CenterIn the event this information is protected by the Federal Confidentiality of Alcohol and Drug Abuse Patient Records regulations: The Federal rules restrict any use of the information to criminally investigate or prosecute any alcohol or drug abuse patient.[facility] CenterIn the event this information is protected by the Federal Confidentiality of Alcohol and Drug Abuse Patient Records regulations: The Federal rules restrict any use of the information to criminally investigate or prosecute any alcohol or drug abuse patient.[facility] CenterIn the event this information is protected by the Federal Confidentiality of Alcohol and Drug Abuse Patient Records regulations: The Federal rules restrict any use of the information to criminally investigate or prosecute any alcohol or drug abuse patient.[facility] CenterIn the event this information is protected by the Federal Confidentiality of Alcohol and Drug Abuse Patient Records regulations: The Federal rules restrict any use of the information to criminally investigate or prosecute any alcohol or drug abuse patient.[facility] CenterIn the event this information is protected by the Federal Confidentiality of Alcohol and Drug Abuse Patient Records regulations: The Federal rules restrict any use of the information to criminally investigate or prosecute any alcohol or drug abuse patient.[facility] CenterIn the event this information is protected by the Federal Confidentiality of Alcohol and Drug Abuse Patient Records regulations: The Federal rules restrict any use of the information to criminally investigate or prosecute any alcohol or drug abuse patient.[facility] CenterIn the event this information is protected by the Federal Confidentiality of Alcohol and Drug Abuse Patient Records regulations: The Federal rules restrict any use of the information to criminally investigate or prosecute any alcohol or drug abuse patient.[facility] CenterIn the event this information is protected by the Federal Confidentiality of Alcohol and Drug Abuse Patient Records regulations: The Federal rules restrict any use of the information to criminally investigate or prosecute any alcohol or drug abuse patient.[facility] CenterIn the event this information is protected by the Federal Confidentiality of Alcohol and Drug Abuse Patient Records regulations: The Federal rules restrict any use of the information to criminally investigate or prosecute any alcohol or drug abuse patient.[facility] CenterIn the event this information is protected by the Federal Confidentiality of Alcohol and Drug Abuse Patient Records regulations: The Federal rules restrict any use of the information to criminally investigate or prosecute any alcohol or drug abuse patient.[facility] CenterIn the event this information is protected by the Federal Confidentiality of Alcohol and Drug Abuse Patient Records regulations: The Federal rules restrict any use of the information to criminally investigate or prosecute any alcohol or drug abuse patient.[facility] CenterIn the event this information is protected by the Federal Confidentiality of Alcohol and Drug Abuse Patient Records regulations: The Federal rules restrict any use of the information to criminally investigate or prosecute any alcohol or drug abuse patient.[facility] CenterIn the event this information is protected by the Federal Confidentiality of Alcohol and Drug Abuse Patient Records regulations: The Federal rules restrict any use of the information to criminally investigate or prosecute any alcohol or drug abuse patient.[facility] CenterIn the event this information is protected by the Federal Confidentiality of Alcohol and Drug Abuse Patient Records regulations: The Federal rules restrict any use of the information to criminally investigate or prosecute any alcohol or drug abuse patient.[facility] Care Teams (unrecognized sec tion and content) Service Officer Relationship Specialty Start Date End Date Antolin June, [address] [place] [address] PCP - General Family Practice 01/19/13 Service Officer Relationship Specialty Start Date End Date Antolin June, DO [address] [place] [address] PCP - General Family Practice 01/19/13 Lily Mayers [address] [place] [address] Referring BILINGUAL LOAN PROCESSOR 09/01/21 Service Officer Relationship Specialty Start Date End Date Antolin June, DO [address] [place] [address] PCP - General Family Practice 01/19/13 Lily Mayers [address] [place] [address] Referring BILINGUAL LOAN PROCESSOR 09/01/21 Service Officer Relationship Specialty Start Date End Date Antolni June, DO [address] [place] [address] PCP - General Family Practice 01/19/13 Lily Mayers [address] [place] [address] Referring BILINGUAL LOAN PROCESSOR 09/01/21 Service Officer Relationship Specialty Start Date End Date Antolin June, DO [address] [place] [address] PCP - General Family Practice 01/19/13 Lily Mayers [address] [place] [address] Referring BILINGUAL LOAN PROCESSOR 09/01/21 Service Officer Relationship Specialty Start Date End Date Antolin June, DO [address] [place] [address] PCP - General Family Practice 01/19/13 Lily Mayers [address] [place] [address] Referring BILINGUAL LOAN PROCESSOR 09/01/21 Service Officer Relationship Specialty Start Date End Date Antolin June, DO [address] [place] [address] PCP - General Family Practice 01/19/13 Lliy Mayers [address] [place] [address] Referring BILINGUAL LOAN PROCESSOR 09/01/21 Service Officer Relationship Specialty Start Date End Date Antolin June, DO [address] [place] [address] PCP - General Family Practice 01/19/13 Lily Mayers [address] [place] [address] Referring BILINGUAL LOAN PROCESSOR 09/01/21 Service Officer Relationship Specialty Start Date End Date Antolin June, DO [address] [place] [address] PCP - General Family Practice 01/19/13 Lily Mayers [address] [place] [address] Referring BILINGUAL LOAN PROCESSOR 09/01/21 Service Officer Relationship Specialty Start Date End Date Antolin June, DO [address] [place] [address] PCP - General Family Practice 01/19/13 Lily Mayers [address] [place] [address] Referring BILINGUAL LOAN PROCESSOR 09/01/21 Service Officer Relationship Specialty Start Date End Date Antolin June, DO [address] [place] [address] PCP - General Family Practice 01/19/13 Lily Mayers [address] [place] [address] Referring BILINGUAL LOAN PROCESSOR 09/01/21 Service Officer Relationship Specialty Start Date End Date Antolin June, DO [address] [place] [address] PCP - General Family Practice 01/19/13 Lily Mayers [address] [place] [address] Referring BILINGUAL LOAN PROCESSOR 09/01/21 Service Officer Relationship Specialty Start Date End Date Antolin June, DO [address] [place] [address] PCP - General Family Practice 01/19/13 Lily Mayers [address] [place] [address] Referring BILINGUAL LOAN PROCESSOR 09/01/21 Service Officer Relationship Specialty Start Date End Date Antolin June, DO [address] [place] [address] PCP - General Family Practice 01/19/13 Lily Mayers [address] [place] [address] Referring BILINGUAL LOAN PROCESSOR 09/01/21 Service Officer Relationship Specialty Start Date End Date Antolin June, DO [address] [place] [address] PCP - General Family Practice 01/19/13 Lily Mayers [address] [place] [address] Referring BILINGUAL LOAN PROCESSOR 09/01/21 Service Officer Relationship Specialty Start Date End Date Antolin June, DO [address] [place] [address] PCP - General Family Practice 01/19/13 Lily Mayers [address] [place] [address] Referring BILINGUAL LOAN PROCESSOR 09/01/21 Service Officer Relationship Specialty Start Date End Date Antolin June, DO [address] [place] [address] PCP - General Family Practice 01/19/13 Lily Mayers [address] [place] [address] Referring BILINGUAL LOAN PROCESSOR 09/01/21 Service Officer Relationship Specialty Start Date End Date Antolin June DO [address] [place] [address] PCP - General Family Practice 01/19/13 Lily Mayers [address] [place] [address] Referring BILINGUAL LOAN PROCESSOR 09/01/21 Service Officer Relationship Specialty Start Date End Date Antolin June, [address] [place] [address] PCP - General Family Practice 01/19/13 Lily Mayers [address] [place] [address] Referring BILINGUAL LOAN PROCESSOR 09/01/21 Service Officer Relationship Specialty Start Date End Date Antolin June, DO [address] [place] [address] PCP - General Family Medicine 01/19/13 Lily Mayers [address] [place] [address] Referring BILINGUAL LOAN PROCESSOR 09/01/21 Service Officer Relationship Specialty Start Date End Date Antolin June DO [address] [place] [address] PCP - General Family Medicine 01/19/13 Lily Mayers [address] [place] [address] Referring BILINGUAL LOAN PROCESSOR 09/01/21 Service Officer Relationship Specialty Start Date End Date Antolin June, DO [address] [place] [address] PCP - General Family Medicine 01/19/13 Lily Mayers [address] [place] [address] Referring BILINGUAL LOAN PROCESSOR 09/01/21 Service Officer Relationship Specialty Start Date End Date Antolin June DO [address] [place] [address] PCP - General Family Medicine 01/19/13 Lily Mayers [address] [place] [address] Referring BILINGUAL LOAN PROCESSOR 09/01/21 Service Officer Relationship Specialty Start Date End Date Antolin June DO [address] [place] [address] PCP - General Family Medicine 01/19/13 Lily Mayers [address] [place] [address] Referring BILINGUAL LOAN PROCESSOR 09/01/21 Service Officer Relationship Specialty Start Date End Date Antolin June DO [address] [place] [address] PCP - General Family Medicine 01/19/13 Lily Mayers [address] [place] [address] Referring BILINGUAL LOAN PROCESSOR 09/01/21 Service Officer Relationship Specialty Start Date End Date Antolin June DO [address] [place] [address] PCP - General Family Medicine 01/19/13 Lily Mayers [address] [place] [address] Referring BILINGUAL LOAN PROCESSOR 09/01/21 Service Officer Relationship Specialty Start Date End Date Antolin June DO [address] [place] [address] PCP - General Family Medicine 01/19/13 Lily Mayers [address] [place] [address] Referring BILINGUAL LOAN PROCESSOR 09/01/21 Service Officer Relationship Specialty Start Date End Date Antolin June DO [address] [place] [address] PCP - General Family Medicine 01/19/13 Lily Mayers [address] [place] [address] Referring BILINGUAL LOAN PROCESSOR 09/01/21 Service Officer Relationship Specialty Start Date End Date Antolin June DO [address] [place] [address] PCP - General Family Medicine 01/19/13 Lily Mayers [address] [place] [address] Referring BILINGUAL LOAN PROCESSOR 09/01/21 Service Officer Relationship Specialty Start Date End Date Antolin June DO [address] [place] [address] PCP - General Family Medicine 01/19/13 Lily Mayers [address] [place] [address] Referring BILINGUAL LOAN PROCESSOR 09/01/21 Service Officer Relationship Specialty Start Date End Date Antolin June, DO [address] [place] [address] PCP - General Family Medicine 01/19/13 Lily Mayers [address] [place] [address] Referring BILINGUAL LOAN PROCESSOR 09/01/21 Service Officer Relationship Specialty Start Date End Date Antolin June, DO [address] [place] [address] PCP - General Family Medicine 01/19/13 Lily Mayers [address] [place] [address] Referring BILINGUAL LOAN PROCESSOR 09/01/21 Service Officer Relationship Specialty Start Date End Date Antolin June, DO [address] [place] [address] PCP - General Family Medicine 01/19/13 Lily Mayers [address] [place] [address] Referring BILINGUAL LOAN PROCESSOR 09/01/21 Service Officer Relationship Specialty Start Date End Date Antolin June, DO [address] [place] [address] PCP - General Family Medicine 01/19/13 Lily Mayers [address] [place] [address] Referring BILINGUAL LOAN PROCESSOR 09/01/21 Service Officer Relationship Specialty Start Date End Date Antolin June, DO [address] [place] [address] PCP - General Family Medicine 01/19/13 Lily Mayers [address] [place] [address] Referring BILINGUAL LOAN PROCESSOR 09/01/21 Service Officer Relationship Specialty Start Date End Date Antolin June, DO [address] [place] [address] PCP - General Family Medicine 01/19/13 Lily Mayers [address] [place] [address] Referring BILINGUAL LOAN PROCESSOR 09/01/21 Service Officer Relationship Specialty Start Date End Date Antolin June, DO [address] [place] [address] PCP - General Family Medicine 01/19/13 Lily Mayers [address] [place] [address] Referring BILINGUAL LOAN PROCESSOR 09/01/21 Service Officer Relationship Specialty Start Date End Date Antolin June, DO [address] [place] [address] PCP - General Family Medicine 01/19/13 Lily Mayers [address] [place] [address] Referring BILINGUAL LOAN PROCESSOR 09/01/21 Service Officer Relationship Specialty Start Date End Date Antolin June, DO [address] [place] [address] PCP - General Family Medicine 01/19/13 Lily Mayers [address] [place] [address] Referring BILINGUAL LOAN PROCESSOR 09/01/21 Service Officer Relationship Specialty Start Date End Date Antolin June, DO [address] [place] [address] PCP - General Family Medicine 01/19/13 Lily Mayers [address] [place] [address] Referring BILINGUAL LOAN PROCESSOR 09/01/21 Service Officer Relationship Specialty Start Date End Date Antolin June DO [address] [place] [address] PCP - General Family Medicine 01/19/13 Lily Mayers [address] [place] [address] Referring BILINGUAL LOAN PROCESSOR 09/01/21 Service Officer Relationship Specialty Start Date End Date Antolin June DO [address] [place] [address] PCP - General Family Medicine 01/19/13 Lily Mayers [address] [place] [address] Referring BILINGUAL LOAN PROCESSOR 09/01/21 Service Officer Relationship Specialty Start Date End Date Antolin June DO [address] [place] [address] PCP - General Family Medicine 01/19/13 Lily Mayers [address] [place] [address] Referring BILINGUAL LOAN PROCESSOR 09/01/21 Service Officer Relationship Specialty Start Date End Date Antolin June DO [address] [place] [address] PCP - General Family Medicine 01/19/13 Lily Mayers [address] [place] [address] Referring BILINGUAL LOAN PROCESSOR 09/01/21 Service Officer Relationship Specialty Start Date End Date Antolin June DO [address] [place] [address] PCP - General Family Medicine 01/19/13 Lily Mayers [address] [place] [address] Referring BILINGUAL LOAN PROCESSOR 09/01/21 Service Officer Relationship Specialty Start Date End Date Antolin June DO [address] [place] [address] PCP - General Family Medicine 01/19/13 Lily Mayers [address] [place] [address] Referring BILINGUAL LOAN PROCESSOR 09/01/21 Service Officer Relationship Specialty Start Date End Date Antolin June DO [address] [place] [address] PCP - General Family Medicine 01/19/13 Lily Mayers [address] [place] [address] Referring BILINGUAL LOAN PROCESSOR 09/01/21 Service Officer Relationship Specialty Start Date End Date Antolin June DO [address] [place] [address] PCP - General Family Medicine 01/19/13 Lily Mayers [address] [place] [address] Referring BILINGUAL LOAN PROCESSOR 09/01/21 Service Officer Relationship Specialty Start Date End Date Antolin June DO [address] [place] [address] PCP - General Family Medicine 01/19/13 Lily Mayers [address] [place] [address] Referring BILINGUAL LOAN PROCESSOR 09/01/21 Service Officer Relationship Specialty Start Date End Date Antolin June DO [address] [place] [address] PCP - General Family Medicine 01/19/13 Lily Mayers [address] [place] [address] Referring BILINGUAL LOAN PROCESSOR 09/01/21 Service Officer Relationship Specialty Start Date End Date Antolin June DO [address] [place] [address] PCP - General Family Medicine 01/19/13 Lily Mayers [address] [place] [address] Referring BILINGUAL LOAN PROCESSOR 09/01/21 Service Officer Relationship Specialty Start Date End Date Antolin June DO [address] [place] [address] PCP - General Family Medicine 01/19/13 Lily Mayers [address] [place] [address] Referring BILINGUAL LOAN PROCESSOR 09/01/21 Service Officer Relationship Specialty Start Date End Date Antolin June DO [address] [place] [address] PCP - General Family Medicine 01/19/13 Lily Mayers [address] [place] [address] Referring BILINGUAL LOAN PROCESSOR 09/01/21 Service Officer Relationship Specialty Start Date End Date Antolin June DO [address] [place] [address] PCP - General Family Medicine 01/19/13 Lily Mayers [address] [place] [address] Referring BILINGUAL LOAN PROCESSOR 09/01/21 Service Officer Relationship Specialty Start Date End Date Antolin June DO [address] [place] [address] PCP - General Family Medicine 01/19/13 Lily Mayers [address] [place] [address] Referring BILINGUAL LOAN PROCESSOR 09/01/21 Service Officer Relationship Specialty Start Date End Date Antolin June DO [address] [place] [address] PCP - General Family Medicine 01/19/13 Lily Mayers [address] [place] [address] Referring BILINGUAL LOAN PROCESSOR 09/01/21 Service Officer Relationship Specialty Start Date End Date Antolin June DO [address] [place] [address] PCP - General Family Medicine 01/19/13 Lily Mayers [address] [place] [address] Referring Talent Assistant 09/01/21 Service Officer Relationship Specialty Start Date End Date Antolin June DO [address] [place] [address] PCP - General Family Medicine 01/19/13 Lily Mayers [address] [place] [address] Referring Talent Assistant 09/01/21 Service Officer Relationship Specialty Start Date End Date Antolin June DO [address] [place] [address] PCP - General Family Medicine 01/19/13 Lily Mayers [address] [place] [address] Referring Talent Assistant 09/01/21 Service Officer Relationship Specialty Start Date End Date Antolin June DO [address] [place] [address] PCP - General Family Medicine 01/19/13 Lily Mayers [address] [place] [address] Referring Talent Assistant 09/01/21 Service Officer Relationship Specialty Start Date End Date Antolin June DO [address] [place] [address] PCP - General Family Medicine 01/19/13 Lily Mayers [address] [place] [address] Referring Talent Assistant 09/01/21 Service Officer Relationship Specialty Start Date End Date Antolin June DO [address] [place] [address] PCP - General Family Medicine 01/19/13 Lily Mayers [address] [place] [address] Referring Talent Assistant 09/01/21 Service Officer Relationship Specialty Start Date End Date Antolin June DO [address] [place] [address] PCP - General Family Medicine 01/19/13 Lily Mayers [address] [place] [address] Referring Talent Assistant 09/01/21 Service Officer Relationship Specialty Start Date End Date Antolin June DO [address] [place] [address] PCP - General Family Medicine 01/19/13 Lily Mayers [address] [place] [address] Referring Talent Assistant 09/01/21 Service Officer Relationship Specialty Start Date End Date Antolin June DO [address] [place] [address] PCP - General Family Medicine 01/19/13 Lily Mayers [address] [place] [address] Referring Talent Assistant 09/01/21 Service Officer Relationship Specialty Start Date End Date Antolin June DO [address] [place] [address] PCP - General Family Medicine 01/19/13 Lily Mayers [address] [place] [place] [address] Referring Talent Assistant 09/01/21 Service Officer Relationship Specialty Start Date End Date Antolin June DO [address] [place] [address] PCP - General Family Medicine 01/19/13 Lily Mayers [address] [place] [place] [address] Referring Talent Assistant 09/01/21 Service Officer Relationship Specialty Start Date End Date Antolin June DO [address] [facility] [place] [address] PCP - General Family Medicine 01/19/13 Lily Mayers [address] [place] [place] [address] Referring Talent Assistant 09/01/21 Service Officer Relationship Specialty Start Date End Date Antolin June DO [address] [place] [address] PCP - General Family Medicine 01/19/13 Lily Mayers [address] [place] [address] Referring Talent Assistant 09/01/21 Service Officer Relationship Specialty Start Date End Date Antolin June DO [address] [place] [address] PCP - General Family Medicine 01/19/13 Lily Mayers [address] [place] [place] [address] Referring Talent Assistant 09/01/21 Service Officer Relationship Specialty Start Date End Date Antolin June DO [address] [place] [address] PCP - General Family Medicine 01/19/13 Lily Mayers [address] [place] [address] Referring Talent Assistant 09/01/21 Service Officer Relationship Specialty Start Date End Date Antolin June DO [address] [place] [address] PCP - General Family Medicine 01/19/13 Lily Mayers [address] [place] [address] Referring Talent Assistant 09/01/21 Service Officer Relationship Specialty Start Date End Date Antolin June DO [address] [place] [address] PCP - General Family Medicine 01/19/13 Liyl Mayers [address] [place] [address] Referring Talent Assistant 09/01/21 Service Officer Relationship Specialty Start Date End Date Antolin June DO [address] [place] [address] PCP - General Family Medicine 01/19/13 Lily Mayers [address] [place] [address] Referring Talent Assistant 09/01/21 Service Officer Relationship Specialty Start Date End Date Antolin June DO [address] [place] [address] PCP - General Family Medicine 01/19/13 Lily Mayers [address] [place] [address] Referring Talent Assistant 09/01/21 Service Officer Relationship Specialty Start Date End Date Antolin Juen DO [address] [place] [place] [address] PCP - General Family Medicine 01/19/13 Lily Mayers [address] [place] [address] Referring Talent Assistant 09/01/21 Service Officer Relationship Specialty Start Date End Date Antolin June DO [address] [place] [address] PCP - General Family Medicine 01/19/13 Lily Mayers [address] [place] [address] Referring Talent Assistant 09/01/21 Service Officer Relationship Specialty Start Date End Date Antolin June DO [address] [place] [address] PCP - General Family Medicine 01/19/13 Lily Mayers [address] [place] [address] Referring Talent Assistant 09/01/21 Service Officer Relationship Specialty Start Date End Date Antolin June DO [address] [place] [address] PCP - General Family Medicine 01/19/13 Lily Mayers [address] [place] [address] Referring Talent Assistant 09/01/21 Service Officer Relationship Specialty Start Date End Date Antolin June DO [address] [place] [address] PCP - General Family Medicine 01/19/13 Lily Mayers [address] [place] [address] Referring Talent Assistant 09/01/21 Service Officer Relationship Specialty Start Date End Date Antolin June DO [address] [place] [address] PCP - General Family Medicine 01/19/13 Lily Mayers [address] [place] [address] Referring Talent Assistant 09/01/21 Service Officer Relationship Specialty Start Date End Date Antolin June DO [address] [place] [address] PCP - General Family Medicine 01/19/13 Lily Mayers [address] [place] [address] Referring Talent Assistant 09/01/21 Service Officer Relationship Specialty Start Date End Date Antolin June DO [address] [place] [address] PCP - General Family Medicine 01/19/13 Lily Mayers [address] [place] [address] Referring Talent Assistant 09/01/21 Service Officer Relationship Specialty Start Date End Date Antolin June DO [address] [place] [address] PCP - General Family Medicine 01/19/13 Lily Mayers [address] [place] [address] Referring Talent Assistant 09/01/21 Service Officer Relationship Specialty Start Date End Date Antolin June DO [address] [place] [address] PCP - General Family Medicine 01/19/13 Lily Mayers [address] [place] [address] Referring Talent Assistant 09/01/21 Shena Fraire, CLOTHESPIN DRIER OPERATOR.TEMPERATURE CONTROL INSPECTOR [address] [place] [address] [facility] 04/05/24 Nathaly Zuñiga, CLOTHESPIN DRIER OPERATOR.TEMPERATURE CONTROL INSPECTOR [address] [place] [address] [facility] 04/05/24 Service Officer Relationship Specialty Start Date End Date Antolin June DO [address] [place] [address] PCP - General Family Medicine 01/19/13 Lily Mayers [address] [place] [address] Referring Talent Assistant 09/01/21 Shena Fraire, CLOTHESPIN DRIER OPERATOR.TEMPERATURE CONTROL INSPECTOR [address] [place] [address] [facility] 04/05/24 Nathaly Zuñiga, CLOTHESPIN DRIER OPERATOR.TEMPERATURE CONTROL INSPECTOR [address] [place] [address] [facility] 04/05/24 Service Officer Relationship Specialty Start Date End Date Antolin June DO [address] [place] [address] PCP - General Family Medicine 01/19/13 Lily Mayers [address] [place] [address] Referring Talent Assistant 09/01/21 Shena Fraire, CLOTHESPIN DRIER OPERATOR.TEMPERATURE CONTROL INSPECTOR [address] [place] [address] [facility] 04/05/24 Nathaly Zuñiga, CLOTHESPIN DRIER OPERATOR.TEMPERATURE CONTROL INSPECTOR [address] [place] [address] [facility] 04/[facility] Service Officer Relationship Specialty Start Date End Date Antolin June DO [address] [place] [address] PCP - General Family Medicine 01/19/13 Lily Mayers [address] [place] [address] Referring Talent Assistant 09/01/21 Shena Fraire, CLOTHESPIN DRIER OPERATOR.TEMPERATURE CONTROL INSPECTOR [address] [place] [address] [facility] 04/05/24 YogeshNathaly, CLOTHESPIN DRIER OPERATOR.TEMPERATURE CONTROL INSPECTOR [address] [place] [address] [facility] 04/05/24 Service Officer Relationship Specialty Start Date End Date Antolin June DO [address] [place] [address] PCP - General Family Medicine 01/19/13 Lily Mayers [address] [place] [address] Referring Talent Assistant 09/01/21 Shena Fraire, CLOTHESPIN DRIER OPERATOR.TEMPERATURE CONTROL INSPECTOR [address] [place] [address] [facility] 04/05/24 YogeshNathaly, CLOTHESPIN DRIER OPERATOR.TEMPERATURE CONTROL INSPECTOR [address] [place] [address] [facility] 04/05/24 Service Officer Relationship Specialty Start Date End Date Antolin June DO [address] [place] [address] PCP - General Family Medicine 01/19/13 Lily Mayers [address] [place] [address] Referring Talent Assistant 09/01/21 Shena Fraire, CLOTHESPIN DRIER OPERATOR.TEMPERATURE CONTROL INSPECTOR [address] [place] [address] [facility] 04/05/24 YogeshNathaly, CLOTHESPIN DRIER OPERATOR.TEMPERATURE CONTROL INSPECTOR [address] [facility] [place] [address] [facility] 04/05/24 Service Officer Relationship Specialty Start Date End Date Antolin June DO [address] [place] [address] PCP - General Family Medicine 01/19/13 Lily Mayers [address] [place] [address] Referring Talent Assistant 09/01/21 Shena Fraire, CLOTHESPIN DRIER OPERATOR.TEMPERATURE CONTROL INSPECTOR [address] [place] [address] [facility] 04/05/24 Nathaly Zuñiga, CLOTHESPIN DRIER OPERATOR.TEMPERATURE CONTROL INSPECTOR [address] [place] [address] [facility] 04/05/24 Service Officer Relationship Specialty Start Date End Date Antolin June DO [address] [place] [address] PCP - General Family Medicine 01/19/13 Lily Mayers [address] [place] [address] Referring Talent Assistant 09/01/21 Shena Fraire, CLOTHESPIN DRIER OPERATOR.TEMPERATURE CONTROL INSPECTOR [address] [place] [address] [facility] 04/05/24 Nathaly Zuñiga, CLOTHESPIN DRIER OPERATOR.TEMPERATURE CONTROL INSPECTOR [address] [place] [address] [facility] 04/05/24 Service Officer Relationship Specialty Start Date End Date Antolin June DO [address] [place] [address] PCP - General Family Medicine 01/19/13 Lily Mayers [address] [place] [address] Referring Talent Assistant 09/01/21 Shena Fraire, CLOTHESPIN DRIER OPERATOR.TEMPERATURE CONTROL INSPECTOR [address] [place] [address] [facility] 04/05/24 Nathaly Zuñiga, CLOTHESPIN DRIER OPERATOR.TEMPERATURE CONTROL INSPECTOR [address] [place] [address] [facility] 04/05/24 Service Officer Relationship Specialty Start Date End Date Antolin June DO [address] [place] [address] PCP - General Family Medicine 01/19/13 Lily Mayers [address] [place] [address] Referring Talent Assistant 09/01/21 Shena Fraire, CLOTHESPIN DRIER OPERATOR.TEMPERATURE CONTROL INSPECTOR [address] [place] [address] [facility] 04/05/24 Nathaly Zuñiga, CLOTHESPIN DRIER OPERATOR.TEMPERATURE CONTROL INSPECTOR [address] [place] [address] [facility] 04/05/24 Service Officer Relationship Specialty Start Date End Date Antolin June DO [address] [place] [address] PCP - General Family Medicine 01/19/13 Lily Mayers [address] [place] [address] Referring Talent Assistant 09/01/21 Shena Fraire, CLOTHESPIN DRIER OPERATOR.TEMPERATURE CONTROL INSPECTOR [address] [place] [address] [facility] 04/05/24 Nathaly Zuñiga, CLOTHESPIN DRIER OPERATOR.TEMPERATURE CONTROL INSPECTOR [address] [place] [address] [facility] 04/05/24 Service Officer Relationship Specialty Start Date End Date Antolin June DO [address] [place] [address] PCP - General Family Medicine 01/19/13 Lily Mayers [address] [place] [address] Referring Talent Assistant 09/01/21 Shena Fraire, CLOTHESPIN DRIER OPERATOR.TEMPERATURE CONTROL INSPECTOR [address] [place] [address] [facility] 04/05/24 Nathaly Zuñiga, CLOTHESPIN DRIER OPERATOR.TEMPERATURE CONTROL INSPECTOR [address] [place] [address] [facility] 04/05/24 Service Officer Relationship Specialty Start Date End Date Antolin June DO [address] [place] [address] PCP - General Family Medicine 01/19/13 Lily Mayers [address] [place] [address] Referring Talent Assistant 09/01/21 Shena Fraire, CLOTHESPIN DRIER OPERATOR.TEMPERATURE CONTROL INSPECTOR [address] [place] [address] [facility] 04/05/24 [facility], CLOTHESPIN DRIER OPERATOR.TEMPERATURE CONTROL INSPECTOR [address] [facility] [place] [address] [facility] 04/05/24 Service Officer Relationship Specialty Start Date End Date Antolin June DO [address] [facility] [place] [address] PCP - General Family Medicine 01/19/13 Lily Mayers, TEMPERATURE CONTROL INSPECTOR [address] [facility] [place] [address] Referring Talent Assistant 09/01/21 Shena Fraire, CLOTHESPIN DRIER OPERATOR.TEMPERATURE CONTROL INSPECTOR [address] [place] [address] [facility] 04/05/24 [facility], CLOTHESPIN DRIER OPERATOR.TEMPERATURE CONTROL INSPECTOR [address] [place] [address] [facility] 04/05/24 Service Officer Relationship Specialty Start Date End Date Antolin June DO [address] [place] [address] PCP - General Family Medicine 01/19/13 Lily Mayers, TEMPERATURE CONTROL INSPECTOR [address] [place] [address] Referring Talent Assistant 09/01/21 Shena Fraire, CLOTHESPIN DRIER OPERATOR.TEMPERATURE CONTROL INSPECTOR [address] [place] [address] [facility] 04/05/24 YogeshNathaly, CLOTHESPIN DRIER OPERATOR.TEMPERATURE CONTROL INSPECTOR [address] [place] [address] [facility] 04/05/24 Service Officer Relationship Specialty Start Date End Date Antolin June DO [address] [place] [address] PCP - General Family Medicine 01/19/13 Lily Mayers, JUMANA [address] [place] [address] Referring Talent Assistant 09/01/21 Shena Fraire, CLOTHESPIN DRIER OPERATOR.TEMPERATURE CONTROL INSPECTOR [address] [place] [address] [facility] 04/05/24 YogeshNathaly, CLOTHESPIN DRIER OPERATOR.TEMPERATURE CONTROL INSPECTOR [address] [place] [address] [facility] 04/05/24 Service Officer Relationship Specialty Start Date End Date Antolin June DO [address] [place] [address] PCP - General Family Medicine 01/19/13 Lily Mayers CNP [address] [place] [address] Referring Talent Assistant 09/01/21 Shena Fraire, CLOTHESPIN DRIER OPERATOR.TEMPERATURE CONTROL INSPECTOR [address] [place] [address] [facility] 04/05/24 [facility], CLOTHESPIN DRIER OPERATOR.TEMPERATURE CONTROL INSPECTOR [address] [place] [address] [facility] 04/05/24 Service Officer Relationship Specialty Start Date End Date Antolin June DO [address] [place] [address] PCP - General Family Medicine 01/19/13 Lily Mayers, TEMPERATURE CONTROL INSPECTOR [address] [place] [address] Referring Talent Assistant 09/01/21 Shena Fraire, CLOTHESPIN DRIER OPERATOR.TEMPERATURE CONTROL INSPECTOR [address] [facility] [place] [address] [facility] 04/05/24 [facility] Center[facility]athaly, CLOTHESPIN DRIER OPERATOR.TEMPERATURE CONTROL INSPECTOR [address] [place] [address] [facility] 04/05/24 Service Officer Relationship Specialty Start Date End Date Antolin June DO [address] [facility] [place] [address] PCP - General Family Medicine 01/19/13 Lily Mayers, TEMPERATURE CONTROL INSPECTOR [address] [place] [place] [address] Referring Talent Assistant 09/01/21 Shena Fraire, CLOTHESPIN DRIER OPERATOR.TEMPERATURE CONTROL INSPECTOR [address] [place] [address] [facility] 04/05/24 YogeshNathaly, CLOTHESPIN DRIER OPERATOR.TEMPERATURE CONTROL INSPECTOR [address] [place] [address] [facility] 04/05/24 Service Officer Relationship Specialty Start Date End Date Antolin June DO [address] [place] [address] PCP - General Family Medicine 01/19/13 Lily Mayers, TEMPERATURE CONTROL INSPECTOR [address] [place] [address] Referring Talent Assistant 09/01/21 Shena Fraire, CLOTHESPIN DRIER OPERATOR.TEMPERATURE CONTROL INSPECTOR [address] [place] [address] [facility] 04/05/24 YogeshNathaly, CLOTHESPIN DRIER OPERATOR.TEMPERATURE CONTROL INSPECTOR [address] [place] [address] [facility] 04/05/24 Service Officer Relationship Specialty Start Date End Date Antolin June DO [address] [place] [address] PCP - General Family Medicine 01/19/13 Lily Mayers, JUMANA [address] [place] [address] Referring Talent Assistant 09/01/21 Shena Fraire, CLOTHESPIN DRIER OPERATOR.TEMPERATURE CONTROL INSPECTOR [address] [place] [address] [facility] 04/05/24 [facility] CenterNathaly, CLOTHESPIN DRIER OPERATOR.TEMPERATURE CONTROL INSPECTOR [address] [place] [address] [facility] 04/05/24 Service Officer Relationship Specialty Start Date End Date Antolin June DO [address] [facility] [place] [address] PCP - General Family Medicine 01/19/13 Lily Mayers, TEMPERATURE CONTROL INSPECTOR [address] [facility] [place] [address] Referring Talent Assistant 09/01/21 Shena Fraire, CLOTHESPIN DRIER OPERATOR.TEMPERATURE CONTROL INSPECTOR [address] [facility] [place] [address] [facility] 04/05/24 [facility] CenterN[facility], CLOTHESPIN DRIER OPERATOR.TEMPERATURE CONTROL INSPECTOR [address] [facility] [place] [address] [facility] 04/05/24 Service Officer Relationship Specialty Start Date End Date Antolin June DO [address] [facility] [place] [address] PCP - General Family Medicine 01/19/13 Lily Mayers, TEMPERATURE CONTROL INSPECTOR [address] [facility] [place] [address] Referring Talent Assistant 09/01/21 Shena Fraire, CLOTHESPIN DRIER OPERATOR.TEMPERATURE CONTROL INSPECTOR [address] [facility] [place] [address] [facility] 04/05/24 [facility] CenterNathaly, CLOTHESPIN DRIER OPERATOR.TEMPERATURE CONTROL INSPECTOR [address] [place] [address] [facility] 04/05/24 Service Officer Relationship Specialty Start Date End Date Antolin June DO [address] [place] [address] PCP - General Family Medicine 01/19/13 Lily Mayers, TEMPERATURE CONTROL INSPECTOR [address] [place] [address] Referring Talent Assistant 09/01/21 Shena Fraire, CLOTHESPIN DRIER OPERATOR.TEMPERATURE CONTROL INSPECTOR [address] [place] [address] [facility] 04/05/24 YogeshNathaly, CLOTHESPIN DRIER OPERATOR.TEMPERATURE CONTROL INSPECTOR [address] [place] [address] [facility] 04/05/24 Service Officer Relationship Specialty Start Date End Date Antolin June DO [address] [facility] [place] [address] PCP - General Family Medicine 01/19/13 Lily Mayers, TEMPERATURE CONTROL INSPECTOR [address] [place] [address] Referring Talent Assistant 09/01/21 Shena Fraire, CLOTHESPIN DRIER OPERATOR.TEMPERATURE CONTROL INSPECTOR [address] [place] [address] [facility] 04/05/24 Nathaly Zuñiga, CLOTHESPIN DRIER OPERATOR.TEMPERATURE CONTROL INSPECTOR [address] [place] [address] [facility] 04/05/24 Service Officer Relationship Specialty Start Date End Date Antolin June DO [address] [place] [address] PCP - General Family Medicine 01/19/13 Lily Mayers, TEMPERATURE CONTROL INSPECTOR [address] [place] [address] Referring Talent Assistant 09/01/21 Shena Fraire, CLOTHESPIN DRIER OPERATOR.TEMPERATURE CONTROL INSPECTOR [address] [place] [address] [facility] 04/05/24 Nathaly Zuñiga, CLOTHESPIN DRIER OPERATOR.TEMPERATURE CONTROL INSPECTOR [address] [place] [address] [facility] 04/05/24 Service Officer Relationship Specialty Start Date End Date Antolin June DO [address] [place] [address] PCP - General Family Medicine 01/19/13 Lily Mayers, TEMPERATURE CONTROL INSPECTOR [address] [place] [address] Referring Talent Assistant 09/01/21 Shena Fraire, CLOTHESPIN DRIER OPERATOR.TEMPERATURE CONTROL INSPECTOR [address] [place] [address] [facility] 04/05/24 Nathaly Zuñiga, CLOTHESPIN DRIER OPERATOR.TEMPERATURE CONTROL INSPECTOR [address] [place] [address] [facility] 04/05/24 Service Officer Relationship Specialty Start Date End Date Antolin June DO [address] [place] [address] PCP - General Family Medicine 01/19/13 Lily Mayers, TEMPERATURE CONTROL INSPECTOR [address] [place] [address] Referring Talent Assistant 09/01/21 Shena Fraire, CLOTHESPIN DRIER OPERATOR.TEMPERATURE CONTROL INSPECTOR [address] [place] [address] [facility] 04/05/24 Nathaly Zuñiga, CLOTHESPIN DRIER OPERATOR.TEMPERATURE CONTROL INSPECTOR [address] [place] [address] [facility] 04/05/24 Service Officer Relationship Specialty Start Date End Date Antolin June DO [address] [place] [address] PCP - General Family Medicine 01/19/13 Lily Mayers, TEMPERATURE CONTROL INSPECTOR [address] [place] [address] Referring Talent Assistant 09/01/21 Shena Fraire, CLOTHESPIN DRIER OPERATOR.TEMPERATURE CONTROL INSPECTOR [address] [place] [address] [facility] 04/05/24 Nathaly Zuñiga, CLOTHESPIN DRIER OPERATOR.TEMPERATURE CONTROL INSPECTOR [address] [place] [address] [facility] 04/05/24 Service Officer Relationship Specialty Start Date End Date Antolin June DO [address] [place] [address] PCP - General Family Medicine 01/19/13 Lily Mayers, JUMANA [address] [place] [address] Referring Talent Assistant 09/01/21 Shena Fraire, CLOTHESPIN DRIER OPERATOR.TEMPERATURE CONTROL INSPECTOR [address] [place] [address] [facility] 04/05/24 YogeshNathaly, CLOTHESPIN DRIER OPERATOR.TEMPERATURE CONTROL INSPECTOR [address] [place] [address] [facility] 04/05/24 Service Officer Relationship Specialty Start Date End Date Antolin June DO [address] [place] [address] PCP - General Family Medicine 01/19/13 Lily Mayers, JUMANA [address] [place] [address] Referring Talent Assistant 09/01/21 YogeshNathaly, CLOTHESPIN DRIER OPERATOR.TEMPERATURE CONTROL INSPECTOR [address] [place] [address] [facility] 04/05/24 Service Officer Relationship Specialty Start Date End Date Antolin June DO [address] [place] [address] PCP - General Family Medicine 01/19/13 Lily Mayers, TEMPERATURE CONTROL INSPECTOR [address] [place] [address] Referring Talent Assistant 09/01/21 [facility] Center[facility], CLOTHESPIN DRIER OPERATOR.TEMPERATURE CONTROL INSPECTOR [address] [place] [address] [facility] 04/05/24 Service Officer Relationship Specialty Start Date End Date Antolin June DO [address] [place] [address] PCP - General Family Medicine 01/19/13 Lily Mayers, TEMPERATURE CONTROL INSPECTOR [address] [place] [address] Referring Talent Assistant 09/01/21 [facility], CLOTHESPIN DRIER OPERATOR.TEMPERATURE CONTROL INSPECTOR [address] [place] [address] [facility] 04/05/24 Service Officer Relationship Specialty Start Date End Date Antolin June DO [address] [place] [address] PCP - General Family Medicine 01/19/13 Lily Mayers, TEMPERATURE CONTROL INSPECTOR [address] [place] [address] Referring Talent Assistant 09/01/21 [facility] CenterN[facility], CLOTHESPIN DRIER OPERATOR.TEMPERATURE CONTROL INSPECTOR [address] [facility] [place] [address] [facility] 04/05/24 Service Officer Relationship Specialty Start Date End Date Antolin June DO [address] [place] [address] PCP - General Family Medicine 01/19/13 Lily Mayers, TEMPERATURE CONTROL INSPECTOR [address] [facility] [place] [address] Referring Talent Assistant 09/01/21 YogeshNathaly, CLOTHESPIN DRIER OPERATOR.TEMPERATURE CONTROL INSPECTOR [address] [facility] [place] [address] [facility] 04/05/24 Service Officer Relationship Specialty Start Date End Date Antolin June DO [address] [facility] [place] [address] PCP - General Family Medicine 01/19/13 Lily Mayers, TEMPERATURE CONTROL INSPECTOR [address] [place] [address] Referring Talent Assistant 09/01/21 YogeshNathaly, CLOTHESPIN DRIER OPERATOR.TEMPERATURE CONTROL INSPECTOR [address] [place] [address] [facility] 04/05/24 Service Officer Relationship Specialty Start Date End Date Antolin June DO [address] [facility] [place] [address] PCP - General Family Medicine 01/19/13 Lily Mayers, TEMPERATURE CONTROL INSPECTOR [address] [place] [address] Referring Talent Assistant 09/01/21 YogeshNathaly, CLOTHESPIN DRIER OPERATOR.TEMPERATURE CONTROL INSPECTOR [address] [facility] [place] [address] [facility] 04/05/24 Service Officer Relationship Specialty Start Date End Date Antolin June DO [address] [place] [address] PCP - General Family Medicine 01/19/13 Lily Mayers CNP [address] [place] [address] Referring Talent Assistant 09/01/21 YogeshNathaly, CLOTHESPIN DRIER OPERATOR.TEMPERATURE CONTROL INSPECTOR [address] [place] [address] [facility] 04/05/24 Service Officer Relationship Specialty Start Date End Date Antolin June DO [address] [place] [address] PCP - General Family Medicine 01/19/13 Lily Mayers CNP [address] [place] [address] Referring Talent Assistant 09/01/21 [facility] CenterN[facility], CLOTHESPIN DRIER OPERATOR.TEMPERATURE CONTROL INSPECTOR [address] [place] [address] [facility] 04/05/24 Service Officer Relationship Specialty Start Date End Date Antolin June DO [address] [place] [address] PCP - General Family Medicine 01/19/13 Lily Mayers, JUMANA [address] [place] [address] Referring Talent Assistant 09/01/21 Nathaly Zuñiga, CLOTHESPIN DRIER OPERATOR.TEMPERATURE CONTROL INSPECTOR [address] [place] [address] [facility] 04/05/24 Service Officer Relationship Specialty Start Date End Date Antolin June DO [address] [place] [address] PCP - General Family Medicine 01/19/13 Lily Mayers, TEMPERATURE CONTROL INSPECTOR [address] [place] [address] Referring Talent Assistant 09/01/21 YogeshNathaly montelongo, CLOTHESPIN DRIER OPERATOR.TEMPERATURE CONTROL INSPECTOR [address] [place] [address] [facility] 04/05/24 Service Officer Relationship Specialty Start Date End Date Antolin June DO [address] [facility] [place] [address] PCP - General Family Medicine 01/19/13 Lily Mayers, TEMPERATURE CONTROL INSPECTOR [address] [place] [address] Referring Talent Assistant 09/01/21 Nathaly Zuñiga, CLOTHESPIN DRIER OPERATOR.TEMPERATURE CONTROL INSPECTOR [address] [place] [address] [facility] 04/05/24 Service Officer Relationship Specialty Start Date End Date Antolin June DO [address] [facility] [place] [address] PCP - General Family Medicine 01/19/13 Lily Mayers, TEMPERATURE CONTROL INSPECTOR [address] [place] [address] Referring Talent Assistant 09/01/21 [facility], CLOTHESPIN DRIER OPERATOR.TEMPERATURE CONTROL INSPECTOR [address] [place] [address] [facility] 04/05/24 Service Officer Relationship Specialty Start Date End Date Antolin June DO [address] [place] [address] PCP - General Family Medicine 01/19/13 Lily Mayers, TEMPERATURE CONTROL INSPECTOR [address] [place] [address] Referring Talent Assistant 09/01/21 [facility] Nathaly, CLOTHESPIN DRIER OPERATOR.TEMPERATURE CONTROL INSPECTOR [address] [place] [address] [facility] 04/05/24 Service Officer Relationship Specialty Start Date End Date Antolin June DO [address] [place] [address] PCP - General Family Medicine 01/19/13 Lily Mayers, TEMPERATURE CONTROL INSPECTOR [address] [place] [address] Referring Talent Assistant 09/01/21 [facility], CLOTHESPIN DRIER OPERATOR.TEMPERATURE CONTROL INSPECTOR [address] [place] [address] Binder [facility] 04/05/24 Service Officer Relationship Specialty Start Date End Date Antolin June DO [address] [place] [address] PCP - General Family Medicine 01/19/13 Lily Mayers, TEMPERATURE CONTROL INSPECTOR [address] [place] [address] Referring Talent Assistant 09/01/21 Nathaly Zuñiga, MAXIMUS.TEMPERATURE CONTROL INSPECTOR [address] [place], [place] [address] [facility] 04/05/24 Service Officer Relationship Specialty Start Date End Date Antolin June DO [address] [place], [place] [address] PCP - General Family Medicine 01/19/13 Lily Mayers, JUMANA [address] [place], [place] [address] Referring Talent Assistant 09/01/21 Nathaly Zuñiga, MAXIMUS.TEMPERATURE CONTROL INSPECTOR [address] [place], [place] [address] [facility] 04/05/24 Reason for Visit (unrecogniz ed section and content) Reason Comments PT Discharge Specialty Diagnoses / Procedures Referred By Vini mclain Referred To Contact [facility] Diagnoses Pain in younger, unspecified laterality Procedures CONSULT TO PHYSICAL THERAPY PHYSICAL THERAPY EVALUATION HIGH COMPLEX 45 MINS Luciano Vides V, DO [address] [place] [address] [facility] [place] [address] [place] [id number] Referral ID Status Reason Start Date Expiration Date Visits Requested Visits Authorized [id number] Authorized Auto-Generat ed Referral 04/29/2021 04/28/2022 30 30 Reason Comments PT Progress Note Reason Comments Physical Therapy Reason Comments Pituitary Problem Reason Onset Date Comments Refill Request 09/27/2021 Refill Request 10/02/2021 Reason Onset Date Comments Refill Request Refill Request 10/02/2021 Reason Comments Medication Request toenail fungus Reason Comments Received Outside Medical Records Reason Comments Refill Request flexeril Follow Up OMT Reason Comments Question Reason Comments Fax Requested Reason Comments vv prep Reason Comments bilateral lower leg pain left worse than right New Patient Specialty Diagnoses / Procedures Referred By Contac t Referred To Contact Sports Medicine Diagnoses Pain in right hip Procedures CONSULT TO SPORTS MEDICINE OFFICE/OUTPATIENT [facility] 60-74 MINUTES Shena Kearney APRN.TEMPERATURE CONTROL INSPECTOR [address] [place] [address] Referral ID Status Reason Start Date Expiration Date V isits Requested Visits Authorized [id number] Closed PCP Requested Referral 10/11/2021 10/11/2022 1 1 Reason Comments Referral Request Reason Onset Date Comments Refill Request 11/08/2021 Reason Comments PT Eval Reason Onset Date Comments Refill Request 11/24/2021 Reason Onset Date Comments Refill Request 11/25/2021 Reason Comments Opened In Error Reason Onset Date Comments Refill Request 01/12/2022 Reason Comments Refill Request Reason Onset Date Comments Immunizations 01/15/2022 Flu vaccination Reason Comments Consult Reason Onset Date Comments Refill Request 01/24/2022 Reason Comments Derm Problem skin lesion removal Reason Comments Medication Question Reason Comments Approximately 4 month post visit bilater al younger pain Reason Comments Patient Question Reason Comments Follow Up Ortho appt Reason Comments OMT Reason Comments Patient Question Reason Comments Patient Update Reason Comments Abdominal Pain Belching, Gastropare sis, Constipation/Diarrhea- GES 02/17 Records in CE under Summarization Specialty Diagnoses / Procedures Referred By Contac t Referred To Contact Gastroenterology Diagnoses Belching Generalized abdominal pain Procedures CONSULT TO GASTROENTEROLOGY OFFICE/OUTPATIENT [facility] 60-74 MINUTES Antolin June, DO [address] [place] [address] Referral ID Status Reason Start Date Expiration Date V isits Requested Visits Authorized [id number] Closed PCP Requested Referral 04/06/2022 04/06/2023 1 1 Reason Comments Appointment Rescheduled Reason Comments Medication Authorization Reason Comments Appointment Reason Comments New Patient Abnormal labs Specialty Diagnoses / Procedures Referred By Contac t Referred To Contact Rheumatology Diagnoses Scl-70 antibody positive Neck pain Raynaud's phenomenon without gangrene Procedures CONSULT TO RHEUM/IMMUN DISEASE OFFICE/OUTPATIENT [facility] 60-74 MINUTES Antolin June L, DO [address] [place] [address] Referral ID Status Reason Start Date Expiration Date V isits Requested Visits Authorized [id number] Closed PCP Requested Referral 01/15/2022 01/15/2023 1 1 Reason Comments Results Reason Comments Follow Up Reason Onset Date Comments Refill Request 07/08/2022 Reason Comments fingernail problem Reason Onset Date Comments Refill Request 07/16/2022 Reason Onset Date Comments Refill Request 07/26/2022 Reason Comments Appointment reschedule Reason Comments Consult Epigastric abdominal pain/ Irritable bowel syndrome with alternating bowel habits Specialty Diagnoses / Procedures Referred By Contac t Referred To Contact General Surgery Diagnoses Epigastric abdominal pain Irritable bowel syndrome with alternating bowel habits Procedures CONSULT TO GENERAL SURGERY OFFICE/OUTPATIENT [facility] 60-74 MINUTES Antolin June, [address] [place] [address] Referral ID Status Reason Start Date Expiration Date V isits Requested Visits Authorized [id number] Closed PCP Requested Referral 08/14/2022 08/14/2023 1 1 Reason Onset Date Comments Refill Request 09/28/2022 Reason Onset Date Comments Refill Request 10/25/2022 Reason Comments Follow Up Reason Comments Forms Reason Comments Orders Knee Brace Reason Onset Date Comments Refill Request 01/02/2023 Reason Onset Date Comments Refill Request 02/18/2023 Specialty Diagnoses / Procedures Referred By Contac t Referred To Contact MR IMAGING Diagnoses Abnormal brain MRI Procedures MRI PITUITARY WO/W IVCON MRI BRAIN BRAIN STEM W/O W/CONTRAST MATERIAL Raquel Hooper MD [address] [place] [address] [place] [address] Referral ID Status Reason Start Date Expiration Date V isits Requested Visits Authorized [id number] Closed Auto-Generate d Referral 10/06/2022 11/05/2022 1 1 Specialty Diagnoses / Procedures Referred By Contac t Referred To Contact MR IMAGING Diagnoses Encounter for observation for other suspected diseases and conditions ruled out Bilateral leg pain Procedures MRI LOWER LEG WO IVCON RT MRI LOWER EXTREM OTH/THN JT W/O CONTR MATRRere Castaneda MD [address] [place] [address] Mr Imaging [id number] Referral ID Status Reason Start Date Expiration Date V isits Requested Visits Authorized [id number] Closed Auto-Generate d Referral 06/15/2022 07/15/2022 1 1 Reason Onset Date Comments Refill Request 03/29/2023 Reason Onset Date Comments Refill Request 04/30/2023 Reason Comments New Patient Pt reported Hx inter mittent Salguero, x5 yrs. increased in sxs x 6 mths. Specialty Diagnoses / Procedures Referred By Contac t Referred To Contact Neurology Diagnoses Headache disorder Procedures CONSULT TO NEUROLOGY OFFICE/OUTPATIENT [facility] MDM 60-74 MINUTES Antolin June L, DO [address] [place] [address] Referral ID Status Reason Start Date Expiration Date V isits Requested Visits Authorized [id number] Closed PCP Requested Referral 04/30/2023 04/29/2024 1 1 Reason Comments Acute Visit Ear pain x couple we eks with dizzy spells; now feels nausea with movement; ears feel itchy Reason Onset Date Comments Refill Request 06/26/2023 Reason Comments New Patient Low Back Pain Right Hip Pain Left Hip Pain Specialty Diagnoses / Procedures Referred By Contac t Referred To Contact Orthopedics Diagnoses Chronic midline low back pain without sciatica Other form of scoliosis of thoracolumbar spine Procedures CONSULT TO ORTHOPAEDICS OFFICE/OUTPATIENT [facility] MDM 60-74 MINUTES Antolin June L, DO [address] [place] [address] Referral ID Status Reason Start Date Expiration Date V isits Requested Visits Authorized [id number] Closed PCP Requested Referral 04/30/2023 04/29/2024 1 1 Specialty Diagnoses / Procedures Referred By Contac t Referred To Contact MR IMAGING Diagnoses Chronic intractable headache, unspecified headache type Procedures MRI BRAIN WO/W IVCON MRI BRAIN BRAIN STEM W/O W/CONTRAST MATERIAL Mahad Izaguirre Jr., MD [address] [facility] [address] [place] [address] Mr Imaging [id number] Referral ID Status Reason Start Date Expiration Date V isits Requested Visits Authorized [id number] Closed Auto-Generate d Referral 06/17/2023 07/17/2023 1 1 Reason Comments Follow Up Follow up Salguero, report ed d/c Topamax reported increased N/V, anxiety. Currently having x14 Salguero per month. Reason Comments Follow Up Follow up migraine H a, pt reported Gabapentin improved Salguero with no migraine. Reason Onset Date Comments Refill Request 08/19/2023 Reason Onset Date Comments Refill Request 08/18/2023 Reason Comments Medication Authorization Reason Comments Question persist Reason Comments Abdominal Pain Reason Onset Date Comments Refill Request 09/18/2023 Reason Comments Dizziness Reason Comments Results xray Reason Comments Ear Problem Left with fluid rece ntly, ear continues to cause pain that comes and goes and is causing balance issues Reason Comments Insurance Authorization Botox Reason Comments Acute Visit L foot redness/swell ing/seeping; stung by bee on Saturday; using atb ointment, baking soda Reason Onset Date Comments Refill Request 11/26/2023 Reason Onset Date Comments Refill Request 12/18/2023 Reason Comments Insurance Authorization Reason Onset Date Comments Refill Request 12/18/2023 Reason Comments Headaches Reason Comments compression sleeve/ATB to be sent to [facility] Reason Onset Date Comments Refill Request 01/27/2024 Reason Comments Orders Reason Comments Botox Injection Specialty Diagnoses / Procedures Referred By Vini mclain Referred To Contact ADULT NEUROLOGY Diagnoses Chronic migraine without aura, intractable, without status migrainosus Procedures BOTULINUM TOXIN A PER 1 UNIT CHEMODERVATE FACIAL/TRIGEM/CERV MUSC MIGRAINE Alicja West PA-C [address] [place] [address] Farida Lynos [address] [place] [address] Referral ID Status Reason Start Date Expiration Date V isits Requested Visits Authorized [id number] Authorized 12/24/2023 03/25/2024 2 2 Reason Comments Headaches Refraction Reason Onset Date Comments Refill Request 02/10/2024 Reason Onset Date Comments Refill Request 03/23/2024 Reason Comments New Patient Skin allergy testing Specialty Diagnoses / Procedures Referred By Contkale t Referred To Contact Allergy Diagnoses Chronic constipation Post-nasal drainage Procedures CONSULT TO ALLERGY/IMMUNOLOGY OFFICE/OUTPATIENT NEW HIGH MDM 60 MINUTES Antolin June DO [address] [place] [address] Referral ID Status Reason Start Date Expiration Date V isits Requested Visits Authorized [id number] Closed PCP Requested Referral 02/18/2024 02/17/2025 1 1 Reason Comments Abdominal Pain Reason Comments FYI-No Action Needed Reason Comments Radiology US Specialty Diagnoses / Procedures Referred By Contac t Referred To Contact US IMAGING Diagnoses Lower abdominal pain Procedures US ABDOMEN COMPLETE US ABDOMINAL REAL TIME W/IMAGE DOCUMENTATION Monica Hunt PA-C [address] [facility] [place] [address] [place] [address] Referral ID Status Reason Start Date Expiration Date V isits Requested Visits Authorized [id number] Closed Auto-Generate d Referral 04/15/2024 05/15/2025 1 1 Reason Onset Date Comments Refill Request 04/23/2024 Reason Comments Yearly Exam Referral ID Status Reason Start Date Expiration Date V isits Requested Visits Authorized [id number] Authorized 04/17/2024 04/17/2025 5 5 Reason Comments Discussion Follow Up Reason Onset Date Comments Refill Request 05/18/2024 Reason Comments New Specialty Diagnoses / Procedures Referred By Contac t Referred To Contact Orthopedics Diagnoses 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) Procedures CONSULT TO ORTHOPAEDICS OFFICE/OUTPATIENT NEW [facility] MDM 60 MINUTES Herve Madrid PA-C [address] [place] [address] Referral ID Status Reason Start Date Expiration Date V isits Requested Visits Authorized [id number] Closed PCP Requested Referral 05/05/2024 05/05/2025 1 1 Reason Comments 3 week f/u Reason Onset Date Comments Refill Request 06/10/2024 Patient Question 06/10/2024 re vascular rani travis consult Reason Onset Date Comments Refill Request 06/11/2024 Reason Onset Date Comments Refill Request 06/15/2024 Reason Comments Ear Pain Headache Head Congestion Reason Onset Date Comments Refill Request 06/20/2024 Reason Onset Date Comments Results 06/25/2024 Reason Comments Patient Update Patient Question Reason Comments Radiology CT Specialty Diagnoses / Procedures Referred By Contac t Referred To Contact CT IMAGING Diagnoses Localized enlarged lymph nodes Neck pain Procedures CT NECK SOFT TISSUE W IVCON CT SOFT TISSUE NECK W/CONTRAST MATERIAL Antolin June, DO [address] [facility] [place] [address] Phone: tel: fax: [place] [address] Referral ID Status Reason Start Date Expiration Date V isits Requested Visits Authorized [id number] Closed Auto-Generate d Referral 07/01/2024 07/31/2024 1 1 Reason Onset Date Comments Refill Request 07/20/2024 Reason Comments Change In Bowel Habits Specialty Diagnoses / Procedures Referred By Contac t Referred To Contact CT IMAGING Diagnoses Elevated fecal calprotectin Change in bowel habits Lower abdominal pain Procedures CT ABD/PEL W IVCON CT ABD & PELVIS W/CONTRAST Monica Hunt PA-C [address] [facility] [address] Phone: tel: fax: [facility] IMAGING [id number] Referral ID Status Reason Start Date Expiration Date V isits Requested Visits Authorized [id number] Closed Auto-Generate d Referral 07/21/2024 08/20/2024 2 2 Specialty Diagnoses / Procedures Referred By Contac t Referred To Contact ADULT NEUROLOGY Diagnoses Chronic migraine without aura, intractable, without status migrainosus Procedures BOTULINUM TOXIN A PER 1 UNIT CHEMODERVATE FACIAL/TRIGEM/CERV MUSC MIGRAINE Alicja West PA-C [address] [place] [address] [place] [address] Phone: tel: fax: Neurology [address] [place] [address] [place] [address] Phone: tel: fax: Reason Comments uti was here Saturday not feeling any bett er Reason Comments UTI Reason Onset Date Comments Results 08/12/2024 Specialty Diagnoses / Procedures Referred By Contac t Referred To Contact CT IMAGING Diagnoses Dysuria Acute cystitis with hematuria Nausea Lower abdominal pain Flank pain Procedures CT ABD/PEL W IVCON CT ABD & PELVIS W/CONTRAST Antolin June, DO [address] [facility] [place] [address] Phone: tel: fax: [place] [address] Referral ID Status Reason Start Date Expiration Date Visits Requested Visits Authorized [id number] Pending Review Auto-Genera rena Referral Patient Cleared - Admin/Chair man/Directo r advise to proceed or did not respond 08/12/2024 09/11/2025 2 2 Reason Comments patient freaking out about my chart mess age recieved on CT Reason Onset Date Comments Refill Request 08/24/2024 Reason Comments Patient Question Orders INFORMATION SOURCE (unrecogn ized section and content) DATE CREATED AUTHOR 06/08/2022 [facility] DATE CREATED AUTHOR AUTHOR'S ORGANIZ ATION 05/07/2024 [facility] DATE CREATED AUTHOR AUTHOR'S ORGANIZ ATION 08/26/2024 [facility] DATE CREATED AUTHOR AUTHOR'S ORGANIZ ATION 09/12/2024 [facility] DATE CREATED AUTHOR AUTHOR'S ORGANIZ ATION 09/27/2024 [facility] FOR RECORDS PERTAINING TO PATIENTS WHO ARE OR HAVE BEEN ENROLLED IN A CHEMICAL DEPENDENCY/SUBSTANCEABUSE PROGRAM, SOME INFORMATION MAY BE OMITTED. This clinical summary was aggregated from multiple sources. Caution should be exercised in using it in the provision of clinical care. This summary normalizes information from multiple sources, and as a consequence, information in this document may materially change the coding, format and clinical context of patient data. In addition, data may be omitted in some cases. CLINICAL DECISIONS SHOULD BE BASED ON THE PRIMARY CLINICAL RECORDS. [employer] provides no warranty or guarantee of the accuracy or completeness of information in this document.
[2024-10-05 01:14] LABS: Color, Urine Amber (Yellow); Glucose, Dipstick Normal (Normal); Ketone-Dipstick Negative (Negative); Leukocyte Esterase-Dipstick 500 /ul (Negative); Nitrite-Dipstick Positive (Negative); Occult Blood-Urine 10 /ul (Negative); Protein-Dipstick 30 mg/dl (Negative); Specific Gravity, Urine 1.025 (1.002-1.030); Urine Clarity Cloudy (Clear); Urine Urobilinogen 4 mg/dl (Normal)
[2024-10-05 01:15] LABS: Urine Bilirubin Dipstick 3 mg/dL (Negative)
[2024-10-05 01:16] LABS: Internal QC Validated? YES +Cl - CLEAR BKGD; Pregnancy, Urine Negative Negative; Record Kit Lot#,Urine Preg 947241
[2024-10-05 01:27] LABS: Squamous Epithelial Cells - UA 0-5 SEEN /hpf (5-10); White Blood Cells 50-100 SEEN /hpf (0-5)
[2024-10-05 01:28] LABS: Red Blood Cells-Urine 5-10 SEEN /hpf (0-5)
[2024-10-05 01:29] LABS: Bacteria 2+ /hpf (None Seen); Calcium Oxalate Crystals Ur 1+ /hpf (<or=2+)
[2024-10-05 01:41] LABS: Bedside Glucose 86 mg/dL (74-106)
[2024-10-05] MEDS: Cephalexin 250 MG Capsule 500 MG PO (01:49)
[2024-10-05 01:53] VITALS: BP 132/71; PULSE 89; RESP 16; TEMP 36.7; O2SAT 99
== END 2024-10-05 01:53 | disposition home or self-care (01) ==
PROVIDERS: Emergency Provider Emergency Medicine; PCP Student in an Organized Health Care Education/Training Program; Visit Provider Emergency Medicine
DX: N39.0 Urinary tract infection, site not specified (principal); Z79.899 Other long term (current) drug therapy; F41.8 Other specified anxiety disorders
CPT/HCPCS: 81001; 81025; 82962; 87086; 87088; 99282

== ENCOUNTER 2024-10-22 17:10 | Emergency (ER) | payer MEDICAID, SELFPAY ==
[2024-10-22 17:11] VITALS: BP 107/82; PULSE 107; RESP 15; TEMP 36.6; O2SAT 97; BMI 26.4
[2024-10-22 19:11] VITALS: RESP 16; O2SAT 100
[2024-10-22] MEDS: LORazepam 1 MG Tablet PO (20:02)
[2024-10-22 20:11] LABS: Absolute Lymphocyte Count 3.91 X10^3/uL (0.83-4.51); Absolute Neutrophil Count 3.3 X10^3/uL (2.0-7.7); Basophil# 0.05 X10^3/uL; Basophil% 0.6 % (0-1); Eosinophil# 0.06 X10^3/uL; Eosinophils% 0.8 % (0-5); Hematocrit 41.8 % (37-47); Hemoglobin 14.2 g/dL (12.0-15.0); Lymphocyte # 3.91 X10^3/ul (0.83-4.51); Lymphocyte % 50.1 % (19-41); Mean Corpuscular Hgb 30.3 pg (27.0-32.0); Mean Corpuscular Volume 89.3 fL (81-99); Monocyte# 0.44 X10^3/uL; Monocyte% 5.6 % (0-10); NRBC Flagged by Analyzer 0 % (0-5); Neutrophil # 3.32 X10^3/uL (2.7-7.7); Neutrophil % 42.6 % (47-70); Platelet Count 198 K/mm3 (150-450); RBC Distribution Width CV 12.4 % (11.6-14.6); RBC Distribution Width SD 40.3 fl (35.1-43.9); Red Blood Count 4.68 M/mm3 (4.2-5.4); White Blood Count 7.8 K/mm3 (4.4-11.0)
[2024-10-22 20:39] LABS: ALB/GLOB Ratio 1.4 RATIO (0.9-2.4); AST(SGOT) 21 U/L (<=31); Alanine Aminotransfer ALT/SGPT 24 U/L (<=34); Alkaline Phosphatase 42 U/L (35-104); Anion Gap 12 (5-15); BUN 10 mg/dL (4-19); BUN/Creat Ratio 12.4 RATIO (10-20); Calcium,Total 9.4 mg/dL (7.6-11.0); Chloride 105 mmol/L (98-108); Creatinine, Serum 0.82 mg/dL (0.70-1.20); EST Glomerular Filtration Rate 98 (>60); Estimated Creatinine Clearance 101.59 ml/min (50-250); Globulin 2.9 g/dL (2.2-4.2); Glucose 93 mg/dL (70-99); Potassium 3.9 mmol/L (3.3-5.1); Protein, Total 6.9 g/dL (5.9-8.4); Sodium Level 140 mmol/L (133-145); Total Bilirubin 0.39 mg/dL (0.00-1.30)
[2024-10-22 20:56] LABS: Bacteria 0 SEEN /hpf (None Seen); Mucous, Urine 0 SEEN /hpf (<or=2+)
[2024-10-22 21:00] VITALS: PULSE 103; RESP 17; O2SAT 100
[2024-10-22 21:37] LABS: Color, Urine Yellow (Yellow); Glucose, Dipstick Normal (Normal); Ketone-Dipstick Negative (Negative); Leukocyte Esterase-Dipstick Negative /ul (Negative); Nitrite-Dipstick Negative (Negative); Occult Blood-Urine Negative /ul (Negative); Protein-Dipstick Negative (Negative); Specific Gravity, Urine 1.015 (1.002-1.030); Urine Bilirubin Dipstick Negative (Negative); Urine Clarity Clear (Clear); Urine Urobilinogen Normal (Normal)
[2024-10-22 21:42] LABS: Internal QC Validated? YES +Cl - CLEAR BKGD
[2024-10-22 21:43] LABS: Pregnancy, Urine Negative Negative; Record Kit Lot#,Urine Preg 947241
[2024-10-22 22:30] LABS: Red Blood Cells-Urine 0-5 SEEN /hpf (0-5); Squamous Epithelial Cells - UA 0-5 SEEN /hpf (5-10); White Blood Cells 0-5 SEEN /hpf (0-5)
--- NOTE | 2024-10-22 22:57 | EX.ED.VIS.PS ---
HPI HPI - Psych History of Present Illness Chief Complaint: Mental Health Informant: patient Narrative Narrative: Patient is a 34-year-old female with history of PCOS, anxiety and depression as well as thyroiditis presenting with crying and sadness. Patient states she lives with her parents. She states since Saturday (3 days ago) she has been very sad and crying. She has had some associated nausea and diarrhea. She notes that she has had a little bit intermittent pain in her chest but attributes that to working hard in the barn over the weekend. It is transient. She states she called the counseling center and they sent her to the ER for evaluation. They also came in to evaluate her. She notes that she is on Klonopin, fluoxetine, risperidone and buspirone for her mental health. She follows with the counseling center for both psychiatry and counseling. She denies any recent medication changes. She is curious if she would benefit from a medication change. She has appointment to see her psychiatrist a week and a half. No other complaints or concerns at this time. She denies any HI and states she would kill herself but she does feel like she wishes she was not born and does not want to have to keep dealing with herself. She states she is tired and tired of fighting. Denies any HI PFSH PFS Medical History Neck pain Acute insomnia Bloating Epigastric pain Hyperprolactinemia Family history of breast cancer History of posttraumatic stress disorder (PTSD) Panic disorder Major depressive disorder, recurrent, moderate Thyroiditis PCOS (polycystic ovarian syndrome) Scoliosis Hx of migraine headaches Breast lump UTI (urinary tract infection) Back problem Anxiety and depression Seasonal allergies Home Medications ?Medication ?Instructions ?Recorded ?Last Taken ?Type glycopyrrolate 1 mg tablet 1 mg PO BID 08/05/16 Unknown History clonazepam 0.5 mg tablet 0.5 mg PO BID PRN Anxiety 08/05/17 Unknown History buspirone 30 mg tablet 30 mg PO BID 10/19/19 Unknown History triamcinolone acetonide 0.5 % 1 applic topical DAILY 10/19/19 Unknown History topical cream cyclobenzaprine 5 mg tablet 5 mg PO QHS 30 days #60 tabs 12/16/19 Unknown Rx famotidine 20 mg tablet (Pepcid) 40 mg PO QDAY 05/01/21 Unknown History fluvoxamine 100 mg tablet 100 mg PO QHS 05/01/21 Unknown History Bifidobacterium infantis 4 mg 4 mg PO QDAY 07/06/24 Unknown History capsule (Align (B.infantis)) diclofenac sodium 1 % topical gel 2 g topical ONCE 07/06/24 Unknown History fluticasone propionate 50 1 spray intranasal QDAY 07/06/24 Unknown History mcg/actuation nasal spray,suspension (Allergy Relief (fluticasone)) linaclotide 72 mcg capsule 72 mcg PO QAM 07/06/24 Unknown History (Linzess) montelukast 10 mg tablet 10 mg PO QHS 07/06/24 Unknown History naproxen 500 mg tablet 500 mg PO BID PRN pain 07/06/24 Unknown History risperidone 0.25 mg tablet 0.25 mg PO QHS 07/06/24 Unknown History segesterone acet 0.15 mg-ethinyl 1 vag ring vaginal Q4W #1 ea 07/08/24 Unknown Rx estradiol 0.013 mg/24 hr vaginal ring (Annovera) Allergy/AdvReac Type Severity Reaction Status Date / Time topiramate (From Topamax) Allergy Intermediate GI upset Verified 10/22/24 17:11 lactose AdvReac Intermediate Nausea/Vom/ Verified 10/22/24 17:11 Diarrhea ondansetron (From Zofran) AdvReac Intermediate Constipatio Verified 10/22/24 17:11 n metoclopramide AdvReac Mild Verified 10/22/24 17:11 adhesive tape AdvReac RASH Verified 10/22/24 17:11 haloperidol (From Haldol) AdvReac panic Verified 10/22/24 17:11 attack Family History Brother Asthma Mother Breast cancer Surgical History S/P right breast biopsy [place] teeth extracted right index finger Social History Smoking Status: Never smoker second hand exposure: No alcohol intake: never substance use type: does not use caffeine: No what type of physical activity do you participate in: none seatbelt use: always do you feel safe at home: Yes additional social history: single- ROS ROS ED Constitutional Constitutional ED: Denies chills or fever(s) Cardiovascular Cardiovascular: Reports chest pain Respiratory/Chest Respiratory/Chest: Denies cough Gastrointestinal Gastrointestinal: Reports diarrhea and nausea; Denies abdominal pain or vomiting Musculoskeletal Musculoskeletal: Denies arthralgias or myalgias Integumentary Denies rash Neurologic Neurologic: Denies headache(s) Psychiatric Psychiatric: Reports anxiety and depression; Denies suicidal ideation or suicidal thoughts EXAM Physical Exam Const Vital Signs: 10/22/24 17:11 10/22/24 19:11 10/22/24 21:00 Temperature 97.8 F Temperature Source Oral Pulse Rate 107 H 103 H Respiratory Rate 15 16 17 Blood Pressure 107/82 H Blood Pressure Mean 90 Pulse Ox 97 100 100 Oxygen Delivery Method Room Air Positive well nourished and well developed General Appearance ED: well developed and NAD HEENT Reports moist mucous membranes Eyes PERRL Neck supple Resp normal respiratory effort and clear to auscultation bilaterally Cardio Rate: regular rate Rhythm: regular rhythm Extremity normal to inspection Neuro oriented x3 Sensorium / Orientation: alert Motor Exam: Negative for general weakness Psych thought process normal and cooperative Appearance: grossly normal Attitude: calm Activity / Motor Behavior: appropriate eye contact Speech: normal speech Mood & Affect: depressed, sad and tearful Thought Process: normal thought process Thought Content: normal thought content, No suicidality, No homicidality and No delusion(s) Attention / Concentration: attention grossly intact Memory / Cognition: memory grossly intact Insight: insight good Judgement: judgement good Skin Rashes: no rashes MDM MDM MDM Narrative Medical decision making narrative: Patient is evaluated for her symptoms like exacerbation of depression and anxiety. She is quite tearful and crying. She is otherwise acting appropriately. She does not appear internally stimulated. She denies any thoughts of self-harm. She states she does not want to and would not kill herself. She is evaluated by the counseling center and they will contract for safety. She will follow-up next week with her psychiatrist. She is given dose of Ativan for her acute anxiety in the ER. On repeat evaluation she is resting and seems much more comfortable. Because of her nausea, diarrhea had an episode of chest pain intermittently I did obtain basic labs as well as an EKG and a TSH. Lab work and EKG largely normal. At this time I feel that patient can follow-up safely outpatient. She is agreeable with this. Mother is not at the bedside. Given return precautions. Discharged home in stable condition. Lab Data Attestation: I reviewed the patient's lab results. Labs: Laboratory Results - last 24 hr 10/22/24 10/22/24 20:06 20:50 WBC 7.8 RBC 4.68 Hgb 14.2 Hct 41.8 MCV 89.3 MCH 30.3 MCHC 34.0 RDW Std Deviation 40.3 RDW Coeff of Dre 12.4 Plt Count 198 MPV 9.0 Immature Gran % (Auto) 0.300 Neut % (Auto) 42.6 L Lymph % (Auto) 50.1 H Comal % (Auto) 5.6 Eos % (Auto) 0.8 Baso % (Auto) 0.6 Absolute Neuts (auto) 3.3 Absolute Lymphs (auto) 3.91 Nucleated RBC % 0 Sodium 140 Potassium 3.9 Chloride 105 Carbon Dioxide 24.0 Anion Gap 12 BUN 10 Creatinine 0.82 Estim Creat Clear Calc 101.59 Est GFR (MDRD) Non-Af 98 BUN/Creatinine Ratio 12.4 Glucose 93 Calcium 9.4 Total Bilirubin 0.39 AST 21 ALT 24 Alkaline Phosphatase 42 Total Protein 6.9 Albumin 4.0 Globulin 2.9 Albumin/Globulin Ratio 1.4 TSH 2.740 Urine Color Yellow Urine Clarity Clear Urine pH 6.0 Ur Specific [place] 1.015 Urine Protein Negative Urine Glucose (UA) Normal Urine Ketones Negative Urine Occult Blood Negative Urine Nitrite Negative Urine Bilirubin Negative Urine Urobilinogen Normal Ur Leukocyte Esterase Negative Urine RBC 0-5 SEEN Urine WBC 0-5 SEEN Ur Squamous Epith Cells 0-5 SEEN Urine Bacteria 0 SEEN Urine Mucus 0 SEEN Urine Test Negative Rhythm Strip Rhythm Strip: Sinus Rhythm Rate: 86 Ectopy: None EKG Initial EKG: Attestation: I personally reviewed and interpreted this EKG as follows: Interpretation: Sinus Rhythm Comments: Normal sinus rhythm rate of 86 bpm Normal axis Normal intervals Normal ST segments Management Discussion w/another healthcare provider: Behavioral health Discharge Plan Triage Chief Complaint: Mental Health ED Provider: Tia Sutherland Dx/Rx/DC Orders Clinical Impression: Anxiety and depression Instructions: ED Anxiety Reaction, ED Depression Prescriptions: No Action famotidine [Pepcid] 20 mg tablet 40 mg PO QDAY buspirone 30 mg tablet 30 mg PO BID triamcinolone acetonide 0.5 % cream 1 applic TOPICAL DAILY fluvoxamine 100 mg tablet 100 mg PO QHS Rx Instructions: Take three 100 mg tablets for total of 300 mg po daily. naproxen 500 mg tablet 500 mg PO BID PRN (Reason: pain) diclofenac sodium 1 % gel 2 g topical ONCE Rx Instructions: apply to single elbow, wrist or hand; for hand includes palm/fingers/back of hand risperidone 0.25 mg tablet 0.25 mg PO QHS Linzess 72 mcg capsule 72 mcg PO QAM Align (B.infantis) 4 mg capsule 4 mg PO QDAY montelukast 10 mg tablet 10 mg PO QHS fluticasone propionate [Allergy Relief (fluticasone)] 50 mcg/actuation spray,suspension 1 spray intranasal QDAY Patient Comments: not using right now Rx Instructions: administer into each nostril clonazepam 0.5 mg tablet 0.5 mg PO BID PRN (Reason: Anxiety) Patient Comments: Client states can take up to 2mg, has been taking approximately 0.75mg. glycopyrrolate 1 MG tablet 1 mg PO BID cyclobenzaprine 5 MG tablet 5 mg PO QHS 30 Days Qty: 60 1RF Rx Instructions: Take 1 to 2 po q hs Annovera 0.15-0.013 mg/24 hour ring 1 vag ring vaginal Q4W Qty: 1 0RF Rx Instructions: use continuously x 1 year Primary Care Provider: Antolin June Referrals: Antolin June DO [Primary Care Provider] - Activity Restrictions/Additional Instructions: Please follow-up with the counseling center. Follow-up with your psychiatry appointments. Continue taking medications as prescribed. Your workup today was largely normal very reassuring Print Language: Telugu Disposition Disposition: Home, Self Care
[2024-10-22 23:00] VITALS: BP 131/68; PULSE 71; RESP 16; O2SAT 97
== END 2024-10-22 23:08 | disposition home or self-care (01) ==
PROVIDERS: Emergency Provider Emergency Medicine; PCP Student in an Organized Health Care Education/Training Program; Visit Provider Emergency Medicine
DX: F41.9 Anxiety disorder, unspecified (principal); F33.1 Major depressive disorder, recurrent, moderate; R07.9 Chest pain, unspecified; R19.7 Diarrhea, unspecified; R11.0 Nausea; E28.2 Polycystic ovarian syndrome; F43.10 Post-traumatic stress disorder, unspecified; M41.9 Scoliosis, unspecified; Z86.39 Personal history of other endocrine, nutritional and metabolic disease; Z79.899 Other long term (current) drug therapy
CPT/HCPCS: 36415; 80053; 81001; 81025; 84443; 85025; 93005; 99284

== ENCOUNTER → 2024-10-23 | Outpatient (CLI) | payer MEDICAID, SELFPAY | END | disposition home or self-care (01) | LOC: LABSPEC 14:51 | PROVIDERS: PCP Student in an Organized Health Care Education/Training Program; Referring Provider Obstetrics & Gynecology; Visit Provider Obstetrics & Gynecology | DX: N89.8 Other specified noninflammatory disorders of vagina (principal) | CPT/HCPCS: 87070; 87205 ==

== ENCOUNTER → 2025-01-04 | Outpatient (CLI) | payer MEDICAID, SELFPAY | END | disposition home or self-care (01) | LOC: LABSPEC 16:23 | PROVIDERS: Visit Provider Obstetrics & Gynecology | DX: L29.2 Pruritus vulvae (principal); R10.2 Pelvic and perineal pain; R30.0 Dysuria | CPT/HCPCS: 87070; 87086; 87088; 87205 ==